=== PATIENT | female | born 1965 | race African-American/Black ===

== ENCOUNTER 2017-03-17 01:22 | Emergency (ER) | payer MEDICAID, OTHER ==
[~2017-03-17] VITALS: Ht 165.1 cm; Wt 114.0 kg
[~2017-03-17 01:22] MED LIST: AMLO10TA2 PO; GABA300C5 PO; HYDR12.57 PO; LISI40TA PO; ZANA4CAP PO
[2017-03-17 01:25] VITALS: BP 164/87; PULSE 100; RESP 16; TEMP 98.8; O2SAT 100
[2017-03-17] MEDS ORDERED: SODIUM CHLOR 0.9% 1000 ML INJ 1,000 ML IV SCH (02:55)
--- NOTE | 2017-03-17 02:57 | PD ---
HPI Chief Complaint: Headache Time Seen by Provider: 02:52 Travel History International Travel<30 days: No Contact w/Intl Traveler<30days: No Traveled to known affect area: No History of Present Illness HPI 51-year-old female here for evaluation of a headache. No started 2 days ago and have progressively gotten worse. She describes sharp shooting pains to the right side of her scalp occasionally on the left side. She denies history of migraines or similar headaches. No fevers or chills. No neck pain or stiffness. No paresthesias or motor deficits. No visual changes. She has felt nauseous and has had several episodes of vomiting. She also has some sensitivity to light. Pain is currently 10 out of 10. PFSH Past Medical History Anemia: Yes Arthritis: Yes Autoimmune Disease: No Blood Disorders: No Anxiety: Yes Depression: Yes Heart Rhythm Problems: No Cancer: No Cardiac Catheterization: No Cardiovascular Problems: Yes (HIGH BP) High Cholesterol: No Chemotherapy: No Chest Pain: Yes Congestive Heart Failure: No Diabetes: No Diminished Hearing: No Endocrine: No Fibromyalgia: Yes Gastrointestinal Disorders: Yes GERD: Yes Glaucoma: No Genitourinary: No Headaches: Yes Herniated Disk: Yes (bulging neck and lumbar) Hypertension: Yes Kidney Stones: Yes Musculoskeletal: Yes Neurologic: No Psychiatric: No Respiratory: No Immunizations Current: Yes Radiation Therapy: No Sickle Cell Disease: Yes (TRAIT) Tetanus Vaccination: > 5 Years Influenza Vaccination: No ?: Not Menopausal: Yes : 2 Para: 2 : 1 Tubal Ligation: Yes Past Surgical History Abdominal Surgery: Yes (GASTRIC BYPASS) Cardiac Surgery: No Section: Yes (X 2) Cholecystectomy: Yes Coronary Artery Bypass Graft: No Ear Surgery: No Endocrine Surgery: No Eye Surgery: No Genitourinary Surgery: Yes Gynecologic Surgery: Yes (UTERINE ABLATION) Neurologic Surgery: No Oral Surgery: No Thoracic Surgery: No Other Surgery: Yes (RT HAND CARPAL TUNNEL 2X, LT HAND CARPAL TUNNEL 1X) Social History Alcohol Use: Yes (OCC) Tobacco Use: No Substance Use: No Allergies-Medications (Allergen,Severity, Reaction): Coded Allergies: aspirin (Unverified Adverse Reaction, Intermediate, Nausea/Vomiting, ) ibuprofen (Unverified Adverse Reaction, Intermediate, Nausea/Vomiting, 03/17) Reported Meds & Prescriptions Reported Meds & Active Scripts Active Reported Hydrochlorothiazide 12.5 Mg Cap 12.5 Mg PO BID Lisinopril 40 Mg Tab 40 Mg PO DAILY Amlodipine (Amlodipine Besylate) 10 Mg Tab 10 Mg PO DAILY Zanaflex (Tizanidine HCl) 4 Mg Cap 4 Mg PO QID Gabapentin 300 Mg Cap 300 Mg PO TID Review of Systems Except as stated in HPI: all other systems reviewed are Neg Physical Exam Narrative GENERAL: Well-developed, well-nourished, overweight appearing, no apparent distress. SKIN: Focused skin assessment warm/dry. No rash. HEAD: Atraumatic. Normocephalic. No temporal tenderness. EYES: Pupils equal and round. No scleral icterus. No injection or drainage. ENT: Mucous membranes pink and moist. NECK: Trachea midline. No JVD. No nuchal rigidity. CARDIOVASCULAR: Regular rate and rhythm. RESPIRATORY: No accessory muscle use. Clear to auscultation. Breath sounds equal bilaterally. MUSCULOSKELETAL: No obvious deformities. No clubbing. No cyanosis. No edema. NEUROLOGICAL: Awake and alert. No obvious cranial nerve deficits. Motor grossly within normal limits. Normal speech. PSYCHIATRIC: Appropriate mood and affect; insight and judgment normal. Data Data Last Documented VS Vital Signs Date Time Temp Pulse Resp B/P (MAP) Pulse Ox O2 Delivery O2 Flow Rate FiO2 03/17/17 03:10 100 Room Air 03/17/17 02:55 18 03/17/17 01:25 98.8 100 Orders Orders Basic Metabolic Panel (Bmp) (03/17/17 02:55) Complete Blood Count With Diff (03/17/17 02:55) Iv Access Insert/Monitor (03/17/17 02:55) Ecg Monitoring (03/17/17 02:55) Oximetry (03/17/17 02:55) Morphine Inj (Morphine Inj) (03/17/17 03:00) Sodium Chlor 0.9% 1000 Ml Inj (Ns 1000 M (03/17/17 02:55) Sodium Chloride 0.9% Flush (Ns Flush) (03/17/17 03:00) Metoclopramide Inj (Reglan Inj) (03/17/17 03:00) Ct Brain W/O Iv Contrast(Rout) (03/17/17 ) Labs Laboratory Tests Test 03/17/17 03:00 White Blood Count 8.5 TH/MM3 Red Blood Count 4.65 MIL/MM3 Hemoglobin 12.2 GM/DL Hematocrit 37.1 % Mean Corpuscular Volume 79.9 FL Mean Corpuscular Hemoglobin 26.3 PG Mean Corpuscular Hemoglobin Concent 32.9 % Red Cell Distribution Width 15.5 % Platelet Count 378 TH/MM3 Mean Platelet Volume 8.6 FL Neutrophils (%) (Auto) 52.3 % Lymphocytes (%) (Auto) 38.2 % Monocytes (%) (Auto) 7.3 % Eosinophils (%) (Auto) 1.3 % Basophils (%) (Auto) 0.9 % Neutrophils # (Auto) 4.5 TH/MM3 Lymphocytes # (Auto) 3.3 TH/MM3 Monocytes # (Auto) 0.6 TH/MM3 Eosinophils # (Auto) 0.1 TH/MM3 Basophils # (Auto) 0.1 TH/MM3 CBC Comment DIFF FINAL Differential Comment Blood Urea Nitrogen 16 MG/DL Creatinine 1.12 MG/DL Random Glucose 98 MG/DL Calcium Level 8.8 MG/DL Sodium Level 141 MEQ/L Potassium Level 4.8 MEQ/L Chloride Level 109 MEQ/L Carbon Dioxide Level 25.3 MEQ/L Anion Gap 7 MEQ/L Estimat Glomerular Filtration Rate 62 ML/MIN [facility] Medical Decision Making Medical Screen Exam Complete: Yes Emergency Medical Condition: Yes Medical Record Reviewed: Yes Differential Diagnosis Tension headache, cluster headache, migraine headache, SAH/meningitis/ encephalitis unlikely, temporal arteritis unlikely Narrative Course Initial vital signs show heart rate 100, blood pressure 164/87, pulse ox 100% on room air, oral temp of 98.8F. CBC is unremarkable. BMP is essentially unremarkable. CT head: No acute intracranial abnormality. The patient was given a liter of normal saline IV, IV morphine, and IV Reglan. On reassessment she is resting comfortably, stating that her headache has resolved. I do not believe that there is a serious etiology for her headache such as SAH/meningitis/encephalitis. She more likely had a tension headache. At this point she is stable for discharge home with outpatient follow-up with her primary care physician this week. She was informed on when to return to the emergency department. She verbalizes understanding and agreement with plan. Diagnosis Primary Impression: Headache Qualified Codes: R51 - Headache Referrals: Primary Care Physician 3 days Additional Instructions: Follow-up with your primary care physician this week. Return to the emergency department for worsening symptoms or any other concerns. Disposition: 01 DISCHARGE HOME Condition: Stable Rudy Duarte MD Mar 17, 2017 02:57
[2017-03-17] MEDS ORDERED: METOCLOPRAMIDE HCL 10 MG/2 ML VIAL IV PUSH ONE (03:00)
[2017-03-17] MEDS ORDERED: MORPHINE SULFATE 4 MG/ML INJ IV PUSH ONE (03:00)
[2017-03-17] MEDS ORDERED: SODIUM CHLORIDE 0.9% FLUSH 10 ML FLUSH IV FLUSH PRN (03:00)
[2017-03-17 03:10] VITALS: O2SAT 100
[2017-03-17 03:22] LABS: AUTOMATED NEUTROPHIL # 4.5 TH/MM3 (1.8-7.7); BASOPHIL # 0.1 TH/MM3 (0-0.2); BASOPHIL % 0.9 % (0.0-2.0); EOSINOPHIL # 0.1 TH/MM3 (0-0.4); EOSINOPHIL % 1.3 % (0.0-4.0); HEMATOCRIT 37.1 % (35.0-46.0); HEMO FLAGS DIFF FINAL; LYMPH % 38.2 % (9.0-44.0); LYMPHOCYTE # 3.3 TH/MM3 (1.0-4.8); MEAN CELL VOLUME 79.9 FL (80.0-100.0); MEAN CORPUSCULAR HEMOGLOBIN 26.3 PG (27.0-34.0); MEAN CORPUSCULAR HGB CONC 32.9 % (32.0-36.0); MONO % 7.3 % (0.0-8.0); NEUT % 52.3 % (16.0-70.0); PLATELET COUNT 378 TH/MM3 (150-450); RED BLOOD COUNT 4.65 MIL/MM3 (4.00-5.30); RED CELL DISTRIBUTION WIDTH 15.5 % (11.6-17.2); WHITE BLOOD COUNT 8.5 TH/MM3 (4.0-11.0)
--- NOTE | 2017-03-17 03:47 | RADRPT ---
EXAM DATE/TIME: 03/17/2017 03:20 [facility] COMPARISON: CT BRAIN W/O CONTRAST, June 27, 2010, 17:02. INDICATIONS : Headaches past 2 days. RADIATION DOSE: 34.13 CTDIvol (mGy) MEDICAL HISTORY : Hypertension. Gastroesophageal reflux disease. Renal calculi. SURGICAL HISTORY : Gastric bypass. Cholecystectomy.Tubal ligation. ENCOUNTER: Initial ACUITY: 2 days PAIN SCALE: 10/10 LOCATION: cranial TECHNIQUE: Multiple contiguous axial images were obtained of the head. Using automated exposure control and adj ustment of the mA and/or kV according to patient size, radiation dose was kept as low as reasonably a chievable to obtain optimal diagnostic quality images. DICOM format image data is available electro nically for review and comparison. FINDINGS: CEREBRUM: The ventricles are normal for age. No evidence of midline shift, mass lesion, hemorrhage or acute in farction. No extra-axial fluid collections are seen. POSTERIOR FOSSA: The cerebellum and brainstem are intact. The 4th ventricle is midline. The cerebellopontine angle i s unremarkable. EXTRACRANIAL: The visualized portion of the orbits is intact. SKULL: The calvaria is intact. No evidence of skull fracture. CONCLUSION: 1. No acute intracranial abnormality. Mark Akhtar MD on March 17, 2017 at 3:44 Board Certified Radiologist. This report was verified electronically.
[2017-03-17 03:58] LABS: BICARBONATE 25.3 MEQ/L (21.0-32.0); POTASSIUM 4.8 MEQ/L (3.5-5.1)
[2017-03-17 04:32] VITALS: BP 160/89; PULSE 87; RESP 18; O2SAT 100
== END 2017-03-17 04:50 | disposition home or self-care (01) ==
LOC: NEPE 01:22
DX: R51 Headache (principal); D64.9 Anemia, unspecified; M13.80 Other specified arthritis, unspecified site; F41.9 Anxiety disorder, unspecified; F32.9 Major depressive disorder, single episode, unspecified; M79.7 Fibromyalgia; K21.9 Gastro-esophageal reflux disease without esophagitis; I10 Essential (primary) hypertension; D57.3 Sickle-cell trait
CPT/HCPCS: 70450; 80048; 85025; 96361; 96374; 96375; 99285; J2270; J2765; J7030

== ENCOUNTER 2017-03-31 00:48 | Emergency (ER) | payer MEDICAID, OTHER ==
[2017-03-31 00:50] VITALS: BP 134/78; PULSE 93; RESP 18; TEMP 98.2; O2SAT 98
[2017-03-31 03:36] VITALS: BP 117/71; PULSE 75; RESP 18; O2SAT 97
[2017-03-31] MEDS ORDERED: ONDANSETRON HCL 4 MG/2 ML VIAL IV ONE (03:45)
[2017-03-31] MEDS ORDERED: SODIUM CHLOR 0.9% 1000 ML INJ 1,000 ML IV ONE (03:45)
[2017-03-31 04:19] LABS: AUTOMATED NEUTROPHIL # 2.8 TH/MM3 (1.8-7.7); BASOPHIL # 0.1 TH/MM3 (0-0.2); BASOPHIL % 0.9 % (0.0-2.0); EOSINOPHIL # 0.1 TH/MM3 (0-0.4); EOSINOPHIL % 1.8 % (0.0-4.0); HEMATOCRIT 34.5 % (35.0-46.0); HEMO FLAGS DIFF FINAL; LYMPH % 48.2 % (9.0-44.0); LYMPHOCYTE # 3.2 TH/MM3 (1.0-4.8); MEAN CELL VOLUME 79.6 FL (80.0-100.0); MEAN CORPUSCULAR HEMOGLOBIN 26.3 PG (27.0-34.0); MEAN CORPUSCULAR HGB CONC 33.1 % (32.0-36.0); MONO % 7.3 % (0.0-8.0); NEUT % 41.8 % (16.0-70.0); PLATELET COUNT 301 TH/MM3 (150-450); RED BLOOD COUNT 4.34 MIL/MM3 (4.00-5.30); RED CELL DISTRIBUTION WIDTH 15.9 % (11.6-17.2); WHITE BLOOD COUNT 6.7 TH/MM3 (4.0-11.0)
[2017-03-31] MEDS ORDERED: FURO1TAB62 PO (04:37)
--- NOTE | 2017-03-31 04:44 | PD ---
HPI Chief Complaint: Abdominal Pain Time Seen by Provider: 03:38 Travel History International Travel<30 days: No Contact w/Intl Traveler<30days: No Traveled to known affect area: No History of Present Illness HPI The patient is a 51 year old female who presents to the [facility] emergency department with a history of abdominal pain in the right upper quadrant that recurred 2 days ago. It is 10/ 10 in severity. It is sharp in character. It is constant although it waxes and wanes in severity. It is exacerbated by eating spicy or greasy foods. She has had n/v x3 yesterday. She denies having any diarrhea. She last moved her bowels this morning. She has had a similar pain in the past related to a retained gallstone. She reports that she has had a cholecystectomy. She also reports having a toothache related to a broken tooth in the left adnexal. On review of systems, the patient denies any recent fevers, cough, congestion, neck pain, chest pain, shortness of breath, urinary symptoms, or neurologic symptoms. [facility] Past Medical History Narrative Medical The patient's past medical history is significant for gallstones in the bile duct, hypertension, torn right rotator cuff, carpal tunnel syndrome, anxiety/ depression, chronic pain, ddd neck and back. Anemia: Yes Arthritis: Yes Autoimmune Disease: No Blood Disorders: No Anxiety: Yes Depression: Yes Heart Rhythm Problems: No Cancer: No Cardiac Catheterization: No Cardiovascular Problems: Yes (HIGH BP) High Cholesterol: No Chemotherapy: No Chest Pain: Yes Congestive Heart Failure: No Diabetes: No Diminished Hearing: No Endocrine: No Fibromyalgia: Yes Gastrointestinal Disorders: Yes GERD: Yes Glaucoma: No Genitourinary: No Headaches: Yes Herniated Disk: Yes (bulging neck and lumbar) Hypertension: Yes Kidney Stones: Yes Musculoskeletal: Yes Neurologic: No Psychiatric: No Respiratory: No Immunizations Current: Yes Radiation Therapy: No Sickle Cell Disease: Yes (TRAIT) ?: Not Menopausal: Yes : 2 Para: 2 : 1 Tubal Ligation: Yes Past Surgical History Narrative Surgical The patient's past surgical history is significant for cholecystectomy, gastric bypass, 2 c-sections, btl, uterine ablation. Abdominal Surgery: Yes (GASTRIC BYPASS) Cardiac Surgery: No Section: Yes (X 2) Cholecystectomy: Yes Coronary Artery Bypass Graft: No Ear Surgery: No Endocrine Surgery: No Eye Surgery: No Genitourinary Surgery: Yes Gynecologic Surgery: Yes (UTERINE ABLATION) Neurologic Surgery: No Oral Surgery: No Thoracic Surgery: No Other Surgery: Yes (RT HAND CARPAL TUNNEL 2X, LT HAND CARPAL TUNNEL 1X) Social History Alcohol Use: Yes (OCC) Tobacco Use: No Substance Use: No Allergies-Medications (Allergen,Severity, Reaction): Coded Allergies: aspirin (Unverified Adverse Reaction, Intermediate, Nausea/Vomiting, ) ibuprofen (Unverified Adverse Reaction, Intermediate, Nausea/Vomiting, ) Reported Meds & Prescriptions Reported Meds & Active Scripts Active Lortab (Hydrocodone-Acetaminophen) 5-325 Mg Tab 1 Tab PO Q6H PRN Penicillin V Potassium 500 Mg Tab 500 Mg PO Q8H Reported Lasix (Furosemide) 20 Mg Tab 20 Mg PO DAILY Lisinopril 40 Mg Tab 40 Mg PO DAILY Amlodipine (Amlodipine Besylate) 10 Mg Tab 10 Mg PO DAILY Zanaflex (Tizanidine HCl) 4 Mg Cap 4 Mg PO QID Gabapentin 300 Mg Cap 300 Mg PO TID Narrative Medication pain patch Review of Systems Except as stated in HPI: all other systems reviewed are Neg General / Constitutional: No: Fever Eyes: No: Visual changes HENT: No: Headaches Cardiovascular: No: Chest Pain or Discomfort Respiratory: No: Shortness of Breath Gastrointestinal: Positive: Nausea, Vomiting, Abdominal Pain, No: Diarrhea Genitourinary: No: Dysuria Musculoskeletal: No: Pain Skin: No Rash Neurologic: No: Weakness Psychiatric: No: Depression Endocrine: No: Polydipsia Hematologic/Lymphatic: No: Easy Bruising Physical Exam Narrative General: The patient is a well-developed well-nourished female in no acute distress. Head and Neck exam: Head is normocephalic atraumatic. Eyes: EOMI, pupils are equal round and reactive to light. Nose: Midline septum with pink mucous membranes Mouth: The patient has poor dentition throughout her mouth, however the area of interest that she reports is painful is a broken tooth that is broken off at the gumline with decay noted. There is no surrounding erythema or edema. No ori abscess formation. Moist mucus membranes. Posterior oropharynx is not erythematous. No tonsillar hypertrophy. Uvula midline. Airway patent. Neck: No palpable lymphadenopathy. No nuchal rigidity. No thyromegaly. Cardiovascular: Regular rate and rhythm without murmurs, gallops, or rubs. Lungs: Clear to auscultation bilaterally. No wheezes, rhonchi, or rales. Abdomen: Soft, with reported discomfort on palpation in the right upper quadrant of the abdomen and midepigastric area. No other tenderness on palpation of the other quadrants of the abdomen. No guarding, rebound, or rigidity. Normal bowel sounds are audible. No tenderness on palpation of McBurney's point. Negative Patiño's sign. Extremities: No clubbing or cyanosis. The patient has trace pedal edema bilateral lower extremities.. 2+ pulses in all 4 extremities. No calf tenderness on palpation Back: No spinous process tenderness to palpation. No costovertebral angle tenderness to palpation. Neurologic Exam: Grossly nonfocal. Skin Exam: No rash noted. Intact skin that is warm and dry. Data Data Last Documented VS Vital Signs Date Time Temp Pulse Resp B/P (MAP) Pulse Ox O2 Delivery O2 Flow Rate FiO2 03/31/17 06:52 60 14 90/58 (69) 93 Room Air 03/31/17 00:50 98.2 Orders Orders Electrocardiogram (03/31/17 03:41) Complete Blood Count With Diff (03/31/17 03:41) Comprehensive Metabolic Panel (03/31/17 03:41) C-Reactive Protein (Crp) (03/31/17 03:41) Lipase (03/31/17 03:41) Urinalysis - C+S If Indicated (03/31/17 03:41) Chest, Single Ap (03/31/17 03:41) Ct Abd/Pel W Iv Contrast(Rout) (03/31/17 03:41) Iv Access Insert/Monitor (03/31/17 03:41) Ecg Monitoring (03/31/17 03:41) Oximetry (03/31/17 03:41) Ed Urine Pregnancytest Poc (03/31/17 03:41) Lactic Acid (03/31/17 03:41) Sodium Chlor 0.9% 1000 Ml Inj (Ns 1000 M (03/31/17 03:45) Ondansetron Inj (Zofran Inj) (03/31/17 03:45) Morphine Inj (Morphine Inj) (03/31/17 05:15) Iohexol 350 Inj (Omnipaque 350 Inj) (03/31/17 06:17) Hydromorphone Pf Inj (Dilaudid Pf Inj) (03/31/17 06:30) Labs Laboratory Tests Test 03/31/17 03:50 03/31/17 03:55 Urine Color YELLOW Urine Turbidity CLEAR Urine pH 5.5 Urine Specific [place] 1.013 Urine Protein NEG mg/dL Urine Glucose (UA) NEG mg/dL Urine Ketones NEG mg/dL Urine Occult Blood NEG Urine Nitrite NEG Urine Bilirubin NEG Urine Urobilinogen LESS THAN 2.0 MG/DL Urine Leukocyte Esterase NEG Urine RBC LESS THAN 1 /hpf Urine WBC LESS THAN 1 /hpf Urine Squamous Epithelial Cells <1 /hpf Urine Bacteria RARE /hpf Urine Hyaline Casts 3 /lpf Urine Mucus FEW /lpf Microscopic Urinalysis Comment CULT NOT INDICATED White Blood Count 6.7 TH/MM3 Red Blood Count 4.34 MIL/MM3 Hemoglobin 11.4 GM/DL Hematocrit 34.5 % Mean Corpuscular Volume 79.6 FL Mean Corpuscular Hemoglobin 26.3 PG Mean Corpuscular Hemoglobin Concent 33.1 % Red Cell Distribution Width 15.9 % Platelet Count 301 TH/MM3 Mean Platelet Volume 8.5 FL Neutrophils (%) (Auto) 41.8 % Lymphocytes (%) (Auto) 48.2 % Monocytes (%) (Auto) 7.3 % Eosinophils (%) (Auto) 1.8 % Basophils (%) (Auto) 0.9 % Neutrophils # (Auto) 2.8 TH/MM3 Lymphocytes # (Auto) 3.2 TH/MM3 Monocytes # (Auto) 0.5 TH/MM3 Eosinophils # (Auto) 0.1 TH/MM3 Basophils # (Auto) 0.1 TH/MM3 CBC Comment DIFF FINAL Differential Comment Blood Urea Nitrogen 22 MG/DL Creatinine 0.87 MG/DL Random Glucose 99 MG/DL Total Protein 7.9 GM/DL Albumin 3.8 GM/DL Calcium Level 9.2 MG/DL Alkaline Phosphatase 92 U/L Aspartate Amino Transf (AST/SGOT) 17 U/L Alanine Aminotransferase (ALT/SGPT) 23 U/L Total Bilirubin 0.2 MG/DL Sodium Level 137 MEQ/L Potassium Level 4.5 MEQ/L Chloride Level 106 MEQ/L Carbon Dioxide Level 24.2 MEQ/L Anion Gap 7 MEQ/L Estimat Glomerular Filtration Rate 83 ML/MIN Lactic Acid Level 1.0 mmol/L C-Reactive Protein 0.87 MG/DL Lipase 78 U/L [facility] Medical Decision Making Medical Screen Exam Complete: Yes Emergency Medical Condition: Yes Medical Record Reviewed: Yes Interpretation(s) Last Impressions Chest X-Ray 03/31/17340 Signed Impressions: Service Date/Time: Friday, March 31, 2017 03:54 - CONCLUSION: Normal examination. John Jade Jr., MD Abdomen/Pelvis CT 03/31/17340 Signed Impressions: Service Date/Time: Friday, March 31, 2017 05:54 - CONCLUSION: 1. No acute abnormality to explain the patient's pain. 2. Long-term stable intrahepatic and extra hepatic biliary dilatation. 3. Prior cholecystectomy. 4. Prior gastric bypass. John Jade Jr., MD Differential Diagnosis Retained biliary stone, versus gastritis, versus pancreatitis, versus acid reflux Narrative Course During the course of the patients emergency department visit, the patients history, examination, and differential diagnosis were reviewed with the patient. The patient had IV access obtained and blood work sent for analysis. The patient will be CT scan of the abdomen and pelvis done. The patient had an ECG done on arrival that shows a sinus rhythm heart rate of 69, no acute ST segment elevation. The patient was initially provided normal saline 1 L IV fluid bolus, Zofran 4 mg IV. The patients laboratory studies were reviewed and remarkable for a white count of 6.7, hemoglobin 11.4, platelets 301 with 48.2 lymphs, CMP is remarkable for a BUN of 22, GFR of 83, lactic acid 1, C-reactive protein 0.87, lipase 78, urinalysis is unremarkable. Radiology studies were reviewed and remarkable for a chest x-ray that shows no acute cardiopulmonary disease. CT scan of the abdomen and pelvis shows no acute abnormality to explain the patient's pain, long-term stable intrahepatic and extrahepatic biliary dilatation, prior cholecystectomy, prior gastric bypass. The patient will be discharged home with a prescription for penicillin for her dentalgia and decayed tooth, as well as Lortab for pain. She is instructed to follow-up with a dentist as soon as possible and follow up with her primary care physician for reexamination regarding her recurrent abdominal pain and vomiting. The patient is resting comfortably and feels better, is alert and in no distress. The patients results and examination findings were discussed with the patient. The repeat examination is unremarkable and benign. The history, exam, diagnostic testing, and current condition do not suggest any significant pathology to warrant further testing, continued ED treatment, admission, or surgical evaluation at this point. The vital signs have been stable. The patient does not have uncontrollable pain, intractable vomiting, or other significant symptoms. The patient's condition is stable and appropriate for discharge. The patient will pursue further outpatient evaluation with a primary care physician or other designated or consulting physician as indicated in the discharge instructions. The patient expressed understanding and was agreeable with this plan. Diagnosis Primary Impression: Abdominal pain Qualified Codes: R10.11 - Right upper quadrant pain Additional Impressions: Dentalgia Dental decay Vomiting Qualified Codes: R11.2 - Nausea with vomiting, unspecified Referrals: Dentist 1 day Primary Care Physician 3 days Med/Other Pt SpecificInfo: Prescription(s) given Scripts Hydrocodone-Acetaminophen (Lortab) 5-325 Mg Tab 1 TAB PO Q6H Y for PAIN, #12 TAB 0 Refills Prov: Joselyn Kumar MD 03/31/17 Penicillin V Potassium (Penicillin V Potassium) 500 Mg Tab 500 MG PO Q8H for Infection, #30 TAB 0 Refills Prov: Joselyn Kumar MD 03/31/17 Disposition: 01 DISCHARGE HOME Condition: Stable Joselyn Kumar MD Mar 31, 2017 04:44
[2017-03-31 04:52] LABS: BACTERIA, URINE RARE /hpf; BLOOD, URINE NEG (NEG); COMMENT (UR) CULT NOT INDICATED; CULTURE IF INDICATED CULT NOT INDICATED; GLUCOSE,URINE NEG (NEG); HYALINE CAST, URINE 3 /lpf (RARE); KETONE, URINE NEG (NEG); MUCUS URINE FEW /lpf (OCC); NITRITE,URINE NEG (NEG); PH, URINE 5.5 (5.0-8.5); SQUAMOUS EPITHELIAL CELL URINE <1 /hpf (0-5); URINE COLOR YELLOW (YELLW/STRAW)
[2017-03-31 04:52] LABS: ALT (GPT) 23 U/L (10-53)
[2017-03-31 04:53] LABS: ALKALINE PHOSPHATASE 92 U/L (45-117); TOTAL BILIRUBIN ADULT 0.2 MG/DL (0.2-1.0)
[2017-03-31 04:55] LABS: ANION GAP 7 MEQ/L (5-15); AST (GOT) 17 U/L (15-37); BICARBONATE 24.2 MEQ/L (21.0-32.0); BLOOD UREA NITROGEN 22 MG/DL (7-18); CHLORIDE 106 MEQ/L (98-107); GLOMERULAR FILTRATION RATE 83 ML/MIN (>89); POTASSIUM 4.5 MEQ/L (3.5-5.1); SODIUM (NA) 137 MEQ/L (136-145)
--- NOTE | 2017-03-31 04:59 | RADRPT ---
EXAM DATE/TIME: 03/31/2017 03:54 [facility] COMPARISON: CHEST SINGLE AP, June 22, 2014, 13:07. INDICATIONS : Chest pain. MEDICAL HISTORY : None. SURGICAL HISTORY : None. ENCOUNTER: Initial ACUITY: 1 day PAIN SCORE: 0/10 LOCATION: Bilateral chest FINDINGS: A single view of the chest demonstrates the lungs to be symmetrically aerated without evidence of mas s, infiltrate or effusion. The cardiomediastinal contours are unremarkable. Osseous structures are intact. CONCLUSION: Normal examination. John Jade Jr., MD on March 31, 2017 at 4:57 Board Certified Radiologist. This report was verified electronically.
[2017-03-31] MEDS ORDERED: MORPHINE SULFATE 4 MG/ML INJ IV PUSH ONE (05:15)
[2017-03-31] MEDS ORDERED: IOHEXOL 350 MG/ML 10 ML VIAL (for RAD DIAG) IVCONTRAST ONE (06:17)
[2017-03-31] MEDS ORDERED: HYDR-3533 PO (06:23)
[2017-03-31] MEDS ORDERED: PENI500T PO (06:23)
[2017-03-31] MEDS ORDERED: HYDROmorphone HCL PF 1 MG/ML VIAL IV PUSH ONE (06:30)
--- NOTE | 2017-03-31 06:39 | RADRPT ---
EXAM DATE/TIME: 03/31/2017 05:54 [facility] COMPARISON: CT ABDOMEN & PELVIS W CONTRAST, June 15, 2013, 11:14. INDICATIONS : Bilateral upper quadrant pain. IV CONTRAST: 100 cc Omnipaque 350 (iohexol) IV ORAL CONTRAST: No oral contrast ingested. RADIATION DOSE: 28.26 CTDIvol (mGy) MEDICAL HISTORY : Hypertension. Gastroesophageal reflux disease. Renal calculi. SURGICAL HISTORY : Cholecystectomy. Tubal ligation.Gastric bypass. ENCOUNTER: Initial ACUITY: 1 day PAIN SCALE: 10/10 LOCATION: Bilateral upper quadrant TECHNIQUE: Volumetric scanning of the abdomen and pelvis was performed. Using automated exposure control and ad justment of the mA and/or kV according to patient size, radiation dose was kept as low as reasonably achievable to obtain optimal diagnostic quality images. DICOM format image data is available electro nically for review and comparison. FINDINGS: LOWER LUNGS: The visualized lower lungs are clear. LIVER: Again seen is intrahepatic and extra hepatic biliary dilatation. This is stable from the prior exam. The common bile duct reaches a maximum diameter of 2.2 cm. The gallbladder is surgically absent. No d iscrete hepatic mass. Portal vein is patent. SPLEEN: Normal size without lesion. PANCREAS: Within normal limits. KIDNEYS: Normal in size and shape. There is no mass, stone or hydronephrosis. ADRENAL GLANDS: Within normal limits. VASCULAR: There is no aortic aneurysm. BOWEL/MESENTERY: Prior gastric bypass with [id number]. The stomach, small bowel, and colon demonstrate no acute abnorma lity. There is no free intraperitoneal air or fluid. ABDOMINAL WALL: Within normal limits. RETROPERITONEUM: There is no lymphadenopathy. BLADDER: No wall thickening or mass. REPRODUCTIVE: Within normal limits. INGUINAL: There is no lymphadenopathy or hernia. MUSCULOSKELETAL: Within normal limits for patient age. CONCLUSION: 1. No acute abnormality to explain the patient's pain. 2. Long-term stable intrahepatic and extra hepatic biliary dilatation. 3. Prior cholecystectomy. 4. Prior gastric bypass. John Jade Jr., MD on March 31, 2017 at 6:33 Board Certified Radiologist. This report was verified electronically.
[2017-03-31 06:52] VITALS: BP 90/58; PULSE 60; RESP 14; O2SAT 93
--- NOTE | 2017-03-31 14:47 | EKG ---
Date Performed: 03/31/2017 Time Performed: 04:17:40 PTAGE: 51 years EKG: Sinus rhythm NORMAL ECG Compared to prior tracing no significant change PREVIOUS TRACING : 12/13/14 DOCTOR: Joesph Stanton Interpretating Date/Time 03/31/2017 14:46:01
== END 2017-03-31 07:45 | disposition home or self-care (01) ==
LOC: NEPC 00:48
DX: R10.11 Right upper quadrant pain (principal); K02.9 Dental caries, unspecified; K08.89 Other specified disorders of teeth and supporting structures; R11.2 Nausea with vomiting, unspecified; I10 Essential (primary) hypertension; D57.3 Sickle-cell trait; Z86.2 Personal history of diseases of the blood and blood-forming organs and certain disorders involving the immune mechanism; Z86.59 Personal history of other mental and behavioral disorders; Z86.79 Personal history of other diseases of the circulatory system; Z87.19 Personal history of other diseases of the digestive system; Z87.442 Personal history of urinary calculi
CPT/HCPCS: 71010; 74177; 80053; 81001; 83605; 83690; 84703; 85025; 86140; 93005; 96361; 96374; 96375; 99285; J2270; J2405; J7030; Q9967

== ENCOUNTER 2017-07-17 01:42 | Emergency (ER) | payer SELFPAY ==
[~2017-07-17] VITALS: Ht 165.1 cm; Wt 115.0 kg
[~2017-07-17 01:42] MED LIST changes: +FURO1TAB62 PO; +HYDR-3533 PO; -HYDR12.57 PO; +PENI500T PO
[2017-07-17 01:46] VITALS: BP 130/73; PULSE 92; RESP 16; TEMP 100.1; O2SAT 100
--- NOTE | 2017-07-17 02:04 | PD ---
HPI Chief Complaint: Cold / Flu Symptoms Time Seen by Provider: 01:58 Travel History International Travel<30 days: No Contact w/Intl Traveler<30days: No Traveled to known affect area: No History of Present Illness HPI 51-year-old female presents emergency department for evaluation of fever, bodyaches, sore throat worsening over last 3 days. Pain is moderate in severity. She has also developed a cough and chest congestion. She has been nauseous without vomiting. She has had no diarrhea. Patient reports history of hypertension, no other significant medical history. She has no other symptoms reported this time. PFSH Past Medical History Anemia: Yes Arthritis: Yes Autoimmune Disease: No Blood Disorders: No Anxiety: Yes Depression: Yes Heart Rhythm Problems: No Cancer: No Cardiac Catheterization: No Cardiovascular Problems: Yes (HIGH BP) High Cholesterol: No Chemotherapy: No Chest Pain: Yes Congestive Heart Failure: No Diabetes: No Diminished Hearing: No Endocrine: No Fibromyalgia: Yes Gastrointestinal Disorders: Yes GERD: Yes Glaucoma: No Genitourinary: No Headaches: Yes Heparin Induced Thrombocytopen: No Herniated Disk: Yes (bulging neck and lumbar) Hypertension: Yes Kidney Stones: Yes Musculoskeletal: Yes Neurologic: No Psychiatric: No Respiratory: No Immunizations Current: Yes Radiation Therapy: No Sickle Cell Disease: Yes (TRAIT) Tetanus Vaccination: > 5 Years Influenza Vaccination: No ?: Unknown Menopausal: Yes : 2 Para: 2 : 1 Tubal Ligation: Yes Past Surgical History Abdominal Surgery: Yes (GASTRIC BYPASS) Cardiac Surgery: No Section: Yes (X 2) Cholecystectomy: Yes Coronary Artery Bypass Graft: No Ear Surgery: No Endocrine Surgery: No Eye Surgery: No Genitourinary Surgery: Yes Gynecologic Surgery: Yes (UTERINE ABLATION) Neurologic Surgery: No Oral Surgery: No Thoracic Surgery: No Other Surgery: Yes (RT HAND CARPAL TUNNEL 2X, LT HAND CARPAL TUNNEL 1X) Social History Alcohol Use: Yes (OCC) Tobacco Use: No Substance Use: No Allergies-Medications (Allergen,Severity, Reaction): Coded Allergies: aspirin (Unverified Adverse Reaction, Intermediate, Nausea/Vomiting, ) ibuprofen (Unverified Adverse Reaction, Intermediate, Nausea/Vomiting, 07/17) Reported Meds & Prescriptions Reported Meds & Active Scripts Active Lortab (Hydrocodone-Acetaminophen) 5-325 Mg Tab 1 Tab PO Q6H PRN Penicillin V Potassium 500 Mg Tab 500 Mg PO Q8H Reported Lasix (Furosemide) 20 Mg Tab 20 Mg PO DAILY Lisinopril 40 Mg Tab 40 Mg PO DAILY Amlodipine (Amlodipine Besylate) 10 Mg Tab 10 Mg PO DAILY Zanaflex (Tizanidine HCl) 4 Mg Cap 4 Mg PO QID Gabapentin 300 Mg Cap 300 Mg PO TID Review of Systems Except as stated in HPI: all other systems reviewed are Neg Physical Exam Narrative GENERAL: On nourished female patient, in no acute distress. SKIN: Focused skin assessment warm/dry. HEAD: Atraumatic. Normocephalic. EYES: Pupils equal and round. No scleral icterus. No injection or drainage. ENT: No nasal bleeding or discharge. Mucous membranes pink and moist. Pharynx with erythema without exudates. NECK: Trachea midline. No JVD. Tonsillar lymphadenopathy. CARDIOVASCULAR: Elevated rate and rhythm. No murmur appreciated. RESPIRATORY: No accessory muscle use. Clear to auscultation. Breath sounds equal bilaterally. GASTROINTESTINAL: Abdomen soft, non-tender, nondistended. Hepatic and splenic margins not palpable. MUSCULOSKELETAL: No obvious deformities. No clubbing. No cyanosis. No edema. NEUROLOGICAL: Awake and alert. No obvious cranial nerve deficits. Motor grossly within normal limits. Normal speech. Data Data Last Documented VS Vital Signs Date Time Temp Pulse Resp B/P (MAP) Pulse Ox O2 Delivery O2 Flow Rate FiO2 07/17/17 03:13 20 07/17/17 02:51 07/17/17 01:46 100.1 92 100 Room Air Orders Orders Influenzae A/B Antigen (07/17/17 02:03) Group A Rapid Strep Screen (07/17/17 02:03) Acetaminophen (Tylenol) (07/17/17 02:15) Strep Culture (Group A) (07/17/17 02:10) Ed Discharge Order (07/17/17 02:46) MDM Medical Decision Making Medical Screen Exam Complete: Yes Emergency Medical Condition: Yes Medical Record Reviewed: Yes Differential Diagnosis Influenza versus viral syndrome versus bronchitis versus pneumonia Narrative Course 51-year-old female presents emergency department for evaluation. Patient appears nontoxic. She is treated for elevated temp here in emergency department. Patient is positive for influenza A. She is counseled on care. She is encouraged follow-up with primary care provider and return immediately with any acute worsening symptoms. Diagnosis Primary Impression: Influenza A Referrals: Primary Care Physician Patient Instructions: General Instructions, H1N1 Influenza (ED) Additional Instructions: Rest Maintain adequate oral hydration Tylenol as directed on package as needed for fever control Humidified air may help to alleviate symptoms Return immediately to the emergency department with any acute worsening symptoms Med/Other Pt SpecificInfo: No Change to Meds Disposition: 01 DISCHARGE HOME Condition: Stable Demetrice Weinberg Jul 17, 2017 02:04
[2017-07-17] MEDS ORDERED: ACETAMINOPHEN 325 MG TAB PO ONE (02:15)
[2017-07-17 03:13] VITALS: RESP 20
== END 2017-07-17 03:17 | disposition home or self-care (01) ==
LOC: NEPD 01:42
DX: J10.1 Influenza due to other identified influenza virus with other respiratory manifestations (principal); I10 Essential (primary) hypertension; M79.7 Fibromyalgia
CPT/HCPCS: 87081; 87804; 87880; 99283

== ENCOUNTER 2017-10-27 23:52 | Emergency (ER) | payer OTHER ==
[2017-10-28] MEDS ORDERED: HYDR-3516 PO (01:02)
[2017-10-29] MEDS ORDERED: OXYC1TAB63 PO (14:48)
[2017-10-29] MEDS ORDERED: ONDA4TAB7 PO (14:48)
[2017-10-29] MEDS ORDERED: COLA100C5 PO (14:59)
== END 2017-10-28 00:54 | disposition left against medical advice (07) ==
LOC: NED 23:52
DX: R10.9 Unspecified abdominal pain (principal)
CPT/HCPCS: 99281

== ENCOUNTER 2017-10-28 00:42 | Observation (INO) | payer OTHER ==
[2017-10-28] VITALS (8 sets, daily range): BP systolic 90–158; BP diastolic 54–89; PULSE 66–96; RESP 16–20; TEMP 96.3–98.7; O2SAT 95–100
[~2017-10-28] VITALS: Ht 162.6 cm; Wt 127.8 kg
[2017-10-28] MEDS ORDERED: HYDR-3516 PO (01:02)
[2017-10-28] MEDS ORDERED: SODIUM CHLOR 0.9% 1000 ML INJ 1,000 ML IV SCH (01:05)
--- NOTE | 2017-10-28 01:13 | PD ---
HPI Chief Complaint: Abdominal Pain Time Seen by Provider: 01:05 Travel History International Travel<30 days: No Contact w/Intl Traveler<30days: No Traveled to known affect area: No History of Present Illness HPI The patient is a 51-year-old female that complains of right upper quadrant pain beginning yesterday morning. The pain is an 8/10, constant and associated associated with nausea, vomiting and a slight amount of diarrhea. the pain is throbbing and burning in character. She has had a cholecystectomy many years ago but she has still had ductal stones after the cholecystectomy was done. She states it feels like her gallbladder again. She denies any fever. PFSH Past Medical History Anemia: Yes ("SICKLE CELL TRAIT") Arthritis: Yes Autoimmune Disease: No Blood Disorders: No Anxiety: Yes Depression: Yes Heart Rhythm Problems: No Cancer: No Cardiac Catheterization: No Cardiovascular Problems: Yes (HIGH BP) High Cholesterol: No Chemotherapy: No Chest Pain: Yes Congestive Heart Failure: No Diabetes: No Diminished Hearing: No Endocrine: No Fibromyalgia: Yes Gastrointestinal Disorders: Yes GERD: Yes Glaucoma: No Genitourinary: No Headaches: Yes Heparin Induced Thrombocytopen: No Herniated Disk: Yes (bulging neck and lumbar) Hypertension: Yes Kidney Stones: Yes Musculoskeletal: Yes Neurologic: No Psychiatric: No Respiratory: No Immunizations Current: Yes Radiation Therapy: No Shingles: Yes Sickle Cell Disease: Yes (TRAIT) Influenza Vaccination: No ?: Not Menopausal: Yes : 2 Para: 2 : 1 Tubal Ligation: Yes Past Surgical History Abdominal Surgery: Yes (GASTRIC BYPASS: 1995) Cardiac Surgery: No Section: Yes (X 2) Cholecystectomy: Yes (1985) Coronary Artery Bypass Graft: No Ear Surgery: No Endocrine Surgery: No Eye Surgery: No Genitourinary Surgery: Yes Gynecologic Surgery: Yes (UTERINE ABLATION) Neurologic Surgery: No Oral Surgery: No Thoracic Surgery: No Other Surgery: Yes (RT HAND CARPAL TUNNEL 2X, LT HAND CARPAL TUNNEL 1X) Social History Alcohol Use: Yes (OCC) Tobacco Use: No Substance Use: No Allergies-Medications (Allergen,Severity, Reaction): Coded Allergies: aspirin (Unverified Adverse Reaction, Intermediate, Nausea/Vomiting, ) ibuprofen (Unverified Adverse Reaction, Intermediate, Nausea/Vomiting, ) Reported Meds & Prescriptions Reported Meds & Active Scripts Active Reported Hydrocodone-Acetaminophen 5-325 mg Tab 1 Tab PO Q6H PRN Lisinopril 40 Mg Tab 40 Mg PO HS Amlodipine (Amlodipine Besylate) 10 Mg Tab 5 Mg PO BID Zanaflex (Tizanidine HCl) 4 Mg Cap 4 Mg PO QID Gabapentin 300 Mg Cap 300 Mg PO TID Review of Systems Except as stated in HPI: all other systems reviewed are Neg Physical Exam Narrative GENERAL: The patient is obese, alert, oriented 3 in moderate apparent distress with her right upper quadrant abdominal pain. Her vital signs show blood pressure 158/74 but are otherwise normal. SKIN: Focused skin assessment warm/dry. HEAD: Atraumatic. Normocephalic. EYES: Pupils equal and round. No scleral icterus. No injection or drainage. ENT: No nasal bleeding or discharge. Mucous membranes pink and moist. NECK: Trachea midline. No JVD. CARDIOVASCULAR: Regular rate and rhythm. No murmur appreciated. RESPIRATORY: No accessory muscle use. Clear to auscultation. Breath sounds equal bilaterally. GASTROINTESTINAL: Abdomen soft, with tenderness in the right upper quadrant, above the cholecystectomy scar to direct palpation, nondistended. Hepatic and splenic margins not palpable. No guarding or rebound is present. MUSCULOSKELETAL: No obvious deformities. No clubbing. No cyanosis. No edema. NEUROLOGICAL: Awake and alert. No obvious cranial nerve deficits. Motor grossly within normal limits. Normal speech. PSYCHIATRIC: Appropriate mood and affect; insight and judgment normal. Data Data Last Documented VS Vital Signs Date Time Temp Pulse Resp B/P (MAP) Pulse Ox O2 Delivery O2 Flow Rate FiO2 10/28/17 02:18 69 16 103/57 (72) 95 Room Air 10/28/17 00:46 98.6 Orders Orders Complete Blood Count With Diff (10/28/17 01:05) Comprehensive Metabolic Panel (10/28/17 01:05) Lipase (10/28/17 01:05) Urinalysis - C+S If Indicated (10/28/17 01:05) Ct Abd/Pel W Iv Contrast(Rout) (10/28/17 01:05) Iv Access Insert/Monitor (10/28/17 01:05) Ecg Monitoring (10/28/17 01:05) Oximetry (10/28/17 01:05) Sodium Chloride 0.9% Flush (Ns Flush) (10/28/17 01:15) Morphine Inj (Morphine Inj) (10/28/17 01:15) Ondansetron Inj (Zofran Inj) (10/28/17 01:15) Sodium Chlor 0.9% 1000 Ml Inj (Ns 1000 M (10/28/17 01:05) Iohexol 350 Inj (Omnipaque 350 Inj) (10/28/17 02:05) Labs Laboratory Tests Test 10/28/17 01:10 White Blood Count 7.4 TH/MM3 Red Blood Count 4.05 MIL/MM3 Hemoglobin 10.9 GM/DL Hematocrit 32.8 % Mean Corpuscular Volume 81.0 FL Mean Corpuscular Hemoglobin 26.9 PG Mean Corpuscular Hemoglobin Concent 33.2 % Red Cell Distribution Width 15.7 % Platelet Count 373 TH/MM3 Mean Platelet Volume 8.5 FL Neutrophils (%) (Auto) 54.0 % Lymphocytes (%) (Auto) 34.3 % Monocytes (%) (Auto) 8.4 % Eosinophils (%) (Auto) 1.2 % Basophils (%) (Auto) 2.1 % Neutrophils # (Auto) 3.9 TH/MM3 Lymphocytes # (Auto) 2.6 TH/MM3 Monocytes # (Auto) 0.6 TH/MM3 Eosinophils # (Auto) 0.1 TH/MM3 Basophils # (Auto) 0.2 TH/MM3 CBC Comment DIFF FINAL Differential Comment Urine Collection Type CLEAN CATCH Urine Color YELLOW Urine Turbidity CLEAR Urine pH 5.5 Urine Specific [place] 1.010 Urine Protein NEG mg/dL Urine Glucose (UA) NEG mg/dL Urine Ketones NEG mg/dL Urine Occult Blood NEG Urine Nitrite NEG Urine Bilirubin NEG Urine Urobilinogen 0.2 MG/DL Urine Leukocyte Esterase NEG Urine Squamous Epithelial Cells 0-5 /hpf Urine Bacteria OCC /hpf Urine Hyaline Casts 0-2 /lpf Urine Mucus OCC /lpf Urine Yeast (Budding) OCC Microscopic Urinalysis Comment CULT NOT INDICATED Blood Urea Nitrogen 15 MG/DL Creatinine 0.89 MG/DL Random Glucose 95 MG/DL Total Protein 7.8 GM/DL Albumin 3.5 GM/DL Calcium Level 8.6 MG/DL Alkaline Phosphatase 100 U/L Aspartate Amino Transf (AST/SGOT) 19 U/L Alanine Aminotransferase (ALT/SGPT) 21 U/L Total Bilirubin 0.2 MG/DL Sodium Level 140 MEQ/L Potassium Level 4.1 MEQ/L Chloride Level 110 MEQ/L Carbon Dioxide Level 26.1 MEQ/L Anion Gap 4 MEQ/L Estimat Glomerular Filtration Rate 81 ML/MIN Lipase 72 U/L [facility] Medical Decision Making Medical Screen Exam Complete: Yes Emergency Medical Condition: Yes Medical Record Reviewed: Yes Interpretation(s) The CBC is normal except for hemoglobin of 10.9 and hematocrit oh 32.9. The complete metabolic profile shows a GFR of 81 and anion gap of 4 but is otherwise unremarkable. The lipase is 72. The urinalysis is normal and culture is not indicated. The CT abdomen/pelvis with IV contrast shows a partial small bowel obstruction at the level of the distal ileum, presumably due to an adhesion. No mass or inflammatory changes are noted. Chronic and not significantly changed is intrahepatic and extrahepatic biliary distention postcholecystectomy. Differential Diagnosis Ductal stone, colitis, pancreatitis, ulcer pain, pyelonephritis, small bowel obstruction Narrative Course The patient still has right upper quadrant pain. The CT scan shows a partial small bowel obstruction. Physician Communication Physician Communication I discussed the patient with Dr. Jauregui, the patient will be [address] Montano. Diagnosis Primary Impression: Small bowel obstruction due to adhesions Additional Impression: Nausea and vomiting Admitting Information Admitting Physician Requests: Observation Awais Meyers MD Oct 28, 2017 01:13
[2017-10-28] MEDS ORDERED: ONDANSETRON HCL 4 MG/2 ML VIAL IVP ONE (01:15)
[2017-10-28] MEDS ORDERED: MORPHINE SULFATE 4 MG/ML INJ IV PUSH ONE (01:15)
[2017-10-28 01:29] LABS: AUTOMATED NEUTROPHIL # 3.9 TH/MM3 (1.8-7.7); BASOPHIL # 0.2 TH/MM3 (0-0.2); BASOPHIL % 2.1 % (0.0-2.0); EOSINOPHIL # 0.1 TH/MM3 (0-0.4); EOSINOPHIL % 1.2 % (0.0-4.0); HEMATOCRIT 32.8 % (35.0-46.0); HEMOGLOBIN 10.9 GM/DL (11.6-15.3); LYMPH % 34.3 % (9.0-44.0); LYMPHOCYTE # 2.6 TH/MM3 (1.0-4.8); MEAN CORPUSCULAR HEMOGLOBIN 26.9 PG (27.0-34.0); MEAN CORPUSCULAR HGB CONC 33.2 % (32.0-36.0); MEAN PLATELET VOLUME 8.5 FL (7.0-11.0); MONO % 8.4 % (0.0-8.0); MONOCYTE # 0.6 TH/MM3 (0-0.9); PLATELET COUNT 373 TH/MM3 (150-450); RED BLOOD COUNT 4.05 MIL/MM3 (4.00-5.30); RED CELL DISTRIBUTION WIDTH 15.7 % (11.6-17.2); WHITE BLOOD COUNT 7.4 TH/MM3 (4.0-11.0)
[2017-10-28 01:30] LABS: BILIRUBIN, URINE NEG (NEG); BLOOD, URINE NEG (NEG); GLUCOSE,URINE NEG (NEG); KETONE, URINE NEG (NEG); NITRITE,URINE NEG (NEG); PH, URINE 5.5 (5.0-8.5); URINE COLOR YELLOW (YELLW/STRAW); URINE LEUKOCYTE ESTERASE NEG (NEG)
[2017-10-28 01:37] LABS: HYALINE CAST, URINE 0-2 /lpf (RARE); MUCUS URINE OCC /lpf (OCC); SQUAMOUS EPITHELIAL CELL URINE 0-5 /hpf (0-5)
[2017-10-28 01:38] LABS: BACTERIA, URINE OCC /hpf
[2017-10-28 01:39] LABS: CHLORIDE 110 MEQ/L (98-107); SODIUM (NA) 140 MEQ/L (136-145)
[2017-10-28 01:42] LABS: CALCIUM 8.6 MG/DL (8.5-10.1)
[2017-10-28 01:43] LABS: ALBUMIN 3.5 GM/DL (3.4-5.0); BICARBONATE 26.1 MEQ/L (21.0-32.0); BLOOD UREA NITROGEN 15 MG/DL (7-18); GLUCOSE,RANDOM 95 MG/DL (74-106)
[2017-10-28 01:45] LABS: ALT (GPT) 21 U/L (10-53); AST (GOT) 19 U/L (15-37)
[2017-10-28 01:46] LABS: CREATININE 0.89 MG/DL (0.50-1.00); GLOMERULAR FILTRATION RATE 81 ML/MIN (>89)
[2017-10-28 01:47] LABS: TOTAL BILIRUBIN ADULT 0.2 MG/DL (0.2-1.0); TOTAL PROTEIN 7.8 GM/DL (6.4-8.2)
[2017-10-28 01:48] LABS: ALKALINE PHOSPHATASE 100 U/L (45-117)
[2017-10-28] MEDS ORDERED: IOHEXOL 350 MG/ML 10 ML VIAL (for RAD DIAG) IVCONTRAST ONE (02:05)
--- NOTE | 2017-10-28 02:42 | RADRPT ---
EXAM DATE/TIME: 10/28/2017 02:02 [place] COMPARISON: No previous studies available for comparison. INDICATIONS : Right upper quadrant pain. IV CONTRAST: 100 cc Omnipaque 350 (iohexol) IV ORAL CONTRAST: No oral contrast ingested. RADIATION DOSE: 22.37 CTDIvol (mGy) MEDICAL HISTORY : Hypertension. Gastroesophageal reflux disease. SURGICAL HISTORY : Gastric bypass. Cholecystectomy. section.Tubaligation. ENCOUNTER: Initial ACUITY: 1 day PAIN SCALE: 6/10 LOCATION: Right upper quadrant TECHNIQUE: Volumetric scanning of the abdomen and pelvis was performed. Using automated exposure control and ad justment of the mA and/or kV according to patient size, radiation dose was kept as low as reasonably achievable to obtain optimal diagnostic quality images. DICOM format image data is available electro nically for review and comparison. FINDINGS: LOWER LUNGS: The visualized lower lungs are clear. LIVER: No focal hepatic lesion. There is persistent and not significantly changed intrahepatic and extrahepa tic No or distention. Common bile duct is approximately 2.2 cm. Patient has had previous cholecystect zaira. SPLEEN: Normal size without lesion. PANCREAS: Within normal limits. KIDNEYS: Normal in size and shape. There is no mass, stone or hydronephrosis. ADRENAL GLANDS: Within normal limits. VASCULAR: There is no aortic aneurysm. BOWEL/MESENTERY: There is distended small bowel, especially the mid and distal ileum. The terminal ileum is decompress ed. The transition appears to be in the right lower quadrant. There is an anastomosis in the left low er quadrant, and does not appear to be acutely contributory. Stool is present in nondistended colon. No perceptible mass. No significant inflammatory changes. The appendix is normal. Surgical changes of the stomach again noted. The stomach is nondistended. ABDOMINAL WALL: Within normal limits. RETROPERITONEUM: There is no lymphadenopathy. BLADDER: No wall thickening or mass. REPRODUCTIVE: Within normal limits. INGUINAL: There is no lymphadenopathy or hernia. MUSCULOSKELETAL: No acute bony abnormality demonstrated. CONCLUSION: 1. Partial small bowel obstruction at the level of the distal ileum, presumably an adhesion. No mass or inflammatory changes are demonstrated. 2. Chronic and not significantly changed intrahepatic and extrahepatic biliary distention post cholec ystectomy. Shola Harding MD on October 28, 2017 at 2:33 Board Certified Radiologist. This report was verified electronically.
[2017-10-28] MEDS ORDERED: MORPHINE SULFATE 4 MG/ML INJ IV PUSH PRN (04:15)
[2017-10-28] MEDS: SODIUM CHLOR 0.9% 1000 ML INJ 1,000 ML IV SCH ×2 (04:40→16:10)
[2017-10-28] MEDS: ONDANSETRON HCL 4 MG/2 ML VIAL IV PUSH PRN ×3 (05:07→21:28)
--- NOTE | 2017-10-28 07:47 | HHI.HP ---
HPI Service [facility] Hospitalists Primary Care Physician Naldo Montano MD Admission Diagnosis Partial small bowel obstruction Chief Complaint: Nausea, vomiting, no abdominal pain Travel History International Travel<30 Days: No Contact w/Intl Traveler <30 Da: No Traveled to Known Affected Are: No History of Present Illness The patient is a 51-year-old female with distant history of open cholecystectomy in the late and a gastric bypass in the mid- that complains of right upper quadrant pain beginning yesterday morning. The pain is an 8/10, associated associated with nausea, vomiting and a slight amount of diarrhea. Patient has some slight dull pain constantly but the sharp pain is intermittent. The pain is throbbing and burning in character. She has had a cholecystectomy many years ago but she reportedly had ductal stones after the cholecystectomy was done. She states it feels like her gallbladder pain again. She denies any fever. It is noted that she had just been in [place] for a few days and travel back to the area on the day prior to her abdominal pain. She did have slight diarrhea when she was in [place]. Last episode of emesis was yesterday. Lab values and vital signs relatively unremarkable. CT scan of abdomen pelvis obtained in the ER revealed partial small bowel obstruction with likely adhesion. Review of Systems Constitutional: COMPLAINS OF: Change in appetite, DENIES: Diaphoretic episodes , Fatigue, Fever, Weight gain, Weight loss, Chills, Dizziness, Night Sweats Eyes: DENIES: Blurred vision, Diplopia, Eye inflammation, Eye pain, Vision loss , Photosensitivity, Double Vision Ears, nose, mouth, throat: DENIES: Tinnitus, Hearing loss, Vertigo, Nasal discharge, Oral lesions, Throat pain, Hoarseness, Ear Pain, Running Nose, Epistaxis, Sinus Pain, Toothache, Odynophagia Respiratory: DENIES: Apneas, Cough, Snoring, Wheezing, Hemoptysis, Sputum production, Shortness of breath Cardiovascular: DENIES: Chest pain, Palpitations, Syncope, Dyspnea on Exertion , PND, Lower Extremity Edema, Orthopnea, Claudication Gastrointestinal: COMPLAINS OF: Abdominal pain, Diarrhea, GERD, Nausea, Vomiting, DENIES: Black stools, Bloody stools, BRB per rectum, Constipation, Reflux, Difficulty Swallowing, Anorexia, See HPI Musculoskeletal: COMPLAINS OF: Joint pain, DENIES: Muscle aches, Stiffness, Joint Swelling, Back pain, Neck pain Hematologic/lymphatic: DENIES: Bruising, Lymphadenopathy Immunologic/allergic: DENIES: Eczema, Urticaria Neurologic: DENIES: Abnormal gait, Headache, Localized weakness, Paresthesias, Seizures, Speech Problems, Tremor, Poor Balance Psychiatric: DENIES: Anxiety, Confusion, Mood changes, Depression, Hallucinations, Agitation, Suicidal Ideation, Homicidal Ideation, Delusions, History of Bipolar, History of Schizophrenia Past Family Social History Past Medical History Morbid obesity History of cholelithiasis Carpal tunnel syndrome Lumbar degenerative disc disease Sickle cell trait Depression Hypertension GERD Past Surgical History Gastric bypass 1995 Open cholecystectomy around 1985 Multiple carpal tunnel surgeries (2 on the right and one on the left) Bilateral tubal ligation Uterine ablation 2 Reported Medications Hydrocodone-Acetaminophen 5-325 mg Tab 1 Tab PO Q6H PRN Lisinopril 40 Mg Tab 40 Mg PO HS Amlodipine (Amlodipine Besylate) 10 Mg Tab 5 Mg PO BID Zanaflex (Tizanidine HCl) 4 Mg Cap 4 Mg PO QID Gabapentin 300 Mg Cap 300 Mg PO TID Allergies: Coded Allergies: aspirin (Unverified Adverse Reaction, Intermediate, Nausea/Vomiting, ) ibuprofen (Unverified Adverse Reaction, Intermediate, Nausea/Vomiting, ) Family History Father of lung cancer complications, he was chronic smoker Otherwise noncontributory Social History Lives with her and 2 children ages 18 and 20 Never smoked tobacco Occasionally drinks alcohol in the form of a glass of wine or so but not even on a weekly basis Denies illicit drug use Disabled due to severe carpal tunnel syndrome and lumbar disc issues. 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 She was born and raised locally. Physical Exam Vital Signs Vital Signs Date Time Temp Pulse Resp B/P (MAP) Pulse Ox O2 Delivery O2 Flow Rate FiO2 10/28/17 04:50 10/28/17 03:50 66 16 109/64 (79) 97 Room Air 10/28/17 02:18 69 16 103/57 (72) 95 Room Air 10/28/17 01:24 94 100 Room Air 10/28/17 00:46 98.6 96 20 158/74 (102) 98 Physical Exam GENERAL: This is a well-nourished, obese, well-developed patient, in no mild distress regarding abdominal pain. SKIN: No rashes, ecchymoses or lesions. Cool and dry. Postsurgical changes bilateral volar wrists. HEAD: Atraumatic. Normocephalic. No temporal or scalp tenderness. EYES: Pupils equal round and reactive. Extraocular motions intact. No scleral icterus. No injection or drainage. ENT: Nose without bleeding, purulent drainage or septal hematoma. Throat without erythema, tonsillar hypertrophy or exudate. Uvula midline. Airway patent. NECK: Trachea midline. No JVD or lymphadenopathy. Supple, nontender, no meningeal signs. CARDIOVASCULAR: Regular rate and rhythm without murmurs, gallops, or rubs. RESPIRATORY: Clear to auscultation. Breath sounds equal bilaterally. No wheezes , rales, or rhonchi. GASTROINTESTINAL: Abdomen soft, nondistended. Tenderness to palpation noted in the right mid and right upper quadrant with voluntary guarding. No rebound. Bowel sounds noted. No hepato-splenomegaly, or palpable masses. No bruit. MUSCULOSKELETAL: Extremities without clubbing, cyanosis. 1-2+ edema, nonpitting in bilateral feet and distal one third of lower extremity. No joint tenderness, effusion, or edema noted. No calf tenderness. NEUROLOGICAL: Awake and alert. Cranial nerves II through XII intact. Motor and sensory grossly within normal limits. Five out of 5 muscle strength in all muscle groups. Normal speech. Laboratory Laboratory Tests Test 10/28/17 01:10 White Blood Count 7.4 Red Blood Count 4.05 Hemoglobin 10.9 Hematocrit 32.8 Mean Corpuscular Volume 81.0 Mean Corpuscular Hemoglobin 26.9 Mean Corpuscular Hemoglobin Concent 33.2 Red Cell Distribution Width 15.7 Platelet Count 373 Mean Platelet Volume 8.5 Neutrophils (%) (Auto) 54.0 Lymphocytes (%) (Auto) 34.3 Monocytes (%) (Auto) 8.4 Eosinophils (%) (Auto) 1.2 Basophils (%) (Auto) 2.1 Neutrophils # (Auto) 3.9 Lymphocytes # (Auto) 2.6 Monocytes # (Auto) 0.6 Eosinophils # (Auto) 0.1 Basophils # (Auto) 0.2 CBC Comment DIFF FINAL Differential Comment Urine Collection Type CLEAN CATCH Urine Color YELLOW Urine Turbidity CLEAR Urine pH 5.5 Urine Specific [place] 1.010 Urine Protein NEG Urine Glucose (UA) NEG Urine Ketones NEG Urine Occult Blood NEG Urine Nitrite NEG Urine Bilirubin NEG Urine Urobilinogen 0.2 Urine Leukocyte Esterase NEG Urine Squamous Epithelial Cells 0-5 Urine Bacteria OCC Urine Hyaline Casts 0-2 Urine Mucus OCC Urine Yeast (Budding) OCC Microscopic Urinalysis Comment CULT NOT INDICATED Blood Urea Nitrogen 15 Creatinine 0.89 Random Glucose 95 Total Protein 7.8 Albumin 3.5 Calcium Level 8.6 Alkaline Phosphatase 100 Aspartate Amino Transf (AST/SGOT) 19 Alanine Aminotransferase (ALT/SGPT) 21 Total Bilirubin 0.2 Sodium Level 140 Potassium Level 4.1 Chloride Level 110 Carbon Dioxide Level 26.1 Anion Gap 4 Estimat Glomerular Filtration Rate 81 Lipase 72 Result Diagram: 10/28/17 0110 10/28/17 011 Imaging Last 72 hours Impressions Abdomen/Pelvis CT 10/28/17104 Signed Impressions: Service Date/Time: Thursday, October 28, 2017 02:02 - CONCLUSION: 1. Partial small bowel obstruction at the level of the distal ileum, presumably an adhesion. No mass or inflammatory changes are demonstrated. 2. Chronic and not significantly changed intrahepatic and extrahepatic biliary distention post cholecystectomy. Shola Harding MD Caprini VTE Risk Assessment Caprini VTE Risk Assessment: Mod/High Risk (score >= 2) Caprini Risk Assessment Model Point Value = 1 Point Value = 2 Point Value = 3 Point Value = 5 Age 41-60 Minor surgery BMI > 25 kg/m2 Swollen legs Varicose veins or History of unexplained or recurrent spontaneous Oral contraceptives or hormone replacement Sepsis (< 1 month) Serious lung disease, including pneumonia (< 1 month) Abnormal pulmonary function Acute myocardial infarction Congestive heart failure (< 1 month) History of inflammatory bowel disease Medical patient at bed rest Age 61-74 Arthroscopic surgery Major open surgery (> 45 min) Laparoscopic surgery (> 45 min) Malignancy Confined to bed (> 72 hours) Immobilizing plaster cast Central venous access Age >= 75 History of VTE Family history of VTE Factor V Leiden Prothrombin [id number] Lupus anticoagulant Anticardiolipin antibodies Elevated serum homocysteine Heparin-induced thrombocytopenia Other congenital or acquired thrombophilia Stroke (< 1 month) Elective arthroplasty Hip, pelvis, or leg fracture Acute spinal cord injury (< 1 month) Prophylaxis Regimen Total Risk Factor Score Risk Level Prophylaxis Regimen 0-1 Low Early ambulation 2 Moderate Order ONE of the following: *Sequential Compression Device (SCD) *Heparin 5000 units SQ BID 3-4 Higher Order ONE of the following medications: *Heparin 5000 units SQ TID *Enoxaparin/Lovenox 40 mg SQ daily (WT < 150 kg, CrCl > 30 mL/min) *Enoxaparin/Lovenox 30 mg SQ daily (WT < 150 kg, CrCl > 10-29 mL/min) *Enoxaparin/Lovenox 30 mg SQ BID (WT < 150 kg, CrCl > 30 mL/min) AND/OR *Sequential Compression Device (SCD) 5 or more Highest Order ONE of the following medications: *Heparin 5000 units SQ TID (Preferred with Epidurals) *Enoxaparin/Lovenox 40 mg SQ daily (WT < 150 kg, CrCl > 30 mL/min) *Enoxaparin/Lovenox 30 mg SQ daily (WT < 150 kg, CrCl > 10-29 mL/min) *Enoxaparin/Lovenox 30 mg SQ BID (WT < 150 kg, CrCl > 30 mL/min) AND *Sequential Compression Device (SCD) Assessment and Plan Problem List: (1) Partial small bowel obstruction ICD Codes: K56.600 - Partial intestinal obstruction, unspecified as to cause Status: Acute Plan: Likely associated with prior surgical intervention. We will continue bowel rest, encourage ambulation. Continue IV fluid and pain medication as well as anti-emetics. Hopefully will resolve without any surgical intervention. (2) Nausea and vomiting ICD Codes: R11.2 - Nausea with vomiting, unspecified Status: Acute Plan: Likely associated with partial small bowel. We will continue antiemetics. (3) GERD (gastroesophageal reflux disease) ICD Codes: K21.9 - Gastro-esophageal reflux disease without esophagitis Status: Chronic Plan: PPI. (4) Lumbar degenerative disc disease ICD Codes: M51.36 - Other intervertebral disc degeneration, lumbar region Status: Chronic Plan: We will provide pain medication for the partial small bowel obstruction which should cover her lumbar degenerative disc pain as well. (5) HTN (hypertension) ICD Codes: I10 - HTN (hypertension) Status: Chronic Plan: BP well controlled currently. We will continue to follow. Morphine likely causing some near low values. Code Status Full Discussed Condition With Patient, her nurse and ER provider Problem Qualifiers (1) HTN (hypertension): Qualified Codes: I10 - Essential (primary) hypertension Samuel Jauregui MD PhD Oct 28, 2017 07:47
[2017-10-28] MEDS ORDERED: PROCHLORPERAZINE INJ 10 MG/2 ML VIAL IV PUSH ONE (08:00)
[2017-10-28] MEDS ORDERED: HYDROmorphone HCL PF 2 MG/ML VIAL IV PUSH ONE (08:15)
[2017-10-28] MEDS: PANTOPRAZOLE SODIUM 40 MG VIAL IV PUSH SCH (08:22)
--- NOTE | 2017-10-28 12:55 | RADRPT ---
EXAM DATE/TIME: 10/28/2017 07:00 [facility] COMPARISON: CT ABDOMEN & PELVIS W CONTRAST, October 28, 2017, 2:02. INDICATIONS : Rigth upper quadrant pain. MEDICAL HISTORY : Renal calculi. Arthritis. Hypertension. Gastroesophageal reflux disease.Fibromyalgia. SURGICAL HISTORY : Gastric bypass. Cholecystectomy. section.Tubaligation. Uterine ablation. ENCOUNTER: Subsequent ACUITY: 2 days PAIN SCORE: 7/10 LOCATION: Right upper quadrant FINDINGS: Surgical clips gallbladder fossa. Degenerative changes lumbar spine. Nonspecific bowel gas pattern. Radiopaque contrast in the bladder. CONCLUSION: Nonspecific bowel gas pattern. Bowel gas has improved and the CT doorperson or luggage porter of 10/28/17 with less dilatati on. Manolo Peterson MD FACR on October 28, 2017 at 12:51 Board Certified Radiologist. This report was verified electronically.
[2017-10-28] MEDS: MORPHINE SULFATE 4 MG/ML INJ IV PUSH PRN ×3 (14:04→21:28)
[2017-10-28] MEDS: GABAPENTIN 300 MG CAP PO SCH (17:50)
--- NOTE | 2017-10-28 20:37 | HHI.PR ---
Addendum to Inpatient Note Addendum Reason: Additional Documentation Additional Information Went by to check on pt tonight in her room. She was talking on phone and appeared comfortable. She tolerated clear diet. Will advance to soft, low fat as she is hungry. She reports that abd is still painful and I advised that it may be painful for a few days, but should improve gradually. Discussed f/u KUB with pt. Samuel Jauregui MD PhD Oct 28, 2017 20:37
[2017-10-28] MEDS ORDERED: diphenhydrAMINE HCL 25 MG CAP PO PRN (23:00)
[2017-10-29] VITALS: BP 91/57; PULSE 59; RESP 20; TEMP 96.3; O2SAT 96
[2017-10-29] MEDS: MORPHINE SULFATE 4 MG/ML INJ IV PUSH PRN (02:16)
[2017-10-29] MEDS: SODIUM CHLORIDE 0.9% FLUSH 10 ML FLUSH IV FLUSH PRN ×2 (02:16→03:15)
[2017-10-29] MEDS: ONDANSETRON HCL 4 MG/2 ML VIAL IV PUSH PRN (03:15)
[2017-10-29] MEDS: SODIUM CHLOR 0.9% 1000 ML INJ 1,000 ML IV SCH (03:22)
[2017-10-29 04:00] VITALS: BP 93/52; PULSE 70; RESP 20; TEMP 96.8; O2SAT 93
[2017-10-29 07:30] VITALS: BP 100/51; PULSE 68; RESP 18; TEMP 97; O2SAT 96
[2017-10-29] MEDS ORDERED: ONDANSETRON ODT 4 MG TAB PO PRN (07:45)
--- NOTE | 2017-10-29 07:47 | HHI.PR ---
Subjective Remarks Still having some abdominal pain but overall improved. Able to ambulate in the room on several occasions independently. Good urine output. No bowel movement or flatus as of yet. She did tolerate some bland mashed potatoes last night and feels hungry this morning. She has had some nausea on a couple of occasions requiring ondansetron, but no more vomiting. Will advance diet. Objective Vitals Vital Signs Date Time Temp Pulse Resp B/P (MAP) Pulse Ox O2 Delivery O2 Flow Rate FiO2 10/29/17 04:00 96.8 70 20 93/52 (66) 93 10/29/17 00:00 96.3 59 20 91/57 (68) 96 10/28/17 20:00 97.9 74 20 90/54 (66) 95 10/28/17 18:00 18 10/28/17 15:19 98.7 82 20 145/89 (107) 98 10/28/17 11:00 96.3 69 20 104/69 (81) 96 10/28/17 09:53 18 10/28/17 07:50 97.5 68 20 104/67 (79) 95 GENERAL: Awake and alert, pleasant, no acute distress. SKIN: Warm and dry. HEAD: Normocephalic. EYES: No scleral icterus. No injection or drainage. NECK: Supple, trachea midline. No JVD or lymphadenopathy. CARDIOVASCULAR: Regular rate and rhythm without murmurs, gallops, or rubs. RESPIRATORY: Breath sounds equal bilaterally. No accessory muscle use. GASTROINTESTINAL: Abdomen soft, nondistended. Mild tenderness to palpation globally. No guarding or rebound this morning. Bowel sounds noted and slightly hypoactive. MUSCULOSKELETAL: No cyanosis, or edema. BACK: No CVA tenderness. Result Diagram: 10/28/17 0110 10/28/17 0110 Imaging Last 72 hours Impressions Abdomen/Pelvis CT 10/28/17 010 Signed Impressions: Service Date/Time: Saturday, October 28, 2017 02:02 - CONCLUSION: 1. Partial small bowel obstruction at the level of the distal ileum, presumably an adhesion. No mass or inflammatory changes are demonstrated. 2. Chronic and not significantly changed intrahepatic and extrahepatic biliary distention post cholecystectomy. Shola Harding MD Urinary Catheter: No Vascular Central Line Catheter: No A/P Problem List: (1) Partial small bowel obstruction ICD Codes: K56.600 - Partial intestinal obstruction, unspecified as to cause Status: Acute Plan: Likely associated with prior surgical intervention. Clinically improving. Tolerated mashed potatoes last night. Advance diet heart healthy today as tolerated. Convert pain meds and antiemetics to oral formulation. Hopefully discharge home later today. Hopefully will resolve without any surgical intervention. (2) Nausea and vomiting ICD Codes: R11.2 - Nausea with vomiting, unspecified Status: Acute Plan: No more vomiting. Still some intermittent nausea. Likely associated with partial small bowel. We will continue antiemetics. (3) GERD (gastroesophageal reflux disease) ICD Codes: K21.9 - Gastro-esophageal reflux disease without esophagitis Status: Chronic Plan: PPI. (4) Lumbar degenerative disc disease ICD Codes: M51.36 - Other intervertebral disc degeneration, lumbar region Status: Chronic Plan: We will provide pain medication for the partial small bowel obstruction which should cover her lumbar degenerative disc pain as well. (5) HTN (hypertension) ICD Codes: I10 - HTN (hypertension) Status: Chronic Plan: BP well controlled currently. We will continue to follow. Hold BP meds for now. Discharge Planning Hopefully discharge home later today if she tolerates oral intake well and pain is controlled with p.o. formulation. Problem Qualifiers (1) HTN (hypertension): Qualified Codes: I10 - Essential (primary) hypertension Samuel Jauregui MD PhD Oct 29, 2017 07:47
[2017-10-29] MEDS: oxyCODONE/ACETAMINOPHEN 5 MG/325 MG TAB PO PRN ×2 (08:29→13:08)
[2017-10-29] MEDS: GABAPENTIN 300 MG CAP PO SCH ×2 (08:29→13:07)
[2017-10-29] MEDS: PANTOPRAZOLE SODIUM 40 MG VIAL IV PUSH SCH (08:29)
[2017-10-29] MEDS ORDERED: MORPHINE SULFATE 4 MG/ML INJ IV PUSH PRN (10:15)
[2017-10-29 12:00] VITALS: BP_SYST 107; BP_SYST 191; BP_DIAS 55; BP_DIAS 87; PULSE 81; RESP 18; TEMP 98.9; O2SAT 96; O2SAT 99
[2017-10-29] MEDS ORDERED: LACTULOSE SYRUP 20 GM/30 ML CUP PO ONE (13:00)
[2017-10-29] MEDS ORDERED: BISACODYL 10 MG SUPP RECTAL ONE (13:00)
[2017-10-29 14:18] VITALS: RESP 18
--- NOTE | 2017-10-29 14:44 | HHI.PR ---
Addendum to Inpatient Note Addendum Reason: Additional Documentation Additional Information Pt tolerated breakfast and lunch well with no vomiting. +BM after lactulose, bisacodyl. Pain controlled on oral meds. VSS with no fevers. Will d/c home. Samuel Jauregui MD PhD Oct 29, 2017 14:44
[2017-10-29] MEDS ORDERED: ONDA4TAB7 PO (14:48)
[2017-10-29] MEDS ORDERED: OXYC1TAB63 PO (14:48)
[2017-10-29] MEDS ORDERED: COLA100C5 PO (14:59)
== END 2017-10-29 15:23 | disposition home or self-care (01) ==
LOC: PHED 00:42 → PHEDA 03:29 → PH3A 04:50
PROVIDERS: ADMIT Internal Medicine; ATTEND Internal Medicine
DX: K56.600 Partial intestinal obstruction, unspecified as to cause (principal); R11.2 Nausea with vomiting, unspecified; D57.3 Sickle-cell trait; K21.9 Gastro-esophageal reflux disease without esophagitis; I10 Essential (primary) hypertension; G56.00 Carpal tunnel syndrome, unspecified upper limb; M51.36 Other intervertebral disc degeneration, lumbar region; Z98.84 Bariatric surgery status
CPT/HCPCS: 74018; 74177; 80053; 81001; 83690; 85025; 96361; 96374; 96375; 96376; 99285; C9113; G0378; J0780; J1170; J2270; J2405; J7030; Q9967

== ENCOUNTER 2017-10-31 01:47 | Emergency (ER) | payer OTHER ==
[~2017-10-31] VITALS: Ht 165.1 cm; Wt 120.0 kg
[~2017-10-31 01:47] MED LIST changes: -AMLO10TA2 PO; +COLA100C5 PO; -FURO1TAB62 PO; +HYDR-3516 PO; -HYDR-3533 PO; +ONDA4TAB7 PO; +OXYC1TAB63 PO; -PENI500T PO
[2017-10-31 01:52] VITALS: BP 185/96; PULSE 92; RESP 18; TEMP 98.6; O2SAT 100
[2017-10-31 02:05] VITALS: BP 161/77; PULSE 88; RESP 20; O2SAT 99
[2017-10-31] MEDS ORDERED: ACYC1CAP16 PO (02:10)
[2017-10-31] MEDS ORDERED: LISI-515 PO (02:10)
[2017-10-31] MEDS ORDERED: AMLO5TAB2 PO (02:10)
[2017-10-31] MEDS ORDERED: GABA600T PO (02:10)
[2017-10-31] MEDS ORDERED: DIPH25CA PO (02:10)
--- NOTE | 2017-10-31 02:21 | PD ---
HPI . abdominal pain Chief Complaint: Abdominal Pain Time Seen by Provider: 01:56 Travel History International Travel<30 days: No Contact w/Intl Traveler<30days: No Traveled to known affect area: No History of Present Illness HPI Patient is a 51-year-old female who is having right upper quadrant pain. It is localized it is pressure-like she apparently is been given Zofran and oxycodone from her last visit to [place] [facility] 3 days ago . She reports that PO meds not relieving her symptoms. She has some nausea she has some vomiting but did not respond to the Zofran. She had her gallbladder out in 1985 and she had some retained stones removed in the past as well. In [place] they did a CAT scan said she was obstructed she reports getting an enema at that time and being admitted for bowel rest and resolved passed gas and was discharged. She has been out for 3 days and now the pain is returning getting worse not controlled by the outpatient medications she was given.. worries it could be a retained Gallstone but surgery 30 yrs ago PFS Past Medical History Anemia: Yes ("SICKLE CELL TRAIT") Arthritis: Yes Autoimmune Disease: No Blood Disorders: No Anxiety: Yes Depression: Yes Heart Rhythm Problems: No Cancer: No Cardiac Catheterization: No Cardiovascular Problems: Yes High Cholesterol: No Chemotherapy: No Chest Pain: Yes Congestive Heart Failure: No Diabetes: No Diminished Hearing: No Endocrine: No Fibromyalgia: Yes Gastrointestinal Disorders: Yes GERD: Yes Glaucoma: No Genitourinary: No Headaches: Yes Heparin Induced Thrombocytopen: No Herniated Disk: Yes (bulging neck and lumbar) Hypertension: Yes Kidney Stones: Yes Musculoskeletal: Yes Neurologic: No Psychiatric: Yes Reproductive: No ( ) Respiratory: No Immunizations Current: Yes Radiation Therapy: No Shingles: Yes Sickle Cell Disease: Yes (TRAIT) ?: Not Menopausal: Yes : 2 Para: 2 : 1 Tubal Ligation: Yes Past Surgical History Abdominal Surgery: Yes (GASTRIC BYPASS: 1995; Cholecystecomy 1985) Cardiac Surgery: No Section: Yes (X 2) Cholecystectomy: Yes (1985) Coronary Artery Bypass Graft: No Ear Surgery: No Endocrine Surgery: No Eye Surgery: No Genitourinary Surgery: Yes Gynecologic Surgery: Yes (UTERINE ABLATION) Neurologic Surgery: No Oral Surgery: No Thoracic Surgery: No Other Surgery: Yes (RT HAND CARPAL TUNNEL 2X, LT HAND CARPAL TUNNEL 1X) Social History Alcohol Use: Yes (OCC) Tobacco Use: No Substance Use: No Allergies-Medications (Allergen,Severity, Reaction): Coded Allergies: aspirin (Unverified Adverse Reaction, Intermediate, Nausea/Vomiting, ) ibuprofen (Unverified Adverse Reaction, Intermediate, Nausea/Vomiting, ) Reported Meds & Prescriptions Reported Meds & Active Scripts Active Colace (Docusate Sodium) 100 Mg Capsule 100 Mg PO BID Oxycodone-Acetaminophen 5-325 (Oxycodone HCl/Acetaminophen) 5 Mg-325 Mg Tablet 1 -2 Tab PO Q4H PRN Ondansetron Odt 4 Mg Tab 4 Mg PO Q6H PRN Reported Zovirax (Acyclovir) 200 Mg Cap 200 Mg PO 5 TIMES A DAY Diphenhydramine (Diphenhydramine HCl) 25 Mg Cap 25 Mg PO Q12H PRN Gabapentin 600 Mg Tab 600 Mg PO TID Amlodipine (Amlodipine Besylate) 5 Mg Tab 5 Mg PO BID Lisinopril 20 Mg Tab 20 Mg PO BID Hydrocodone-Acetaminophen 5-325 mg Tab 1 Tab PO Q6H PRN Zanaflex (Tizanidine HCl) 4 Mg Cap 4 Mg PO QID Review of Systems Except as stated in HPI: all other systems reviewed are Neg Gastrointestinal: Positive: Abdominal Pain Physical Exam Narrative GENERAL: morbidly obese no apparent distress non toxic appearing SKIN: Warm and dry. HEAD: Atraumatic. Normocephalic. EYES: Pupils equal and round. No scleral icterus. No injection or drainage. ENT: No nasal bleeding or discharge. Mucous membranes pink and moist. NECK: Trachea midline. No JVD. CARDIOVASCULAR: Regular rate and rhythm. RESPIRATORY: No accessory muscle use. Clear to auscultation. Breath sounds equal bilaterally. GASTROINTESTINAL: Abdomen RUQ pain Hepatic and splenic margins not palpable. morbidly obese MUSCULOSKELETAL: Extremities without clubbing, cyanosis, or edema. No obvious deformities. NEUROLOGICAL: Awake and alert. No obvious cranial nerve deficits. Motor grossly within normal limits. Five out of 5 muscle strength in the arms and legs. Normal speech. PSYCHIATRIC: Appropriate mood and affect; insight and judgment normal. Data Data Last Documented VS Vital Signs Date Time Temp Pulse Resp B/P (MAP) Pulse Ox O2 Delivery O2 Flow Rate FiO2 4/21/18 04:45 10/31/17 04:10 73 16 97 Room Air 10/31/17 01:52 98.6 Orders Orders Abdomen, Flat & Upright (10/31/17 ) Complete Blood Count With Diff (10/31/17 03:12) Comprehensive Metabolic Panel (10/31/17 03:12) Lipase (10/31/17 03:12) Ondansetron Inj (Zofran Inj) (10/31/17 04:00) Ketorolac Inj (Toradol Inj) (10/31/17 04:00) Diatrizoate Liq ( Gastroview Liq) (10/31/17 04:45) Oral Contrast - Adult (10/31/17 04:37) Ed Discharge Order (10/31/17 04:43) Labs Laboratory Tests Test 10/31/17 03:00 White Blood Count 7.2 TH/MM3 Red Blood Count 4.34 MIL/MM3 Hemoglobin 11.6 GM/DL Hematocrit 35.0 % Mean Corpuscular Volume 80.7 FL Mean Corpuscular Hemoglobin 26.7 PG Mean Corpuscular Hemoglobin Concent 33.1 % Red Cell Distribution Width 16.4 % Platelet Count 360 TH/MM3 Mean Platelet Volume 9.0 FL Neutrophils (%) (Auto) 47.5 % Lymphocytes (%) (Auto) 42.9 % Monocytes (%) (Auto) 8.1 % Eosinophils (%) (Auto) 1.1 % Basophils (%) (Auto) 0.4 % Neutrophils # (Auto) 3.4 TH/MM3 Lymphocytes # (Auto) 3.1 TH/MM3 Monocytes # (Auto) 0.6 TH/MM3 Eosinophils # (Auto) 0.1 TH/MM3 Basophils # (Auto) 0.0 TH/MM3 CBC Comment DIFF FINAL Differential Comment Blood Urea Nitrogen 10 MG/DL Creatinine 0.89 MG/DL Random Glucose 100 MG/DL Total Protein 8.2 GM/DL Albumin 3.8 GM/DL Calcium Level 8.9 MG/DL Alkaline Phosphatase 139 U/L Aspartate Amino Transf (AST/SGOT) 27 U/L Alanine Aminotransferase (ALT/SGPT) 37 U/L Total Bilirubin 0.2 MG/DL Sodium Level 143 MEQ/L Potassium Level 4.0 MEQ/L Chloride Level 109 MEQ/L Carbon Dioxide Level 26.3 MEQ/L Anion Gap 8 MEQ/L Estimat Glomerular Filtration Rate 81 ML/MIN Lipase 67 U/L MDM Medical Decision Making Medical Screen Exam Complete: Yes Emergency Medical Condition: Yes Medical Record Reviewed: Yes Differential Diagnosis GERD Cholangitis , pancreatitis vs retained G allstone other Narrative Course Pt was recently admitted for similiar complaint and had mild ileus resolved with no intervention , no NG tube reported and I think she could have chronic Pain in RUQ area over years , KUB --> no dilated loops of bowel no signs of obstruction Labs LFTs are all normal , / alk phos minimally elevated but pt feels improved with toradol and zofran and wants to follow up with her PCP for GI consult . I offer CT with PO contradt but she opts for oupt folow up Safe for Discharge close follow up Diagnosis Primary Impression: RUQ abdominal pain Referrals: Willow Billy MD Patient Instructions: Abdominal Pain (ED), General Instructions Additional Instructions: Continue with the medications were given by the other emergency room. I have placed the [facility] doctor's number on your papers. You may call for an outpatient follow-up or get a referral from your primary care doctor. If the pain becomes severe return to the ER immediately Disposition: 01 DISCHARGE HOME Condition: Xavi Horn MD Oct 31, 2017 02:21
[2017-10-31 03:40] LABS: ALBUMIN 3.8 GM/DL (3.4-5.0); ALT (GPT) 37 U/L (10-53); AST (GOT) 27 U/L (15-37); BICARBONATE 26.3 MEQ/L (21.0-32.0); BLOOD UREA NITROGEN 10 MG/DL (7-18); CALCIUM 8.9 MG/DL (8.5-10.1); CHLORIDE 109 MEQ/L (98-107); CREATININE 0.89 MG/DL (0.50-1.00); GLOMERULAR FILTRATION RATE 81 ML/MIN (>89); GLUCOSE,RANDOM 100 MG/DL (74-106); SODIUM (NA) 143 MEQ/L (136-145)
[2017-10-31 03:42] LABS: ALKALINE PHOSPHATASE 139 U/L (45-117); TOTAL BILIRUBIN ADULT 0.2 MG/DL (0.2-1.0); TOTAL PROTEIN 8.2 GM/DL (6.4-8.2)
[2017-10-31 03:43] LABS: AUTOMATED NEUTROPHIL # 3.4 TH/MM3 (1.8-7.7); BASOPHIL % 0.4 % (0.0-2.0); EOSINOPHIL # 0.1 TH/MM3 (0-0.4); EOSINOPHIL % 1.1 % (0.0-4.0); HEMOGLOBIN 11.6 GM/DL (11.6-15.3); LYMPH % 42.9 % (9.0-44.0); LYMPHOCYTE # 3.1 TH/MM3 (1.0-4.8); MEAN CELL VOLUME 80.7 FL (80.0-100.0); MEAN CORPUSCULAR HEMOGLOBIN 26.7 PG (27.0-34.0); MEAN CORPUSCULAR HGB CONC 33.1 % (32.0-36.0); MONO % 8.1 % (0.0-8.0); MONOCYTE # 0.6 TH/MM3 (0-0.9); NEUT % 47.5 % (16.0-70.0); PLATELET COUNT 360 TH/MM3 (150-450); RED BLOOD COUNT 4.34 MIL/MM3 (4.00-5.30); RED CELL DISTRIBUTION WIDTH 16.4 % (11.6-17.2); WHITE BLOOD COUNT 7.2 TH/MM3 (4.0-11.0)
--- NOTE | 2017-10-31 03:54 | RADRPT ---
EXAM DATE/TIME: 10/31/2017 03:24 [place] COMPARISON: No previous studies available for comparison. INDICATIONS : Right upper quadrant pain MEDICAL HISTORY : Renal calculi. Arthritis. Hypertension. Gastroesophageal reflux disease.Fibromyalgia. SURGICAL HISTORY : Gastric bypass. Cholecystectomy. section.Tubaligation. Uterine ablation. ENCOUNTER: Initial ACUITY: 1 day PAIN SCORE: 8/10 LOCATION: Right upper quadrant FINDINGS: Supine and upright views of the abdomen were performed. Numerous scattered surgical clips. The abdomi nal bowel gas pattern is normal. Gas and stool seen to the level of the rectal vault. No air fluid le vels are seen. No abnormal masses, calcifications, or organomegaly is seen. The visualized lower floridalma ngs are clear. No evidence of free intraperitoneal gas. The osseous structures are unremarkable. CONCLUSION: No dilated bowel to suggest obstruction. John Jade Jr., MD on October 31, 2017 at 3:51 Board Certified Radiologist. This report was verified electronically.
[2017-10-31] MEDS ORDERED: ONDANSETRON HCL 4 MG/2 ML VIAL IV PUSH ONE (04:00)
[2017-10-31] MEDS ORDERED: KETOROLAC TROMETHAMINE 30 MG/ML (IVP) VIAL IV PUSH ONE (04:00)
[2017-10-31 04:10] VITALS: BP 150/77; PULSE 73; RESP 16; O2SAT 97
[2017-10-31] MEDS ORDERED: DIATRIZOATE MEGLUM/DIATRIZOATE SOD 9 ML CUP PO ONE (04:45)
== END 2017-10-31 05:10 | disposition home or self-care (01) ==
LOC: NEPE 01:47
DX: R10.11 Right upper quadrant pain (principal); R11.2 Nausea with vomiting, unspecified; I10 Essential (primary) hypertension; K21.9 Gastro-esophageal reflux disease without esophagitis; M79.7 Fibromyalgia; B02.9 Zoster without complications; D57.3 Sickle-cell trait; Z87.19 Personal history of other diseases of the digestive system; Z87.39 Personal history of other diseases of the musculoskeletal system and connective tissue; Z86.79 Personal history of other diseases of the circulatory system; Z87.442 Personal history of urinary calculi; Z86.59 Personal history of other mental and behavioral disorders
CPT/HCPCS: 74019; 80053; 83690; 85025; 96374; 96375; 99284; J1885; J2405

== ENCOUNTER 2018-01-11 11:36 | Observation (INO) ==
--- NOTE | 2018-01-11 12:16 | ED ---
HPI General Chief Complaint: Dizziness Stated Complaint: Cardiac Time Seen by Provider: 01/11/18 11:59 History of Present Illness HPI Narrative: Patient was scheduled for expiratory laparotomy for abdominal pain secondary to likely adhesions. He was found to be hypotensive and sent to the ER. BP in the ER is 110/57 currently. States for the last couple of days she has been dizzy and her equilibrium has been off and she has been stuttering. Also reporting some involuntary jerking of her hands bilaterally. She denies headache, chest pain, shortness of breath, fever chills, but does report the chronic abdominal pain for which she was could have surgery, nausea and dry heaving. Her BP prior to ER transfer was reportedly 66/52. Related Data Home Medications Medication Instructions Recorded Confirmed acyclovir [Zovirax] 800 mg PO TID PRN 01/07/18 01/11/18 amlodipine 5 mg PO BID 01/07/18 01/11/18 dextromethorphan-guaifenesin 1 tab PO QID 01/07/18 01/11/18 [Mucinex DM] diphenhydramine HCl [Benadryl] 50 mg PO BID 01/07/18 01/11/18 furosemide [Lasix] 20 mg PO QAM 01/07/18 01/11/18 gabapentin 600 mg PO TID 01/07/18 01/11/18 hydrocodone-acetaminophen 1 tab PO Q4HR PRN 01/07/18 01/11/18 lisinopril 20 mg PO BID 01/07/18 01/11/18 promethazine 25 mg PO BID 01/07/18 01/11/18 tizanidine 4 mg PO Q4HR 01/07/18 01/11/18 Allergies Allergy/AdvReac Type Severity Reaction Status Date / Time aspirin AdvReac Intermediate Nausea/Vomi Verified 01/11/18 12:06 ting ibuprofen AdvReac Intermediate Nausea/Vomi Verified 01/11/18 12:06 ting Review of Systems ROS Unobtainable All other systems reviewed negative except as stated in HPI PMFSH Medical History Medical History Arthritis of both hands (Acute) Bulging lumbar disc (Acute) History of trigger finger (Acute) Hx of dysfunctional uterine bleeding (Acute) Mid back pain, chronic (Acute) Surgical History Surgical History Gastric bypass status for obesity (Acute) History of (Acute) History of carpal tunnel release of both wrists (Acute) Social History Social History Substance History: No History of Abuse Second Hand Smoke Exposure: No Smoking Status: Unknown if ever smoked How Often Do You Have a Drink Containing Alcohol: Never Recent Travel in [facility] within the Last 8 Weeks: No Recent Out of Country Travel within the Last 8 Weeks: No Exam Narrative Exam Narrative: GENERAL: No acute distress, resting comfortably in the stretcher. SKIN: Focused skin assessment warm/dry. HEAD: Atraumatic. Normocephalic. EYES: Pupils equal and round. No scleral icterus. No injection or drainage. ENT: No nasal bleeding or discharge. Mucous membranes pink and moist. NECK: Trachea midline. No JVD. CARDIOVASCULAR: Regular rate and rhythm. No murmur appreciated. RESPIRATORY: No accessory muscle use. Clear to auscultation. Breath sounds equal bilaterally. GASTROINTESTINAL: Abdomen soft, right upper quadrant tenderness, obese. Hepatic and splenic margins not palpable. MUSCULOSKELETAL: No obvious deformities. No clubbing. No cyanosis. No edema. NEUROLOGICAL: Awake and alert. No obvious cranial nerve deficits. Motor grossly within normal limits. Normal speech. PSYCHIATRIC: Appropriate mood and affect; insight and judgment normal. Course Initial Documented Vital Signs Temperature 98.0 F 01/11/18 11:44 Pulse Rate 64 01/11/18 11:44 Respiratory Rate 18 01/11/18 11:44 Blood Pressure 107/58 L 01/11/18 11:44 Pulse Oximetry 98 01/11/18 11:44 Last Documented Vital Signs Temperature 98.0 F 01/11/18 11:44 Pulse Rate 68 01/11/18 12:58 Respiratory Rate 18 01/11/18 12:58 Blood Pressure 100/57 L 01/11/18 12:58 Pulse Oximetry 99 01/11/18 12:58 Medical Decision Making MDM Narrative Medical decision making narrative: Patient presented to the emergency department with poorly low blood pressure and complaining of dizziness. Patient placed on desk monitor, continuous pulse ox, IV access obtained. Head CT/chest x-ray/EKG/labs/orthostatic blood pressure ordered. Labs: elevated lactic acid, BUN, creatinine; ua-neg for nitrates, LE; bd cx pending. CXR and head CT neg for acute process. Patient given total of 2L IV NS in ER. Discussed with admit MD, Dr. Luna. Believes symptoms are 2/2 BP meds. Ok for IV hydration for now. Differential Diagnosis Differential Diagnosis: ACS, orthostatic hypotension, dehydration, UTI, Lab Data Result diagrams: 01/11/18 12:20 01/11/18 12:20 Lab Results 01/11/18 01/11/18 01/11/18 Range/Units 12:20 12:20 12:20 WBC 5.8 (4.0-11.0) th/mm3 RBC 4.32 (4.00-5.30) mil/mm3 Hgb 11.3 L (11.6-15.3) gm/dL Hct 35.0 (35.0-46.0) % MCV 80.9 (80.0-100.0) fL MCH 26.0 L (27.0-34.0) pg MCHC 32.2 (32.0-36.0) % RDW 16.5 (11.6-17.2) % Plt Count 262 (150-450) th/mm3 MPV 8.7 (7.0-11.0) fL Neut % (Auto) 54.6 (16.0-70.0) % Lymph % (Auto) 32.6 (9.0-44.0) % Prentiss % (Auto) 11.6 H (0.0-8.0) % Eos % (Auto) 0.7 (0.0-4.0) % Baso % (Auto) 0.5 (0.0-2.0) % Neut # (Auto) 3.2 (1.8-7.7) th/mm3 Lymph # (Auto) 1.9 (1.0-4.8) th/mm3 Prentiss # (Auto) 0.7 (0.0-0.9) th/mm3 Eos # (Auto) 0.0 (0.0-0.4) th/mm3 Baso # (Auto) 0.0 (0.0-0.2) th/mm3 WBC Differential . Differential Comment Auto diff final Sodium 139 (136-145) meq/L Potassium 4.8 (3.5-5.1) meq/L Chloride 109 H (98-107) meq/L Carbon Dioxide 16.9 L (21.0-32.0) meq/L Anion Gap 13 (5-15) meq/L BUN 22 H (7-18) mg/dL Creatinine 1.34 H (0.50-1.00) mg/dL Estimated GFR 50 L (>89) mL/min Random Glucose 79 (74-106) mg/dL Lactic Acid 5.7 H* (0.4-2.0) mmol/L Calcium 8.5 (8.5-10.1) mg/dL Magnesium 1.9 (1.5-2.5) mg/dL Total Bilirubin 0.2 (0.2-1.0) mg/dL AST 11 L (15-37) U/L ALT 15 (10-53) U/L Alkaline Phosphatase 85 (45-117) U/L Troponin I Less than 0.02 L (0.02-0.05) ng/mL Total Protein 6.2 L D (6.4-8.2) g/dL Albumin 2.9 L (3.4-5.0) g/dL Urine Color (Yellw/Straw) Urine Clarity (Clear) Urine pH (5.0-8.5) Ur Specific Castaner (1.002-1.035) Urine Protein (Neg-Trace) mg/dL Urine Glucose (UA) (Negative) mg/dL Urine Ketones (Negative) mg/dL Urine Occult Blood (Negative) Urine Nitrate (Negative) Urine Bilirubin (Negative) Urine Urobilinogen (Less than 2) mg/dL Ur Leukocyte Esterase (Negative) Urine RBC (0-3) /hpf Urine WBC (0-5) /hpf Ur Squamous Epith Cells (0-5) /hpf Urine Bacteria (None) /hpf Hyaline Casts (0-3) /lpf Urine Mucus (Occasional) /lpf Micro UA Comment Urine Culture Comments 01/11/18 Range/Units 12:40 WBC (4.0-11.0) th/mm3 RBC (4.00-5.30) mil/mm3 Hgb (11.6-15.3) gm/dL Hct (35.0-46.0) % MCV (80.0-100.0) fL MCH (27.0-34.0) pg MCHC (32.0-36.0) % RDW (11.6-17.2) % Plt Count (150-450) th/mm3 MPV (7.0-11.0) fL Neut % (Auto) (16.0-70.0) % Lymph % (Auto) (9.0-44.0) % Prentiss % (Auto) (0.0-8.0) % Eos % (Auto) (0.0-4.0) % Baso % (Auto) (0.0-2.0) % Neut # (Auto) (1.8-7.7) th/mm3 Lymph # (Auto) (1.0-4.8) th/mm3 Prentiss # (Auto) (0.0-0.9) th/mm3 Eos # (Auto) (0.0-0.4) th/mm3 Baso # (Auto) (0.0-0.2) th/mm3 WBC Differential Differential Comment Sodium (136-145) meq/L Potassium (3.5-5.1) meq/L Chloride (98-107) meq/L Carbon Dioxide (21.0-32.0) meq/L Anion Gap (5-15) meq/L BUN (7-18) mg/dL Creatinine (0.50-1.00) mg/dL Estimated GFR (>89) mL/min Random Glucose (74-106) mg/dL Lactic Acid (0.4-2.0) mmol/L Calcium (8.5-10.1) mg/dL Magnesium (1.5-2.5) mg/dL Total Bilirubin (0.2-1.0) mg/dL AST (15-37) U/L ALT (10-53) U/L Alkaline Phosphatase (45-117) U/L Troponin I (0.02-0.05) ng/mL Total Protein (6.4-8.2) g/dL Albumin (3.4-5.0) g/dL Urine Color Yellow (Yellw/Straw) Urine Clarity Hazy H (Clear) Urine pH 5.0 (5.0-8.5) Ur Specific Castaner 1.012 (1.002-1.035) Urine Protein Negative (Neg-Trace) mg/dL Urine Glucose (UA) Negative (Negative) mg/dL Urine Ketones Negative (Negative) mg/dL Urine Occult Blood Negative (Negative) Urine Nitrate Negative (Negative) Urine Bilirubin Negative (Negative) Urine Urobilinogen Less than 2 (Less than 2) mg/dL Ur Leukocyte Esterase Negative (Negative) Urine RBC 1 (0-3) /hpf Urine WBC 1 (0-5) /hpf Ur Squamous Epith Cells 4 (0-5) /hpf Urine Bacteria Rare H (None) /hpf Hyaline Casts 13 (0-3) /lpf Urine Mucus Few H (Occasional) /lpf Micro UA Comment Culture not ind Urine Culture Comments Culture not ind Imaging Data Radiologist's impression: ITS Impressions Chest X-Ray 01/11/18 12:10 CONCLUSION: No acute intrathoracic disease. No change compared to the prior study. Head CT 01/11/18 12:10 CONCLUSION: 1. No acute intracranial abnormality. Discharge Plan Discharge Disposition Patient Disposition: 30 Still Patient Discharge Condition Condition: Stable Discharge Details Anticipated Discharge Date: 01/15/18 Discharge Problem: Acute hypotension, Acidosis, lactic Physicians Team ED Provider: Ani Lehman Primary Care Provider: Naldo Montano Attending Provider: Dariusz Luna Discharge Interventions Interventions: Vital Signs Last Done: 01/11/18 12:58 Status ED Status: Admitted Patient
[2018-01-11 13:05] LABS: Baso % (Auto) 0.5 % (0.0-2.0); Eos % (Auto) 0.7 % (0.0-4.0); Hemoglobin 11.3 gm/dL (11.6-15.3); Lymph # (Auto) 1.9 th/mm3 (1.0-4.8); Lymph % (Auto) 32.6 % (9.0-44.0); Mean Corpuscular HGB Conc 32.2 % (32.0-36.0); Mean Corpuscular Volume 80.9 fL (80.0-100.0); Mean Platelet Volume 8.7 fL (7.0-11.0); Mono # (Auto) 0.7 th/mm3 (0.0-0.9); Mono % (Auto) 11.6 % (0.0-8.0); Neut # (Auto) 3.2 th/mm3 (1.8-7.7); Neut % (Auto) 54.6 % (16.0-70.0); Platelet Count 262 th/mm3 (150-450); Red Blood Count 4.32 mil/mm3 (4.00-5.30); Red Cell Distribution Width 16.5 % (11.6-17.2); White Blood Count 5.8 th/mm3 (4.0-11.0)
[2018-01-11 13:24] LABS: Albumin 2.9 g/dL (3.4-5.0); Anion Gap 13 meq/L (5-15); Aspartate Aminotransferase 11 U/L (15-37); Blood Urea Nitrogen 22 mg/dL (7-18); Calcium 8.5 mg/dL (8.5-10.1); Carbon Dioxide 16.9 meq/L (21.0-32.0); Chloride 109 meq/L (98-107); Glomerular Filtration Rate 50 mL/min (>89); Glucose,Random 79 mg/dL (74-106); Magnesium 1.9 mg/dL (1.5-2.5); Potassium 4.8 meq/L (3.5-5.1); Sodium 139 meq/L (136-145)
[2018-01-11 13:25] LABS: Alanine Aminotransferase 15 U/L (10-53)
[2018-01-11 13:30] LABS: Bacteria,Urine Rare /hpf; Bilirubin,Urine Negative (Negative); Clarity,Urine Hazy (Clear); Color,Urine Yellow (Yellw/Straw); Glucose,Urine (UA) Negative (Negative); Hyaline Casts,Urine 13 /lpf (0-3); Leukocyte Esterase,Urine Negative (Negative); Mucus,Urine Few /lpf (Occasional); Nitrite,Urine Negative (Negative); Specific Gravity,Urine 1.012 (1.002-1.035); Squamous Epithelial Cell,Urine 4 /hpf (0-5)
[2018-01-11 13:31] LABS: Alkaline Phosphatase 85 U/L (45-117); Total Protein 6.2 g/dL (6.4-8.2)
[2018-01-11] MEDS ORDERED: Sod Chloride 0.9% Inj 1,000 ML IV.SIG ONE (13:55)
[2018-01-11] MEDS ORDERED: Morphine Sulfate Inj 2 MG/ML Vial IV.PUSH ONE (13:57)
[2018-01-11] MEDS ORDERED: Temazepam 15 MG Capsule PO PRN (14:22)
[2018-01-11] MEDS ORDERED: Acetaminophen 325 MG Tablet PO PRN (14:22)
--- NOTE | 2018-01-11 14:23 | XR ---
EXAM DATE: 01/11/2018 1:17 PM EDT AGE/SEX: 52 years / Female INDICATIONS: Chest pain. CLINICAL DATA: This is the patient's initial encounter. Patient reports that signs and symptoms have been present for 1 day and indicates a pain score of 4/10. MEDICAL/SURGICAL HISTORY: Hypertension. None. COMPARISON: [facility] – [place]ST SINGLE AP, 03/31/2017. . FINDINGS: A single AP view of the chest demonstrates the lungs to be symmetrically aerated without evidence of mass, infiltrate or effusion. The cardiomediastinal contours are unremarkable. Osseous structures a re intact. No significant change compared to the prior study. CONCLUSION: No acute intrathoracic disease. No change compared to the prior study. Electronically signed by: Ken Julien MD 01/11/2018 2:22 PM EDT
[2018-01-11] MEDS ORDERED: Morphine Inj 4 MG/ML Vial IV.PUSH ONE (14:30)
[2018-01-11] MEDS ORDERED: KCL 20 mEq/NACL 0.45% Inj 1,000 ML IV.CONT SCH (14:45)
--- NOTE | 2018-01-11 16:56 | P.HPIM ---
<Sondra Gerardo - Last Filed: 01/11/18 18:54> History of Present Illness Primary Care Physician: Naldo Montano MD Chief Complaint: Dizziness History of Present Illness: Ms. Pelletier is a pleasant 51 y/o AAF with remote history of open cholecystectomy in the late hx of Izabella-en-Y gastric bypass in the mid- . She was previously admitted to [facility] [place] in October 2017 for evaluation of right upper quadrant abdominal pain and was found to have a partial small bowel obstruction with likely adhesion on CT scan at that time. Pt improved with supportive/conservative management. She was seen outpt by GI and had a SBFT in which noted prior gastric bypass but otherwise normal exam. She was sent to see Dr. Davis as she continued to have persistent RUQ abd pain. He had planned for evaluation with exploratory laparotomy today but in the pre-op area she was found to be hypotensive and pt complained of some dizziness and slurred speech. Pt was sent to the ER from the PACU for evaluation. Her BP prior to ER transfer was reportedly 66/52 and she was given a liter bolus of NS. Her BP in the ED was 100/57 and she was given another liter bolus of IVF. Pt normally takes Norvasc 5mg po BID, Lasix 40mg po daily, and Lisinopril 20mg po BID. Pt reports that for the last couple of days she felt dizzy and like her equilibrium has been off. She has also felt like she has been stuttering or slurring her words at times. She has noted some double vision as well for the last 2-3 days. In the ED Head CT was performed and was negative. CXR noted no acute intrathoracic disease, no change compared to the prior study. Her WBC count was WNL. Her Lactic acid was elevated in the ED at 5.7 but the repeat lactic acid improved to 1.5. She denies headache, chest pain, shortness of breath, fever, or chills. - Diagnosis (1) Acute hypotension (2) Dizziness (3) HTN (hypertension) (4) Abdominal pain Review of Systems Constitutional: Denies chills, Denies fever(s) Eyes: Denies change in vision Ears, Nose, Mouth, and Throat: Reports dizziness, Reports poor balance, Denies abnormal hearing, Denies difficulty swallowing Cardiovascular: Reports lightheadedness, Denies chest pain, Denies irregular heart rhythm, Denies shortness of breath Respiratory: Denies chest congestion, Denies cough Gastrointestinal: Reports abdominal pain, Reports nausea Genitourinary: Denies urinary urgency Musculoskeletal: Denies muscle weakness Neurologic: Reports dizziness, Reports unsteadiness PMFSH - History History Provided By: Patient, Medical Record - Medical History Medical History: Medical History (Last Updated 01/11/18 @ 16:55 by CRIS Jones) Depression Fibromyalgia GERD (gastroesophageal reflux disease) HTN (hypertension) Morbid obesity Sickle cell trait Arthritis of both hands Bulging lumbar disc History of trigger finger Hx of dysfunctional uterine bleeding Mid back pain, chronic - Surgical History Surgical History: Surgical History (Last Updated 01/11/18 @ 16:23 by CRIS Jones) History of cholecystectomy Gastric bypass status for obesity History of History of carpal tunnel release of both wrists - Family History Family History: Family History (Last Updated 01/11/18 @ 16:23 by CRIS Jones) Other Lung cancer - Tobacco History Second Hand Smoke Exposure: No Tobacco Use In Past 30 Days: No Smoking Status: Never smoker - Alcohol History How Often Do You Have a Drink Containing Alcohol: Never - Substance Use History Substance History: No History of Abuse - Travel History Recent Travel in the [place] Within the Last 8 Weeks: No Recent Travel Out of the Country Within the Last 8 Weeks: No - Immunization History Tetanus Immunization: <5 Years Medications and Allergies Allergies Allergy/AdvReac Type Severity Reaction Status Date / Time aspirin AdvReac Intermediate Nausea/Vomi Verified 01/25/18 09:45 ting ibuprofen AdvReac Intermediate Nausea/Vomi Verified 01/25/18 09:45 ting Home Medications Medication Instructions Recorded Confirmed Type acyclovir [Zovirax] 800 mg PO TID PRN 01/07/18 01/25/18 History dextromethorphan-guaifenesin 1 tab PO QID 01/07/18 01/25/18 History [Mucinex DM] diphenhydramine HCl [Benadryl] 50 mg PO BID PRN 01/07/18 01/25/18 History gabapentin 600 mg PO TID 01/07/18 01/25/18 History hydrocodone-acetaminophen 1 tab PO Q6H PRN 01/07/18 01/25/18 History promethazine 25 mg PO BID 01/07/18 01/25/18 History tizanidine 4 mg PO Q4HR 01/07/18 01/25/18 History amlodipine 2.5 mg PO BID 01/22/18 01/25/18 History Active Medications: Active Medications Acetaminophen (Tylenol) 650 mg PO Q4H PRN PRN Reason: Temp > 100.4 Hydrocodone Bitart/Acetaminophen ([place] 10/325) 1 tab PO Q6H PRN PRN Reason: pain 1-10 Al Hydroxide/Mg Hydroxide (Milk Of Corry Garcia) 30 ml PO Q12H PRN PRN Reason: Mild Constipation Gabapentin (Neurontin) 600 mg PO TID VENKATA Potassium Chloride/Sodium Chloride (Potassium Chlor 20 Meq/Nacl 0.45% Inj) 1, 000 mls @ 100 mls/hr IV.CONT .Q10H VENKATA Ondansetron HCl (Zofran Inj) 4 mg IV.PUSH Q6H PRN PRN Reason: NAUSEA OR VOMITING Senna/Docusate Sodium (Martha-Colace) 1 tab PO BID VENKATA Temazepam (Restoril) 15 mg PO HS PRN PRN Reason: INSOMNIA Exam Vital signs: Vital Signs 01/11/18 11:44 01/11/18 12:58 Temperature 98.0 F Pulse Rate 64 68 Respiratory Rate 18 18 Blood Pressure 107/58 L 100/57 L Pulse Oximetry 98 99 Intake & Output 01/10/18 01/11/18 01/11/18 18:59 06:59 18:59 Weight 107 kg Narrative: GENERAL: SKIN: Warm and dry. HEAD: Atraumatic. Normocephalic. Pupils equal and round. No scleral icterus. No injection or drainage. Mucous membranes pink and moist. NECK: Trachea midline. No JVD. CARDIOVASCULAR: Regular, S3 gallop RESPIRATORY: No accessory muscle use. Clear to auscultation. Breath sounds equal bilaterally. GASTROINTESTINAL: +BS, soft, RUQ tenderness, nondistended. MUSCULOSKELETAL: Bilateral LE edema, left greater than right. NEUROLOGICAL: Awake and alert. No obvious cranial nerve deficits. Motor grossly within normal limits. Five out of 5 muscle strength in the arms and legs. Normal speech. PSYCHIATRIC: Appropriate mood and affect; insight and judgment normal. Results - Labs CBC & Chem 7: 01/11/18 12:20 01/11/18 12:20 Labs: Short CBC 01/11/18 Range/Units 12:20 WBC 5.8 (4.0-11.0) th/mm3 Hgb 11.3 L (11.6-15.3) gm/dL Hct 35.0 (35.0-46.0) % Plt Count 262 (150-450) th/mm3 BMP 01/11/18 12:20 Sodium 139 Potassium 4.8 Chloride 109 H Carbon Dioxide 16.9 L BUN 22 H Creatinine 1.34 H Calcium 8.5 Cardiac Enzymes 01/11/18 Range/Units 12:20 Troponin I Less than 0.02 L (0.02-0.05) ng/mL Liver Function 01/11/18 Range/Units 12:20 Total Bilirubin 0.2 (0.2-1.0) mg/dL AST 11 L (15-37) U/L ALT 15 (10-53) U/L Alkaline Phosphatase 85 (45-117) U/L Albumin 2.9 L (3.4-5.0) g/dL Urine 01/11/18 Range/Units 12:40 Urine Color Yellow (Yellw/Straw) Urine Clarity Hazy H (Clear) Urine pH 5.0 (5.0-8.5) Ur Specific [place] 1.012 (1.002-1.035) Urine Protein Negative (Neg-Trace) mg/dL Urine Glucose (UA) Negative (Negative) mg/dL - Imaging Impressions Chest X-Ray 01/11/18 12:10 CONCLUSION: No acute intrathoracic disease. No change compared to the prior study. Head CT 01/11/18 12:10 CONCLUSION: 1. No acute intracranial abnormality. Caprini VTE Risk Assessment Caprini VTE Risk Assessment: Moderate/High Risk (score >= 2) Caprini Risk Assessment Model: Point Value = 1 Point Value = 2 Point Value = 3 Point Value = 5 Age 41-60 Minor surgery BMI > 25 kg/m2 Swollen legs Varicose veins or History of unexplained or recurrent spontaneous Oral contraceptives or hormone replacement Sepsis (< 1 month) Serious lung disease, including pneumonia (< 1 month) Abnormal pulmonary function Acute myocardial infarction Congestive heart failure (< 1 month) History of inflammatory bowel disease Medical patient at bed rest Age 61-74 Arthroscopic surgery Major open surgery (> 45 min) Laparoscopic surgery (> 45 min) Malignancy Confined to bed (> 72 hours) Immobilizing plaster cast Central venous access Age >= 75 History of VTE Family history of VTE Factor V Leiden Prothrombin [id number] Lupus anticoagulant Anticardiolipin antibodies Elevated serum homocysteine Heparin-induced thrombocytopenia Other congenital or acquired thrombophilia Stroke (< 1 month) Elective arthroplasty Hip, pelvis, or leg fracture Acute spinal cord injury (< 1 month) Prophylaxis Regimen: Total Risk Factor Score Risk Level Prophylaxis Regimen 0-1 Low Early ambulation 2 Moderate Order ONE of the following: *Sequential Compression Device (SCD) *Heparin 5000 units SQ BID 3-4 Higher Order ONE of the following medications: *Heparin 5000 units SQ TID *Enoxaparin/Lovenox 40 mg SQ daily (WT < 150 kg, CrCl > 30 mL/min) *Enoxaparin/Lovenox 30 mg SQ daily (WT < 150 kg, CrCl > 10-29 mL/min) *Enoxaparin/Lovenox 30 mg SQ BID (WT < 150 kg, CrCl > 30 mL/min) AND/OR *Sequential Compression Device (SCD) 5 or more Highest Order ONE of the following medications: *Heparin 5000 units SQ TID (Preferred with Epidurals) *Enoxaparin/Lovenox 40 mg SQ daily (WT < 150 kg, CrCl > 30 mL/min) *Enoxaparin/Lovenox 30 mg SQ daily (WT < 150 kg, CrCl > 10-29 mL/min) *Enoxaparin/Lovenox 30 mg SQ BID (WT < 150 kg, CrCl > 30 mL/min) AND *Sequential Compression Device (SCD) Assessment and Plan - Assessment (1) Acute hypotension Code(s): I95.9 - Hypotension, unspecified Status: Acute Plan: - Pt is a 51 y/o AAF with remote history of open cholecystectomy in the late 1980s hx of Izabella-en-Y gastric bypass in the mid-. - She had planned for evaluation with exploratory laparotomy for evaluation of chronic abdominal pain today but in the pre-op area she was found to be hypotensive and pt complained of some dizziness and slurred speech. Pt was sent to the ER from the PACU for evaluation. - Her BP prior to ER transfer was reportedly 66/52 and she was given a liter bolus of NS. Her BP in the ED was 100/57 and she was given another liter bolus of IVF. - Pt normally takes Norvasc 5mg po BID, Lasix 40mg po daily, and Lisinopril 20mg po BID. - Pt reports that for the last couple of days she felt dizzy and like her equilibrium has been off. She has also felt like she has been stuttering or slurring her words at times. - Head CT was performed and was negative. - CXR noted no acute intrathoracic disease, no change compared to the prior study. - Her WBC count was WNL. - Her Lactic acid was elevated in the ED at 5.7 but the repeat lactic acid improved to 1.5. Blood cultures were drawn in the ED - Hold home BP meds - Cont. IVF - Monitor vitals closely - Pt does not appear to be acutely infected - Supportive care - Further recommendations as the case develops - DVT prophylaxis with SCDs (2) Dizziness Code(s): R42 - Dizziness and giddiness Status: Acute Plan: - Pt has been having dizziness, blurred vision for the last 2-3 days, could be secondary to hypotension but need to r/o secondary causes - Give IVF - Telemetry - Head CT was negative - Check MRI head - Check 2D echo - BP meds on hold - Check orthostatics in AM (3) HTN (hypertension) Code(s): I10 - Essential (primary) hypertension Status: Acute Plan: - Hold home meds - IVF - Monitor (4) Abdominal pain Code(s): R10.9 - Unspecified abdominal pain Status: Acute Plan: - She was previously admitted to [facility] [place] in October 2017 for evaluation of right upper quadrant abdominal pain and was found to have a partial small bowel obstruction with likely adhesion on CT scan at that time. - She was seen outpt by GI and had a SBFT in 11/2017 which noted prior gastric bypass but otherwise normal exam. - She was sent to see Dr. Davis as she continued to have persistent RUQ abd pain. -Pt had been planned for surgical evaluation for the abdominal pain which will be postponed for when the pt is more medically stable. <Dariusz Luna - Last Filed: 02/01/18 16:42> History of Present Illness Primary Care Physician: Naldo Montano MD - Diagnosis (1) Acute hypotension (2) Abdominal pain (3) Dizziness [facility] - Medical History Medical History: Medical History (Last Updated 01/11/18 @ 16:55 by CRIS Jones) Depression Fibromyalgia GERD (gastroesophageal reflux disease) HTN (hypertension) Morbid obesity Sickle cell trait Arthritis of both hands Bulging lumbar disc History of trigger finger Hx of dysfunctional uterine bleeding Mid back pain, chronic - Surgical History Surgical History: Surgical History (Last Updated 01/11/18 @ 16:23 by CRIS Jones) History of cholecystectomy Gastric bypass status for obesity History of History of carpal tunnel release of both wrists - Family History Family History: Family History (Last Updated 01/11/18 @ 16:23 by CRIS Jones) Other Lung cancer Results - Labs CBC & Chem 7: 01/12/18 10:26 01/12/18 10:26 Caprini VTE Risk Assessment Johni Risk Assessment Model: Point Value = 1 Point Value = 2 Point Value = 3 Point Value = 5 Age 41-60 Minor surgery BMI > 25 kg/m2 Swollen legs Varicose veins or History of unexplained or recurrent spontaneous Oral contraceptives or hormone replacement Sepsis (< 1 month) Serious lung disease, including pneumonia (< 1 month) Abnormal pulmonary function Acute myocardial infarction Congestive heart failure (< 1 month) History of inflammatory bowel disease Medical patient at bed rest Age 61-74 Arthroscopic surgery Major open surgery (> 45 min) Laparoscopic surgery (> 45 min) Malignancy Confined to bed (> 72 hours) Immobilizing plaster cast Central venous access Age >= 75 History of VTE Family history of VTE Factor V Leiden Prothrombin [id number] Lupus anticoagulant Anticardiolipin antibodies Elevated serum homocysteine Heparin-induced thrombocytopenia Other congenital or acquired thrombophilia Stroke (< 1 month) Elective arthroplasty Hip, pelvis, or leg fracture Acute spinal cord injury (< 1 month) Prophylaxis Regimen: Total Risk Factor Score Risk Level Prophylaxis Regimen 0-1 Low Early ambulation 2 Moderate Order ONE of the following: *Sequential Compression Device (SCD) *Heparin 5000 units SQ BID 3-4 Higher Order ONE of the following medications: *Heparin 5000 units SQ TID *Enoxaparin/Lovenox 40 mg SQ daily (WT < 150 kg, CrCl > 30 mL/min) *Enoxaparin/Lovenox 30 mg SQ daily (WT < 150 kg, CrCl > 10-29 mL/min) *Enoxaparin/Lovenox 30 mg SQ BID (WT < 150 kg, CrCl > 30 mL/min) AND/OR *Sequential Compression Device (SCD) 5 or more Highest Order ONE of the following medications: *Heparin 5000 units SQ TID (Preferred with Epidurals) *Enoxaparin/Lovenox 40 mg SQ daily (WT < 150 kg, CrCl > 30 mL/min) *Enoxaparin/Lovenox 30 mg SQ daily (WT < 150 kg, CrCl > 10-29 mL/min) *Enoxaparin/Lovenox 30 mg SQ BID (WT < 150 kg, CrCl > 30 mL/min) AND *Sequential Compression Device (SCD) Assessment and Plan - Assessment (1) Acute hypotension Code(s): I95.9 - Hypotension, unspecified Status: Acute (2) Abdominal pain Code(s): R10.9 - Unspecified abdominal pain Status: Acute (3) Dizziness Code(s): R42 - Dizziness and giddiness Status: Acute - Attending Attestation Patient examined. Assessment and plan formulated with Sondra Gerardo PA-C. I agree with the above.
[2018-01-11] MEDS: Gabapentin 300 MG Capsule PO SCH (17:04)
[2018-01-11] MEDS: Senna/Docusate Sodium 8.6/50 MG Tablet PO SCH (20:58)
[2018-01-12] MEDS: Senna/Docusate Sodium 8.6/50 MG Tablet PO SCH ×2 (08:45→20:16)
[2018-01-12] MEDS: Gabapentin 300 MG Capsule PO SCH ×3 (08:45→18:37)
[2018-01-12] MEDS ORDERED: Morphine Inj 4 MG/ML Vial IV.PUSH PRN (09:00)
[2018-01-12 11:09] LABS: Baso % (Auto) 0.6 % (0.0-2.0); Eos # (Auto) 0.1 th/mm3 (0.0-0.4); Eos % (Auto) 1.4 % (0.0-4.0); Hematocrit 32.2 % (35.0-46.0); Hemoglobin 10.5 gm/dL (11.6-15.3); Lymph # (Auto) 2.3 th/mm3 (1.0-4.8); Lymph % (Auto) 48.6 % (9.0-44.0); Mean Corpuscular HGB Conc 32.6 % (32.0-36.0); Mean Corpuscular Volume 79.7 fL (80.0-100.0); Mean Platelet Volume 8.4 fL (7.0-11.0); Mono # (Auto) 0.4 th/mm3 (0.0-0.9); Mono % (Auto) 8.2 % (0.0-8.0); Neut % (Auto) 41.2 % (16.0-70.0); Platelet Count 319 th/mm3 (150-450); Red Blood Count 4.04 mil/mm3 (4.00-5.30); Red Cell Distribution Width 16.1 % (11.6-17.2); White Blood Count 4.7 th/mm3 (4.0-11.0)
[2018-01-12 11:39] LABS: Calcium 8.7 mg/dL (8.5-10.1); Carbon Dioxide 21.4 meq/L (21.0-32.0); Potassium 4.7 meq/L (3.5-5.1)
[2018-01-12] MEDS ORDERED: Gadobenate Dimeglumine PF Inj 529 MG/ML 5 ML VIAL (for RAD MRI) IVCONTRAST ONE (17:40)
--- NOTE | 2018-01-12 17:52 | MR ---
EXAM DATE: 01/12/2018 5:43 PM EDT AGE/SEX: 52 years / Female INDICATIONS: . Involuntary jerking motion of extremities. Double vison. Dizziness. CLINICAL DATA: This is the patient's subsequent encounter. Patient reports that signs and symptoms h ave been present for 2 days and indicates a pain score of 0/10. MEDICAL/SURGICAL HISTORY: Hypertension. Cholecystectomy. Carpal tunnel syndrome. Tubal ligati on. uterine ablation, gastric bypass. COMPARISON: No prior exams available for comparison. TECHNIQUE: Multiplanar, multisequence examination of the brain was performed without and with 22 ml M ultihance (gadobenate) contrast as a single exam dose. FINDINGS: MRI of the brain is performed in sagittal, axial and coronal planes. The craniocervical junction and midline structures are unremarkable. Diffusion weighted images demonstrate no abnormality. No acute c ortical infarction, acute hemorrhage, mass effect or midline shift is seen.Following the administrati on of contrast no abnormal enhancement is identified. Posterior fossa structures are unremarkable. CONCLUSION: No evidence of acute intracranial pathology. No masses are identified. Electronically signed by: Marcelino Amaya MD 01/12/2018 5:51 PM EDT
--- NOTE | 2018-01-12 20:21 | P.PNIM ---
Subjective Interval history: No new complaints. Dizziness improved from admission. Physical Exam Vital signs: Vital Signs 01/12/18 00:00 01/12/18 02:00 01/12/18 04:00 Temperature 97.9 F Pulse Rate 65 76 Respiratory Rate 18 18 18 Blood Pressure 115/65 79/52 L Pulse Oximetry 99 98 01/12/18 07:49 01/12/18 08:00 01/12/18 10:45 Temperature 97.7 F Pulse Rate 74 65 Respiratory Rate 18 18 Blood Pressure 106/59 L 100/62 114/60 Pulse Oximetry 97 97 01/12/18 11:01 01/12/18 12:00 01/12/18 16:00 Temperature 98 F 97.9 F Pulse Rate 64 74 Respiratory Rate 16 18 20 Blood Pressure 99/57 L 126/60 Pulse Oximetry 94 L 99 01/12/18 20:00 Temperature 97.9 F Pulse Rate 62 Respiratory Rate 20 Blood Pressure 113/70 Pulse Oximetry 98 Intake & Output 01/12/18 01/12/18 01/13/18 06:59 18:59 06:59 Intake Total 480 / 480 Output Total 3 / 3 Balance 477 / 477 Intake: Oral 480 / 480 Output: Urine 3 Narrative: GENERAL: This is a well-nourished, well-developed patient, in no apparent distress. CARDIOVASCULAR: Regular rate and rhythm without murmurs, gallops, or rubs. RESPIRATORY: Clear to auscultation. Breath sounds equal bilaterally. No wheezes , rales, or rhonchi. GASTROINTESTINAL: Abdomen soft, non-tender, nondistended. Normal active bowel sounds MUSCULOSKELETAL: Extremities without clubbing, cyanosis, or edema. NEURO: Alert & Oriented x4 to person, place, time, situation. Moves all ext x4 Results - Labs CBC & Chem 7: 01/12/18 10:26 01/12/18 10:26 Laboratory Results - last 24 hr 01/12/18 01/12/18 10:26 10:26 WBC 4.7 RBC 4.04 Hgb 10.5 L Hct 32.2 L MCV 79.7 L MCH 26.0 L MCHC 32.6 RDW 16.1 Plt Count 319 MPV 8.4 Neut % (Auto) 41.2 Lymph % (Auto) 48.6 H [place] % (Auto) 8.2 H Eos % (Auto) 1.4 Baso % (Auto) 0.6 Neut # (Auto) 2.0 Lymph # (Auto) 2.3 [place] # (Auto) 0.4 Eos # (Auto) 0.1 Baso # (Auto) 0.0 WBC Differential . Differential Comment Auto diff final Sodium 140 Potassium 4.7 Chloride 110 H Carbon Dioxide 21.4 Anion Gap 9 BUN 15 Creatinine 0.91 Estimated GFR 79 L Random Glucose 101 Calcium 8.7 Microbiology 01/11/18 14:15 Blood - Peripheral Aerobic Blood Culture - Preliminary No growth in 1 day 01/11/18 14:15 Blood - Peripheral Anaerobic Blood Culture - Preliminary No growth in 1 day 01/11/18 14:20 Blood - Peripheral Aerobic Blood Culture - Preliminary No growth in 1 day 01/11/18 14:20 Blood - Peripheral Anaerobic Blood Culture - Preliminary No growth in 1 day - Imaging Impressions Head MRI 01/12/18 00:00 CONCLUSION: No evidence of acute intracranial pathology. No masses are identified. Assessment and Plan - Assessment (1) Acute hypotension Code(s): I95.9 - Hypotension, unspecified Status: Acute Plan: - Pt is a 51 y/o AAF with remote history of open cholecystectomy in the late hx of Izabella-en-Y gastric bypass in the mid-. - She had planned for evaluation with exploratory laparotomy for evaluation of chronic abdominal pain today but in the pre-op area she was found to be hypotensive and pt complained of some dizziness and slurred speech. Pt was sent to the ER from the PACU for evaluation. - Her BP prior to ER transfer was reportedly 66/52 and she was given a liter bolus of NS. Her BP in the ED was 100/57 and she was given another liter bolus of IVF. - Pt normally takes Norvasc 5mg po BID, Lasix 40mg po daily, and Lisinopril 20mg po BID. - Pt reports that for the last couple of days she felt dizzy and like her equilibrium has been off. She has also felt like she has been stuttering or slurring her words at times. - Head CT was performed and was negative. - CXR noted no acute intrathoracic disease, no change compared to the prior study. - Her WBC count was WNL. - Her Lactic acid was elevated in the ED at 5.7 but the repeat lactic acid improved to 1.5. Blood cultures were drawn in the ED - Hold home BP meds - stop IVF in AM - MRI brain (01/12/18) Negative - suspect dizziness/hypotension d/t polypharmacy - anticipate d/c to home with HHC and home PT 01/13 - DVT prophylaxis with SCDs (2) Dizziness Code(s): R42 - Dizziness and giddiness Status: Acute Plan: - Pt has been having dizziness, blurred vision for the last 2-3 days, could be secondary to hypotension but need to r/o secondary causes - Give IVF - Telemetry - Head CT was negative - Check MRI head - Check 2D echo --> pending results - BP meds on hold - Check orthostatics in AM - see above (3) HTN (hypertension) Code(s): I10 - Essential (primary) hypertension Status: Acute Plan: - Hold home meds - IVF - Monitor (4) Abdominal pain Code(s): R10.9 - Unspecified abdominal pain Status: Acute Plan: - She was previously admitted [place] [facility] for evaluation of right upper quadrant abdominal pain and was found to have a partial small bowel obstruction with likely adhesion on CT scan at that time. - She was seen outpt by GI and had a SBFT in 11/2017 which noted prior gastric bypass but otherwise normal exam. - She was sent to see Dr. Davis as she continued to have persistent RUQ abd pain. -Pt had been planned for surgical evaluation for the abdominal pain which will be postponed for when the pt is more medically stable.
[2018-01-13] MEDS: Gabapentin 300 MG Capsule PO SCH ×3 (08:46→17:48)
[2018-01-13] MEDS: Senna/Docusate Sodium 8.6/50 MG Tablet PO SCH ×2 (08:46→23:09)
--- NOTE | 2018-01-13 09:49 | P.DCO ---
- Physical Therapy Order: Evaluate and treat - Home Health Nursing Order: Medication education-adverse effect, Nursing assessment with vital signs - Certification I have seen patient Kelly Pelletier on 01/13/18. My clinical findings support the need for the requested home health care services because: Deconditioned with increased weakness, High risk of falls I certify that my clinical findings support that this patient is homebound because: Unsteady gait/balance
--- NOTE | 2018-01-13 09:53 | P.DS ---
<Desi Mistry W - Last Filed: 01/14/18 19:28> Date of admission: 01/11/18 14:05 Primary care physician: Naldo Montano MD Attending physician on discharge: Dariusz Luna Anticipated date of discharge: 01/13/18 Brief History from admission: Ms. Pelletier is a pleasant 51 y/o AAF with remote history of open cholecystectomy in the late hx of Izabella-en-Y gastric bypass in the mid- . She was previously admitted to [facility] in October 2017 for evaluation of right upper quadrant abdominal pain and was found to have a partial small bowel obstruction with likely adhesion on CT scan at that time. Pt improved with supportive/conservative management. She was seen outpt by GI and had a SBFT in which noted prior gastric bypass but otherwise normal exam. She was sent to see Dr. Davis as she continued to have persistent RUQ abd pain. He had planned for evaluation with exploratory laparotomy today but in the pre-op area she was found to be hypotensive and pt complained of some dizziness and slurred speech. Pt was sent to the ER from the PACU for evaluation. Her BP prior to ER transfer was reportedly 66/52 and she was given a liter bolus of NS. Her BP in the ED was 100/57 and she was given another liter bolus of IVF. Pt normally takes Norvasc 5mg po BID, Lasix 40mg po daily, and Lisinopril 20mg po BID. Pt reports that for the last couple of days she felt dizzy and like her equilibrium has been off. She has also felt like she has been stuttering or slurring her words at times. She has noted some double vision as well for the last 2-3 days. In the ED Head CT was performed and was negative. CXR noted no acute intrathoracic disease, no change compared to the prior study. Her WBC count was WNL. Her Lactic acid was elevated in the ED at 5.7 but the repeat lactic acid improved to 1.5. She denies headache, chest pain, shortness of breath, fever, or chills. DS: Diagnosis - Discharge Diagnosis (1) Acute hypotension Status: Acute (2) Abdominal pain Status: Acute (3) Dizziness Status: Acute DS: Summary Hospital Course: Acute hypotension - Pt is a 51 y/o AAF with remote history of open cholecystectomy in the late 1980s hx of Izabella-en-Y gastric bypass in the mid-. - She had planned for evaluation with exploratory laparotomy for evaluation of chronic abdominal pain today but in the pre-op area she was found to be hypotensive and pt complained of some dizziness and slurred speech. Pt was sent to the ER from the PACU for evaluation. - Her BP prior to ER transfer was reportedly 66/52 and she was given a liter bolus of NS. Her BP in the ED was 100/57 and she was given another liter bolus of IVF. - Pt normally takes Norvasc 5mg po BID, Lasix 40mg po daily, and Lisinopril 20mg po BID. - Pt reports that for the last couple of days she felt dizzy and like her equilibrium has been off. She has also felt like she has been stuttering or slurring her words at times. - Head CT was performed and was negative. - CXR noted no acute intrathoracic disease, no change compared to the prior study. - Her WBC count was WNL. - Her Lactic acid was elevated in the ED at 5.7 but the repeat lactic acid improved to 1.5. Blood cultures were drawn in the ED - Hold home BP meds - stop IVF in AM - MRI brain (01/12/18) Negative - suspect dizziness/hypotension d/t polypharmacy - Dr. Luna discussed EEG with Dr. Chicas, reports normal exam - DVT prophylaxis with SCDs Abdominal pain - She was previously admitted to [facility] in October 2017 for evaluation of right upper quadrant abdominal pain and was found to have a partial small bowel obstruction with likely adhesion on CT scan at that time. - She was seen outpt by GI and had a SBFT in 11/2017 which noted prior gastric bypass but otherwise normal exam. - She was sent to see Dr. Davis as she continued to have persistent RUQ abd pain. -Pt had been planned for surgical evaluation for the abdominal pain which will be postponed for when the pt is more medically stable. -Pt will need to follow up with Dr. Davis after DC Dizziness - Pt has been having dizziness, blurred vision for the last 2-3 days, could be secondary to hypotension but need to r/o secondary causes - Give IVF - Telemetry - Head CT was negative - Check MRI head - 2D echo --> Normal left ventricular size. Wall thickness is normal. The left ventricular systolic function is low normal with an estimated ejection fraction in the range of 50- 55%. Mitral annular calcification is present. Trace mitral valve regurgitation. - BP meds on hold - see above Headache Patient c/o aching headache in posterior head radiating toward the front worse in the AM x 3 days acetaminophen as needed Head MRI reviewed and reveals: No evidence of acute intracranial pathology. No masses are identified. CT head reviewed and reveals: No acute intracranial abnormality. Head reviewed and reveals: No evidence of acute intracranial pathology. No masses are identified. Carotid Doppler Study Right Internal Carotid Artery: Minimal plaque without stenosis. Left Internal Carotid Artery: Minimal plaque without stenosis. Head MRA reviewed and reveals: Examination within normal limits for age. Consult Neurology, cleared for DC recommending Fioricet as needed Patient now concerned with brief repetitive motion of left hand may represent seizure activity Dr. Luna discussed EEG with Dr. Chicas, reports normal exam DC home with [facility] - Time Spent with Patient Total time spent providing and/or coordinating discharge services: Greater than 30 minutes - Quality: VTE Deep Vein Thrombosis/Pulmonary Embolism Present on Admission: No Exam Vital signs: Vital Signs 01/12/18 10:45 01/12/18 11:01 01/12/18 12:00 Temperature 98 F Pulse Rate 64 Respiratory Rate 16 18 Blood Pressure 114/60 99/57 L Pulse Oximetry 94 L 01/12/18 16:00 01/12/18 20:00 01/12/18 23:56 Temperature 97.9 F 97.9 F Pulse Rate 74 62 75 Respiratory Rate 20 20 Blood Pressure 126/60 113/70 Pulse Oximetry 99 98 01/13/18 00:00 01/13/18 02:23 01/13/18 04:00 Temperature 98.2 F 97.5 F L Pulse Rate 71 70 Respiratory Rate 20 20 16 Blood Pressure 111/56 L 105/66 Pulse Oximetry 99 98 01/13/18 08:00 01/13/18 08:46 Temperature 98 F Pulse Rate 60 Respiratory Rate 20 14 Blood Pressure 131/79 Pulse Oximetry 98 Intake & Output 01/12/18 01/13/18 01/13/18 18:59 06:59 18:59 Intake Total 480 / 480 Output Total 3 / 3 Balance 477 / 477 Weight 125.5 kg Intake: Oral 480 / 480 Output: Urine 3 / 3 - Constitutional no acute distress - Routine HEENT Exam Head: Present: normocephalic, atraumatic Eye: Present: EOMI - Routine Neck Exam Present: supple - Routine Respiratory Exam Present: CTA bilaterally - Routine Cardiovascular Exam Present: RRR - Routine Abdominal Exam Present: soft. Absent: tenderness, distended - Routine Skin Exam Present: intact - Routine Neurological Exam Present: oriented X3 Results Procedures completed during hospitalization: none Labs on day of discharge: Labs from last 24 hours 01/12/18 01/12/18 10:26 10:26 WBC 4.7 RBC 4.04 Hgb 10.5 L Hct 32.2 L MCV 79.7 L MCH 26.0 L MCHC 32.6 RDW 16.1 Plt Count 319 MPV 8.4 Neut % (Auto) 41.2 Lymph % (Auto) 48.[address] [place] % (Auto) 8.2 H Eos % (Auto) 1.4 Baso % (Auto) 0.6 Neut # (Auto) 2.0 Lymph # (Auto) 2.3 [place] # (Auto) 0.4 Eos # (Auto) 0.1 Baso # (Auto) 0.0 WBC Differential . Differential Comment Auto diff final Sodium 140 Potassium 4.7 Chloride 110 H Carbon Dioxide 21.4 Anion Gap 9 BUN 15 Creatinine 0.91 Estimated GFR 79 L Random Glucose 101 Calcium 8.7 Preliminary micro results at discharge 01/11/18 14:15 Aerobic Blood Culture - Preliminary Blood - Peripheral No growth in 1 day Anaerobic Blood Culture - Preliminary No growth in 1 day 01/11/18 14:20 Aerobic Blood Culture - Preliminary Blood - Peripheral No growth in 1 day Anaerobic Blood Culture - Preliminary No growth in 1 day - Impressions ITS Impressions Chest X-Ray 01/11/18 12:10 CONCLUSION: No acute intrathoracic disease. No change compared to the prior study. Head CT 01/11/18 12:10 CONCLUSION: 1. No acute intracranial abnormality. Head MRI 01/12/18 00:00 CONCLUSION: No evidence of acute intracranial pathology. No masses are identified. <Dariusz Luna - Last Filed: 02/01/18 16:43> Date of admission: 01/11/18 14:05 Primary care physician: Naldo Montano MD DS: Diagnosis - Discharge Diagnosis (1) Acute hypotension Status: Acute (2) Abdominal pain Status: Acute (3) Dizziness Status: Acute DS: Summary Hospital Course: Patient examined. Assessment and plan formulated with Desi Mistry PA-C. I agree with the above. - Time Spent with Patient Total time spent providing and/or coordinating discharge services: Results - Impressions ITS Impressions Chest X-Ray 01/11/18 12:10 CONCLUSION: No acute intrathoracic disease. No change compared to the prior study. Head CT 01/11/18 12:10 CONCLUSION: 1. No acute intracranial abnormality. Head MRI 01/12/18 00:00 CONCLUSION: No evidence of acute intracranial pathology. No masses are identified. Carotid Doppler Study 01/13/18 00:00 CONCLUSION: 1. Right Internal Carotid Artery: Minimal plaque without stenosis. 2. Left Internal Carotid Artery: Minimal plaque without stenosis. Head MRA 01/13/18 00:00 CONCLUSION: 1. Examination within normal limits for age. Discharge Plan - Discharge Order Discharge Orders: Discharge Order (Routine); Ordered 01/14/18 Ordered By: Desi Mistry - Discharge Details Anticipated Discharge Date: 01/14/18 - Physicians Team Primary Care Provider: Naldo Montano Attending Provider: Dariusz Luna Other Providers: [facility] ; Irene Camara MD
--- NOTE | 2018-01-13 11:59 | P.PNIM ---
Subjective Interval history: Patient c/o aching headache in posterior head radiating toward the front worse in the AM x 3 days Physical Exam Vital signs: Vital Signs 01/12/18 12:00 01/12/18 16:00 01/12/18 20:00 Temperature 98 F 97.9 F 97.9 F Pulse Rate 64 74 62 Respiratory Rate 18 20 20 Blood Pressure 99/57 L 126/60 113/70 Pulse Oximetry 94 L 99 98 01/12/18 23:56 01/13/18 00:00 01/13/18 02:23 Temperature 98.2 F Pulse Rate 75 71 Respiratory Rate 20 20 Blood Pressure 111/56 L Pulse Oximetry 99 01/13/18 04:00 01/13/18 08:00 01/13/18 08:46 Temperature 97.5 F L 98 F Pulse Rate 70 60 Respiratory Rate 16 20 14 Blood Pressure 105/66 131/79 Pulse Oximetry 98 98 Intake & Output 01/12/18 01/13/18 01/13/18 18:59 06:59 18:59 Intake Total 480 / 480 Output Total 3 / 3 Balance 477 / 477 Weight 125.5 kg Intake: Oral 480 / 480 Output: Urine 3 / 3 - Constitutional no acute distress - Routine HEENT Exam Head: Present: normocephalic, atraumatic Eye: Present: EOMI ENT: Present: mucous membranes moist - Routine Neck Exam Present: supple, full ROM - Routine Respiratory Exam Present: CTA bilaterally. Absent: accessory muscle use - Routine Cardiovascular Exam Present: RRR - Routine Abdominal Exam Present: soft, normoactive bowel sounds. Absent: tenderness, distended - Routine Extremities Exam Present: pulses intact, normal capillary refill - Routine Skin Exam Present: intact - Routine Neurological Exam Present: oriented X3 Results - Labs CBC & Chem 7: 01/12/18 10:26 01/12/18 10:26 Microbiology 01/11/18 14:15 Blood - Peripheral Aerobic Blood Culture - Preliminary No growth in 2 days 01/11/18 14:15 Blood - Peripheral Anaerobic Blood Culture - Preliminary No growth in 2 days 01/11/18 14:20 Blood - Peripheral Aerobic Blood Culture - Preliminary No growth in 2 days 01/11/18 14:20 Blood - Peripheral Anaerobic Blood Culture - Preliminary No growth in 2 days - Imaging Impressions Head MRI 01/12/18 00:00 CONCLUSION: No evidence of acute intracranial pathology. No masses are identified. Assessment and Plan - Assessment (1) Acute hypotension Code(s): I95.9 - Hypotension, unspecified Status: Acute Plan: - Pt is a 51 y/o AAF with remote history of open cholecystectomy in the late 1980s hx of Izabella-en-Y gastric bypass in the mid-. - She had planned for evaluation with exploratory laparotomy for evaluation of chronic abdominal pain today but in the pre-op area she was found to be hypotensive and pt complained of some dizziness and slurred speech. Pt was sent to the ER from the PACU for evaluation. - Her BP prior to ER transfer was reportedly 66/52 and she was given a liter bolus of NS. Her BP in the ED was 100/57 and she was given another liter bolus of IVF. - Pt normally takes Norvasc 5mg po BID, Lasix 40mg po daily, and Lisinopril 20mg po BID. - Pt reports that for the last couple of days she felt dizzy and like her equilibrium has been off. She has also felt like she has been stuttering or slurring her words at times. - Head CT was performed and was negative. - CXR noted no acute intrathoracic disease, no change compared to the prior study. - Her WBC count was WNL. - Her Lactic acid was elevated in the ED at 5.7 but the repeat lactic acid improved to 1.5. Blood cultures were drawn in the ED - Hold home BP meds - stop IVF in AM - MRI brain (01/12/18) Negative - suspect dizziness/hypotension d/t polypharmacy - anticipate d/c to home with C and home PT once cleared by neurology - DVT prophylaxis with SCDs (2) Abdominal pain Code(s): R10.9 - Unspecified abdominal pain Status: Acute Plan: - She was previously admitted to [facility] [place] [place] in October 2017 for evaluation of right upper quadrant abdominal pain and was found to have a partial small bowel obstruction with likely adhesion on CT scan at that time. - She was seen outpt by GI and had a SBFT in 11/2017 which noted prior gastric bypass but otherwise normal exam. - She was sent to see Dr. Davis as she continued to have persistent RUQ abd pain. -Pt had been planned for surgical evaluation for the abdominal pain which will be postponed for when the pt is more medically stable. -Pt will need to follow up with Dr. Davis after DC (3) Dizziness Code(s): R42 - Dizziness and giddiness Status: Acute Plan: - Pt has been having dizziness, blurred vision for the last 2-3 days, could be secondary to hypotension but need to r/o secondary causes - Give IVF - Telemetry - Head CT was negative - Check MRI head - Check 2D echo --> pending results - BP meds on hold - Check orthostatics in AM - see above (4) Headache Code(s): R51 - Headache Status: Acute Plan: Patient c/o aching headache in posterior head radiating toward the front worse in the AM x 3 days acetomeophen as needed Head MRI 01/12/18 00:00 CONCLUSION: No evidence of acute intracranial pathology. No masses are identified. Consult Neurology
--- NOTE | 2018-01-13 14:07 | ECHRPT ---
Indication: CARDIOMYOPATHY CONCLUSIONS Normal left ventricular size. Wall thickness is normal. The left ventricular systolic function is low normal with an estimated ejection fraction in the rang e of 50- 55%. Mitral annular calcification is present. Trace mitral valve regurgitation. BP: / HR: Rhythm: MEASUREMENTS (Male / Female) Normal Values Technical Quality: 2D ECHO LV Diastolic Diameter PLAX 4.7 cm 4.2 - 5.9 / 3.9 - 5.3 cm LV Systolic Diameter PLAX 3.3 cm IVS Diastolic Thickness 0.8 cm 0.6 - 1.0 / 0.6 - 0.9 cm LVPW Diastolic Thickness 1.0 cm 0.6 - 1.0 / 0.6 - 0.9 cm LV Relative Wall Thickness 0.4 RV Internal Dim ED PLAX 2.1 cm LA Systolic Diameter LX 4.2 cm 3.0 - 4.0 / 2.7 - 3.8 cm M-MODE Aortic Root Diameter MM 3.1 cm AV Cusp Separation MM 1.9 cm DOPPLER Mitral E Point Velocity 65.6 cm/s Mitral A Point Velocity 58.7 cm/s Mitral E to A Ratio 1.1 TR Peak Velocity 258.0 cm/s TR Peak Gradient 26.6 mmHg FINDINGS LEFT VENTRICLE Normal left ventricular size. Wall thickness is normal. The left ventricular systolic function is low normal with an estimated ejection fraction in the rang e of 50- 55%. RIGHT VENTRICLE Normal right ventricular size and systolic function. LEFT ATRIUM The left atrial size is normal. RIGHT ATRIUM The right atrial size is normal. ATRIAL SEPTUM Normal atrial septal thickness without atrial level shunting by limited color doppler interrogation. AORTA The aortic root and proximal ascending aorta are normal in size on limited imaging. MITRAL VALVE Mitral annular calcification is present. Trace mitral valve regurgitation. AORTIC VALVE Trileaflet aortic valve. No aortic valve stenosis or regurgitation. TRICUSPID VALVE Structurally normal tricuspid valve. No tricuspid valve stenosis or regurgitation. PULMONARY VALVE The pulmonary valve is not well visualized. VESSELS The inferior vena cava is normal in size. PERICARDIUM No pericardial effusion. Romel Sun MD, FACC (Electronically Signed) Final Date:13 January 2018 14:07
--- NOTE | 2018-01-13 15:54 | MR ---
EXAM DATE: 01/13/2018 3:42 PM EDT AGE/SEX: 52 years / Female INDICATIONS: Cephalgia. Dizziness, N/V, Double Vision CLINICAL DATA: This is the patient's subsequent encounter. Patient reports that signs and symptoms h ave been present for 3 days and indicates a pain score of 0/10. MEDICAL/SURGICAL HISTORY: Hypertension. Bilat Carpal Tunnel, Fibromyalgia Cholecystectomy. Gas tric Bypass, Carpal Tunnel Section, Tubal ligation, Uterine Ablation [place] [facility] [place] & [place]/O [place] 01/12/2018. . TECHNIQUE: 3D [id number] MRA was performed. Source images, multiplanar STS MIP, and 3D volum e MIP reconstructions were reviewed. FINDINGS: There is excellent visualization of the major intracranial arteries out to the second-order branch ve ssels. There is no evidence for aneurysm, vessel truncation or stenosis, and no evidence for vascula r malformation. CONCLUSION: 1. Examination within normal limits for age. Electronically signed by: Mario Mcgovern MD 01/13/2018 3:52 PM EDT
--- NOTE | 2018-01-13 16:01 | US ---
EXAM DATE: 01/13/2018 3:40 PM EDT AGE/SEX: 52 years / Female INDICATIONS: Stenosis. CLINICAL DATA: This is the patient's initial encounter. Patient reports that signs and symptoms have been present for 1 day and indicates a pain score of 0/10. MEDICAL/SURGICAL HISTORY: Gastroesophageal reflux disease. Hypertension. Arthritis. Bulging di sc. Depression. Fibromyalgia. Chronic back pain. section. Carpal tunnel syndrome. Cholecy stectomy. Gastric bypass. COMPARISON: No prior exams available for comparison. VELOCITY PARAMETERS: ICA/CCA Ratio: Right 1.0 , Left 0.8 ICA: Right 98.4 cm/sec, Left 89.8 cm/sec CCA: Right 100.0 cm/sec, Left 108.3 cm/sec ECA: Right 72.6 cm/sec, Left 53.9 cm/sec Vertebral: Right 52.9 cm/sec antegrade, Left 52.3 cm/sec antegrade FINDINGS: Right Carotid: No significant plaque is visualized.The waveforms are within normal limits. Left Carotid: No significant plaque is visualized. The waveforms are within normal limits. Other: None. CONCLUSION: 1. Right Internal Carotid Artery: Minimal plaque without stenosis. 2. Left Internal Carotid Artery: Minimal plaque without stenosis. Electronically signed by: Mario Mcgovern MD 01/13/2018 4:00 PM EDT
[2018-01-13] MEDS ORDERED: Butalbital/APAP/Caff 50/325/40 MG Tablet PO PRN (17:49)
--- NOTE | 2018-01-13 18:14 | MB ---
cc: Irene Camara MD DATE: 01/13/2018 REASON FOR CONSULTATION: Headache. HISTORY OF PRESENT ILLNESS: This is a 52-year-old woman with history of open cholecystectomy in late , antoinette-en-Y gastric bypass in the , admitted previously to [facility] in October for right upper quadrant pain, found to have a partial small-bowel obstruction, likely adhesions on CT, improved with supportive conservative management. Seen by Dr. Castaneda. Planned for evaluation with an exploratory laparotomy the day of admission, but she was found to be hypotensive, some dizziness, possible slurred speech, sent to the ER from PACU for evaluation, noted that her blood pressure was 66/52. given some saline bolus, went up to 100/57, continued with another bolus. Apparently, the patient at home takes Norvasc 5 mg b.i.d. and Lasix 40 mg daily as well as lisinopril 20 mg b.i.d. The last couple of days, she was feeling somewhat dizzy. She states to me she has been having some possible double vision, as well as a headache that comes and goes, started in the back of her neck, but then went up to the frontal area, diffuse, throbbing with some nausea, but no vomiting. Seems like the pain medicine alleviates it, but then it comes back. Denies any nasal discharge, fever, neck pain,or sinus infections. PAST MEDICAL HISTORY: Depression, fibromyalgia, reflux, hypertension, obesity, sickle cell trait, arthritis both hands, trigger finger, possible carpal tunnel, back pain. PAST SURGICAL HISTORY: Cholecystectomy, gastric bypass for obesity, , carpal tunnel release both wrists. FAMILY HISTORY: Lung disease, cancer. SOCIAL HISTORY: She does not smoke, does not drink. No substance abuse. Lives with her . HOME MEDICATIONS: As per above. PHYSICAL EXAMINATION: VITAL SIGNS: Temperature 98.1, pulse 56, respiratory rate 14, blood pressure 99/61, saturating at 98% on room air. It looks like she has not been febrile since this admission. NECK: Supple. I do not hear any bruits. HEART: Regular. NEUROLOGIC: She is awake and alert. She is oriented and fluent. Her pupils are reactive. Visual polanco are full. No diplopia on my exam. No ptosis. Face is symmetrical. Tongue midline. 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 No drift or leg lag. Cerebellar testing is normal. Toes are downgoing. Reflexes are trace. Sensory is normal. Strength 5/5 throughout. LABORATORY DATA: Reviewed. Yesterday, she had a hemoglobin of 10.5; her platelets are 319,000. GFR 79. Ammonia 35. Her B12 is low at 231. Thiamine is pending. TSH is normal. UA is hazy. Culture is not indicated. RPR is pending. DIAGNOSTIC AND IMAGING STUDIES: Echo shows an EF of 50% to 55%. MRI brain and [place] did not show any intracranial disease. No stroke or any mass lesion. She also had a carotid Doppler done. I am trying to obtain that report. Carotid ultrasound report, unfortunately I am unable to view it, but we will have to check on that report, as it is not coming up and may have just been completed and the report is pending. CURRENT MEDICATIONS: 1. Tylenol. 2. [place] 10. 3. Milk of magnesia. 4. ____ 5. Gabapentin 6. Ativan p.r.n. 7. Morphine p.r.n. 8. Zofran p.r.n. IMPRESSION AND RECOMMENDATIONS: Headache, does not sound migrainous. I will go ahead and get a sedimentation rate and C-reactive protein. We will check the status of her carotid ultrasound. Her B12 is low. I will go ahead and supplement her B12 at 1000 mcg either IM or p.o. I am guessing p.o. would not work as well given her gastric bypass history. She states that she has some issues with aspirin as well as ibuprofen causing some gastrointestinal upset, so I would not give her any of those medicines. Certainly, Fioricet, which is butalbital, Tylenol and caffeine can be initiated. I do not believe narcotics are the answer for her headaches. This does not sound migrainous but certainly since there is some cervicogenic component, a short course of steroids such as Medrol can be initiated. We know that she does not have an aneurysm or a brain mass. Gabapentin, she can continue with. I will go ahead and put in the Fioricet order, see how she feels, using that medicine may last longer than the [place]. [place] may be contributing to her hypotension as well and that may be aggravating her headache. Increase fluids. We will try some Fioricet p.r.n. and from my perspective discharge planning. Also, supplement her B12. MD MECCA Mi/GRACIELA , 05:48 PM , 06:13 PM
[2018-01-14] MEDS: Gabapentin 300 MG Capsule PO SCH ×3 (08:01→17:45)
[2018-01-14] MEDS: Senna/Docusate Sodium 8.6/50 MG Tablet PO SCH (08:01)
--- NOTE | 2018-01-14 14:15 | P.PNIM ---
Subjective Interval history: Patient now concerned with brief reparative motion of left hand may represent seizure activity No longer c/o headache appears comfortable and in no acute distress Physical Exam Vital signs: Vital Signs 01/13/18 18:22 01/13/18 18:26 01/13/18 20:00 Temperature 98.7 F 98.3 F Pulse Rate 70 74 Respiratory Rate 18 16 16 Blood Pressure 131/80 92/50 L Pulse Oximetry 97 96 01/13/18 21:40 01/13/18 23:42 01/14/18 00:15 Temperature 98.7 F Pulse Rate 70 82 Respiratory Rate 20 18 Blood Pressure 130/72 Pulse Oximetry 97 01/14/18 04:00 01/14/18 04:43 01/14/18 04:45 Temperature 97.9 F Pulse Rate 75 77 Respiratory Rate 20 20 Blood Pressure 120/72 Pulse Oximetry 98 01/14/18 05:15 01/14/18 08:00 01/14/18 08:29 Temperature 98.1 F Pulse Rate 77 Respiratory Rate 18 18 18 Blood Pressure 101/54 L Pulse Oximetry 97 01/14/18 12:00 01/14/18 12:38 Temperature 98 F Pulse Rate 83 Respiratory Rate 18 17 Blood Pressure 104/59 L Pulse Oximetry 95 Intake & Output 01/13/18 01/14/18 01/14/18 18:59 06:59 18:59 Other: # Voids 3 Narrative: GENERAL: This is a morbidly obese 53 year old female patient, in no apparent distress. CARDIOVASCULAR: Regular rate and rhythm. RESPIRATORY: Clear to auscultation. Breath sounds equal bilaterally. GASTROINTESTINAL: Abdomen soft, non-tender, nondistended. Normal active bowel sounds MUSCULOSKELETAL: Extremities without clubbing, cyanosis, or edema. NEURO: Alert & Oriented x4 to person, place, time, situation. Moves all ext x4 Results - Labs CBC & Chem 7: 01/12/18 10:26 01/12/18 10:26 Laboratory Results - last 24 hr 01/13/18 01/13/18 01/13/18 14:05 14:05 14:05 ESR Ammonia 35 H C-Reactive Protein Vitamin B12 TSH 1.970 RPR Nonreactive 01/13/18 01/13/18 01/14/18 14:05 14:05 09:39 ESR 41 H Ammonia C-Reactive Protein 1.20 H Vitamin B12 231 TSH RPR Microbiology 01/11/18 14:15 Blood - Peripheral Aerobic Blood Culture - Preliminary No growth in 3 days 01/11/18 14:15 Blood - Peripheral Anaerobic Blood Culture - Preliminary No growth in 3 days 01/11/18 14:20 Blood - Peripheral Aerobic Blood Culture - Preliminary No growth in 3 days 01/11/18 14:20 Blood - Peripheral Anaerobic Blood Culture - Preliminary No growth in 3 days - Imaging Impressions Carotid Doppler Study 01/13/18 00:00 CONCLUSION: 1. Right Internal Carotid Artery: Minimal plaque without stenosis. 2. Left Internal Carotid Artery: Minimal plaque without stenosis. Head MRA 01/13/18 00:00 CONCLUSION: 1. Examination within normal limits for age. Assessment and Plan - Assessment (1) Acute hypotension Code(s): I95.9 - Hypotension, unspecified Status: Acute Plan: (1) Acute hypotension Code(s): I95.9 - Hypotension, unspecified Status: Acute Plan: - Pt is a 51 y/o AAF with remote history of open cholecystectomy in the late hx of Izabella-en-Y gastric bypass in the mid-. - She had planned for evaluation with exploratory laparotomy for evaluation of chronic abdominal pain today but in the pre-op area she was found to be hypotensive and pt complained of some dizziness and slurred speech. Pt was sent to the ER from the PACU for evaluation. - Her BP prior to ER transfer was reportedly 66/52 and she was given a liter bolus of NS. Her BP in the ED was 100/57 and she was given another liter bolus of IVF. - Pt normally takes Norvasc 5mg po BID, Lasix 40mg po daily, and Lisinopril 20mg po BID. - Pt reports that for the last couple of days she felt dizzy and like her equilibrium has been off. She has also felt like she has been stuttering or slurring her words at times. - Head CT was performed and was negative. - CXR noted no acute intrathoracic disease, no change compared to the prior study. - Her WBC count was WNL. - Her Lactic acid was elevated in the ED at 5.7 but the repeat lactic acid improved to 1.5. Blood cultures were drawn in the ED - Hold home BP meds - stop IVF in AM - MRI brain (01/12/18) Negative - suspect dizziness/hypotension d/t polypharmacy - anticipate d/c to home with HHC and home PT if EEG is negative - DVT prophylaxis with SCDs (2) Abdominal pain Code(s): R10.9 - Unspecified abdominal pain Status: Acute Plan: - She was previously [place] [facility] [place] for evaluation of right upper quadrant abdominal pain and was found to have a partial small bowel obstruction with likely adhesion on CT scan at that time. - She was seen outpt by GI and had a SBFT in 11/2017 which noted prior gastric bypass but otherwise normal exam. - She was sent to see Dr. Davis as she continued to have persistent RUQ abd pain. -Pt had been planned for surgical evaluation for the abdominal pain which will be postponed for when the pt is more medically stable. -Pt will need to follow up with Dr. Davis after DC (3) Dizziness Code(s): R42 - Dizziness and giddiness Status: Acute Plan: - Pt has been having dizziness, blurred vision for the last 2-3 days, could be secondary to hypotension but need to r/o secondary causes - Give IVF - Telemetry - Head CT was negative - Check MRI head - 2D echo --> Normal left ventricular size. Wall thickness is normal. The left ventricular systolic function is low normal with an estimated ejection fraction in the range of 50- 55%. Mitral annular calcification is present. Trace mitral valve regurgitation. - BP meds on hold - see above (4) Headache Code(s): R51 - Headache Status: Acute Plan: Patient c/o aching headache in posterior head radiating toward the front worse in the AM x 3 days acetaminophen as needed Head MRI reviewed and reveals: No evidence of acute intracranial pathology. No masses are identified. CT head reviewed and reveals: No acute intracranial abnormality. Head reviewed and reveals: No evidence of acute intracranial pathology. No masses are identified. Carotid Doppler Study Right Internal Carotid Artery: Minimal plaque without stenosis. Left Internal Carotid Artery: Minimal plaque without stenosis. Head MRA reviewed and reveals: Examination within normal limits for age. Consult Neurology, cleared for DC recommending Fioricet as needed Patient now concerned with brief repetitive motion of left hand may represent seizure activity EEG ordered If EEG negative plan to DC home with C (2) Abdominal pain Code(s): R10.9 - Unspecified abdominal pain Status: Acute (3) Dizziness Code(s): R42 - Dizziness and giddiness Status: Acute - Attending Attestation Patient examined. Assessment and plan formulated with Desi Mistry PA-C. I agree with the above.
--- NOTE | 2018-01-14 15:31 | MG ---
cc: Miguel Chicas MD, PhD EEG TEST NUMBER: [id number] TECHNIQUE: A 17-channel EEG. DESCRIPTION: The background rhythm is a symmetrical alpha rhythm with a frequency of 8-10 Hz and amplitude of 20-30 microvolts. During drowsiness, there is slowing in the theta range. No lateralizing features are seen. There are no epileptiform discharges present. Photic stimulation results in a normal driving response. INTERPRETATION: Normal EEG. Miguel Chicas MD, PhD SAMIR/SB , 03:16 PM , 03:29 PM
== END 2018-01-14 21:03 | disposition home health service (06) ==
LOC: N05 11:36 → NEPC 11:36 → INTOOBSV 14:05 → NEDA 14:05 → N05 16:30
PROVIDERS: ADMIT Hospitalist; ATTEND Hospitalist

== ENCOUNTER 2018-02-10 14:46 | Observation (INO) ==
[2018-02-10] MEDS ORDERED: Sodium Chlor 0.9% Inj 500 ML IV.SIG ONE (15:28)
[2018-02-10] MEDS ORDERED: Morphine Inj 4 MG/ML Vial IV.PUSH ONE (15:28)
[2018-02-10 16:24] LABS: Baso % (Auto) 0.4 % (0.0-2.0); Eos # (Auto) 0.1 th/mm3 (0.0-0.4); Eos % (Auto) 0.9 % (0.0-4.0); Hematocrit 35.7 % (35.0-46.0); Hemoglobin 11.6 gm/dL (11.6-15.3); Lymph # (Auto) 1.8 th/mm3 (1.0-4.8); Lymph % (Auto) 32.4 % (9.0-44.0); Mean Corpuscular HGB Conc 32.5 % (32.0-36.0); Mean Corpuscular Hemoglobin 26.1 pg (27.0-34.0); Mean Corpuscular Volume 80.2 fL (80.0-100.0); Mean Platelet Volume 9.2 fL (7.0-11.0); Mono # (Auto) 0.5 th/mm3 (0.0-0.9); Mono % (Auto) 9.8 % (0.0-8.0); Neut # (Auto) 3.2 th/mm3 (1.8-7.7); Neut % (Auto) 56.5 % (16.0-70.0); Platelet Count 358 th/mm3 (150-450); Red Blood Count 4.44 mil/mm3 (4.00-5.30); Red Cell Distribution Width 17.6 % (11.6-17.2); White Blood Count 5.6 th/mm3 (4.0-11.0)
[2018-02-10 16:52] LABS: Alkaline Phosphatase 87 U/L (45-117); Total Protein 7.8 g/dL (6.4-8.2)
[2018-02-10 17:02] LABS: Alanine Aminotransferase 21 U/L (10-53); Albumin 3.7 g/dL (3.4-5.0); Anion Gap 9 meq/L (5-15); Aspartate Aminotransferase 24 U/L (15-37); Blood Urea Nitrogen 6 mg/dL (7-18); Calcium 9.2 mg/dL (8.5-10.1); Carbon Dioxide 24.5 meq/L (21.0-32.0); Chloride 108 meq/L (98-107); Glomerular Filtration Rate Greater Than 89 mL/min (>89); Glucose,Random 85 mg/dL (74-106); Potassium 4.3 meq/L (3.5-5.1); Sodium 141 meq/L (136-145)
--- NOTE | 2018-02-10 17:09 | ED ---
HPI General Chief complaint: Abdominal Pain Stated complaint: ABD Pain/Vomiting Time Seen by Provider: 02/10/18 15:11 Source: patient Mode of arrival: ambulatory Limitations: no limitations History of Present Illness HPI narrative: Patient is a 52 year old female who comes in complaining of abdominal pain with nausea and vomiting. She has had multiple surgeries, including gastric bypass and a recent laparotomy by Dr. Castaneda 2 weeks ago. She was seen here yesterday for similar symptoms and was advised to follow up with her PCP and Dr. Castaneda. She says she called Dr. Daniels's office today and was told to come to the ED. She says she continues to vomit and have abdominal pain. She has been trying to take Lortab, but says she vomits them up. She says she has not had a bowel movement in a week. She denies fever or chills. Severity is moderate. Related Data Home Medications Medication Instructions Recorded Confirmed acyclovir [Zovirax] 800 mg PO TID PRN 01/07/18 02/10/18 dextromethorphan-guaifenesin 1 tab PO QID 01/07/18 02/10/18 [Mucinex DM] diphenhydramine HCl [Benadryl] 50 mg PO BID PRN 01/07/18 02/10/18 gabapentin 600 mg PO TID 01/07/18 02/10/18 hydrocodone-acetaminophen 1 tab PO Q6H PRN 01/07/18 02/10/18 promethazine 25 mg PO BID 01/07/18 02/10/18 tizanidine 4 mg PO Q4HR 01/07/18 02/10/18 amlodipine 2.5 mg PO BID 01/22/18 02/10/18 Previous Rx's Medication Instructions Recorded metronidazole [Flagyl] 500 mg PO Q8H 7 Days #21 tab 02/09/18 ondansetron [Zofran ODT] 4 mg PO Q8H 5 Days #15 tab 02/09/18 Allergies Allergy/AdvReac Type Severity Reaction Status Date / Time aspirin AdvReac Intermediate Nausea/Vomi Verified 02/10/18 15:26 ting ibuprofen AdvReac Intermediate Nausea/Vomi Verified 02/10/18 15:26 ting Review of Systems Except as stated in HPI: all other systems reviewed are negative Constitutional Denies chills and Denies fever(s) ENT Denies dizziness Cardiovascular Denies chest pain and Denies edema Gastrointestinal Reports abdominal pain, Reports nausea and Reports vomiting Musculoskeletal Denies myalgias and Denies arthralgias Integumentary/Breasts Denies change in pigmentation and Denies lesions Neurologic Denies dizziness and Denies headache(s) [facility] Medical History Medical History Arthritis of both hands (Acute) Bulging lumbar disc (Acute) Depression (Acute) Fibromyalgia (Acute) GERD (gastroesophageal reflux disease) (Acute) HTN (hypertension) (Acute) History of trigger finger (Acute) Hx of dysfunctional uterine bleeding (Acute) Mid back pain, chronic (Acute) Morbid obesity (Acute) 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) Sickle cell trait (Acute) Torn rotator cuff (Acute) Surgical History Surgical History Gastric bypass status for obesity (Acute) History of (Acute) History of carpal tunnel release of both wrists (Acute) History of cholecystectomy (Acute) Family History Family History Other Lung cancer Social History Social History Substance History: No History of Abuse Second Hand Smoke Exposure: No Smoking Status: Never smoker How Often Do You Have a Drink Containing Alcohol: Never Recent Travel in [facility] within the Last 8 Weeks: No Recent Out of Country Travel within the Last 8 Weeks: No Immunization History Tetanus Immunization: Unsure Hx Influenza Vaccine This Season: No Exam Narrative Exam Narrative: GENERAL: Awake and alert, no acute distress. SKIN: Focused skin assessment warm/dry. No wounds or signs of infection. HEAD: Atraumatic. Normocephalic. EYES: Pupils equal and round. No scleral icterus. ENT: Mucous membranes pink and moist. NECK: Trachea midline. No JVD. CARDIOVASCULAR: Regular rate and rhythm. No murmur appreciated. RESPIRATORY: No accessory muscle use. Clear to auscultation. Breath sounds equal bilaterally. GASTROINTESTINAL: Abdomen soft, nondistended. Diffuse tenderness to palpation. No rebound or guarding. MUSCULOSKELETAL: No obvious deformities. No clubbing. No cyanosis. No edema. NEUROLOGICAL: Awake and alert. No obvious cranial nerve deficits. Motor grossly within normal limits. Normal speech. PSYCHIATRIC: Appropriate mood and affect; insight and judgment normal. Course Initial Documented Vital Signs Temperature 99.1 F 02/10/18 15:02 Pulse Rate 70 02/10/18 15:02 Respiratory Rate 16 02/10/18 15:02 Blood Pressure 143/84 H 02/10/18 15:02 Pulse Oximetry 100 02/10/18 15:02 Last Documented Vital Signs Temperature 97.9 F 02/12/18 16:00 Pulse Rate 63 02/12/18 16:00 Respiratory Rate 18 02/12/18 16:00 Blood Pressure 101/58 L 02/12/18 16:00 Pulse Oximetry 95 02/12/18 16:00 Medical Decision Making MDM Narrative Medical decision making narrative: Patient is a 52-year-old female comes in complaining of abdominal pain with nausea and vomiting. She was here yesterday and had a CAT scan done and was discharged home to follow-up with her primary doctor as well as Dr. Castaneda . She says the pain has gotten worse and she continues to vomit. She was told to come to the ED by Dr. Montano. I spoke with Dr. Castaneda who suggests admission for an upper GI series. Patient given Compazine, morphine. Admitted for further management. Differential Diagnosis Differential Diagnosis: Dehydration versus electrolyte abnormality versus Medical Records Medical records reviewed: Yes I reviewed the patient's medical records. Lab Data Lab results reviewed: Yes I reviewed the patient's lab results. Result diagrams: 02/11/18 06:40 02/11/18 06:40 Lab Results 02/10/18 02/10/18 02/10/18 Range/Units 16:00 16:00 16:00 WBC 5.6 (4.0-11.0) th/mm3 RBC 4.44 (4.00-5.30) mil/mm3 Hgb 11.6 (11.6-15.3) gm/dL Hct 35.7 (35.0-46.0) % MCV 80.2 (80.0-100.0) fL MCH 26.1 L (27.0-34.0) pg MCHC 32.5 (32.0-36.0) % RDW 17.6 H (11.6-17.2) % Plt Count 358 (150-450) th/mm3 MPV 9.2 (7.0-11.0) fL Neut % (Auto) 56.5 (16.0-70.0) % Lymph % (Auto) 32.4 (9.0-44.0) % Banks % (Auto) 9.8 H (0.0-8.0) % Eos % (Auto) 0.9 (0.0-4.0) % Baso % (Auto) 0.4 (0.0-2.0) % Neut # (Auto) 3.2 (1.8-7.7) th/mm3 Lymph # (Auto) 1.8 (1.0-4.8) th/mm3 Banks # (Auto) 0.5 (0.0-0.9) th/mm3 Eos # (Auto) 0.1 (0.0-0.4) th/mm3 Baso # (Auto) 0.0 (0.0-0.2) th/mm3 WBC Differential . Differential Comment Auto diff final Sodium 141 (136-145) meq/L Potassium 4.3 (3.5-5.1) meq/L Chloride 108 H (98-107) meq/L Carbon Dioxide 24.5 (21.0-32.0) meq/L Anion Gap 9 (5-15) meq/L BUN 6 L (7-18) mg/dL Creatinine 0.81 (0.50-1.00) mg/dL Estimated GFR Greater than 89 (>89) mL/min Random Glucose 85 (74-106) mg/dL Lactic Acid 0.9 (0.4-2.0) mmol/L Calcium 9.2 (8.5-10.1) mg/dL Total Bilirubin 0.4 (0.2-1.0) mg/dL AST 24 (15-37) U/L ALT 21 (10-53) U/L Alkaline Phosphatase 87 (45-117) U/L Total Protein 7.8 (6.4-8.2) g/dL Albumin 3.7 (3.4-5.0) g/dL 02/11/18 02/11/18 Range/Units 06:40 06:40 WBC 4.4 (4.0-11.0) th/mm3 RBC 3.92 L (4.00-5.30) mil/mm3 Hgb 10.4 L (11.6-15.3) gm/dL Hct 31.9 L (35.0-46.0) % MCV 81.2 (80.0-100.0) fL MCH 26.5 L (27.0-34.0) pg MCHC 32.7 (32.0-36.0) % RDW 17.2 (11.6-17.2) % Plt Count 362 (150-450) th/mm3 MPV 8.5 (7.0-11.0) fL Neut % (Auto) 34.2 (16.0-70.0) % Lymph % (Auto) 53.1 H (9.0-44.0) % Banks % (Auto) 11.3 H (0.0-8.0) % Eos % (Auto) 1.1 (0.0-4.0) % Baso % (Auto) 0.3 (0.0-2.0) % Neut # (Auto) 1.5 L (1.8-7.7) th/mm3 Lymph # (Auto) 2.4 (1.0-4.8) th/mm3 Banks # (Auto) 0.5 (0.0-0.9) th/mm3 Eos # (Auto) 0.0 (0.0-0.4) th/mm3 Baso # (Auto) 0.0 (0.0-0.2) th/mm3 WBC Differential . Differential Comment Auto diff final Sodium 143 (136-145) meq/L Potassium 3.4 L D (3.5-5.1) meq/L Chloride 108 H (98-107) meq/L Carbon Dioxide 25.6 (21.0-32.0) meq/L Anion Gap 9 (5-15) meq/L BUN 3 L (7-18) mg/dL Creatinine 0.69 (0.50-1.00) mg/dL Estimated GFR Greater than 89 (>89) mL/min Random Glucose 89 (74-106) mg/dL Lactic Acid (0.4-2.0) mmol/L Calcium 8.6 (8.5-10.1) mg/dL Total Bilirubin 0.3 (0.2-1.0) mg/dL AST 14 L (15-37) U/L ALT 15 (10-53) U/L Alkaline Phosphatase 75 (45-117) U/L Total Protein 6.8 D (6.4-8.2) g/dL Albumin 3.1 L D (3.4-5.0) g/dL Imaging Data Radiologist's impression: Small Bowel X-Ray 02/11/18 07:00 CONCLUSION: Unremarkable small bowel follow-through with no evidence of mechanical obstruction. There is evidence of reflux seen on the 30 minute film. Discharge Plan Discharge Disposition Patient Disposition: 30 Still Patient Discharge Condition Condition: Stable Discharge Details Diagnosis: Abdominal pain Physicians Team ED Provider: Sandra Walter Primary Care Provider: Naldo Montano Attending Provider: Dariusz Luna Other Providers: Aakash Castaneda ; Patricio Luke ; Xavi Parsons Discharge Interventions Interventions: ED Discharge Assessment Last Done: 02/10/18 18:33 Status ED Status: Left Department Discharge Information Discharge Date/Time: 02/10/18 18:33
[2018-02-10] MEDS: Morphine Sulfate Inj 2 MG/ML Vial IV.PUSH PRN (20:18)
[2018-02-10] MEDS: Senna/Docusate Sodium 8.6/50 MG Tablet PO SCH (22:37)
[2018-02-10] MEDS: Sod Chloride 0.9% Inj 1,000 ML IV.CONT SCH (22:38)
[2018-02-10] MEDS: amLODIPine 5 MG Tablet PO SCH (22:47)
[2018-02-11] MEDS: Morphine Sulfate Inj 2 MG/ML Vial IV.PUSH PRN ×5 (00:07→22:40)
[2018-02-11 07:53] LABS: Baso % (Auto) 0.3 % (0.0-2.0); Eos % (Auto) 1.1 % (0.0-4.0); Hematocrit 31.9 % (35.0-46.0); Hemoglobin 10.4 gm/dL (11.6-15.3); Lymph # (Auto) 2.4 th/mm3 (1.0-4.8); Lymph % (Auto) 53.1 % (9.0-44.0); Mean Corpuscular HGB Conc 32.7 % (32.0-36.0); Mean Corpuscular Hemoglobin 26.5 pg (27.0-34.0); Mean Corpuscular Volume 81.2 fL (80.0-100.0); Mean Platelet Volume 8.5 fL (7.0-11.0); Mono # (Auto) 0.5 th/mm3 (0.0-0.9); Mono % (Auto) 11.3 % (0.0-8.0); Neut # (Auto) 1.5 th/mm3 (1.8-7.7); Neut % (Auto) 34.2 % (16.0-70.0); Platelet Count 362 th/mm3 (150-450); Red Blood Count 3.92 mil/mm3 (4.00-5.30); Red Cell Distribution Width 17.2 % (11.6-17.2); White Blood Count 4.4 th/mm3 (4.0-11.0)
[2018-02-11 08:30] LABS: Alanine Aminotransferase 15 U/L (10-53); Albumin 3.1 g/dL (3.4-5.0); Alkaline Phosphatase 75 U/L (45-117); Anion Gap 9 meq/L (5-15); Aspartate Aminotransferase 14 U/L (15-37); Blood Urea Nitrogen 3 mg/dL (7-18); Calcium 8.6 mg/dL (8.5-10.1); Carbon Dioxide 25.6 meq/L (21.0-32.0); Chloride 108 meq/L (98-107); Glomerular Filtration Rate Greater Than 89 mL/min (>89); Glucose,Random 89 mg/dL (74-106); Potassium 3.4 meq/L (3.5-5.1); Sodium 143 meq/L (136-145); Total Protein 6.8 g/dL (6.4-8.2)
--- NOTE | 2018-02-11 08:34 | P.HP ---
<Desi Mistry - Last Filed: 02/11/18 16:48> History of Present Illness Primary Care Physician: Naldo Montano MD History of Present Illness: The patient is a 52-year-old female with past medical history which includes morbid obesity, carpal tunnel syndrome, lumbar degenerative disc disease, sickle cell trait, depression, hypertension, GERD, distant history of open cholecystectomy in the late and a gastric bypass in 1995. Most recently on 01/25/18 patient had extensive lysis of adhesions, diagnostic laparoscopy with Dr. Castaneda. Patient then presented to [facility] 02/10/18 with complains of abdominal pain with nausea and vomiting. She was also seen in the ER 02/09/18 for similar symptoms and was advised to follow up with her PCP and Dr. Castaneda. She says she called Dr. Daniels's office and was told to come to the ED. Patient says she continues to vomit and have abdominal pain. She has been trying to take Lortab, but says she vomits them up. She says she has not had a bowel movement in a week. She denies fever or chills. Severity is moderate. Patient reevaluated reports that she had a small BM today (02/11/18) after SBFT today no longer having vomiting. Patient denies chest pain, SOB, fevers or chills. Past Medical History Morbid obesity Carpal tunnel syndrome Lumbar degenerative disc disease Sickle cell trait Depression Hypertension GERD Past Surgical History 01/25/18 patient had extensive lysis of adhesions, diagnostic laparoscopy with Dr. Castaneda Gastric bypass 1995 Open cholecystectomy around 1985 Multiple carpal tunnel surgeries (2 on the right and one on the left) Bilateral tubal ligation Uterine ablation 2 Family History Father of lung cancer complications, he was chronic smoker Otherwise noncontributory Social History Lives with her and 2 adult children Never smoked tobacco Occasionally drinks alcohol in the form of a glass of wine or so but not even on a weekly basis Denies illicit drug use Disabled due to severe carpal tunnel syndrome and lumbar disc issues. Previously worked at the [employer]. She was born and raised locally. - Diagnosis (1) Abdominal pain Review of Systems All other systems reviewed negative except as stated in [facility]PI [facility] - History History Provided By: Patient - Medical History Medical History: Medical History (Last Reviewed 02/11/18 @ 15:47 by Dann Cervantes) 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) Torn rotator cuff (Acute) Morbid obesity (Acute) Fibromyalgia (Acute) GERD (gastroesophageal reflux disease) (Acute) Sickle cell trait (Acute) HTN (hypertension) (Acute) Depression (Acute) Arthritis of both hands Bulging lumbar disc History of trigger finger Hx of dysfunctional uterine bleeding Mid back pain, chronic - Surgical History Surgical History: Surgical History (Last Reviewed 02/11/18 @ 15:47 by Dann Cervantes) History of cholecystectomy (Acute) Gastric bypass status for obesity (Acute) History of History of carpal tunnel release of both wrists - Family History Family History: Family History (Last Reviewed 02/10/18 @ 17:19 by Sandra Walter MD) Other Lung cancer - Tobacco History Second Hand Smoke Exposure: No Smoking Status: Never smoker - Alcohol History How Often Do You Have a Drink Containing Alcohol: Never - Substance Use History Substance History: No History of Abuse - Travel History Recent Travel in the [place] Within the Last 8 Weeks: No Recent Travel Out of the Country Within the Last 8 Weeks: No - Immunization History Tetanus Immunization: Unsure Hx Influenza Vaccine This Season: No Medications and Allergies Allergies Allergy/AdvReac Type Severity Reaction Status Date / Time aspirin AdvReac Intermediate Nausea/Vomi Verified 02/23/18 02:33 ting ibuprofen AdvReac Intermediate Nausea/Vomi Verified 02/23/18 02:33 ting Home Medications Medication Instructions Recorded Confirmed Type gabapentin 600 mg PO TID 01/07/18 02/23/18 History hydrocodone-acetaminophen 1 tab PO Q6H PRN 01/07/18 02/23/18 History tizanidine 4 mg PO Q4HR 01/07/18 02/23/18 History amlodipine 5 mg PO DAILY 02/23/18 02/23/18 History azithromycin 250 mg PO TID 02/23/18 02/23/18 History clindamycin HCl 450 mg PO TID 02/23/18 02/23/18 History diphenhydramine HCl [Benadryl] 25 mg PO Q4H PRN 02/23/18 02/23/18 History pantoprazole [Protonix] 40 mg PO DAILY 02/23/18 02/23/18 History temazepam [Restoril] 15 mg PO HS 02/23/18 02/23/18 History Active Medications: Active Medications Al Hydroxide/Mg Hydroxide (Milk Of Magnfrankie Liq) 30 ml PO Q12H PRN PRN Reason: Mild Constipation Amlodipine Besylate (Norvasc) 2.5 mg PO BID [facility] Last Admin: 02/10/18 22:47 Dose: 2.5 mg Gabapentin (Neurontin) 600 mg PO TID [facility] Sodium Chloride (Ns Inj) 1,000 mls @ 75 mls/hr IV.CONT .[id number] [facility] Last Admin: 02/10/18 22:38 Dose: 75 mls/hr Morphine Sulfate (Morphine Inj) 2 mg IV.PUSH Q4H PRN PRN Reason: pain 4-10 Last Admin: 02/11/18 04:25 Dose: 2 mg Ondansetron HCl (Zofran Inj) 4 mg IV.PUSH Q6H PRN PRN Reason: NAUSEA OR VOMITING Last Admin: 02/11/18 01:45 Dose: 4 mg Senna/Docusate Sodium (Martha-Colace) 1 tab PO BID [facility] Last Admin: 02/10/18 22:37 Dose: Not Given Exam Vital signs: Vital Signs 02/10/18 15:02 02/10/18 18:40 02/10/18 20:00 Temperature 99.1 F 98.9 F 98.6 F Pulse Rate 70 85 80 Respiratory Rate 16 16 17 Blood Pressure 143/84 H 148/82 H 157/82 H Pulse Oximetry 100 96 95 02/11/18 00:00 02/11/18 04:00 02/11/18 08:00 Temperature 98.8 F 98.1 F 97.7 F Pulse Rate 86 67 60 Respiratory Rate 17 16 15 Blood Pressure 150/91 H 95/64 L 124/77 Pulse Oximetry 97 94 L 94 L Intake & Output 02/10/18 02/11/18 02/11/18 18:59 06:59 18:59 Intake Total 0 / 0 Balance 0 / 0 Weight 117.934 kg 116.3 kg Intake: Oral 0 / 0 Other: # Voids 4 Weight On Admission 116.3 kg Narrative: GENERAL: This is a well-nourished, well-developed patient, in no apparent distress. CARDIOVASCULAR: Regular rate and rhythm without murmurs, gallops, or rubs. RESPIRATORY: Clear to auscultation. Breath sounds equal bilaterally. No wheezes , rales, or rhonchi. GASTROINTESTINAL: Abdomen soft, non-tender, nondistended. Normal active bowel sounds MUSCULOSKELETAL: Extremities without clubbing, cyanosis, or edema. NEURO: Alert & Oriented x4 to person, place, time, situation. Moves all ext x4 Results - Labs CBC & Chem 7: 02/11/18 06:40 02/11/18 06:40 Labs: Laboratory Results - last 24 hr 02/10/18 02/10/18 02/10/18 16:00 16:00 16:00 WBC 5.6 RBC 4.44 Hgb 11.6 Hct 35.7 MCV 80.2 MCH 26.1 L MCHC 32.5 RDW 17.6 H Plt Count 358 MPV 9.2 Neut % (Auto) 56.5 Lymph % (Auto) 32.4 [place] % (Auto) 9.8 H Eos % (Auto) 0.9 Baso % (Auto) 0.4 Neut # (Auto) 3.2 Lymph # (Auto) 1.8 [place] # (Auto) 0.5 Eos # (Auto) 0.1 Baso # (Auto) 0.0 WBC Differential . Differential Comment Auto diff final Sodium 141 Potassium 4.3 Chloride 108 H Carbon Dioxide 24.5 Anion Gap 9 BUN 6 L Creatinine 0.81 Estimated GFR Greater than 89 Random Glucose 85 Lactic Acid 0.9 Calcium 9.2 Total Bilirubin 0.4 AST 24 ALT 21 Alkaline Phosphatase 87 Total Protein 7.8 Albumin 3.7 02/11/18 06:40 WBC 4.4 RBC 3.92 L Hgb 10.4 L Hct 31.9 L MCV 81.2 MCH 26.5 L MCHC 32.7 RDW 17.2 Plt Count 362 MPV 8.5 Neut % (Auto) 34.2 Lymph % (Auto) 53.1 H [place] % (Auto) 11.3 H Eos % (Auto) 1.1 Baso % (Auto) 0.3 Neut # (Auto) 1.5 L Lymph # (Auto) 2.4 [place] # (Auto) 0.5 Eos # (Auto) 0.0 Baso # (Auto) 0.0 WBC Differential . Differential Comment Auto diff final Sodium Potassium Chloride Carbon Dioxide Anion Gap BUN Creatinine Estimated GFR Random Glucose Lactic Acid Calcium Total Bilirubin AST ALT Alkaline Phosphatase Total Protein Albumin Caprini VTE Risk Assessment Caprini VTE Risk Assessment: No/Low Risk (score <= 1) Caprini Risk Assessment Model: Point Value = 1 Point Value = 2 Point Value = 3 Point Value = 5 Age 41-60 Minor surgery BMI > 25 kg/m2 Swollen legs Varicose veins or History of unexplained or recurrent spontaneous Oral contraceptives or hormone replacement Sepsis (< 1 month) Serious lung disease, including pneumonia (< 1 month) Abnormal pulmonary function Acute myocardial infarction Congestive heart failure (< 1 month) History of inflammatory bowel disease Medical patient at bed rest Age 61-74 Arthroscopic surgery Major open surgery (> 45 min) Laparoscopic surgery (> 45 min) Malignancy Confined to bed (> 72 hours) Immobilizing plaster cast Central venous access Age >= 75 History of VTE Family history of VTE Factor V Leiden Prothrombin [id number] Lupus anticoagulant Anticardiolipin antibodies Elevated serum homocysteine Heparin-induced thrombocytopenia Other congenital or acquired thrombophilia Stroke (< 1 month) Elective arthroplasty Hip, pelvis, or leg fracture Acute spinal cord injury (< 1 month) Prophylaxis Regimen: Total Risk Factor Score Risk Level Prophylaxis Regimen 0-1 Low Early ambulation 2 Moderate Order ONE of the following: *Sequential Compression Device (SCD) *Heparin 5000 units SQ BID 3-4 Higher Order ONE of the following medications: *Heparin 5000 units SQ TID *Enoxaparin/Lovenox 40 mg SQ daily (WT < 150 kg, CrCl > 30 mL/min) *Enoxaparin/Lovenox 30 mg SQ daily (WT < 150 kg, CrCl > 10-29 mL/min) *Enoxaparin/Lovenox 30 mg SQ BID (WT < 150 kg, CrCl > 30 mL/min) AND/OR *Sequential Compression Device (SCD) 5 or more Highest Order ONE of the following medications: *Heparin 5000 units SQ TID (Preferred with Epidurals) *Enoxaparin/Lovenox 40 mg SQ daily (WT < 150 kg, CrCl > 30 mL/min) *Enoxaparin/Lovenox 30 mg SQ daily (WT < 150 kg, CrCl > 10-29 mL/min) *Enoxaparin/Lovenox 30 mg SQ BID (WT < 150 kg, CrCl > 30 mL/min) AND *Sequential Compression Device (SCD) Assessment and Plan - Assessment (1) Abdominal pain Code(s): R10.9 - Unspecified abdominal pain Status: Acute Plan: The patient is a 52-year-old female with past medical history which includes morbid obesity, carpal tunnel syndrome, lumbar degenerative disc disease, sickle cell trait, depression, hypertension, GERD, distant history of open cholecystectomy in the late and a gastric bypass in 1995. Most recently on 01/25/18 patient had extensive lysis of adhesions, diagnostic laparoscopy with Dr. Castaneda. Patient then presented to [facility] 02/10/18 with complains of abdominal pain with nausea and vomiting. Abdominal pain N/V ER physician spoke with Dr. Malcolm who recommended small bowel follow- through in agreed to see patient in consultation Small bowel follow-through ordered and pending Consultation placed to general surgery Dr. Malcolm IV fluids N.p.o.initially -> diet advanced to bariatric diet per general surgery Consult to GI Plan for NPO after midnight and EGD in AM Zofran as needed for nausea/vomiting Morphine as needed for pain Continue supportive care Hypertension Patient was admitted 01/2018 for hypotension and dizziness. Dizziness/ hypotension suspected to be due to polypharmacy. Patient was taking Norvasc 5mg po BID, Lasix 40mg po daily, and Lisinopril 20mg po BID. Will continue norvasc 2.5 mg PO daily montior BP DVT prophylaxis with SCDs <Dariusz Luna - Last Filed: 03/02/18 09:39> History of Present Illness Primary Care Physician: Naldo Montano MD - Diagnosis (1) Abdominal pain PMF - Medical History Medical History: Medical History (Last Reviewed 02/11/18 @ 15:47 by Dann Cervantes) 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) Torn rotator cuff (Acute) Morbid obesity (Acute) Fibromyalgia (Acute) GERD (gastroesophageal reflux disease) (Acute) Sickle cell trait (Acute) HTN (hypertension) (Acute) Depression (Acute) Arthritis of both hands Bulging lumbar disc History of trigger finger Hx of dysfunctional uterine bleeding Mid back pain, chronic - Surgical History Surgical History: Surgical History (Last Reviewed 02/11/18 @ 15:47 by Dann Cervantes) History of cholecystectomy (Acute) Gastric bypass status for obesity (Acute) History of History of carpal tunnel release of both wrists - Family History Family History: Family History (Last Reviewed 02/10/18 @ 17:19 by Sandra Walter MD) Other Lung cancer Results - Labs CBC & Chem 7: 02/11/18 06:40 02/13/18 05:11 Caprini VTE Risk Assessment Caprini Risk Assessment Model: Point Value = 1 Point Value = 2 Point Value = 3 Point Value = 5 Age 41-60 Minor surgery BMI > 25 kg/m2 Swollen legs Varicose veins or History of unexplained or recurrent spontaneous Oral contraceptives or hormone replacement Sepsis (< 1 month) Serious lung disease, including pneumonia (< 1 month) Abnormal pulmonary function Acute myocardial infarction Congestive heart failure (< 1 month) History of inflammatory bowel disease Medical patient at bed rest Age 61-74 Arthroscopic surgery Major open surgery (> 45 min) Laparoscopic surgery (> 45 min) Malignancy Confined to bed (> 72 hours) Immobilizing plaster cast Central venous access Age >= 75 History of VTE Family history of VTE Factor V Leiden Prothrombin [id number] Lupus anticoagulant Anticardiolipin antibodies Elevated serum homocysteine Heparin-induced thrombocytopenia Other congenital or acquired thrombophilia Stroke (< 1 month) Elective arthroplasty Hip, pelvis, or leg fracture Acute spinal cord injury (< 1 month) Prophylaxis Regimen: Total Risk Factor Score Risk Level Prophylaxis Regimen 0-1 Low Early ambulation 2 Moderate Order ONE of the following: *Sequential Compression Device (SCD) *Heparin 5000 units SQ BID 3-4 Higher Order ONE of the following medications: *Heparin 5000 units SQ TID *Enoxaparin/Lovenox 40 mg SQ daily (WT < 150 kg, CrCl > 30 mL/min) *Enoxaparin/Lovenox 30 mg SQ daily (WT < 150 kg, CrCl > 10-29 mL/min) *Enoxaparin/Lovenox 30 mg SQ BID (WT < 150 kg, CrCl > 30 mL/min) AND/OR *Sequential Compression Device (SCD) 5 or more Highest Order ONE of the following medications: *Heparin 5000 units SQ TID (Preferred with Epidurals) *Enoxaparin/Lovenox 40 mg SQ daily (WT < 150 kg, CrCl > 30 mL/min) *Enoxaparin/Lovenox 30 mg SQ daily (WT < 150 kg, CrCl > 10-29 mL/min) *Enoxaparin/Lovenox 30 mg SQ BID (WT < 150 kg, CrCl > 30 mL/min) AND *Sequential Compression Device (SCD) Assessment and Plan - Assessment (1) Abdominal pain Code(s): R10.9 - Unspecified abdominal pain Status: Acute - Attending Attestation Patient examined. Assessment and plan formulated with Desi Mistry PA-C. I agree with the above.
[2018-02-11] MEDS ORDERED: Diatrizoate Meglum/Diatrizoate Sod Liq 120 ML Bottle (for RAD diag) PO ONE (09:45)
--- NOTE | 2018-02-11 11:44 | FL ---
EXAM DATE: 02/11/2018 11:25 AM EDT AGE/SEX: 52 years / Female INDICATIONS: Obstruction, nausea and vomiting. CLINICAL DATA: This is the patient's subsequent encounter. Patient reports that signs and symptoms h ave been present for 2 weeks and indicates a pain score of 3/10. MEDICAL/SURGICAL HISTORY: Gastroesophageal reflux disease. Hypertension. Fibromyalgia Cholecy stectomy. Gastric bypass. Tubal ligation. section x 2. Exploratory for lysis of adhesions COMPARISON: [facility], [place] SMALL BOWEL SERIES, 12/03/2017. . FLUORO TIME: 0 IMAGE COUNT: 15 CONTRAST: FINDINGS: Preliminary film demonstrates evidence of previous abdominal surgery with surgical clips in the upper abdomen. There is some stool in the colon. There is no abnormal dilatation of the large or small bow el. Patient is status post previous gastric bypass surgery. Contrast is seen in the gastric pouch which appears to empty readily into the proximal small bowel.. Examination of the small bowel demonstrates normal mucosal pattern involving the jejunum and ileum. There is no evidence of mass or obstruction. No intraluminal filling defects are identified. Small bowel transit time is normal at 60 minutes. There is good visualization of the terminal ileum which is unremarkable. Contrast is also seen in the colon. There does appear to be evidence of some reflux noted on the 30 minute film. CONCLUSION: Unremarkable small bowel follow-through with no evidence of mechanical obstruction. There is evidence of reflux seen on the 30 minute film. Electronically signed by: Ken Julien MD 02/11/2018 11:43 AM EDT
[2018-02-11] MEDS: amLODIPine 5 MG Tablet PO SCH ×2 (11:51→21:16)
[2018-02-11] MEDS: Gabapentin 300 MG Capsule PO SCH ×3 (11:51→19:31)
[2018-02-11] MEDS: Senna/Docusate Sodium 8.6/50 MG Tablet PO SCH ×2 (11:51→21:17)
[2018-02-11] MEDS: Sod Chloride 0.9% Inj 1,000 ML IV.CONT SCH ×2 (14:42→22:10)
--- NOTE | 2018-02-11 15:50 | P.CONGS ---
[facility] Gen Surgery Consult Note Consult date: 02/10/18 Reason for consult: abdominal pain Requesting physician: Desi Mistry Narrative: The patient is a 52yo F with past medical history of hypertension, GERD, open cholecystectomy in the late and a gastric bypass in 1995. on 01/25/18 she underwent diagnostic laparoscopy with lysis of adhesions . She presents today with complaints of abdominal pain with nausea and vomiting. She was seen in the [place] ER 02/09/[address] at that time should some questionable bowel thickening and she was instructed to follow up as an outpatient. The patient says she continues to vomit and have abdominal pain and was instructed by her PCP to return to the ED. She states she still feels nauseous and her pain is concentrated to the epigastric area. She does have pain with fluids but it is worse with solids. She states she originally had not had a bowel movement in a week but was able to have a small one today after Gastrografin study. She does have some flatus now. Review of Systems All other systems reviewed negative except as stated in [facility] PMFSH - History History Provided By: Patient - Medical History Medical History: Medical History (Last Reviewed 02/11/18 @ 15:47 by Dann Cervantes) 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) Torn rotator cuff (Acute) Morbid obesity (Acute) Fibromyalgia (Acute) GERD (gastroesophageal reflux disease) (Acute) Sickle cell trait (Acute) HTN (hypertension) (Acute) Depression (Acute) Arthritis of both hands Bulging lumbar disc History of trigger finger Hx of dysfunctional uterine bleeding Mid back pain, chronic - Surgical History Surgical History: Surgical History (Last Reviewed 02/11/18 @ 15:47 by Dann Cervantes) History of cholecystectomy (Acute) Gastric bypass status for obesity (Acute) History of History of carpal tunnel release of both wrists - Family History Family History: Family History (Last Reviewed 02/10/18 @ 17:19 by Sandra Walter MD) Other Lung cancer - Tobacco History Second Hand Smoke Exposure: No Smoking Status: Never smoker - Alcohol History How Often Do You Have a Drink Containing Alcohol: Never - Substance Use History Substance History: No History of Abuse - Travel History Recent Travel in the [place] Within the Last 8 Weeks: No Recent Travel Out of the Country Within the Last 8 Weeks: No - Immunization History Tetanus Immunization: Unsure Hx Influenza Vaccine This Season: No Medications and Allergies Active Medications: Active Medications Al Hydroxide/Mg Hydroxide (Milk Of Magnfrankie Liq) 30 ml PO Q12H PRN PRN Reason: Mild Constipation Amlodipine Besylate (Norvasc) 2.5 mg PO BID [facility] Last Admin: 02/11/18 11:51 Dose: 2.5 mg Gabapentin (Neurontin) 600 mg PO TID [facility] Last Admin: 02/11/18 14:42 Dose: 600 mg Sodium Chloride (Ns Inj) 1,000 mls @ 75 mls/hr IV.CONT .[id number] [facility] Last Admin: 02/11/18 14:42 Dose: 75 mls/hr Melatonin (Melatonin) 5 mg PO HS PRN PRN Reason: INSOMNIA Morphine Sulfate (Morphine Inj) 2 mg IV.PUSH Q4H PRN PRN Reason: pain 4-10 Last Admin: 02/11/18 14:46 Dose: 2 mg Ondansetron HCl (Zofran Inj) 4 mg IV.PUSH Q6H PRN PRN Reason: NAUSEA OR VOMITING Last Admin: 02/11/18 15:05 Dose: 4 mg Pantoprazole Sodium (Protonix) 40 mg PO DAILY [facility] Senna/Docusate Sodium (Martha-Colace) 1 tab PO BID [facility] Last Admin: 02/11/18 11:51 Dose: 1 tab Allergies Allergy/AdvReac Type Severity Reaction Status Date / Time aspirin AdvReac Intermediate Nausea/Vomi Verified 02/10/18 15:26 ting ibuprofen AdvReac Intermediate Nausea/Vomi Verified 02/10/18 15:26 ting Home Medications Medication Instructions Recorded Confirmed Type acyclovir [Zovirax] 800 mg PO TID PRN 01/07/18 02/10/18 History dextromethorphan-guaifenesin 1 tab PO QID 01/07/18 02/10/18 History [Mucinex DM] diphenhydramine HCl [Benadryl] 50 mg PO BID PRN 01/07/18 02/10/18 History gabapentin 600 mg PO TID 01/07/18 02/10/18 History hydrocodone-acetaminophen 1 tab PO Q6H PRN 01/07/18 02/10/18 History promethazine 25 mg PO BID 01/07/18 02/10/18 History tizanidine 4 mg PO Q4HR 01/07/18 02/10/18 History amlodipine 2.5 mg PO BID 01/22/18 02/10/18 History Exam Vital signs: Vital Signs 02/10/18 18:40 02/10/18 20:00 02/11/18 00:00 Temperature 98.9 F 98.6 F 98.8 F Pulse Rate 85 80 86 Respiratory Rate 16 17 17 Blood Pressure 148/82 H 157/82 H 150/91 H Pulse Oximetry 96 95 97 02/11/18 04:00 02/11/18 08:00 02/11/18 12:00 Temperature 98.1 F 97.7 F 97.6 F Pulse Rate 67 60 64 Respiratory Rate 16 15 17 Blood Pressure 95/64 L 124/77 124/76 Pulse Oximetry 94 L 94 L 94 L Intake & Output 02/10/18 02/11/18 02/11/18 18:59 06:59 18:59 Intake Total 0 / 0 1000 / 1000 Balance 0 / 0 1000 / 1000 Weight 117.934 kg 116.3 kg Intake: IV 1000 / 1000 NS Inj 1,000 ML @ 75 mls/hr IV. 1000 / 1000 CONT .[id number] [facility] Rx#:[id number] Oral 0 / 0 Other: # Voids 4 Date of Last Bowel Movement 02/11/18 # Bowel Movements 1 Weight On Admission 116.3 kg Narrative: GENERAL: This is a well-nourished, well-developed patient RESPIRATORY: unlabored GASTROINTESTINAL: Abdomen soft, non-tender, tender to palpation epigastrium and RUQ MUSCULOSKELETAL: Extremities without clubbing, cyanosis, or edema. NEURO: Alert & Oriented x4 to person, place, time, situation. Moves all ext x4 - Additional findings Additional findings: Laboratory Results - last 12 hr 02/11/18 02/11/18 06:40 06:40 WBC 4.4 RBC 3.92 L Hgb 10.4 L Hct 31.9 L MCV 81.2 MCH 26.5 L MCHC 32.7 RDW 17.2 Plt Count 362 MPV 8.5 Neut % (Auto) 34.2 Lymph % (Auto) 53.1 H Douglas % (Auto) 11.3 H Eos % (Auto) 1.1 Baso % (Auto) 0.3 Neut # (Auto) 1.5 L Lymph # (Auto) 2.4 Douglas # (Auto) 0.5 Eos # (Auto) 0.0 Baso # (Auto) 0.0 WBC Differential . Differential Comment Auto diff final Sodium 143 Potassium 3.4 L D Chloride 108 H Carbon Dioxide 25.6 Anion Gap 9 BUN 3 L Creatinine 0.69 Estimated GFR Greater than 89 Random Glucose 89 Calcium 8.6 Total Bilirubin 0.3 AST 14 L ALT 15 Alkaline Phosphatase 75 Total Protein 6.8 D Albumin 3.1 L D Impressions Small Bowel X-Ray 02/11/18 07:00 CONCLUSION: Unremarkable small bowel follow-through with no evidence of mechanical obstruction. There is evidence of reflux seen on the 30 minute film. Results - Labs 02/11/18 06:40 02/11/18 06:40 Abnormal lab results 02/10/18 02/10/18 02/11/18 Range/Units 16:00 16:00 06:40 RBC 3.92 L (4.00-5.30) mil/mm3 Hgb 10.4 L (11.6-15.3) gm/dL Hct 31.9 L (35.0-46.0) % MCH 26.1 L 26.5 L (27.0-34.0) pg RDW 17.6 H (11.6-17.2) % Lymph % (Auto) 53.1 H (9.0-44.0) % Douglas % (Auto) 9.8 H 11.3 H (0.0-8.0) % Neut # (Auto) 1.5 L (1.8-7.7) th/mm3 Potassium (3.5-5.1) meq/L Chloride 108 H (98-107) meq/L BUN 6 L (7-18) mg/dL AST (15-37) U/L Albumin (3.4-5.0) g/dL 02/11/18 Range/Units 06:40 RBC (4.00-5.30) mil/mm3 Hgb (11.6-15.3) gm/dL Hct (35.0-46.0) % MCH (27.0-34.0) pg RDW (11.6-17.2) % Lymph % (Auto) (9.0-44.0) % Douglas % (Auto) (0.0-8.0) % Neut # (Auto) (1.8-7.7) th/mm3 Potassium 3.4 L D (3.5-5.1) meq/L Chloride 108 H (98-107) meq/L BUN 3 L (7-18) mg/dL AST 14 L (15-37) U/L Albumin 3.1 L D (3.4-5.0) g/dL Diabetes panel 02/10/18 02/11/18 Range/Units 16:00 06:40 Sodium 141 143 (136-145) meq/L Potassium 4.3 3.4 L D (3.5-5.1) meq/L Chloride 108 H 108 H (98-107) meq/L Carbon Dioxide 24.5 25.6 (21.0-32.0) meq/L BUN 6 L 3 L (7-18) mg/dL Creatinine 0.81 0.69 (0.50-1.00) mg/dL Calcium 9.2 8.6 (8.5-10.1) mg/dL AST 24 14 L (15-37) U/L ALT 21 15 (10-53) U/L Alkaline Phosphatase 87 75 (45-117) U/L Total Protein 7.8 6.8 D (6.4-8.2) g/dL Albumin 3.7 3.1 L D (3.4-5.0) g/dL Calcium panel 02/10/18 02/11/18 Range/Units 16:00 06:40 Calcium 9.2 8.6 (8.5-10.1) mg/dL Albumin 3.7 3.1 L D (3.4-5.0) g/dL Pituitary panel 02/10/18 02/11/18 Range/Units 16:00 06:40 Sodium 141 143 (136-145) meq/L Potassium 4.3 3.4 L D (3.5-5.1) meq/L Chloride 108 H 108 H (98-107) meq/L Carbon Dioxide 24.5 25.6 (21.0-32.0) meq/L BUN 6 L 3 L (7-18) mg/dL Creatinine 0.81 0.69 (0.50-1.00) mg/dL Calcium 9.2 8.6 (8.5-10.1) mg/dL Adrenal panel 02/10/18 02/11/18 Range/Units 16:00 06:40 Sodium 141 143 (136-145) meq/L Potassium 4.3 3.4 L D (3.5-5.1) meq/L Chloride 108 H 108 H (98-107) meq/L Carbon Dioxide 24.5 25.6 (21.0-32.0) meq/L BUN 6 L 3 L (7-18) mg/dL Creatinine 0.81 0.69 (0.50-1.00) mg/dL Calcium 9.2 8.6 (8.5-10.1) mg/dL Total Bilirubin 0.4 0.3 (0.2-1.0) mg/dL AST 24 14 L (15-37) U/L ALT 21 15 (10-53) U/L Alkaline Phosphatase 87 75 (45-117) U/L Total Protein 7.8 6.8 D (6.4-8.2) g/dL Albumin 3.7 3.1 L D (3.4-5.0) g/dL All other labs normal. Assessment and Plan - Plan %@yo F with abdominal pain and nausea Advance to clears Consult GI for possible EGD Start pantoprazole 40mg QD Ambulate [place] Code Status: Full Discussed Condition With: Patient and significant other at bedside - Attending Attestation The exam, history, and the medical decision-making described in the above note were completed with the assistance of the mid-level provider. I reviewed and agree with the findings presented. I attest that I had a [id number] encounter with the patient on the same day, and personally performed and documented my assessment and findings in the medical record.
--- NOTE | 2018-02-11 16:21 | P.CONGI ---
History of Present Illness Consult date: 02/11/18 Consult reason: Abdominal pain, nausea, vomiting Chief complaint: ABD Pain/Vomiting History of Present Illness: This is a 52 yo F with history of Izabella-en-Y gastric bypass multiple years ago who presented to the ER with complaints of nausea, vomiting, and abdominal pain. Pt was initially seen in the [facility] ER two days ago and diagnosed with a small bowel obstruction and was going to be admitted, however due to personal reasons pt decided to leave A. She presented back to the ER last night with similar complaints, SBFT was done which was unremarkable. Our service has been consulted for further work up. Pt is unsure if she has had an EGD since her Izabella-en Y surgery. Denies previous colonoscopy. Denies ETOH, smoking, and illicit drug use. Denies NSAID use. <Merlyn Sparks - Last Filed: 02/11/18 16:02> Review of Systems Gastrointestinal: Reports abdominal pain, Reports nausea, Reports vomiting <Merlyn Sparks - Last Filed: 02/11/18 16:02> PMFSH - History History Provided By: Patient - Medical History Medical History: Medical History (Last Reviewed 02/11/18 @ 15:47 by Dann Cervantes) 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) Torn rotator cuff (Acute) Morbid obesity (Acute) Fibromyalgia (Acute) GERD (gastroesophageal reflux disease) (Acute) Sickle cell trait (Acute) HTN (hypertension) (Acute) Depression (Acute) Arthritis of both hands Bulging lumbar disc History of trigger finger Hx of dysfunctional uterine bleeding Mid back pain, chronic - Surgical History Surgical History: Surgical History (Last Reviewed 02/11/18 @ 15:47 by Dann Cervantes) History of cholecystectomy (Acute) Gastric bypass status for obesity (Acute) History of History of carpal tunnel release of both wrists - Family History Family History: Family History (Last Reviewed 02/10/18 @ 17:19 by Sandra Walter MD) Other Lung cancer - Tobacco History Second Hand Smoke Exposure: No Smoking Status: Never smoker - Alcohol History How Often Do You Have a Drink Containing Alcohol: Never - Substance Use History Substance History: No History of Abuse - Travel History Recent Travel in the [place] Within the Last 8 Weeks: No Recent Travel Out of the Country Within the Last 8 Weeks: No - Immunization History Tetanus Immunization: Unsure Hx Influenza Vaccine This Season: No <Merlyn Sparks - Last Filed: 02/11/18 16:02> - Medical History Medical History: Medical History (Last Reviewed 02/11/18 @ 15:47 by Dann Cervantes) 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) Torn rotator cuff (Acute) Morbid obesity (Acute) Fibromyalgia (Acute) GERD (gastroesophageal reflux disease) (Acute) Sickle cell trait (Acute) HTN (hypertension) (Acute) Depression (Acute) Arthritis of both hands Bulging lumbar disc History of trigger finger Hx of dysfunctional uterine bleeding Mid back pain, chronic - Surgical History Surgical History: Surgical History (Last Reviewed 02/11/18 @ 15:47 by Dann Cervantes) History of cholecystectomy (Acute) Gastric bypass status for obesity (Acute) History of History of carpal tunnel release of both wrists - Family History Family History: Family History (Last Reviewed 02/10/18 @ 17:19 by Sandra Walter MD) Other Lung cancer <Patricio Luke - Last Filed: 02/11/18 17:19> Medications and Allergies Active Medications: Active Medications Al Hydroxide/Mg Hydroxide (Milk Of Magnesia Liq) 30 ml PO Q12H PRN PRN Reason: Mild Constipation Amlodipine Besylate (Norvasc) 2.5 mg PO BID [facility] Last Admin: 02/11/18 11:51 Dose: 2.5 mg Gabapentin (Neurontin) 600 mg PO TID [facility] Last Admin: 02/11/18 14:42 Dose: 600 mg Sodium Chloride (Ns Inj) 1,000 mls @ 75 mls/hr IV.CONT .[id number] [facility] Last Admin: 02/11/18 14:42 Dose: 75 mls/hr Melatonin (Melatonin) 5 mg PO HS PRN PRN Reason: INSOMNIA Morphine Sulfate (Morphine Inj) 2 mg IV.PUSH Q4H PRN PRN Reason: pain 4-10 Last Admin: 02/11/18 14:46 Dose: 2 mg Ondansetron HCl (Zofran Inj) 4 mg IV.PUSH Q6H PRN PRN Reason: NAUSEA OR VOMITING Last Admin: 02/11/18 15:05 Dose: 4 mg Pantoprazole Sodium (Protonix) 40 mg PO DAILY [facility] Senna/Docusate Sodium (Martha-Colace) 1 tab PO BID [facility] Last Admin: 02/11/18 11:51 Dose: 1 tab <Merlyn Sparks - Last Filed: 02/11/18 16:02> Active Medications: Active Medications Al Hydroxide/Mg Hydroxide (Milk Of Magnfrankie Liq) 30 ml PO Q12H PRN PRN Reason: Mild Constipation Amlodipine Besylate (Norvasc) 2.5 mg PO BID [facility] Last Admin: 02/11/18 11:51 Dose: 2.5 mg Gabapentin (Neurontin) 600 mg PO TID [facility] Last Admin: 02/11/18 14:42 Dose: 600 mg Sodium Chloride (Ns Inj) 1,000 mls @ 75 mls/hr IV.CONT .[id number] [facility] Last Admin: 02/11/18 14:42 Dose: 75 mls/hr Morphine Sulfate (Morphine Inj) 2 mg IV.PUSH Q4H PRN PRN Reason: pain 4-10 Last Admin: 02/11/18 14:46 Dose: 2 mg Ondansetron HCl (Zofran Inj) 4 mg IV.PUSH Q6H PRN PRN Reason: NAUSEA OR VOMITING Last Admin: 02/11/18 15:05 Dose: 4 mg Pantoprazole Sodium (Protonix) 40 mg PO DAILY [facility] Senna/Docusate Sodium (Martha-Colace) 1 tab PO BID [facility] Last Admin: 02/11/18 11:51 Dose: 1 tab Temazepam (Restoril) 15 mg PO HS PRN PRN Reason: INSOMNIA <Patricio Luke - Last Filed: 02/11/18 17:19> Allergies Allergy/AdvReac Type Severity Reaction Status Date / Time aspirin AdvReac Intermediate Nausea/Vomi Verified 02/10/18 15:26 ting ibuprofen AdvReac Intermediate Nausea/Vomi Verified 02/10/18 15:26 ting Home Medications Medication Instructions Recorded Confirmed Type acyclovir [Zovirax] 800 mg PO TID PRN 01/07/18 02/10/18 History dextromethorphan-guaifenesin 1 tab PO QID 01/07/18 02/10/18 History [Mucinex DM] diphenhydramine HCl [Benadryl] 50 mg PO BID PRN 01/07/18 02/10/18 History gabapentin 600 mg PO TID 01/07/18 02/10/18 History hydrocodone-acetaminophen 1 tab PO Q6H PRN 01/07/18 02/10/18 History promethazine 25 mg PO BID 01/07/18 02/10/18 History tizanidine 4 mg PO Q4HR 01/07/18 02/10/18 History amlodipine 2.5 mg PO BID 01/22/18 02/10/18 History Exam Vital signs: Vital Signs 02/10/18 18:40 02/10/18 20:00 02/11/18 00:00 Temperature 98.9 F 98.6 F 98.8 F Pulse Rate 85 80 86 Respiratory Rate 16 17 17 Blood Pressure 148/82 H 157/82 H 150/91 H Pulse Oximetry 96 95 97 02/11/18 04:00 02/11/18 08:00 02/11/18 12:00 Temperature 98.1 F 97.7 F 97.6 F Pulse Rate 67 60 64 Respiratory Rate 16 15 17 Blood Pressure 95/64 L 124/77 124/76 Pulse Oximetry 94 L 94 L 94 L Intake & Output 02/10/18 02/11/18 02/11/18 18:59 06:59 18:59 Intake Total 0 / 0 1000 / 1000 Balance 0 / 0 1000 / 1000 Weight 117.934 kg 116.3 kg Intake: IV 1000 / 1000 NS Inj 1,000 ML @ 75 mls/hr IV. 1000 / 1000 CONT .[id number] [facility] Rx#:[id number] Oral 0 / 0 Other: # Voids 4 Date of Last Bowel Movement 02/11/18 # Bowel Movements 1 Weight On Admission 116.3 kg - Constitutional no acute distress - Routine HEENT Exam Head: Present: normocephalic, atraumatic - Routine Respiratory Exam Absent: accessory muscle use - Routine Cardiovascular Exam Present: RRR - Routine Abdominal Exam Present: soft, normoactive bowel sounds, tenderness (epigastric and RUQ tenderness ). Absent: distended - Routine Skin Exam Present: dry, warm - Routine Neurological Exam Present: alert, oriented X3 <Merlyn Sparks - Last Filed: 02/11/18 16:02> Vital signs: Vital Signs 02/10/18 18:40 02/10/18 20:00 02/11/18 00:00 Temperature 98.9 F 98.6 F 98.8 F Pulse Rate 85 80 86 Respiratory Rate 16 17 17 Blood Pressure 148/82 H 157/82 H 150/91 H Pulse Oximetry 96 95 97 02/11/18 04:00 02/11/18 08:00 02/11/18 12:00 Temperature 98.1 F 97.7 F 97.6 F Pulse Rate 67 60 64 Respiratory Rate 16 15 17 Blood Pressure 95/64 L 124/77 124/76 Pulse Oximetry 94 L 94 L 94 L 02/11/18 16:00 Temperature 97.8 F Pulse Rate 60 Respiratory Rate 16 Blood Pressure 119/76 Pulse Oximetry 92 L Intake & Output 02/10/18 02/11/18 02/11/18 18:59 06:59 18:59 Intake Total 0 / 0 1000 / 1000 Balance 0 / 0 1000 / 1000 Weight 117.934 kg 116.3 kg Intake: IV 1000 / 1000 NS Inj 1,000 ML @ 75 mls/hr IV. 1000 / 1000 CONT .[id number] [facility] Rx#:[id number] Oral 0 / 0 Other: # Voids 4 Date of Last Bowel Movement 02/11/18 # Bowel Movements 1 Weight On Admission 116.3 kg <Patricio Luke - Last Filed: 02/11/18 17:19> Results - Labs CBC & Chem 7: 02/11/18 06:40 02/11/18 06:40 Labs: Laboratory Results - last 24 hr 02/10/18 02/10/18 02/10/18 16:00 16:00 16:00 WBC 5.6 RBC 4.44 Hgb 11.6 Hct 35.7 MCV 80.2 MCH 26.1 L MCHC 32.5 RDW 17.6 H Plt Count 358 MPV 9.2 Neut % (Auto) 56.5 Lymph % (Auto) 32.4 [place] % (Auto) 9.8 H Eos % (Auto) 0.9 Baso % (Auto) 0.4 Neut # (Auto) 3.2 Lymph # (Auto) 1.8 [place] # (Auto) 0.5 Eos # (Auto) 0.1 Baso # (Auto) 0.0 WBC Differential . Differential Comment Auto diff final Sodium 141 Potassium 4.3 Chloride 108 H Carbon Dioxide 24.5 Anion Gap 9 BUN 6 L Creatinine 0.81 Estimated GFR Greater than 89 Random Glucose 85 Lactic Acid 0.9 Calcium 9.2 Total Bilirubin 0.4 AST 24 ALT 21 Alkaline Phosphatase 87 Total Protein 7.8 Albumin 3.7 02/11/18 02/11/18 06:40 06:40 WBC 4.4 RBC 3.92 L Hgb 10.4 L Hct 31.9 L MCV 81.2 MCH 26.5 L MCHC 32.7 RDW 17.2 Plt Count 362 MPV 8.5 Neut % (Auto) 34.2 Lymph % (Auto) 53.1 H [place] % (Auto) 11.3 H Eos % (Auto) 1.1 Baso % (Auto) 0.3 Neut # (Auto) 1.5 L Lymph # (Auto) 2.4 [place] # (Auto) 0.5 Eos # (Auto) 0.0 Baso # (Auto) 0.0 WBC Differential . Differential Comment Auto diff final Sodium 143 Potassium 3.4 L D Chloride 108 H Carbon Dioxide 25.6 Anion Gap 9 BUN 3 L Creatinine 0.69 Estimated GFR Greater than 89 Random Glucose 89 Lactic Acid Calcium 8.6 Total Bilirubin 0.3 AST 14 L ALT 15 Alkaline Phosphatase 75 Total Protein 6.8 D Albumin 3.1 L D - Imaging Impressions Small Bowel X-Ray 02/11/18 07:00 CONCLUSION: Unremarkable small bowel follow-through with no evidence of mechanical obstruction. There is evidence of reflux seen on the 30 minute film. <Merlyn Sparks - Last Filed: 02/11/18 16:02> - Labs CBC & Chem 7: 02/11/18 06:40 02/11/18 06:40 Labs: Laboratory Results - last 24 hr 02/11/18 02/11/18 06:40 06:40 WBC 4.4 RBC 3.92 L Hgb 10.4 L Hct 31.9 L MCV 81.2 MCH 26.5 L MCHC 32.7 RDW 17.2 Plt Count 362 MPV 8.5 Neut % (Auto) 34.2 Lymph % (Auto) 53.1 H [place] % (Auto) 11.3 H Eos % (Auto) 1.1 Baso % (Auto) 0.3 Neut # (Auto) 1.5 L Lymph # (Auto) 2.4 [place] # (Auto) 0.5 Eos # (Auto) 0.0 Baso # (Auto) 0.0 WBC Differential . Differential Comment Auto diff final Sodium 143 Potassium 3.4 L D Chloride 108 H Carbon Dioxide 25.6 Anion Gap 9 BUN 3 L Creatinine 0.69 Estimated GFR Greater than 89 Random Glucose 89 Calcium 8.6 Total Bilirubin 0.3 AST 14 L ALT 15 Alkaline Phosphatase 75 Total Protein 6.8 D Albumin 3.1 L D - Imaging Impressions Small Bowel X-Ray 02/11/18 07:00 CONCLUSION: Unremarkable small bowel follow-through with no evidence of mechanical obstruction. There is evidence of reflux seen on the 30 minute film. <Patricio Luke - Last Filed: 02/11/18 17:19> Assessment and Plan - Plan Assessment: - RUQ and epigastric pain- began on Thursday- constant, described as aching with intermittent episodes of sharp pains. Associated with nausea and vomiting. Denies hematemesis and coffee ground emesis. Also complaining of heartburn, has not tried anything for OTC relief, states daily since Thursday. Also complaining of dysphagia and feeling like her food gets stuck, denies odynophagia. SBFT --> Unremarkable small bowel follow-through with no evidence of mechanical obstruction. There is evidence of reflux seen on the [address] abdomen and pelvis W IV contrast --> . There is mild to moderate persistent gastric pouch and jejunal distention proximally. There is an abrupt change in caliber of the jejunum on coronal image 33 with soft tissue density seen at this level which may be related to mass or focal bowel wall thickening. Proximal to this point there is distention of the jejunum. There is moderate biliary ductal dilatation identified. LFTs WNL. Plan: EGD tomorrow Obtain consent NPO after MN Ok for liquid diet today Protonix Further recommendations to follow Pt has been seen and examined by myself and Dr. Luke and this note is written on his behalf <Merlyn Sparks - Last Filed: 02/11/18 16:02> - Plan Seen and examined with [employer]. egd planned for tomorrow. Thank you - Attending Attestation The exam, history, and the medical decision-making described in the above note were completed with the assistance of the mid-level provider. I reviewed and agree with the findings presented. I attest that I had a [id number] encounter with the patient on the same day, and personally performed and documented my assessment and findings in the medical record. <Patricio Luke - Last Filed: 02/11/18 17:19>
[2018-02-11] MEDS ORDERED: Melatonin 5 MG Tablet PO PRN (21:00)
[2018-02-11] MEDS: Temazepam 15 MG Capsule PO PRN (22:40)
[2018-02-12] MEDS: Morphine Sulfate Inj 2 MG/ML Vial IV.PUSH PRN ×2 (04:35→11:05)
[2018-02-12] MEDS: Gabapentin 300 MG Capsule PO SCH ×3 (08:53→17:02)
[2018-02-12] MEDS: amLODIPine 5 MG Tablet PO SCH ×2 (08:54→20:43)
[2018-02-12] MEDS: Senna/Docusate Sodium 8.6/50 MG Tablet PO SCH ×2 (08:54→20:43)
--- NOTE | 2018-02-12 09:59 | GIPROC ---
[facility] [address] [facility] [employer]. [facility], [address] EGD PROCEDURE REPORT EXAM DATE: 02/12/2018 PATIENT NAME: Kelly Pelletier MR #: [id number] BIRTHDATE: 1965 ATTENDING: Patricio Luke MD ORDER #: [id number] APARTMENT LEASING SPECIALIST: Luis Armando Hargrove Wilcox-Hassen, Alice, and Aida Appiah STATUS: inpatient INDICATIONS: The patient is a 52 yr old female here for an EGD due to epigastric abdominal pain and vomiting PROCEDURE PERFORMED: EGD, diagnostic MEDICATIONS: None and Per Anesthesia. TOPICAL ANESTHETIC: CONSENT: The patient understands the risks and benefits of the procedure and understands that these risks include, but are not limited to: sedation, allergic reaction, infection, perforation and/or bleeding. Alternative means of evaluation and treatment include, among others: physical exam, x-rays, and/or surgical intervention. The patient elects to proceed with this endoscopic procedure. medical equipment was checked for proper function. Hand hygiene and appropriate measures for infection prevention was taken. After the risks, benefits and alternatives of the procedure were thoroughly explained, Informed consent was verified, confirmed and timeout was successfully executed by the treatment team. The patient was anesthetized with topical anesthesia and the Pentax EG-[id number] endoscope was introduced through the mouth and advanced to the second portion of the duodenum. Retroflexed views revealed no abnormalities The gastroscope was then slowly withdrawn and removed. ESOPHAGUS: Retained food in esophagus, pushed into the stomach. STOMACH: Evidence of previous surgery, retained food in the stomach and duodenum. DUODENUM: The duodenal mucosa appeared normal in the 2nd part of the duodenum. ADVERSE EVENTS: There were no complications. IMPRESSIONS: 1. Retained food in esophagus, pushed into the stomach 2. Evidence of previous surgery, retained food in the stomach and duodenum 3. Normal duodenal mucosa in the 2nd part of the duodenum 4. Retroflexed views revealed no abnormalities RECOMMENDATIONS: 1. Anti-reflux regimen 2. Continue PPI 3. Avoid NSAIDS 4. Xray: Gastric Emptying Scan PATIENT CONDITION: stable DISPOSITION: Inpatient REPEAT EXAM: Return 1 month EGD Patricio Luke MD eSigned: Patricio Luke MD 02/12/2018 9:58 AM cc: PATIENT NAME: Kelly Pelletier MR#: [id number]
[2018-02-12] MEDS: Sod Chloride 0.9% Inj 1,000 ML IV.CONT SCH (10:49)
[2018-02-12] MEDS ORDERED: fentaNYL Citrate Inj 100 MCG/2 ML Ampul ONE (10:53)
--- NOTE | 2018-02-12 13:15 | P.PNGS ---
Subjective Interval history: EGD today showed food stuck in esophagus and stomach. No ulcers. Still with some abdominal pain in epigastrium. Physical Exam Vital signs: Vital Signs 02/11/18 16:00 02/11/18 20:00 02/12/18 00:00 Temperature 97.8 F 98.1 F 98.5 F Pulse Rate 60 95 H 69 Respiratory Rate 16 17 16 Blood Pressure 119/76 118/75 124/78 Pulse Oximetry 92 L 95 94 L 02/12/18 04:00 02/12/18 08:00 02/12/18 10:08 Temperature 98.3 F 98.4 F 97.9 F Pulse Rate 83 56 L 61 Respiratory Rate 17 16 12 Blood Pressure 134/79 115/71 116/62 Pulse Oximetry 96 94 L 99 02/12/18 10:15 02/12/18 10:30 02/12/18 10:40 Temperature 98 F Pulse Rate 59 L 59 L 59 L Respiratory Rate 15 11 L 15 Blood Pressure 114/64 92/57 L 108/52 L Pulse Oximetry 99 98 97 02/12/18 12:00 Temperature 98.3 F Pulse Rate 60 Respiratory Rate 16 Blood Pressure 103/70 Pulse Oximetry 97 Intake & Output 02/11/18 02/12/18 02/12/18 18:59 06:59 18:59 Intake Total 1600 / 1600 1460 / 1460 1000 / 1000 Balance 1600 / 1600 1460 / 1460 1000 / 1000 Weight 116 kg Intake: IV 1000 / 1000 1000 / 1000 1000 / 1000 NS Inj 1,000 ML @ 75 mls/hr IV. 1000 / 1000 1000 / 1000 1000 / 1000 CONT .[id number] [facility] Rx#:[id number] Oral 600 / 600 460 / 460 Other: # Voids 3 3 Date of Last Bowel Movement 02/11/18 # Bowel Movements 1 2 Narrative: Abd: mild epigastric ttp Assessment and Plan - Assessment (1) Abdominal pain Code(s): R10.9 - Unspecified abdominal pain Status: Acute - Plan GES planned for Thursday by Dr. Luke. Will try soft diet. Cont PPI. If tolerating diet possibly could go home earlier and have GES as outpatient. WIll f/u tomorrow.
--- NOTE | 2018-02-12 14:31 | P.PNIM ---
Subjective Interval history: Follow up: abd pain, N/V S/P EGD 02/12/18 patient continues to c/o abd pain asking for increased in pain medication Physical Exam Vital signs: Vital Signs 02/11/18 16:00 02/11/18 20:00 02/12/18 00:00 Temperature 97.8 F 98.1 F 98.5 F Pulse Rate 60 95 H 69 Respiratory Rate 16 17 16 Blood Pressure 119/76 118/75 124/78 Pulse Oximetry 92 L 95 94 L 02/12/18 04:00 02/12/18 08:00 02/12/18 10:08 Temperature 98.3 F 98.4 F 97.9 F Pulse Rate 83 56 L 61 Respiratory Rate 17 16 12 Blood Pressure 134/79 115/71 116/62 Pulse Oximetry 96 94 L 99 02/12/18 10:15 02/12/18 10:30 02/12/18 10:40 Temperature 98 F Pulse Rate 59 L 59 L 59 L Respiratory Rate 15 11 L 15 Blood Pressure 114/64 92/57 L 108/52 L Pulse Oximetry 99 98 97 02/12/18 12:00 Temperature 98.3 F Pulse Rate 60 Respiratory Rate 16 Blood Pressure 103/70 Pulse Oximetry 97 Intake & Output 02/11/18 02/12/18 02/12/18 18:59 06:59 18:59 Intake Total 1600 / 1600 1460 / 1460 1000 / 1000 Balance 1600 / 1600 1460 / 1460 1000 / 1000 Weight 116 kg Intake: IV 1000 / 1000 1000 / 1000 1000 / 1000 NS Inj 1,000 ML @ 75 mls/hr IV. 1000 / 1000 1000 / 1000 1000 / 1000 CONT .[id number] [facility] Rx#:[id number] Oral 600 / 600 460 / 460 Other: # Voids 3 3 Date of Last Bowel Movement 02/11/18 # Bowel Movements 1 2 Narrative: GENERAL: This is a well-nourished, well-developed patient, in no apparent distress. CARDIOVASCULAR: Regular rate and rhythm RESPIRATORY: Clear to auscultation. Breath sounds equal bilaterally. GASTROINTESTINAL: Abdomen soft, non-tender, nondistended. Normal active bowel sounds MUSCULOSKELETAL: Extremities without clubbing, cyanosis, or edema. NEURO: Alert & Oriented x4 to person, place, time, situation. Moves all ext x4 Results - Labs CBC & Chem 7: 02/11/18 06:40 02/13/18 05:11 Assessment and Plan - Assessment (1) Abdominal pain Code(s): R10.9 - Unspecified abdominal pain Status: Acute Plan: The patient is a 52-year-old female with past medical history which includes morbid obesity, carpal tunnel syndrome, lumbar degenerative disc disease, sickle cell trait, depression, hypertension, GERD, distant history of open cholecystectomy in the late and a gastric bypass in 1995. Most recently on 01/25/18 patient had extensive lysis of adhesions, diagnostic laparoscopy with Dr. Castaneda. Patient then [place] [facility] [place] with complains of abdominal pain with nausea and vomiting. Abdominal pain N/V ER physician spoke with Dr. Malcolm who recommended small bowel follow- through in agreed to see patient in consultation Small bowel follow-through ordered and pending Consultation placed to general surgery Dr. Malcolm IV fluids N.p.o.initially -> diet advanced to bariatric diet per general surgery Consult to GI S/P EGD 02/11/18 -> 1. Retained food in esophagus, pushed into the stomach 2. Evidence of previous surgery, retained food in the stomach and duodenum 3. Normal duodenal mucosa in the 2nd part of the duodenum 4. Retroflexed views revealed no abnormalities GI recommendations: 1. Anti-reflux regimen 2. Continue PPI 3. Avoid NSAIDS 4. Xray: Gastric Emptying Scan Patient's diet advanced to soft diet per general surgery Plan for gastric emptying scan on Thursday Patient offered DC home and outpatient gastric emptying scan patient refused Patient tolerating diet, DC IVFs Zofran as needed for nausea/vomiting Lower back pain: Patient asking for increase in pain medication educated patient that narcotic slow GI motility, DC narcotic Toradol as needed for breakthrough pain repeat BMP in AM Acetaminophen IV x 24 hours Xray thoracic and lumbar spine UA C&S Hypertension Patient was admitted 01/2018 for hypotension and dizziness. Dizziness/ hypotension suspected to be due to polypharmacy. Patient was taking Norvasc 5mg po BID, Lasix 40mg po daily, and Lisinopril 20mg po BID. Will continue norvasc 2.5 mg PO daily montior BP DVT prophylaxis with SCDs - Attending Attestation Patient examined. Assessment and plan formulated with Desi Mistry PA-C. I agree with the above.
[2018-02-12] MEDS: Ketorolac Inj 30 MG/ML (IVP) Vial IV.PUSH PRN ×2 (17:03→22:18)
[2018-02-12] MEDS ORDERED: Lidocaine PF 1% Inj 5 ML Syringe INFILTRATN ONE (17:30)
[2018-02-12] MEDS ORDERED: Succinylcholine Inj 100 MG/5 ML Syringe IV.PUSH ONE (17:30)
--- NOTE | 2018-02-12 20:29 | XR ---
EXAM DATE: 02/12/2018 8:17 PM EDT AGE/SEX: 52 years / Female INDICATIONS: Lower back pain, no injury. CLINICAL DATA: This is the patient's initial encounter. Patient reports that signs and symptoms have been present for 1 day and indicates a pain score of 6/10. MEDICAL/SURGICAL HISTORY: None. None. [place] [facility] [place]SW 3V[place]12/2018. . FINDINGS: There is moderate degenerative disc disease at L3-4. Moderate facet arthropathy. No acute fracture. CONCLUSION: No acute findings. Focal moderate to advanced degenerative change at L3-4. Electronically signed by: Mario Mcgovern MD 02/12/2018 8:28 PM EDT
--- NOTE | 2018-02-12 20:30 | XR ---
EXAM DATE: 02/12/2018 8:20 PM EDT AGE/SEX: 52 years / Female INDICATIONS: Back pain, no injury. CLINICAL DATA: This is the patient's initial encounter. Patient reports that signs and symptoms have been present for 4 - 6 days and indicates a pain score of 7/10. MEDICAL/SURGICAL HISTORY: None. None. COMPARISON: [facility] [place] THORACIC AP/LAT/SW (3VW), 10/29/2014. . FINDINGS: The vertebral bodies are in normal alignment without evidence of compression deformity. Bone density is normal for age. Soft tissues are grossly intact. CONCLUSION: No acute findings. Mild to moderate degenerative changes. Electronically signed by: Mario Mcgovern MD 02/12/2018 8:29 PM EDT
[2018-02-13] MEDS: Temazepam 15 MG Capsule PO PRN (00:54)
[2018-02-13] MEDS: Ketorolac Inj 30 MG/ML (IVP) Vial IV.PUSH PRN (05:22)
[2018-02-13 06:45] LABS: Calcium 8.7 mg/dL (8.5-10.1); Carbon Dioxide 24.6 meq/L (21.0-32.0); Magnesium 1.9 mg/dL (1.5-2.5); Potassium 3.4 meq/L (3.5-5.1)
[2018-02-13] MEDS: Gabapentin 300 MG Capsule PO SCH ×3 (08:30→18:06)
--- NOTE | 2018-02-13 09:14 | P.PNGS ---
Subjective Interval history: She is tolerating some soft diet. Did feel dysphagia but it improved. C/o abdominal pain. Physical Exam Vital signs: Vital Signs 02/12/18 10:08 02/12/18 10:15 02/12/18 10:30 Temperature 97.9 F Pulse Rate 61 59 L 59 L Respiratory Rate 12 15 11 L Blood Pressure 116/62 114/64 92/57 L Pulse Oximetry 99 99 98 02/12/18 10:40 02/12/18 12:00 02/12/18 16:00 Temperature 98 F 98.3 F 97.9 F Pulse Rate 59 L 60 63 Respiratory Rate 15 16 18 Blood Pressure 108/52 L 103/70 101/58 L Pulse Oximetry 97 97 95 02/12/18 20:00 02/13/18 00:00 Temperature 98.2 F 98.2 F Pulse Rate 83 82 Respiratory Rate 17 17 Blood Pressure 134/63 126/62 Pulse Oximetry 99 95 Intake & Output 02/12/18 02/13/18 02/13/18 18:59 06:59 18:59 Intake Total 2180 / 2180 580 / 580 Balance 2180 / 2180 580 / 580 Intake: IV 1100 / 1100 100 / 100 NS Inj 1,000 ML @ 75 mls/hr IV. 1000 / 1000 CONT .[id number] [facility] Rx#:[id number] Ofirmev Inj 1,000 mg In 100 ml 100 / 100 100 / 100 @ 400 mls/hr IV.SIG Q6H [facility] Rx# :[id number] Oral 1080 / 1080 480 / 480 Other: # Voids 1 2 Date of Last Bowel Movement 02/11/18 - Constitutional Comments: NAD EPigastric ttp Assessment and Plan - Assessment (1) Abdominal pain Code(s): R10.9 - Unspecified abdominal pain Status: Acute - Plan GES planned for Thursday by Dr. Luke. D/c toradol.
[2018-02-13] MEDS: Senna/Docusate Sodium 8.6/50 MG Tablet PO SCH ×2 (12:31→22:01)
[2018-02-13] MEDS: amLODIPine 5 MG Tablet PO SCH ×2 (12:36→22:01)
--- NOTE | 2018-02-13 15:20 | P.PNIM ---
Subjective Interval history: Follow up: abd pain, N/V S/P EGD 02/12/18 no longer having N/V patient continues to c/o abd pain asking for increased in pain medication Physical Exam Vital signs: Vital Signs 02/12/18 16:00 02/12/18 20:00 02/13/18 00:00 Temperature 97.9 F 98.2 F 98.2 F Pulse Rate 63 83 82 Respiratory Rate 18 17 17 Blood Pressure 101/58 L 134/63 126/62 Pulse Oximetry 95 99 95 02/13/18 08:00 02/13/18 12:00 Temperature 98.0 F 97.7 F Pulse Rate 58 L 56 L Respiratory Rate 17 17 Blood Pressure 105/68 108/71 Pulse Oximetry 96 97 Intake & Output 02/12/18 02/13/18 02/13/18 18:59 06:59 18:59 Intake Total 2180 / 2180 580 / 580 Balance 2180 / 2180 580 / 580 Intake: IV 1100 / 1100 100 / 100 NS Inj 1,000 ML @ 75 mls/hr IV. 1000 / 1000 CONT .[id number] [facility] Rx#:[id number] Ofirmev Inj 1,000 mg In 100 ml 100 / 100 100 / 100 @ 400 mls/hr IV.SIG Q6H [facility] Rx# :[id number] Oral 1080 / 1080 480 / 480 Other: # Voids 1 2 Date of Last Bowel Movement 02/11/18 Narrative: GENERAL: This is a well-nourished, well-developed patient, in no apparent distress. CARDIOVASCULAR: Regular rate and rhythm RESPIRATORY: Clear to auscultation. Breath sounds equal bilaterally. GASTROINTESTINAL: Abdomen soft, mildly tender RUQ, nondistended. hypoactive bowel sounds MUSCULOSKELETAL: Extremities without clubbing, cyanosis, or edema. NEURO: Alert & Oriented x4 to person, place, time, situation. Moves all ext x4 Results - Labs CBC & Chem 7: 02/11/18 06:40 02/13/18 05:11 Laboratory Results - last 24 hr 02/13/18 05:11 Sodium 143 Potassium 3.4 L Chloride 109 H Carbon Dioxide 24.6 Anion Gap 9 BUN 5 L Creatinine 0.89 Estimated GFR 81 L Random Glucose 107 H Calcium 8.7 Magnesium 1.9 - Imaging Impressions Lumbar Spine X-Ray 02/12/18 00:00 CONCLUSION: No acute findings. Focal moderate to advanced degenerative change at L3-4. Thoracic Spine X-Ray 02/12/18 00:00 CONCLUSION: No acute findings. Mild to moderate degenerative changes. Assessment and Plan - Assessment (1) Abdominal pain Code(s): R10.9 - Unspecified abdominal pain Status: Acute Plan: The patient is a 52-year-old female with past medical history which includes morbid obesity, carpal tunnel syndrome, lumbar degenerative disc disease, sickle cell trait, depression, hypertension, GERD, distant history of open cholecystectomy in the late and a gastric bypass in 1995. Most recently on 01/25/18 patient had extensive lysis of adhesions, diagnostic laparoscopy with Dr. Castaneda. Patient then [place] [facility] with complains of abdominal pain with nausea and vomiting. Abdominal pain N/V ER physician spoke with Dr. Malcolm who recommended small bowel follow- through in agreed to see patient in consultation Small bowel follow-through ordered and pending Consultation placed to general surgery Dr. Malcolm IV fluids N.p.o.initially -> diet advanced to bariatric diet per general surgery Consult to GI S/P EGD 02/11/18 -> 1. Retained food in esophagus, pushed into the stomach 2. Evidence of previous surgery, retained food in the stomach and duodenum 3. Normal duodenal mucosa in the 2nd part of the duodenum 4. Retroflexed views revealed no abnormalities GI recommendations: 1. Anti-reflux regimen 2. Continue PPI 3. Avoid NSAIDS 4. Xray: Gastric Emptying Scan Patient's diet advanced to soft diet per general surgery Plan for gastric emptying scan on Thursday Patient offered DC home and outpatient gastric emptying scan patient refused Patient tolerating diet, DC IVFs Zofran as needed for nausea/vomiting LFTs add Lidoderm patch Lower back pain: Patient asking for increase in pain medication educated patient that narcotic slow GI motility, DC narcotic DC Toradol patient has previously had gastric bypass continue Acetaminophen IV Xray thoracic and lumbar spine - reviewed and showed degenerative changes Hypertension Patient was admitted 01/2018 for hypotension and dizziness. Dizziness/ hypotension suspected to be due to polypharmacy. Patient was taking Norvasc 5mg po BID, Lasix 40mg po daily, and Lisinopril 20mg po BID. Will continue norvasc 2.5 mg PO daily montior BP DVT prophylaxis with SCDs - Attending Attestation Patient examined. Assessment and plan formulated with Desi Mistry PA-C. I agree with the above.
[2018-02-13] MEDS: Lidocaine 5% Patch T-DERMAL SCH (15:54)
[2018-02-13 16:19] LABS: Albumin 3.2 g/dL (3.4-5.0)
[2018-02-13 16:21] LABS: Total Protein 6.9 g/dL (6.4-8.2)
--- NOTE | 2018-02-13 16:31 | P.PNGI ---
Subjective Interval history: -Patient is sitting up in the bed taking sips of Jell-O Still complains of some nausea and right upper quadrant abdominal pain Also notes the sensation of the Jell-O sitting in her esophagus No obvious vomiting Physical Exam Vital signs: Vital Signs 02/12/18 20:00 02/13/18 00:00 02/13/18 08:00 Temperature 98.2 F 98.2 F 98.0 F Pulse Rate 83 82 58 L Respiratory Rate 17 17 17 Blood Pressure 134/63 126/62 105/68 Pulse Oximetry 99 95 96 02/13/18 12:00 02/13/18 16:00 Temperature 97.7 F 98.3 F Pulse Rate 56 L 63 Respiratory Rate 17 17 Blood Pressure 108/71 113/65 Pulse Oximetry 97 95 Intake & Output 02/12/18 02/13/18 02/13/18 18:59 06:59 18:59 Intake Total 2180 / 2180 680 / 680 Balance 2180 / 2180 680 / 680 Intake: IV 1100 / 1100 200 / 200 NS Inj 1,000 ML @ 75 mls/hr IV. 1000 / 1000 CONT .[id number] [facility] Rx#:[id number] Ofirmev Inj 1,000 mg In 100 ml 100 / 100 200 / 200 @ 400 mls/hr IV.SIG Q6H [facility] Rx# :[id number] Oral 1080 / 1080 480 / 480 Other: # Voids 1 2 Date of Last Bowel Movement 02/11/18 - Constitutional mild distress, morbidly obese - Routine HEENT Exam Head: Present: normocephalic ENT: Present: mucous membranes moist - Routine Neck Exam Present: supple - Routine Cardiovascular Exam Present: RRR - Routine Abdominal Exam Present: soft (Round, obese, right upper quadrant discomfort but nontender) - Routine Skin Exam Present: intact - Routine Neurological Exam Present: alert (Answer simple questions appropriately) Results - Labs CBC & Chem 7: 02/11/18 06:40 02/13/18 05:11 Laboratory Results - last 24 hr 02/13/18 02/13/18 05:11 05:11 Sodium 143 Potassium 3.4 L Chloride 109 H Carbon Dioxide 24.6 Anion Gap 9 BUN 5 L Creatinine 0.89 Estimated GFR 81 L Random Glucose 107 H Calcium 8.7 Magnesium 1.9 Total Bilirubin 0.2 Direct Bilirubin 0.1 Indirect Bilirubin 0.1 AST 23 ALT 20 Alkaline Phosphatase 75 Total Protein 6.9 Albumin 3.2 L - Imaging Impressions Lumbar Spine X-Ray 02/12/18 00:00 CONCLUSION: No acute findings. Focal moderate to advanced degenerative change at L3-4. Thoracic Spine X-Ray 02/12/18 00:00 CONCLUSION: No acute findings. Mild to moderate degenerative changes. Assessment and Plan - Plan RUQ and epigastric pain- began on Thursday- constant, described as aching with intermittent episodes of sharp pains. Associated with nausea and vomiting. Denies hematemesis and coffee ground emesis. Also complaining of heartburn, has not tried anything for OTC relief, states daily since Thursday. Also complaining of dysphagia and feeling like her food gets stuck, denies odynophagia. SBFT --> Unremarkable small bowel follow-through with no evidence of mechanical obstruction. There is evidence of reflux seen on the [address] abdomen and pelvis W IV contrast --> . There is mild to moderate persistent gastric pouch and jejunal distention proximally. There is an abrupt change in caliber of the jejunum on coronal image 33 with soft tissue density seen at this level which may be related to mass or focal bowel wall thickening. Proximal to this point there is distention of the jejunum. There is moderate biliary ductal dilatation identified. LFTs WNL. 02/13/2018 patient is taking sips of Jell-O but states she still feels like Jell- O is sitting in her esophagus. Painful right upper quadrant at times, status post EGD on 02/12/2018. Labs show bilirubin and LFTs normal, current hemoglobin 10.4 from 02/11/2018. No obvious bleeding. Plan for gastric emptying scan Thursday a.m. no Reglan until scan completed. Patient initially was evaluated for small bowel obstruction but small bowel follow-through showed no evidence of mechanical obstruction but evidence of reflux seen. Plan: Diet continue liquids for now, encourage patient sit straight up in the bed and take small sips and frequent feedings 4-6 times a day Monitor labs Protonix Further recommendations to follow Pt has been seen and examined by myself and Dr. Luke and this note is written on his behalf
[2018-02-14] MEDS: Temazepam 15 MG Capsule PO PRN (01:47)
[2018-02-14] MEDS: Gabapentin 300 MG Capsule PO SCH ×3 (08:47→18:22)
[2018-02-14] MEDS: Senna/Docusate Sodium 8.6/50 MG Tablet PO SCH ×2 (08:47→20:47)
[2018-02-14] MEDS: amLODIPine 5 MG Tablet PO SCH ×2 (08:48→20:47)
[2018-02-14] MEDS: Lidocaine 5% Patch T-DERMAL SCH (08:49)
--- NOTE | 2018-02-14 10:43 | P.PNIM ---
Subjective Interval history: Follow up: abd pain, N/V S/P EGD 02/12/18 which showed retained food in the esophagus and stomach patient increased PO intake and is now having N/V Patient reports N/V started after eating ice cream Physical Exam Vital signs: Vital Signs 02/13/18 12:00 02/13/18 16:00 02/13/18 20:00 Temperature 97.7 F 98.3 F 98.1 F Pulse Rate 56 L 63 67 Respiratory Rate 17 17 18 Blood Pressure 108/71 113/65 108/69 Pulse Oximetry 97 95 94 L 02/14/18 00:00 02/14/18 03:57 02/14/18 08:00 Temperature 98.2 F 98.2 F 97.7 F Pulse Rate 91 H 66 60 Respiratory Rate 18 18 17 Blood Pressure 140/77 116/68 114/75 Pulse Oximetry 97 97 100 Intake & Output 02/13/18 02/14/18 02/14/18 18:59 06:59 18:59 Intake Total 2117 / 2117 580 / 580 Balance 2117 580 / 580 Weight 115.9 kg Intake: IV 100 / 100 Ofirmev Inj 1,000 mg In 100 ml 100 / 100 @ 400 mls/hr IV.SIG Q6H [facility] Rx# :[id number] Oral 2117 480 / 480 Other: # Voids 3 3 Narrative: GENERAL: This is a well-nourished, well-developed patient, in no apparent distress. CARDIOVASCULAR: Regular rate and rhythm RESPIRATORY: Clear to auscultation. Breath sounds equal bilaterally. GASTROINTESTINAL: Abdomen soft, mildly tender RUQ, nondistended. hypoactive bowel sounds MUSCULOSKELETAL: Extremities without clubbing, cyanosis, or edema. NEURO: Alert & Oriented x4 to person, place, time, situation. Moves all ext x4 Results - Labs CBC & Chem 7: 02/11/18 06:40 02/13/18 05:11 Laboratory Results - last 24 hr 02/13/18 05:11 Total Bilirubin 0.2 Direct Bilirubin 0.1 Indirect Bilirubin 0.1 AST 23 ALT 20 Alkaline Phosphatase 75 Total Protein 6.9 Albumin 3.2 L Assessment and Plan - Assessment (1) Abdominal pain Code(s): R10.9 - Unspecified abdominal pain Status: Acute Plan: The patient is a 52-year-old female with past medical history which includes morbid obesity, carpal tunnel syndrome, lumbar degenerative disc disease, sickle cell trait, depression, hypertension, GERD, distant history of open cholecystectomy in the late and a gastric bypass in 1995. Most recently on 01/25/18 patient had extensive lysis of adhesions, diagnostic laparoscopy with Dr. Castaneda. Patient then presented to [facility] [place] 02/10/18 with complains of abdominal pain with nausea and vomiting. Abdominal pain N/V ER physician spoke with Dr. Malcolm who recommended small bowel follow- through in agreed to see patient in consultation Small bowel follow-through ordered and pending Consultation placed to general surgery Dr. Malcolm IV fluids N.p.o.initially -> diet advanced to bariatric diet per general surgery Consult to GI S/P EGD 02/11/18 -> 1. Retained food in esophagus, pushed into the stomach 2. Evidence of previous surgery, retained food in the stomach and duodenum 3. Normal duodenal mucosa in the 2nd part of the duodenum 4. Retroflexed views revealed no abnormalities GI recommendations: 1. Anti-reflux regimen 2. Continue PPI 3. Avoid NSAIDS 4. Xray: Gastric Emptying Scan Patient's diet advanced to soft diet per general surgery NPO after midnight Plan for gastric emptying scan on Thursday Patient offered DC home and outpatient gastric emptying scan patient refused Patient not tolerating diet, patient increased PO intake and is now having N/V - clear liquid diet today Zofran as needed for nausea/vomiting LFT reviewed WNL Lidoderm patch Lower back pain: Patient asking for increase in pain medication educated patient that narcotic slow GI motility, DC narcotic DC Toradol patient has previously had gastric bypass continue Acetaminophen IV Xray thoracic and lumbar spine - reviewed and showed degenerative changes Hypertension Patient was admitted 01/2018 for hypotension and dizziness. Dizziness/ hypotension suspected to be due to polypharmacy. Patient was taking Norvasc 5mg po BID, Lasix 40mg po daily, and Lisinopril 20mg po BID. Will continue norvasc 2.5 mg PO daily montior BP DVT prophylaxis with SCDs - Attending Attestation Patient examined. Assessment and plan formulated with Desi HERNANDEZ I agree with the above.
--- NOTE | 2018-02-14 17:20 | P.PNGI ---
Subjective Interval history: Patient is sitting straight up in the bed currently has been in room Notes at least 2-3 different issues of some nausea and vomiting over the past 24 hours. Patient notes even liquids feel they are sitting in her esophagus. Patient took small bites of eggs and oatmeal this morning and threw it up within 10 minutes. Plan for gastric emptying study in the morning Patient still complains of some right upper quadrant abdominal pain related to her nausea and vomiting Afebrile Physical Exam Vital signs: Vital Signs 02/13/18 20:00 02/14/18 00:00 02/14/18 03:57 Temperature 98.1 F 98.2 F 98.2 F Pulse Rate 67 91 H 66 Respiratory Rate 18 18 18 Blood Pressure 108/69 140/77 116/68 Pulse Oximetry 94 L 97 97 02/14/18 08:00 02/14/18 12:00 02/14/18 16:00 Temperature 97.7 F 97.9 F 97.4 F L Pulse Rate 60 74 53 L Respiratory Rate 17 17 17 Blood Pressure 114/75 110/53 L 104/70 Pulse Oximetry 100 98 100 Intake & Output 02/13/18 02/14/18 02/14/18 18:59 06:59 18:59 Intake Total 2117 / 2117 680 / 680 Balance 2117 680 / 680 Weight 115.9 kg Intake: IV 200 / 200 Ofirmev Inj 1,000 mg In 100 ml 200 / 200 @ 400 mls/hr IV.SIG Q6H VENKATA Rx# :[id number] Oral 2117 480 / 480 Other: # Voids 3 3 Date of Last Bowel Movement 02/14/18 - Constitutional moderate distress, morbidly obese - Routine HEENT Exam Head: Present: normocephalic, atraumatic ENT: Present: mucous membranes moist (With increased mucus) - Routine Neck Exam Present: supple - Routine Respiratory Exam Present: decreased breath sounds (, Occasional cough) - Routine Abdominal Exam Present: soft (, Occasional right upper quadrant discomfort which seems to wax and wane) - Routine Skin Exam Present: intact - Routine Neurological Exam Present: alert (Answer simple questions mild anxiety over current condition) Results - Labs CBC & Chem 7: 02/11/18 06:40 02/13/18 05:11 Assessment and Plan - Plan RUQ and epigastric pain- began on Jennifer- constant, described as aching with intermittent episodes of sharp pains. Associated with nausea and vomiting. Denies hematemesis and coffee ground emesis. Also complaining of heartburn, has not tried anything for OTC relief, states daily since Thursday. Also complaining of dysphagia and feeling like her food gets stuck, denies odynophagia. SBFT --> Unremarkable small bowel follow-through with no evidence of mechanical obstruction. There is evidence of reflux seen on the [address] abdomen and pelvis W IV contrast --> . There is mild to moderate persistent gastric pouch and jejunal distention proximally. There is an abrupt change in caliber of the jejunum on coronal image 33 with soft tissue density seen at this level which may be related to mass or focal bowel wall thickening. Proximal to this point there is distention of the jejunum. There is moderate biliary ductal dilatation identified. LFTs WNL. 02/13/2018 patient is taking sips of Jell-O but states she still feels like Jell- O is sitting in her esophagus. Painful right upper quadrant at times, status post EGD on 02/12/2018. Labs show bilirubin and LFTs normal, current hemoglobin 10.4 from 02/11/2018. No obvious bleeding. Plan for gastric emptying scan Thursday a.m. no Reglan until scan completed. Patient initially was evaluated for small bowel obstruction but small bowel follow-through showed no evidence of mechanical obstruction but evidence of reflux seen. 02/14/2018 patient is sitting up in the bed, attempting to take very small bites of soft foods and drink liquids. Patient states that the liquids continue to feel as if there is sitting in the top of her throat and she has a choking sensation at night at times. Patient notes 2-3 incidences within the past 24 hours. Discussed again with patient the need to cut down on her eating or drinking late in the evening before she lays down to rest and continue her antireflux regimen chew food well eat slowly and eat small frequent meals 4-6 times a day. Hemoglobin stable without any obvious bleeding Plan: Diet , mostly liquids and some soft food Gastric emptying study tomorrow, then will make further recommendations Ambulate and move around in the bed and sit up in the bed at 90 is much as possible Sleep with head of bed elevated Protonix Further recommendations to follow Pt has been seen and examined by myself and Dr. Luke and this note is written on his behalf
[2018-02-15] MEDS: Temazepam 15 MG Capsule PO PRN (00:28)
--- NOTE | 2018-02-15 08:59 | P.PNIM ---
Subjective Interval history: Follow up: abd pain, N/V S/P EGD 02/12/18 which showed retained food in the esophagus and stomach patient had one episode of vomiting this AM NPO for gastric emptying scan today Physical Exam Vital signs: Vital Signs 02/14/18 12:00 02/14/18 16:00 02/14/18 19:56 Temperature 97.9 F 97.4 F L 98.3 F Pulse Rate 74 53 L 61 Respiratory Rate 17 17 18 Blood Pressure 110/53 L 104/70 123/60 Pulse Oximetry 98 100 97 02/15/18 00:00 02/15/18 08:00 Temperature 98.4 F 97.7 F Pulse Rate 65 64 Respiratory Rate 18 16 Blood Pressure 125/62 Pulse Oximetry 93 L 95 Intake & Output 02/14/18 02/15/18 02/15/18 18:59 06:59 18:59 Intake Total 1000 / 1000 0 / 0 1100 / 1100 Balance 1000 / 1000 0 / 0 1100 / 1100 Weight 114.6 kg Intake: IV 1100 / 1100 Oral 1000 / 1000 0 / 0 Other: # Voids 3 4 Date of Last Bowel Movement 02/14/18 # Bowel Movements 1 Narrative: GENERAL: This is a well-nourished, well-developed patient, in no apparent distress. CARDIOVASCULAR: Regular rate and rhythm RESPIRATORY: Clear to auscultation. Breath sounds equal bilaterally. GASTROINTESTINAL: Abdomen soft, mildly tender RUQ, nondistended. hypoactive bowel sounds MUSCULOSKELETAL: Extremities without clubbing, cyanosis, or edema. NEURO: Alert & Oriented x4 to person, place, time, situation. Moves all ext x4 Results - Labs CBC & Chem 7: 02/11/18 06:40 02/13/18 05:11 - Imaging Impressions Lumbar Spine X-Ray 02/12/18 00:00 CONCLUSION: No acute findings. Focal moderate to advanced degenerative change at L3-4. Thoracic Spine X-Ray 02/12/18 00:00 CONCLUSION: No acute findings. Mild to moderate degenerative changes. Assessment and Plan - Assessment (1) Abdominal pain Code(s): R10.9 - Unspecified abdominal pain Status: Acute Plan: The patient is a 52-year-old female with past medical history which includes morbid obesity, carpal tunnel syndrome, lumbar degenerative disc disease, sickle cell trait, depression, hypertension, GERD, distant history of open cholecystectomy in the late 1980s and a gastric bypass in 1995. Most recently on 01/25/18 patient had extensive lysis of adhesions, diagnostic laparoscopy with Dr. Castaneda. Patient then presented to [facility] ER 02/10/18 with complains of abdominal pain with nausea and vomiting. Abdominal pain N/V ER physician spoke with Dr. Malcolm who recommended small bowel follow- through in agreed to see patient in consultation Small bowel follow-through ordered and pending Consultation placed to general surgery Dr. Malcolm IV fluids N.p.o.initially -> diet advanced to bariatric diet per general surgery Consult to GI S/P EGD 02/11/18 -> 1. Retained food in esophagus, pushed into the stomach 2. Evidence of previous surgery, retained food in the stomach and duodenum 3. Normal duodenal mucosa in the 2nd part of the duodenum 4. Retroflexed views revealed no abnormalities GI recommendations: 1. Anti-reflux regimen 2. Continue PPI 3. Avoid NSAIDS 4. Xray: Gastric Emptying Scan Patient's diet advanced to soft diet per general surgery NPO after midnight Plan for gastric emptying scan on today Patient offered DC home and outpatient gastric emptying scan patient refused Zofran as needed for nausea/vomiting LFT reviewed WNL Lidoderm patch Gastroparesis Gastric emptying scan reveals: No gastric emptying after 90 mins no change with Reglan Dr. Huerta discussed results with patient check baseline EKG Qtc 452 start EES check EKG in AM Lower back pain: Patient asking for increase in pain medication educated patient that narcotic slow GI motility, DC narcotic DC Toradol patient has previously had gastric bypass continue Acetaminophen IV Xray thoracic and lumbar spine - reviewed and showed degenerative changes Hypertension Patient was admitted 01/2018 for hypotension and dizziness. Dizziness/ hypotension suspected to be due to polypharmacy. Patient was taking Norvasc 5mg po BID, Lasix 40mg po daily, and Lisinopril 20mg po BID. Will continue Norvasc 2.5 mg PO daily monitor BP DVT prophylaxis with SCDs The exam, history, and the medical decision-making described in the above note were completed with the assistance of the mid-level provider. I reviewed and agree with the findings presented. I attest that I had a [id number] encounter with the patient on the same day, and personally performed and documented my assessment and findings in the medical record.
[2018-02-15] MEDS: Lidocaine 5% Patch T-DERMAL SCH (09:28)
[2018-02-15] MEDS: amLODIPine 5 MG Tablet PO SCH ×2 (09:29→21:44)
[2018-02-15] MEDS: Senna/Docusate Sodium 8.6/50 MG Tablet PO SCH ×2 (09:29→21:44)
[2018-02-15] MEDS: Gabapentin 300 MG Capsule PO SCH ×3 (09:29→18:27)
--- NOTE | 2018-02-15 11:03 | P.PNGI ---
Subjective Interval history: Pt resting in bed, continued abdominal pain and nausea. No emesis yet today but does report emesis yesterday. Awaiting GES today. <Merlyn Sparks - Last Filed: 02/15/18 11:00> Physical Exam Vital signs: Vital Signs 02/14/18 12:00 02/14/18 16:00 02/14/18 19:56 Temperature 97.9 F 97.4 F L 98.3 F Pulse Rate 74 53 L 61 Respiratory Rate 17 17 18 Blood Pressure 110/53 L 104/70 123/60 Pulse Oximetry 98 100 97 02/15/18 00:00 02/15/18 08:00 Temperature 98.4 F 97.7 F Pulse Rate 65 64 Respiratory Rate 18 16 Blood Pressure 125/62 Pulse Oximetry 93 L 95 Intake & Output 02/14/18 02/15/18 02/15/18 18:59 06:59 18:59 Intake Total 1000 / 1000 0 / 0 1100 / 1100 Balance 1000 / 1000 0 / 0 1100 / 1100 Weight 114.6 kg Intake: IV 1100 / 1100 Oral 1000 / 1000 0 / 0 Other: # Voids 3 4 Date of Last Bowel Movement 02/14/18 # Bowel Movements 1 - Constitutional no acute distress - Routine HEENT Exam Head: Present: normocephalic, atraumatic - Routine Respiratory Exam Absent: accessory muscle use - Routine Abdominal Exam Present: soft, normoactive bowel sounds, tenderness (upper abdominal tenderness ) - Routine Skin Exam Present: dry, warm - Routine Neurological Exam Present: alert, oriented X3 <Merlyn Sparks - Last Filed: 02/15/18 11:00> Vital signs: Vital Signs 02/14/18 16:00 02/14/18 19:56 02/15/18 00:00 Temperature 97.4 F L 98.3 F 98.4 F Pulse Rate 53 L 61 65 Respiratory Rate 17 18 18 Blood Pressure 104/70 123/60 125/62 Pulse Oximetry 100 97 93 L 02/15/18 08:00 Temperature 97.7 F Pulse Rate 64 Respiratory Rate 16 Blood Pressure Pulse Oximetry 95 Intake & Output 02/14/18 02/15/18 02/15/18 18:59 06:59 18:59 Intake Total 1000 / 1000 0 / 0 1100 / 1100 Balance 1000 / 1000 0 / 0 1100 / 1100 Weight 114.6 kg Intake: IV 1100 / 1100 Oral 1000 / 1000 0 / 0 Other: # Voids 3 4 Date of Last Bowel Movement 02/14/18 # Bowel Movements 1 <Willow Billy - Last Filed: 02/15/18 15:22> Results - Labs CBC & Chem 7: 02/11/18 06:40 02/13/18 05:11 - Imaging Impressions Lumbar Spine X-Ray 02/12/18 00:00 CONCLUSION: No acute findings. Focal moderate to advanced degenerative change at L3-4. Thoracic Spine X-Ray 02/12/18 00:00 CONCLUSION: No acute findings. Mild to moderate degenerative changes. <Merlyn Sparks - Last Filed: 02/15/18 11:00> - Labs CBC & Chem 7: 02/11/18 06:40 02/13/18 05:11 - Imaging Impressions Lumbar Spine X-Ray 02/12/18 00:00 CONCLUSION: No acute findings. Focal moderate to advanced degenerative change at L3-4. Thoracic Spine X-Ray 02/12/18 00:00 CONCLUSION: No acute findings. Mild to moderate degenerative changes. Gastric Emptying Nuclear Medicine 02/15/18 08:00 CONCLUSION: 1. No gastric emptying as above. T 1/2 than 90 minutes. <Willow Billy - Last Filed: 02/15/18 15:22> Assessment and Plan - Plan RUQ and epigastric pain- began on Thursday- constant, described as aching with intermittent episodes of sharp pains. Associated with nausea and vomiting. Denies hematemesis and coffee ground emesis. Also complaining of heartburn, has not tried anything for OTC relief, states daily since Thursday. Also complaining of dysphagia and feeling like her food gets stuck, denies odynophagia. SBFT --> Unremarkable small bowel follow-through with no evidence of mechanical obstruction. There is evidence of reflux seen on the [address] abdomen and pelvis W IV contrast --> . There is mild to moderate persistent gastric pouch and jejunal distention proximally. There is an abrupt change in caliber of the jejunum on coronal image 33 with soft tissue density seen at this level which may be related to mass or focal bowel wall thickening. Proximal to this point there is distention of the jejunum. There is moderate biliary ductal dilatation identified. LFTs WNL. EGD (02/12) --> Retained food in esophagus, pushed into the stomach. Evidence of previous surgery, retained food in the stomach and duodenum. Normal duodenal mucosa in the 2nd part of the duodenum. (02/15) Continued upper abdominal pain and nausea today, no emesis since yesterday. Does report having a good BM today. GES planned for today, has not been done yet, waiting on IV access. Plan: GES today Liquid diet after scan Encourage activity Supportive care with antiemetics as needed Further recommendations based on GES findings Pt has been seen and examined by Dr. Billy and myself and this note is written on her behalf <Merlyn Sparks - Last Filed: 02/15/18 11:00> - Attending Attestation seen, examined agree with above await gastric emptying study has pain ruq. had bowel movements passing flatus asking for food if gastric emptying negative consider mra <Willow Billy - Last Filed: 02/15/18 15:22>
--- NOTE | 2018-02-15 15:10 | NM ---
EXAM DATE: 02/15/2018 2:02 PM EDT AGE/SEX: 52 years / Female INDICATIONS: Nausea and vomiting with abdomen pain. CLINICAL DATA: This is the patient's initial encounter. Patient reports that signs and symptoms have been present for 1 day and indicates a pain score of 0/10. MEDICAL/SURGICAL HISTORY: Gastroesophageal reflux disease. Sickle Cell disease. Hypertension. Cholecystectomy. Gastric bypass. COMPARISON: No prior exams available for comparison. DOSE: 1.0 mCi Tc99m Sulfur Colloid Labeled Whole Egg PO MEDICATION: 5 mg Reglan IV at 90mins minutes. IMAGING TIME: 2 hr TECHNIQUE: Following the oral ingestion of radiotracer-labeled meal, dynamic sequential images in the ALGERIAN projection were acquired with simultaneous computer acquisition. The data set was decay-correcte d. FINDINGS: There is no gastric emptying for 1 hour, 10 minutes. No response to Reglan. CONCLUSION: 1. No gastric emptying as above. T 1/2 than 90 minutes. Electronically signed by: Manolo Peterson MD 02/15/2018 3:09 PM EDT
[2018-02-15] MEDS: Erythromycin Ethylsuccinate Susp 200 MG/5 ML 100 ML Bottle PO SCH (18:27)
[2018-02-16] MEDS: Temazepam 15 MG Capsule PO PRN (01:47)
--- NOTE | 2018-02-16 09:35 | P.PNGI ---
Subjective Interval history: Pt resting in bed. States great improvement in digestion after being started on Erythromycin. States received it PO because not available IV. She was able to eat dinner without any issues. Has not had breakfast yet but states that is because she was sleeping. Reports large BM two nights ago. Denies nausea and vomiting. Continues to have RUQ and mid epigastric abdominal pain, states no improvement in this. Pain is worse with standing. Denies any relation of pain with PO intake. <Merlyn Sparks - Last Filed: 02/16/18 09:29> Physical Exam Vital signs: Vital Signs 02/15/18 16:00 02/15/18 20:00 02/16/18 08:00 Temperature 97.3 F L 98.2 F 97.8 F Pulse Rate 55 L 59 L 63 Respiratory Rate 17 18 16 Blood Pressure 122/68 110/67 104/62 Pulse Oximetry 95 94 L 95 Intake & Output 02/15/18 02/16/18 02/16/18 18:59 06:59 18:59 Intake Total 1899 / 1899 Balance [id number] Intake: IV 1100 / 1100 Oral 800 / 800 Other: # Voids 2 Date of Last Bowel Movement 02/15/18 # Bowel Movements 0 - Constitutional no acute distress - Routine HEENT Exam Head: Present: normocephalic, atraumatic - Routine Respiratory Exam Absent: accessory muscle use - Routine Cardiovascular Exam Present: RRR - Routine Abdominal Exam Present: soft, normoactive bowel sounds. Absent: tenderness Comments: Morbidly obese - Routine Skin Exam Present: dry, warm - Routine Neurological Exam Present: alert, oriented X3 <Merlyn Sparks - Last Filed: 02/16/18 09:29> Vital signs: Vital Signs 02/15/18 16:00 02/15/18 20:00 02/16/18 08:00 Temperature 97.3 F L 98.2 F 97.8 F Pulse Rate 55 L 59 L 63 Respiratory Rate 17 18 16 Blood Pressure 122/68 110/67 104/62 Pulse Oximetry 95 94 L 95 02/16/18 12:00 Temperature 97.9 F Pulse Rate 58 L Respiratory Rate 18 Blood Pressure 141/88 H Pulse Oximetry 99 Intake & Output 02/15/18 02/16/18 02/16/18 18:59 06:59 18:59 Intake Total 1900 / 1900 Balance 1900 / 1900 Intake: IV 1100 / 1100 Oral 800 / 800 Other: # Voids 2 Date of Last Bowel Movement 02/15/18 # Bowel Movements 0 <Willow Billy - Last Filed: 02/16/18 15:14> Results - Labs CBC & Chem 7: 02/11/18 06:40 02/13/18 05:11 - Imaging Impressions Gastric Emptying Nuclear Medicine 02/15/18 08:00 CONCLUSION: 1. No gastric emptying as above. T 1/2 than 90 minutes. <Merlyn Sparks - Last Filed: 02/16/18 09:29> - Labs CBC & Chem 7: 02/11/18 06:40 02/13/18 05:11 <Willow Billy - Last Filed: 02/16/18 15:14> Assessment and Plan - Plan RUQ and epigastric pain- began on Thursday- constant, described as aching with intermittent episodes of sharp pains. Associated with nausea and vomiting. Denies hematemesis and coffee ground emesis. Also complaining of heartburn, has not tried anything for OTC relief, states daily since Thursday. Also complaining of dysphagia and feeling like her food gets stuck, denies odynophagia. SBFT --> Unremarkable small bowel follow-through with no evidence of mechanical obstruction. There is evidence of reflux seen on the [address] abdomen and pelvis W IV contrast --> . There is mild to moderate persistent gastric pouch and jejunal distention proximally. There is an abrupt change in caliber of the jejunum on coronal image 33 with soft tissue density seen at this level which may be related to mass or focal bowel wall thickening. Proximal to this point there is distention of the jejunum. There is moderate biliary ductal dilatation identified. LFTs WNL. EGD (02/12) --> Retained food in esophagus, pushed into the stomach. Evidence of previous surgery, retained food in the stomach and duodenum. Normal duodenal mucosa in the 2nd part of the duodenum. (02/15) Continued upper abdominal pain and nausea today, no emesis since yesterday. Does report having a good BM today. GES planned for today, has not been done yet, waiting on IV access. (02/16) GES done yesterday, shows no gastric emptying and no response to Reglan. Pt was started on EES yesterday, states great improvement after being started on this. Was able to eat dinner last night. States still can only tolerate small amount of food at a time but that she feels she is digesting the food better. Has not had breakfast yet, but this is because she was sleeping. Still having continued upper mid abdominal and RUQ pain, states no improvement in this. Worse with standing. Denies any relation of pain to PO intake Plan: Continue EES Soft diet Encourage to eat smaller meals throughout the day MRA to rule out mesenteric ischemia Further recommendations to follow Pt has been seen and examined by Dr. Billy and myself and this note is written on her behalf <Merlyn Sparks - Last Filed: 02/16/18 09:29> - Attending Attestation seen, examined agree with above we will order mrcp to r/o cbd stones possible referred pain continue Erythromycin, consider Bethanechol if still nausea, vomiting <Willow Billy - Last Filed: 02/16/18 15:14>
--- NOTE | 2018-02-16 09:41 | P.PNIM ---
Subjective Interval history: Follow up: abd pain, N/V S/P EGD 02/12/18 which showed retained food in the esophagus and stomach S/P gastric emptying scan 02/15/18 Patient denies further N/V tolerating diet with EES Physical Exam Vital signs: Vital Signs 02/15/18 16:00 02/15/18 20:00 02/16/18 08:00 Temperature 97.3 F L 98.2 F 97.8 F Pulse Rate 55 L 59 L 63 Respiratory Rate 17 18 16 Blood Pressure 122/68 110/67 104/62 Pulse Oximetry 95 94 L 95 Intake & Output 02/15/18 02/16/18 02/16/18 18:59 06:59 18:59 Intake Total 1900 / 1900 Balance 1900 / 1900 Intake: IV 1100 / 1100 Oral 800 / 800 Other: # Voids 2 Date of Last Bowel Movement 02/15/18 # Bowel Movements 0 Narrative: GENERAL: This is a well-nourished, well-developed patient, in no apparent distress. CARDIOVASCULAR: Regular rate and rhythm RESPIRATORY: Clear to auscultation. Breath sounds equal bilaterally. GASTROINTESTINAL: Abdomen soft, mildly tender RUQ, nondistended. Normoactive bowel sounds MUSCULOSKELETAL: Extremities without clubbing, cyanosis, or edema. NEURO: Alert & Oriented x4 to person, place, time, situation. Moves all ext x4 Results - Labs CBC & Chem 7: 02/11/18 06:40 02/13/18 05:11 - Imaging Impressions Gastric Emptying Nuclear Medicine 02/15/18 08:00 CONCLUSION: 1. No gastric emptying as above. T 1/2 than 90 minutes. Assessment and Plan - Assessment (1) Abdominal pain Code(s): R10.9 - Unspecified abdominal pain Status: Acute Plan: The patient is a 52-year-old female with past medical history which includes morbid obesity, carpal tunnel syndrome, lumbar degenerative disc disease, sickle cell trait, depression, hypertension, GERD, distant history of open cholecystectomy in the late and a gastric bypass in 1995. Most recently on 01/25/18 patient had extensive lysis of adhesions, diagnostic laparoscopy with Dr. Castaneda. Patient then presented to [facility] ER 02/10/18 with complains of abdominal pain with nausea and vomiting. Abdominal pain N/V ER physician spoke with Dr. Malcolm who recommended small bowel follow- through in agreed to see patient in consultation Small bowel follow-through ordered and pending Consultation placed to general surgery Dr. Malcolm IV fluids N.p.o.initially -> diet advanced to bariatric diet per general surgery Consult to GI S/P EGD 02/11/18 -> 1. Retained food in esophagus, pushed into the stomach 2. Evidence of previous surgery, retained food in the stomach and duodenum 3. Normal duodenal mucosa in the 2nd part of the duodenum 4. Retroflexed views revealed no abnormalities GI recommendations: 1. Anti-reflux regimen 2. Continue PPI 3. Avoid NSAIDS 4. Xray: Gastric Emptying Scan Patient's diet advanced to soft diet per general surgery NPO after midnight Plan for gastric emptying scan on today Patient offered DC home and outpatient gastric emptying scan patient refused Zofran as needed for nausea/vomiting LFT reviewed WNL Lidoderm patch Gastroparesis Gastric emptying scan reveals: No gastric emptying after 90 mins no change with Reglan Dr. Huerta discussed results with patient check baseline EKG Qtc 452 EES check EKG 02/16/18 SR with QTc 460 GI ordered MRA to R/O gastric ischemia Lower back pain: Patient asking for increase in pain medication educated patient that narcotic slow GI motility, DC narcotic DC Toradol patient has previously had gastric bypass continue Acetaminophen IV Xray thoracic and lumbar spine - reviewed and showed degenerative changes Hypertension Patient was admitted 01/2018 for hypotension and dizziness. Dizziness/ hypotension suspected to be due to polypharmacy. Patient was taking Norvasc 5mg po BID, Lasix 40mg po daily, and Lisinopril 20mg po BID. Will continue Norvasc 2.5 mg PO daily monitor BP DVT prophylaxis with SCDs If MRA normal plan to DC home with ES and follow up with GI as an outpatient The exam, history, and the medical decision-making described in the above note were completed with the assistance of the mid-level provider. I reviewed and agree with the findings presented. I attest that I had a [id number] encounter with the patient on the same day, and personally performed and documented my assessment and findings in the medical record.
[2018-02-16] MEDS: Erythromycin Ethylsuccinate Susp 200 MG/5 ML 100 ML Bottle PO SCH ×3 (10:01→18:45)
[2018-02-16] MEDS: amLODIPine 5 MG Tablet PO SCH ×2 (10:01→20:57)
[2018-02-16] MEDS: Senna/Docusate Sodium 8.6/50 MG Tablet PO SCH ×2 (10:01→20:57)
[2018-02-16] MEDS: Gabapentin 300 MG Capsule PO SCH ×3 (10:01→18:46)
[2018-02-16] MEDS: Lidocaine 5% Patch T-DERMAL SCH (10:02)
[2018-02-16] MEDS ORDERED: Gadobutrol PF 10 MMOL/10 ML Vial (for RAD) IV.SIG ONE (17:30)
--- NOTE | 2018-02-16 19:02 | MR ---
EXAM DATE: 02/16/2018 6:25 PM EDT AGE/SEX: 52 years / Female INDICATIONS: . Right sided abdominal pain. CLINICAL DATA: This is the patient's subsequent encounter. Patient reports that signs and symptoms h ave been present for 1 week and indicates a pain score of 4/10. MEDICAL/SURGICAL HISTORY: Hypertension. Cholecystectomy. Gastric bypass. Tubal ligation. Car pal tunnel. [place] [facility] [place]. . TECHNIQUE: Multiplanar, multisequence images of the abdomen were obtained without contrast including dedicated cholangiographic images. FINDINGS: Cholecystectomy changes are noted. There is prominent intrahepatic and extrahepatic biliary tree. Com mon bile duct measures approximately 14 mm at the level of the latha hepatis. The duct tapers gradual ly to a normal caliber more distally. No filling defect demonstrated. Pancreas and pancreatic duct are normal. Noncontrast MRI appearance of the liver, spleen, adrenal glands and kidneys within normal limits. Patient has a small hiatal hernia. Mild atelectasis seen of the visualized right lower lobe. CONCLUSION: 1. Intrahepatic and extrahepatic biliary prominence has MRI features most typical of reservoir effec t postcholecystectomy. 2. Normal pancreas. 3. Right base atelectasis. 4. Small hiatal hernia. Electronically signed by: Shola Harding MD 02/16/2018 7:01 PM EDT
--- NOTE | 2018-02-16 19:30 | MR ---
EXAM DATE: 02/16/2018 6:53 PM EDT AGE/SEX: 52 years / Female INDICATIONS: Abdominal pain. CLINICAL DATA: This is the patient's subsequent encounter. Patient reports that signs and symptoms h ave been present for 1 week and indicates a pain score of 4/10. MEDICAL/SURGICAL HISTORY: Hypertension. Cholecystectomy. Gastric bypass. Tubal ligation. Car pal tunnel. COMPARISON: . TECHNIQUE: 20 ml Gadavist (gadobutrol) contrast infused MR angiography (single exam dose) was perfo rmed with digital subtraction. The data was postprocessed with a variety of visualization algorithms including full-volume maximum-intensity projection, multiplanar sliding thin slab reformation, and c urved planar reformation. FINDINGS: Abdominal Aorta: The lumen is smooth without significant narrowing or aneurysmal dilation. The pr oximal celiac and superior mesenteric arteries are patent and normal in diameter. Renal Arteries: There are solitary renal arteries bilaterally. No evidence of ostial or segmental s tenosis. Kidneys: There is symmetric renal size. There is homogeneous enhancement in the parenchyma. Bifurcation: Normal. Right Pelvis: The right common iliac, internal iliac, and external iliac vessels are patent without luminal irregularity. Left Pelvis: The left common iliac, internal iliac, and external iliac vessels are patent and withou t luminal irregularity. Retroperitoneum: The adrenal glands are unremarkable. No adenopathy seen. Post Contrast: No abnormal areas of enhancement seen. CONCLUSION: Patent intra-abdominal arteries Electronically signed by: Shola Harding MD 02/16/2018 7:29 PM EDT
[2018-02-16] MEDS ORDERED: Morphine Inj 30 MG/30 ML PCA.VIAL PCA PRN (21:59)
[2018-02-16] MEDS ORDERED: Naloxone Inj 0.4 MG/ML Vial IV.PUSH PRN (21:59)
--- NOTE | 2018-02-16 23:08 | ECG ---
Date Performed: 02/16/2018 Time Performed: 07:36:15 PTAGE: 52 years EKG: Sinus rhythm NORMAL ECG PREVIOUS TRACING : 02/15/2018 16.00 Since the previous tracing, no significant change noted DOCTOR: Timi Larios Interpretating Date/Time 02/16/2018 23:07:03
--- NOTE | 2018-02-16 23:30 | ECG ---
Date Performed: 02/15/2018 Time Performed: 16:00:01 PTAGE: 52 years EKG: Sinus rhythm WITH FIRST DEGREE AV BLOCK ABNORMAL ECG PREVIOUS TRACING : 02/09/2018 08.50 Compared to previous tracing, no longer with criteria for LVH DOCTOR: Timi Larios Interpretating Date/Time 02/16/2018 23:29:54
[2018-02-17] MEDS: Temazepam 15 MG Capsule PO PRN (01:01)
[2018-02-17] MEDS: Gabapentin 300 MG Capsule PO SCH ×2 (08:00→13:35)
[2018-02-17] MEDS: Senna/Docusate Sodium 8.6/50 MG Tablet PO SCH (08:00)
[2018-02-17] MEDS: Erythromycin Ethylsuccinate Susp 200 MG/5 ML 100 ML Bottle PO SCH ×3 (08:00→16:32)
[2018-02-17] MEDS: amLODIPine 5 MG Tablet PO SCH (08:01)
[2018-02-17 10:07] VITALS: RESP 18
[2018-02-17] MEDS: Lidocaine 5% Patch T-DERMAL SCH (10:07)
--- NOTE | 2018-02-17 10:31 | P.PNGI ---
Subjective Interval history: Pt resting in bed, reports some mid epigastric pain and RUQ pain today but states overall improving. Some mild nausea but no emesis. Has been able to eat small portions. Has had BMs. Would like to go home today because it is her sons 21[age] birthday. <Merlyn Sparks - Last Filed: 02/17/18 10:26> Physical Exam Vital signs: Vital Signs 02/16/18 12:00 02/16/18 16:00 02/16/18 20:00 Temperature 97.9 F 97.4 F L 98.8 F Pulse Rate 58 L 68 63 Respiratory Rate 18 16 16 Blood Pressure 141/88 H 111/65 102/57 L Pulse Oximetry 99 95 95 02/17/18 00:00 02/17/18 04:00 02/17/18 08:00 Temperature 98.5 F 98.2 F 98.6 F Pulse Rate 75 61 61 Respiratory Rate 18 19 18 Blood Pressure 96/53 L 107/59 L 123/74 Pulse Oximetry 95 92 L 97 Intake & Output 02/16/18 02/17/18 02/17/18 18:59 06:59 18:59 Intake Total 1999 Balance 1999 Intake: Oral 1999 Other: # Voids 3 4 Date of Last Bowel Movement 02/15/18 # Bowel Movements 0 - Constitutional no acute distress - Routine HEENT Exam Head: Present: normocephalic, atraumatic - Routine Respiratory Exam Absent: accessory muscle use - Routine Abdominal Exam Present: soft, normoactive bowel sounds, tenderness (epigastric and RUQ tenderness, obese) - Routine Skin Exam Present: dry, warm - Routine Neurological Exam Present: alert, oriented X3 <Merlyn Sparks - Last Filed: 02/17/18 10:26> Vital signs: Vital Signs 02/16/18 20:00 02/17/18 00:00 02/17/18 04:00 Temperature 98.8 F 98.5 F 98.2 F Pulse Rate 63 75 61 Respiratory Rate 16 18 19 Blood Pressure 102/57 L 96/53 L 107/59 L Pulse Oximetry 95 95 92 L 02/17/18 08:00 02/17/18 12:00 Temperature 98.6 F 97.9 F Pulse Rate 61 57 L Respiratory Rate 18 18 Blood Pressure 123/74 97/58 L Pulse Oximetry 97 93 L Intake & Output 02/16/18 02/17/18 02/17/18 18:59 06:59 18:59 Intake Total 1999 Balance 1999 Intake: Oral 1999 Other: # Voids 3 4 Date of Last Bowel Movement 02/15/18 # Bowel Movements 0 <Willow Billy - Last Filed: 02/17/18 18:07> Results - Labs CBC & Chem 7: 02/11/18 06:40 02/13/18 05:11 - Imaging Impressions Abdomen MRI 02/16/18 00:00 CONCLUSION: Patent intra-abdominal arteries Cholangiopancreatography MRI 02/16/18 00:00 CONCLUSION: 1. Intrahepatic and extrahepatic biliary prominence has MRI features most typical of reservoir effect postcholecystectomy. 2. Normal pancreas. 3. Right base atelectasis. 4. Small hiatal hernia. <Merlyn Sparks - Last Filed: 02/17/18 10:26> - Labs CBC & Chem 7: 02/11/18 06:40 02/13/18 05:11 - Imaging Impressions Abdomen MRI 02/16/18 00:00 CONCLUSION: Patent intra-abdominal arteries Cholangiopancreatography MRI 02/16/18 00:00 CONCLUSION: 1. Intrahepatic and extrahepatic biliary prominence has MRI features most typical of reservoir effect postcholecystectomy. 2. Normal pancreas. 3. Right base atelectasis. 4. Small hiatal hernia. <Willow Billy - Last Filed: 02/17/18 18:07> Assessment and Plan - Plan RUQ and epigastric pain- began on Thursday- constant, described as aching with intermittent episodes of sharp pains. Associated with nausea and vomiting. Denies hematemesis and coffee ground emesis. Also complaining of heartburn, has not tried anything for OTC relief, states daily since Thursday. Also complaining of dysphagia and feeling like her food gets stuck, denies odynophagia. SBFT --> Unremarkable small bowel follow-through with no evidence of mechanical obstruction. There is evidence of reflux seen on the [address] abdomen and pelvis W IV contrast --> . There is mild to moderate persistent gastric pouch and jejunal distention proximally. There is an abrupt change in caliber of the jejunum on coronal image 33 with soft tissue density seen at this level which may be related to mass or focal bowel wall thickening. Proximal to this point there is distention of the jejunum. There is moderate biliary ductal dilatation identified. LFTs WNL. EGD (02/12) --> Retained food in esophagus, pushed into the stomach. Evidence of previous surgery, retained food in the stomach and duodenum. Normal duodenal mucosa in the 2nd part of the duodenum. (02/15) Continued upper abdominal pain and nausea today, no emesis since yesterday. Does report having a good BM today. GES planned for today, has not been done yet, waiting on IV access. (02/16) GES done yesterday, shows no gastric emptying and no response to Reglan. Pt was started on EES yesterday, states great improvement after being started on this. Was able to eat dinner last night. States still can only tolerate small amount of food at a time but that she feels she is digesting the food better. Has not had breakfast yet, but this is because she was sleeping. Still having continued upper mid abdominal and RUQ pain, states no improvement in this. Worse with standing. Denies any relation of pain to PO intake (02/17) Pt resting in bed, reports some epigastric and RUQ pain but states overall improving. Some mild nausea but no emesis. Has been able to eat small portions of food. Remains on EES. MRA revealed patent intra-abdominal arteries MRCP ordered due to pt reports of CBD stones --> Intrahepatic and extrahepatic biliary prominence has MRI features most typical of reservoir effect postcholecystectomy. Normal pancreas. Right base atelectasis. Small hiatal hernia. Pt hoping to be discharged today Plan: Continue EES Soft diet Encourage to eat small meals Gastroparesis diet OK to DC from a GI standpoint Have pt follow up with GI in the office Also should follow up with surgery Pt has been seen and examined by Dr. Billy and myself and this note is written on her behalf <Merlyn Sparks - Last Filed: 02/17/18 10:26> - Attending Attestation seen, examined agree with above <Willow Billy - Last Filed: 02/17/18 18:07>
--- NOTE | 2018-02-17 12:13 | P.PNIM ---
Subjective Interval history: no new complaints. tolerating food. Physical Exam Vital signs: Vital Signs 02/16/18 16:00 02/16/18 20:00 02/17/18 00:00 Temperature 97.4 F L 98.8 F 98.5 F Pulse Rate 68 63 75 Respiratory Rate 16 16 18 Blood Pressure 111/65 102/57 L 96/53 L Pulse Oximetry 95 95 95 02/17/18 04:00 02/17/18 08:00 Temperature 98.2 F 98.6 F Pulse Rate 61 61 Respiratory Rate 19 18 Blood Pressure 107/59 L 123/74 Pulse Oximetry 92 L 97 Intake & Output 02/16/18 02/17/18 02/17/18 18:59 06:59 18:59 Intake Total 1999 Balance 1999 Intake: Oral 1999 Other: # Voids 3 4 Date of Last Bowel Movement 02/15/18 # Bowel Movements 0 heart reg lung cta abd s/nt ext no edema. Results - Labs CBC & Chem 7: 02/11/18 06:40 02/13/18 05:11 - Imaging Impressions Abdomen MRI 02/16/18 00:00 CONCLUSION: Patent intra-abdominal arteries Cholangiopancreatography MRI 02/16/18 00:00 CONCLUSION: 1. Intrahepatic and extrahepatic biliary prominence has MRI features most typical of reservoir effect postcholecystectomy. 2. Normal pancreas. 3. Right base atelectasis. 4. Small hiatal hernia. Assessment and Plan - Assessment (1) Abdominal pain Code(s): R10.9 - Unspecified abdominal pain Status: Acute Plan: The patient is a 52-year-old female with past medical history which includes morbid obesity, carpal tunnel syndrome, lumbar degenerative disc disease, sickle cell trait, depression, hypertension, GERD, distant history of open cholecystectomy in the late and a gastric bypass in 1995. Most recently on 01/25/18 patient had extensive lysis of adhesions, diagnostic laparoscopy with Dr. Castaneda. Patient then presented to [facility] [place] ER 02/10/18 with complains of abdominal pain with nausea and vomiting. Abdominal pain N/V ER physician spoke with Dr. Malcolm who recommended small bowel follow- through in agreed to see patient in consultation Small bowel follow-through ordered and pending Consultation placed to general surgery Dr. Malcolm IV fluids N.p.o.initially -> diet advanced to bariatric diet per general surgery Consult to GI S/P EGD 02/11/18 -> 1. Retained food in esophagus, pushed into the stomach 2. Evidence of previous surgery, retained food in the stomach and duodenum 3. Normal duodenal mucosa in the 2nd part of the duodenum 4. Retroflexed views revealed no abnormalities GI recommendations: 1. Anti-reflux regimen 2. Continue PPI 3. Avoid NSAIDS 4. Xray: Gastric Emptying Scan Gastroparesis Gastric emptying scan reveals: No gastric emptying after 90 mins no change with Reglan Dr. Huerta discussed results with patient check baseline EKG Qtc 452 EES seems to help. tolerating food. recheck EKG 02/16/18 SR with QTc 460 GI ordered MRA to R/O gastric ischemia....negative dc home with close pcp and gi f/u. Lower back pain: Patient asking for increase in pain medication educated patient that narcotic slow GI motility, DC narcotic DC Toradol patient has previously had gastric bypass Xray thoracic and lumbar spine - reviewed and showed degenerative changes Hypertension Patient was admitted 01/2018 for hypotension and dizziness. Dizziness/ hypotension suspected to be due to polypharmacy. Patient was taking Norvasc 5mg po BID, Lasix 40mg po daily, and Lisinopril 20mg po BID. Will continue Norvasc 2.5 mg PO daily monitor BP DVT prophylaxis with SCDs
[2018-02-17 12:53] VITALS: BP 97/58; PULSE 57; TEMP 97.9; O2SAT 93
--- NOTE | 2018-02-26 09:38 | P.DS ---
Date of admission: 02/10/18 17:29 Primary care physician: Naldo Montano MD Anticipated date of discharge: 02/17/18 Brief History from admission: The patient is a 52-year-old female with past medical history which includes morbid obesity, carpal tunnel syndrome, lumbar degenerative disc disease, sickle cell trait, depression, hypertension, GERD, distant history of open cholecystectomy in the late and a gastric bypass in 1995. Most recently on 01/25/18 patient had extensive lysis of adhesions, diagnostic laparoscopy with Dr. Castaneda. Patient then presented to [facility] ER 02/10/18 with complains of abdominal pain with nausea and vomiting. She was also seen in the ER 02/09/18 for similar symptoms and was advised to follow up with her PCP and Dr. Castaneda. She says she called Dr. Daniels's office and was told to come to the ED. Patient says she continues to vomit and have abdominal pain. She has been trying to take Lortab, but says she vomits them up. She says she has not had a bowel movement in a week. She denies fever or chills. Severity is moderate. Patient reevaluated reports that she had a small BM today (02/11/18) after SBFT today no longer having vomiting. Patient denies chest pain, SOB, fevers or chills. Past Medical History Morbid obesity Carpal tunnel syndrome Lumbar degenerative disc disease Sickle cell trait Depression Hypertension GERD Past Surgical History 01/25/18 patient had extensive lysis of adhesions, diagnostic laparoscopy with Dr. Castaneda Gastric bypass 1995 Open cholecystectomy around 1985 Multiple carpal tunnel surgeries (2 on the right and one on the left) Bilateral tubal ligation Uterine ablation 2 Family History Father of lung cancer complications, he was chronic smoker Otherwise noncontributory Social History Lives with her and 2 adult children Never smoked tobacco Occasionally drinks alcohol in the form of a glass of wine or so but not even on a weekly basis Denies illicit drug use Disabled due to severe carpal tunnel syndrome and lumbar disc issues. Previously worked at the [employer]. She was born and raised locally. DS: Diagnosis - Discharge Diagnosis (1) Abdominal pain Status: Acute DS: Medications - Discharge Medications Prescriptions: erythromycin 250 mg PO Q8HR 30 Days cap pantoprazole 40 mg PO DAILY 30 Days #30 tab promethazine 25 mg PO BID PRN #20 tab PRN Reason: Vomiting temazepam 15 mg PO HS PRN #20 cap PRN Reason: Insomnia DS: Summary Hospital Course: - Assessment (1) Abdominal pain Code(s): R10.9 - Unspecified abdominal pain Status: Acute Plan: The patient is a 52-year-old female with past medical history which includes morbid obesity, carpal tunnel syndrome, lumbar degenerative disc disease, sickle cell trait, depression, hypertension, GERD, distant history of open cholecystectomy in the late and a gastric bypass in 1995. Most recently on 01/25/18 patient had extensive lysis of adhesions, diagnostic laparoscopy with Dr. Castaneda. Patient then presented to [facility] ER 02/10/18 with complains of abdominal pain with nausea and vomiting. Abdominal pain N/V ER physician spoke with Dr. Malcolm who recommended small bowel follow- through in agreed to see patient in consultation Small bowel follow-through ordered and pending Consultation placed to general surgery Dr. Malcolm IV fluids N.p.o.initially -> diet advanced to bariatric diet per general surgery Consult to GI S/P EGD 02/11/18 -> 1. Retained food in esophagus, pushed into the stomach 2. Evidence of previous surgery, retained food in the stomach and duodenum 3. Normal duodenal mucosa in the 2nd part of the duodenum 4. Retroflexed views revealed no abnormalities GI recommendations: 1. Anti-reflux regimen 2. Continue PPI 3. Avoid NSAIDS 4. Xray: Gastric Emptying Scan Gastroparesis Gastric emptying scan reveals: No gastric emptying after 90 mins no change with Reglan Dr. Huerta discussed results with patient check baseline EKG Qtc 452 EES seems to help. tolerating food. recheck EKG 02/16/18 SR with QTc 460 GI ordered MRA to R/O gastric ischemia....negative dc home with close pcp and gi f/u. Lower back pain: Patient asking for increase in pain medication educated patient that narcotic slow GI motility, DC narcotic DC Toradol patient has previously had gastric bypass Xray thoracic and lumbar spine - reviewed and showed degenerative changes Hypertension Patient was admitted 01/2018 for hypotension and dizziness. Dizziness/ hypotension suspected to be due to polypharmacy. Patient was taking Norvasc 5mg po BID, Lasix 40mg po daily, and Lisinopril 20mg po BID. - Time Spent with Patient Total time spent providing and/or coordinating discharge services: Greater than 30 minutes - Quality: VTE Deep Vein Thrombosis/Pulmonary Embolism Present on Admission: No Exam Vital signs: heart reg lung cta abd s/nt ext no edema Results Procedures completed during hospitalization: egd GES mrcp abdomen mra abdomen - Impressions ITS Impressions Small Bowel X-Ray 02/11/18 07:00 CONCLUSION: Unremarkable small bowel follow-through with no evidence of mechanical obstruction. There is evidence of reflux seen on the 30 minute film. Lumbar Spine X-Ray 02/12/18 00:00 CONCLUSION: No acute findings. Focal moderate to advanced degenerative change at L3-4. Thoracic Spine X-Ray 02/12/18 00:00 CONCLUSION: No acute findings. Mild to moderate degenerative changes. Gastric Emptying Nuclear Medicine 02/15/18 08:00 CONCLUSION: 1. No gastric emptying as above. T 1/2 than 90 minutes. Abdomen MRI 02/16/18 00:00 CONCLUSION: Patent intra-abdominal arteries Cholangiopancreatography MRI 02/16/18 00:00 CONCLUSION: 1. Intrahepatic and extrahepatic biliary prominence has MRI features most typical of reservoir effect postcholecystectomy. 2. Normal pancreas. 3. Right base atelectasis. 4. Small hiatal hernia. Discharge Plan - Discharge Disposition Patient Disposition: 01 Discharge Home - Discharge Condition Condition: Stable - Discharge Order Discharge Orders: Discharge Order (Routine); Ordered 02/17/18 Ordered By: Vikram Huerta - Discharge Details Anticipated Discharge Date: 02/17/18 - Physicians Team Primary Care Provider: Naldo Montano Attending Provider: Dariusz Luna Other Providers: Aakash Castaneda MD ; Patricio Luke MD ; Xavi Parsons MD
== END 2018-02-17 17:26 | disposition home or self-care (01) ==
LOC: N07 14:46 → NEPD 14:46 → INTOOBSV 17:29 → NEDA 17:29 → H7ONC 18:29 → N07 02-12 15:48
PROVIDERS: ADMIT Hospitalist; ATTEND Hospitalist
PROC: PANENDO (2018-02-12 09:42)

== ENCOUNTER 2018-05-14 18:59 | Observation (INO) ==
--- NOTE | 2018-05-14 21:41 | XR ---
EXAM DATE: 05/14/2018 9:30 PM EDT AGE/SEX: 52 years / Female INDICATIONS: . Cardiac disease. Lower right abdomen pain. CLINICAL DATA: This is the patient's initial encounter. Patient reports that signs and symptoms have been present for 1 day and indicates a pain score of 9/10. MEDICAL/SURGICAL HISTORY: . Hypertension. Fibromyalgia. None. COMPARISON: [facility] [place], CHEST 1V SINGLE AP, 01/11/2018. . FINDINGS: PA and lateral views of the chest demonstrate the lungs to be symmetrically aerated without evidence of mass, infiltrate or effusion. The cardiomediastinal contours are unremarkable. Osseous structures are intact. CONCLUSION: No active disease. Electronically signed by: Mario Mcgovern MD 05/14/2018 9:40 PM EDT
[2018-05-14 21:45] LABS: Baso % (Auto) 0.5 % (0.0-2.0); Eos # (Auto) 0.1 th/mm3 (0.0-0.4); Eos % (Auto) 1.1 % (0.0-4.0); Hematocrit 37.2 % (35.0-46.0); Hemoglobin 12.1 gm/dL (11.6-15.3); Lymph % (Auto) 32.9 % (9.0-44.0); Mean Corpuscular HGB Conc 32.5 % (32.0-36.0); Mean Corpuscular Hemoglobin 26.4 pg (27.0-34.0); Mean Corpuscular Volume 81.2 fL (80.0-100.0); Mean Platelet Volume 8.5 fL (7.0-11.0); Mono # (Auto) 0.6 th/mm3 (0.0-0.9); Mono % (Auto) 6.1 % (0.0-8.0); Neut # (Auto) 5.5 th/mm3 (1.8-7.7); Neut % (Auto) 59.4 % (16.0-70.0); Platelet Count 370 th/mm3 (150-450); Red Blood Count 4.57 mil/mm3 (4.00-5.30); Red Cell Distribution Width 17.2 % (11.6-17.2); White Blood Count 9.2 th/mm3 (4.0-11.0)
[2018-05-14 22:06] LABS: Alanine Aminotransferase 22 U/L (10-53)
[2018-05-14 22:09] LABS: Alkaline Phosphatase 114 U/L (45-117); Total Protein 8.9 g/dL (6.4-8.2)
[2018-05-14 22:13] LABS: Albumin 3.9 g/dL (3.4-5.0); Anion Gap 7 meq/L (5-15); Aspartate Aminotransferase 21 U/L (15-37); Blood Urea Nitrogen 12 mg/dL (7-18); Calcium 8.7 mg/dL (8.5-10.1); Carbon Dioxide 25.3 meq/L (21.0-32.0); Chloride 108 meq/L (98-107); Glomerular Filtration Rate 85 mL/min (>89); Glucose,Random 83 mg/dL (74-106); Potassium 4.4 meq/L (3.5-5.1); Sodium 140 meq/L (136-145)
--- NOTE | 2018-05-14 22:31 | ED ---
HPI General Chief Complaint: Chest Pain Stated Complaint: chest pain Time Seen by Provider: 05/14/18 20:59 Source: patient Mode of arrival: ambulatory Limitations: no limitations History of Present Illness HPI narrative: Patient is a 52-year-old female, past medical history significant for hypertension, GERD, fibromyalgia, who presents with complaint of intermittent chest pain that began earlier today. It occurs in the left chest and is an aching tightness without radiation. When it comes on it last for about 30 minutes and then resolves on its own. Positions do not change it. It comes on while doing nothing in particular. No shortness of breath, leg swelling, immobilization. She also describes chronic right upper quadrant abdominal pain that is unchanged. She also complains of right lower quadrant pain that began today and is associated with some nausea and vomiting but no diarrhea. Last bowel movement was approximately 1 week ago. No fevers nor chills. No cough nor congestion. MD complaint: Reports chest pain STEMI Alert: No Onset (ago): hour(s) Duration: constant Onset: during rest Pain location: Reports left chest Severity: mild Quality: Reports tightness and aching Pain radiation: Reports none Relieving factors: nothing Exacerbating factors: nothing Context: Reports recent illness Associated symptoms: Reports nausea and vomiting Treatments prior to arrival chest pain: Reports none Related Data Home Medications Medication Instructions Recorded Confirmed gabapentin 600 mg PO TID 01/07/18 05/15/18 hydrocodone-acetaminophen 1 tab PO Q6H PRN 01/07/18 05/15/18 tizanidine 4 mg PO QID 01/07/18 05/15/18 amlodipine 5 mg PO BID 02/23/18 05/15/18 diphenhydramine HCl [Benadryl] 25 mg PO Q4H PRN 02/23/18 05/15/18 pantoprazole [Protonix] 40 mg PO DAILY 02/23/18 05/15/18 temazepam [Restoril] 15 mg PO HS 02/23/18 05/15/18 acyclovir 1,000 mg PO TID 05/15/18 05/15/18 amoxicillin 500 mg PO TID 05/15/18 05/15/18 bisacodyl [Dulcolax (bisacodyl)] 5 mg PO DAILY PRN 05/15/18 05/15/18 erythromycin 05/15/18 loratadine 10 mg PO DAILY 05/15/18 05/15/18 metoclopramide HCl 10 mg PO QID 05/15/18 05/15/18 promethazine 25 mg PO QID PRN 05/15/18 05/15/18 Previous Rx's Medication Instructions Recorded temazepam 15 mg PO HS PRN #20 cap 02/17/18 Allergies Allergy/AdvReac Type Severity Reaction Status Date / Time aspirin AdvReac Intermediate Nausea/Vomi Verified 05/14/18 19:51 ting ibuprofen AdvReac Intermediate Nausea/Vomi Verified 05/14/18 19:51 ting Review of Systems ROS: all other systems reviewed are negative [facility] Medical History Medical History 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) Torn rotator cuff (Acute) Morbid obesity (Acute) Fibromyalgia (Acute) GERD (gastroesophageal reflux disease) (Acute) Sickle cell trait (Acute) HTN (hypertension) (Acute) Depression (Acute) Arthritis of both hands (Acute) Bulging lumbar disc (Acute) History of trigger finger (Acute) Hx of dysfunctional uterine bleeding (Acute) Mid back pain, chronic (Acute) Surgical History Surgical History History of cholecystectomy (Acute) Gastric bypass status for obesity (Acute) History of (Acute) History of carpal tunnel release of both wrists (Acute) Family History Family History Father Lung cancer Mother Hypertension Social History Social History Substance History: No History of Abuse Second Hand Smoke Exposure: No Smoking Status: Never smoker How Often Do You Have a Drink Containing Alcohol: Never Hx Recent Travel: No Recent Travel in [facility] within the Last 8 Weeks: No Recent Out of Country Travel within the Last 8 Weeks: No Immunization History Tetanus Immunization: Unsure Exam Narrative Exam Narrative: GENERAL: Well-appearing female in no acute distress SKIN: Focused skin assessment warm/dry. No rashes. Scarring from previous abdominal surgeries. HEAD: Atraumatic. Normocephalic. EYES: Pupils equal and round. No scleral icterus. No injection or drainage. ENT: No nasal bleeding or discharge. Mucous membranes pink and moist. NECK: Trachea midline. No JVD. CARDIOVASCULAR: Regular rate and rhythm. No murmur appreciated. Intact and equal peripheral pulses. Normal cap refill. RESPIRATORY: No accessory muscle use. Clear to auscultation. Breath sounds equal bilaterally. GASTROINTESTINAL: Abdomen soft, nondistended. Slight tenderness in the right lower quadrant with rebound. Hepatic and splenic margins not palpable. MUSCULOSKELETAL: No obvious deformities. No clubbing. No cyanosis. No edema. NEUROLOGICAL: Awake and alert. No obvious cranial nerve deficits. Motor grossly within normal limits. Normal speech. PSYCHIATRIC: Appropriate mood and affect; insight and judgment normal. Course Initial Documented Vital Signs Temperature 98.7 F 05/14/18 19:48 Pulse Rate 95 H 05/14/18 19:48 Respiratory Rate 16 05/14/18 19:48 Blood Pressure 109/68 05/14/18 19:48 Pulse Oximetry 100 05/14/18 19:48 Last Documented Vital Signs Temperature 98.2 F 05/15/18 07:23 Pulse Rate 62 05/15/18 08:00 Respiratory Rate 18 05/15/18 07:23 Blood Pressure 113/67 05/15/18 07:23 Pulse Oximetry 97 05/15/18 07:23 Sign Out Sign Out Data: Patient Sign Out occurred on 05/14/18 at 23:35. Patient's care was discussed, and care was transferred from Coby Zazueta MD to Sondra Dang. Sign Out Comment: CT pending with plan for chest pain center if unremarkable. Last updated by Coby Zazueta MD at 05/14/18 23:21 Post-Handoff Eval: received patient in signout, patient comfortable, pending ct of abdomen and pelvis, ct with no acute findings. she has persistent intra and extrahepatic biliary ductal dilation. no acute findings. patient will be observed in the chest pain unit Medical Decision Making MDM Narrative Medical decision making narrative: Patient is a 52 yof who presents with complaint of intermittent chest pain without exertion nor dyspnea. EKG shows nonspecific T wave flattening and initial troponin is unremarkable. CXR does not show mediastinal widening. Patient also complained of RLQ abdominal pain which is separate from her chest pain. CT pending at time of check out. Medical Screen Exam Complete: Yes Emergency Medical Condition: Yes Medical Records Medical records reviewed: Yes I reviewed the patient's medical records. Lab Data Lab results reviewed: Yes I reviewed the patient's lab results. Result diagrams: 05/14/18 21:24 05/14/18 21:24 Lab Results 05/14/18 05/14/18 05/15/18 Range/Units 21:24 21:24 03:30 WBC 9.2 (4.0-11.0) th/mm3 RBC 4.57 (4.00-5.30) mil/mm3 Hgb 12.1 (11.6-15.3) gm/dL Hct 37.2 (35.0-46.0) % MCV 81.2 (80.0-100.0) fL MCH 26.4 L (27.0-34.0) pg MCHC 32.5 (32.0-36.0) % RDW 17.2 (11.6-17.2) % Plt Count 370 (150-450) th/mm3 MPV 8.5 (7.0-11.0) fL Neut % (Auto) 59.4 (16.0-70.0) % Lymph % (Auto) 32.9 (9.0-44.0) % Ransom % (Auto) 6.1 (0.0-8.0) % Eos % (Auto) 1.1 (0.0-4.0) % Baso % (Auto) 0.5 (0.0-2.0) % Neut # (Auto) 5.5 (1.8-7.7) th/mm3 Lymph # (Auto) 3.0 (1.0-4.8) th/mm3 Ransom # (Auto) 0.6 (0.0-0.9) th/mm3 Eos # (Auto) 0.1 (0.0-0.4) th/mm3 Baso # (Auto) 0.0 (0.0-0.2) th/mm3 WBC Differential . Differential Comment Auto diff final Sodium 140 (136-145) meq/L Potassium 4.4 (3.5-5.1) meq/L Chloride 108 H (98-107) meq/L Carbon Dioxide 25.3 (21.0-32.0) meq/L Anion Gap 7 (5-15) meq/L BUN 12 (7-18) mg/dL Creatinine 0.85 (0.50-1.00) mg/dL Estimated GFR 85 L (>89) mL/min Random Glucose 83 (74-106) mg/dL Calcium 8.7 (8.5-10.1) mg/dL Total Bilirubin 0.3 (0.2-1.0) mg/dL AST 21 (15-37) U/L ALT 22 (10-53) U/L Alkaline Phosphatase 114 (45-117) U/L Total Creatine Kinase 52 (26-192) U/L Troponin I Less than 0.02 L Less than 0.02 L (0.02-0.05) ng/mL Total Protein 8.9 H (6.4-8.2) g/dL Albumin 3.9 (3.4-5.0) g/dL 05/15/18 Range/Units 06:49 WBC (4.0-11.0) th/mm3 RBC (4.00-5.30) mil/mm3 Hgb (11.6-15.3) gm/dL Hct (35.0-46.0) % MCV (80.0-100.0) fL MCH (27.0-34.0) pg MCHC (32.0-36.0) % RDW (11.6-17.2) % Plt Count (150-450) th/mm3 MPV (7.0-11.0) fL Neut % (Auto) (16.0-70.0) % Lymph % (Auto) (9.0-44.0) % Ransom % (Auto) (0.0-8.0) % Eos % (Auto) (0.0-4.0) % Baso % (Auto) (0.0-2.0) % Neut # (Auto) (1.8-7.7) th/mm3 Lymph # (Auto) (1.0-4.8) th/mm3 Ransom # (Auto) (0.0-0.9) th/mm3 Eos # (Auto) (0.0-0.4) th/mm3 Baso # (Auto) (0.0-0.2) th/mm3 WBC Differential Differential Comment Sodium (136-145) meq/L Potassium (3.5-5.1) meq/L Chloride (98-107) meq/L Carbon Dioxide (21.0-32.0) meq/L Anion Gap (5-15) meq/L BUN (7-18) mg/dL Creatinine (0.50-1.00) mg/dL Estimated GFR (>89) mL/min Random Glucose (74-106) mg/dL Calcium (8.5-10.1) mg/dL Total Bilirubin (0.2-1.0) mg/dL AST (15-37) U/L ALT (10-53) U/L Alkaline Phosphatase (45-117) U/L Total Creatine Kinase 52 (26-192) U/L Troponin I Less than 0.02 L (0.02-0.05) ng/mL Total Protein (6.4-8.2) g/dL Albumin (3.4-5.0) g/dL Imaging Data Attestation: I personally reviewed and interpreted this imaging study as follows : My impression: No acute cardiopulmonary process. Normal mediastinum. Radiologist's impression: Chest X-Ray 05/14/18 21:12 CONCLUSION: No active disease. Abdomen/Pelvis CT 05/15/18 00:00 CONCLUSION: 1. Persistent intra and extrahepatic biliary ductal dilatation. 2. No new acute findings in the abdomen or pelvis. Myocardial Perfusion Scan Nuc Med 05/15/18 00:00 CONCLUSION: No reversible perfusion defects or focal wall motion abnormalities. ECG Data EKG Prior to Arrival: No Attestation: I personally reviewed and interpreted this ECG as follows: (Sinus rhythm at a rate of 88 bpm. There is diffuse T wave flattening but no ST changes.) Discharge Plan Discharge Disposition Patient Disposition: 30 Still Patient Discharge Condition Condition: Stable Discharge Order Discharge Orders: Discharge Order (Routine); Ordered 05/15/18 Ordered By: Tosin Rubin Discharge Details Diagnosis: Chest pain, rule out acute myocardial infarction Physicians Team ED Provider: Sondra Dang Primary Care Provider: Naldo Montano Attending Provider: Vikram Interiano ED Status: Left Department Discharge Information Discharge Date/Time: 05/15/18 03:46
[2018-05-15] MEDS ORDERED: Morphine Inj 4 MG/ML Vial IV.PUSH ONE ×2 (00:43→09:00)
--- NOTE | 2018-05-15 02:45 | CT ---
EXAM DATE: 05/15/2018 2:33 AM EDT AGE/SEX: 52 years / Female INDICATIONS: Right side abdominal pain with nausea and vomiting. CLINICAL DATA: This is the patient's initial encounter. Patient reports that signs and symptoms have been present for 1 week and indicates a pain score of 10/10. MEDICAL/SURGICAL HISTORY: Hypertension. Gastroesophageal reflux disease. Cholecystectomy. Sreekanth arean section. Gastric bypass. ORAL CONTRAST: No oral contrast ingested. RADIATION DOSE: 17.53 CTDI (mGy) COMPARISON: [facility] [place], CT ABDOMEN & PELVIS W/O CONTRAST, 02/21/2018. . TECHNIQUE: Multiple contiguous axial images were obtained through the abdomen and pelvis following b olus infusion of 100 ml Omnipaque 350 (iohexol) nonionic water-soluble contrast as a single exam do se. No oral contrast ingested. Using automated exposure control and adjustment of the mA and/or kV a ccording to patient size, radiation dose was kept as low as reasonably achievable to obtain optimal d iagnostic quality images. DICOM format image data is available electronically for review and compari son. FINDINGS: Lower Lungs: The visualized lower lungs are clear. Liver: There is persistent intra and extrahepatic biliary ductal dilatation. No evidence of focal george er mass. Spleen: Homogeneous density without enlargement. Pancreas: Unremarkable without mass or calcification. Kidneys: Normal in size and shape. No evidence of mass or hydronephrosis. Adrenal Glands: Unremarkable. Aorta: The aorta and proximal iliac vessels are grossly unremarkable without aneurysmal dilation. Bowel/Mesentery: Previous gastric surgery. No dilated bowel loops. No focal wall thickening or infla mmatory changes. Abdominal Wall: Intact. Retroperitoneum: No evidence of adenopathy in the retrocrural, para-aortic, or deep pelvic regions. Bladder: Contours are smooth. Reproductive Organs: No abnormal masses or calcifications seen. Inguinal: The inguinal region is unremarkable without evidence of adenopathy. Bony Structures: Unremarkable. CONCLUSION: 1. Persistent intra and extrahepatic biliary ductal dilatation. 2. No new acute findings in the abdomen or pelvis. Electronically signed by: Shola Mir MD 05/15/2018 2:44 AM EDT
[2018-05-15] MEDS ORDERED: Acetaminophen 500 MG Tablet PO PRN (04:44)
[2018-05-15] MEDS ORDERED: Sodium Chloride 0.9% 2 ML Flush PRN IV.FLUSH (04:45)
[2018-05-15 05:00] LABS: Creatine Kinase 52 U/L (26-192)
[2018-05-15 07:28] VITALS: BP 113/67; RESP 18; TEMP 98.2; O2SAT 97
[2018-05-15 08:11] LABS: Creatine Kinase 52 U/L (26-192)
--- NOTE | 2018-05-15 08:39 | P.HPCA ---
History of Present Illness Primary Care Physician: Naldo Montano MD Chief Complaint: Abdominal pain History of Present Illness: 52-year-old female with history of hypertension, GERD, gastric bypass surgery in 1990s, and cholecystectomy in late 80s (reports retaining ductal stones after surgery) presents the emergency room for further evaluation of abdominal pain. Onset 2-3 weeks of worsening discomfort however states initial problem began October of this year (6 months). Follows closely by primary care provider and Dr. Malcolm over the past 2 weeks. Currently awaiting an endoscopy and colonoscopy scheduled 05/26/18 for recurrent abdominal discomfort, last EGD February of this year. Reports PCP suggests a redo gastric bypass due to prolonged abdominal pain with known adhesions, however Dr. Malcolm recently told her insurance would not cover a redo surgery. States PCP gave her Lortab for discomfort and instructed her to come to ER if abdominal pain worsens. 2 different locations of discomfort, RUQ and RLQ. Characterized as both moderate, dull achy with associated nausea and vomiting. States only tolerating ice chips , sips of Gatorade, and small bites of food due to sensation of throat construction "like something is stuck in throat." Appetite unchanged, last reported bowel movement one week ago. Denies ingestion, sour taste, or burning in throat. States in ER the MD inquired about chest discomfort which she endorsed having. Location left anterior chest. Characterized as "twisting/ pinching sensation." No radiation. Duration 30-60 seconds. No associated symptoms. No precipitating or relieving factors. Total of 6 episodes since yesterday. Denies similar chest discomfort in the past. Past cardiac testing 01/13/2018 Echocardiogram-Normal left ventricle size. Wall thickness normal. The left systolic function is lw normal with est. range 50-55%. Mitral annular calcification present. Trace mitral regurgitation 01/13/2018 Bilateral Carotid ultrasound-DAREN minimal plaque without stenosis. LICA minimal plaque without stenosis. 06/12/2014 Sergio protocol ETT-fel to be nonischemic, ambulated 7:25 minutes. Past recent GI testing 02/16/2018 MRCP-Conclusions: 1. Intrahepatic and extrahepatic biliary prominence has MRI features most typical of reservoir effect postcholecystectomy. 2. Normal pancreas. 3. Right base atelectasis. 4. Small hiatal hernia. 02/15/2018 Gastric emptying Study-Conclusions: There is no gastric emptying for 1 hour, 10 minutes. No response to Reglan 02/12/2018 EGD (Dr. Luke) Impressions: 1. Retained food in esophagus, pushed in the stomach. 2. Evidence of previous surgery, retained food in the stomach and duodenum. 3. Normal duodenal mucosa in the 2nd part of the duodenum. 4 Retroflexed viewed revealed no abnormalities 01/25/2018 Diagnostic laparoscopy (Dr Malcolm) Findings: Extensive adhesions of small bowel proximally. Her Izabella jose francisco was identified. It did not appear to be obstructed. She had interloop adhesions as well as adhesion of the omentum to the abdominal wall. November 2017 SBFT-other than gastric bypass, normal exam 10/28/2017 Parital small bowel obstruction, admitted to [facility] for few days, partial SBO resolved without need for surgery. Multiple abdomen/pelvis CT scans this year alone Social history Known hypertension. No known CAD, diabetes, or hyperlipidemia Lifelong nonsmoker. No alcohol or recreational drug use. . Unable to work due to complicated medical issues. Family history Noncontributory for early onset cardiovascular disease. - Diagnosis (1) Atypical chest pain (2) Abdominal pain of unknown cause Review of Systems All other systems reviewed negative except as stated in HPI PMFSH - History History Provided By: Patient - Medical History Medical History: Medical History (Last Reviewed 05/15/18 @ 09:44 by NATHAN Jara) 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) Torn rotator cuff (Acute) Morbid obesity (Acute) Fibromyalgia (Acute) GERD (gastroesophageal reflux disease) (Acute) Sickle cell trait (Acute) HTN (hypertension) (Acute) Depression (Acute) Arthritis of both hands Bulging lumbar disc History of trigger finger Hx of dysfunctional uterine bleeding Mid back pain, chronic - Surgical History Surgical History: Surgical History (Last Reviewed 05/15/18 @ 09:44 by NATHAN Jara) History of cholecystectomy (Acute) Gastric bypass status for obesity (Acute) History of History of carpal tunnel release of both wrists - Family History Family History: Family History (Last Updated 05/15/18 @ 09:44 by NATHAN Jara) Father Lung cancer Mother Hypertension - Social History I have reviewed the patient's Social History: Yes - Tobacco History Second Hand Smoke Exposure: No Tobacco Use In Past 30 Days: No Smoking Status: Never smoker - Alcohol History How Often Do You Have a Drink Containing Alcohol: Never - Substance Use History Substance History: No History of Abuse - Travel History History of Recent Travel: No Recent Travel in the [place] Within the Last 8 Weeks: No Recent Travel Out of the Country Within the Last 8 Weeks: No - Immunization History Tetanus Immunization: Unsure Medications and Allergies Active Medications: Active Medications Acetaminophen (Tylenol) 500 mg PO Q4H PRN PRN Reason: HEADACHE Last Admin: 05/15/18 05:17 Dose: 500 mg Ondansetron HCl (Zofran Inj) 4 mg IV.PUSH Q6H PRN PRN Reason: NAUSEA Last Admin: 05/15/18 05:18 Dose: 4 mg Sodium Chloride (Ns Flush) 2 ml IV.FLUSH UNSCH PRN PRN Reason: FLUSH AFTER USING IV ACCESS Sodium Chloride (Ns Flush) 2 ml IV.FLUSH BID VENKATA Sodium Chloride (Ns Flush) 2 ml IV.FLUSH PRN PRN PRN Reason: FLUSH AFTER USING IV ACCESS Allergies Allergy/AdvReac Type Severity Reaction Status Date / Time aspirin AdvReac Intermediate Nausea/Vomi Verified 05/14/18 19:51 ting ibuprofen AdvReac Intermediate Nausea/Vomi Verified 05/14/18 19:51 ting Home Medications Medication Instructions Recorded Confirmed Type gabapentin 600 mg PO TID 01/07/18 05/15/18 History hydrocodone-acetaminophen 1 tab PO Q6H PRN 01/07/18 05/15/18 History tizanidine 4 mg PO QID 01/07/18 05/15/18 History amlodipine 5 mg PO BID 02/23/18 05/15/18 History diphenhydramine HCl [Benadryl] 25 mg PO Q4H PRN 02/23/18 05/15/18 History pantoprazole [Protonix] 40 mg PO DAILY 02/23/18 05/15/18 History temazepam [Restoril] 15 mg PO HS 02/23/18 05/15/18 History acyclovir 1,000 mg PO TID 05/15/18 05/15/18 History amoxicillin 500 mg PO TID 05/15/18 05/15/18 History bisacodyl [Dulcolax (bisacodyl)] 5 mg PO DAILY PRN 05/15/18 05/15/18 History erythromycin 05/15/18 History loratadine 10 mg PO DAILY 05/15/18 05/15/18 History metoclopramide HCl 10 mg PO QID 05/15/18 05/15/18 History promethazine 25 mg PO QID PRN 05/15/18 05/15/18 History Exam Vital signs: Vital Signs 05/14/18 19:48 05/14/18 21:11 05/14/18 22:30 Temperature 98.7 F Pulse Rate 95 H Respiratory Rate 16 18 16 Blood Pressure 109/68 Pulse Oximetry 100 98 05/14/18 23:00 05/15/18 02:12 05/15/18 03:44 Temperature Pulse Rate 84 94 H 94 H Respiratory Rate 18 18 18 Blood Pressure 125/84 172/89 H 96/55 L Pulse Oximetry 97 97 100 05/15/18 03:45 05/15/18 03:46 05/15/18 04:00 Temperature 98 F Pulse Rate 72 Respiratory Rate 18 19 Blood Pressure 95/49 L 117/73 Pulse Oximetry 95 05/15/18 07:23 Temperature 98.2 F Pulse Rate 64 Respiratory Rate 18 Blood Pressure 113/67 Pulse Oximetry 97 Intake & Output 05/14/18 05/15/18 05/15/18 18:59 06:59 18:59 Weight 115.67 kg Other: Date of Last Bowel Movement 05/14/18 Weight On Admission 115.666 kg Narrative: GENERAL: Alert WN, WD, NAD, pleasant, morbidly obese -Guyanese female HEAD: NC, AT EYES: Sclera clear, conjunctiva without injection, pupils equal and round ENT: Mucous membranes pink and moist, no nasal discharge or bleeding NECK: Supple, no masses, trachea midline CV: RRR, without murmur, rub, gallop, no JVD, S1-S2 no S3-S4. No carotid bruits RESP: Clear lungs throughout bilateral, no crackles, wheeze, rhonchi, symmetrical chest rise, nonlabored, able to speak in full sentences ABD: Soft, NT, ND, no masses, positive bowel tones, multiple abdominal scars BACK: No CVAT, no scoliosis EXT: Pulses +2-4, no dependent edema MS: Normal tone -4 extremities, nontender, no obvious deformities, full range of motion NEURO: CN II through CN XII grossly intact, motor strength 5/5, gait WNL PSYCH: A+O -3, pleasant affect, appropriate speech, appropriate mood and affect , insight and judgment SKIN: Normal turgor, normal texture, no lesions, no rashes, brisk cap refill, even hair distribution, multiple tattoos Results 05/14/18 21:24 05/14/18 21:24 Cardiac Enzymes 05/14/18 05/15/18 05/15/18 Range/Units 21:24 03:30 06:49 AST 21 (15-37) U/L Troponin I Less than 0.02 L Less than 0.02 L Less than 0.02 L (0.02-0.05) ng/mL CBC 05/14/18 Range/Units 21:24 WBC 9.2 (4.0-11.0) th/mm3 RBC 4.57 (4.00-5.30) mil/mm3 Hgb 12.1 (11.6-15.3) gm/dL Hct 37.2 (35.0-46.0) % Plt Count 370 (150-450) th/mm3 Neut # (Auto) 5.5 (1.8-7.7) th/mm3 Lymph # (Auto) 3.0 (1.0-4.8) th/mm3 [place] # (Auto) 0.6 (0.0-0.9) th/mm3 Eos # (Auto) 0.1 (0.0-0.4) th/mm3 Baso # (Auto) 0.0 (0.0-0.2) th/mm3 Comprehensive Metabolic Panel 05/14/18 Range/Units 21:24 Sodium 140 (136-145) meq/L Potassium 4.4 (3.5-5.1) meq/L Chloride 108 H (98-107) meq/L Carbon Dioxide 25.3 (21.0-32.0) meq/L BUN 12 (7-18) mg/dL Creatinine 0.85 (0.50-1.00) mg/dL Calcium 8.7 (8.5-10.1) mg/dL AST 21 (15-37) U/L ALT 22 (10-53) U/L Alkaline Phosphatase 114 (45-117) U/L Total Protein 8.9 H (6.4-8.2) g/dL Albumin 3.9 (3.4-5.0) g/dL Intake and Output 05/14/18 05/15/18 05/15/18 22:59 06:59 14:59 Other: Date of Last Bowel Movement 05/14/18 Weight 115.666 kg 115.67 kg Weight On Admission 115.666 kg - Imaging and Cardiology Imaging: Impressions Chest X-Ray 05/14/18 21:12 CONCLUSION: No active disease. Abdomen/Pelvis CT 05/15/18 00:00 CONCLUSION: 1. Persistent intra and extrahepatic biliary ductal dilatation. 2. No new acute findings in the abdomen or pelvis. EKG interpretations - EKG EKG results cardiology: sinus rhythm, normal axis, normal QRS, normal ST/T Caprini VTE Risk Assessment Caprini VTE Risk Assessment: No/Low Risk (score <= 1) Caprini Risk Assessment Model: Point Value = 1 Point Value = 2 Point Value = 3 Point Value = 5 Age 41-60 Minor surgery BMI > 25 kg/m2 Swollen legs Varicose veins or History of unexplained or recurrent spontaneous Oral contraceptives or hormone replacement Sepsis (< 1 month) Serious lung disease, including pneumonia (< 1 month) Abnormal pulmonary function Acute myocardial infarction Congestive heart failure (< 1 month) History of inflammatory bowel disease Medical patient at bed rest Age 61-74 Arthroscopic surgery Major open surgery (> 45 min) Laparoscopic surgery (> 45 min) Malignancy Confined to bed (> 72 hours) Immobilizing plaster cast Central venous access Age >= 75 History of VTE Family history of VTE Factor V Leiden Prothrombin [id number] Lupus anticoagulant Anticardiolipin antibodies Elevated serum homocysteine Heparin-induced thrombocytopenia Other congenital or acquired thrombophilia Stroke (< 1 month) Elective arthroplasty Hip, pelvis, or leg fracture Acute spinal cord injury (< 1 month) Prophylaxis Regimen: Total Risk Factor Score Risk Level Prophylaxis Regimen 0-1 Low Early ambulation 2 Moderate Order ONE of the following: *Sequential Compression Device (SCD) *Heparin 5000 units SQ BID 3-4 Higher Order ONE of the following medications: *Heparin 5000 units SQ TID *Enoxaparin/Lovenox 40 mg SQ daily (WT < 150 kg, CrCl > 30 mL/min) *Enoxaparin/Lovenox 30 mg SQ daily (WT < 150 kg, CrCl > 10-29 mL/min) *Enoxaparin/Lovenox 30 mg SQ BID (WT < 150 kg, CrCl > 30 mL/min) AND/OR *Sequential Compression Device (SCD) 5 or more Highest Order ONE of the following medications: *Heparin 5000 units SQ TID (Preferred with Epidurals) *Enoxaparin/Lovenox 40 mg SQ daily (WT < 150 kg, CrCl > 30 mL/min) *Enoxaparin/Lovenox 30 mg SQ daily (WT < 150 kg, CrCl > 10-29 mL/min) *Enoxaparin/Lovenox 30 mg SQ BID (WT < 150 kg, CrCl > 30 mL/min) AND *Sequential Compression Device (SCD) Assessment and Plan - Assessment (1) Atypical chest pain Code(s): R07.89 - Other chest pain Status: Acute Plan: Admitted to chest pain center. Monitor on telemetry overnight. ACS ruled out with 3 sets of EKGs and cardiac enzymes. Seen and evaluated by Dr. Ward Hemphill. Presentation certainly atypical for cardiac etiology, however has multiple risk factors. Proceed with Lexiscan. If unremarkable, plans are to discharge home with follow-up with her primary care provider. (2) Abdominal pain of unknown cause Code(s): R10.9 - Unspecified abdominal pain Status: Chronic Plan: Abdominal discomfort chronic, worsening over last few weeks. Abdomen/pelvis CT reviewed conclusion 1 persistent intra-and extrahepatic biliary ductal dilatation. 2. No new acute findings in the abdomen or pelvis. Morphine 4 mg IV x1 dose now. On assessment does present some rebound tenderness. Unfortunately, if cardiac testing unremarkable there are no acute findings to suggest inpatient admission and will likely be discharged home later this afternoon. Past GI testing reviewed. Follow up with PCP. H&P: Quality - VTE Deep Vein Thrombosis/Pulmonary Embolism Present on Admission: No
[2018-05-15] MEDS ORDERED: Sodium Chloride 0.9% 2 ML Flush BID IV.FLUSH SCH (09:00)
--- NOTE | 2018-05-15 09:07 | P.PNCA ---
Subjective Interval history: Very complicated 52-year-old black female presented by the nurse practitioner and then seen and examined personally. She presented to the emergency room with abdominal complaints but also complained of 30 seconds left-sided chest pain which resulted in her being transferred to the chest pain center. However her current issues focus on her GI problems. She has a long history of complex issues dating back to gastric bypass carried out by Dr. Malcolm. She has been followed by Dr. Charmaine Billy and Dr. Malcolm. Because of ongoing problems and complaints she was scheduled for upper and lower GI studies of this month but was told to come to the emergency room since she was continuing to have a abdominal pain. She is also constipated. She is further complicated by a long history of GERD fibromyalgia sickle cell trait depression and chronic use of pain medication. She is ruled out for ACS and will be evaluated with a nuclear stress test. Disposition will be pending results Medications and Allergies Active Medications: Active Medications Acetaminophen (Tylenol) 500 mg PO Q4H PRN PRN Reason: HEADACHE Last Admin: 05/15/18 05:17 Dose: 500 mg Morphine Sulfate (Morphine Inj) 4 mg IV.PUSH ONCE ONE Stop: 05/15/18 09:01 Ondansetron HCl (Zofran Inj) 4 mg IV.PUSH Q6H PRN PRN Reason: NAUSEA Last Admin: 05/15/18 05:18 Dose: 4 mg Sodium Chloride (Ns Flush) 2 ml IV.FLUSH UNSCH PRN PRN Reason: FLUSH AFTER USING IV ACCESS Sodium Chloride (Ns Flush) 2 ml IV.FLUSH BID VENKATA Sodium Chloride (Ns Flush) 2 ml IV.FLUSH PRN PRN PRN Reason: FLUSH AFTER USING IV ACCESS Allergies Allergy/AdvReac Type Severity Reaction Status Date / Time aspirin AdvReac Intermediate Nausea/Vomi Verified 05/14/18 19:51 ting ibuprofen AdvReac Intermediate Nausea/Vomi Verified 05/14/18 19:51 ting Home Medications Medication Instructions Recorded Confirmed Type gabapentin 600 mg PO TID 01/07/18 05/15/18 History hydrocodone-acetaminophen 1 tab PO Q6H PRN 01/07/18 05/15/18 History tizanidine 4 mg PO QID 01/07/18 05/15/18 History amlodipine 5 mg PO BID 02/23/18 05/15/18 History diphenhydramine HCl [Benadryl] 25 mg PO Q4H PRN 02/23/18 05/15/18 History pantoprazole [Protonix] 40 mg PO DAILY 02/23/18 05/15/18 History temazepam [Restoril] 15 mg PO HS 02/23/18 05/15/18 History acyclovir 1,000 mg PO TID 05/15/18 05/15/18 History amoxicillin 500 mg PO TID 05/15/18 05/15/18 History bisacodyl [Dulcolax (bisacodyl)] 5 mg PO DAILY PRN 05/15/18 05/15/18 History erythromycin 05/15/18 History loratadine 10 mg PO DAILY 05/15/18 05/15/18 History metoclopramide HCl 10 mg PO QID 05/15/18 05/15/18 History promethazine 25 mg PO QID PRN 05/15/18 05/15/18 History Physical Exam Vital signs: Vital Signs 05/14/18 19:48 05/14/18 21:11 05/14/18 22:30 Temperature 98.7 F Pulse Rate 95 H Respiratory Rate 16 18 16 Blood Pressure 109/68 Pulse Oximetry 100 98 05/14/18 23:00 05/15/18 02:12 05/15/18 03:44 Temperature Pulse Rate 84 94 H 94 H Respiratory Rate 18 18 18 Blood Pressure 125/84 172/89 H 96/55 L Pulse Oximetry 97 97 100 05/15/18 03:45 05/15/18 03:46 05/15/18 04:00 Temperature 98 F Pulse Rate 72 Respiratory Rate 18 19 Blood Pressure 95/49 L 117/73 Pulse Oximetry 95 05/15/18 07:23 Temperature 98.2 F Pulse Rate 64 Respiratory Rate 18 Blood Pressure 113/67 Pulse Oximetry 97 Intake & Output 05/14/18 05/15/18 05/15/18 18:59 06:59 18:59 Weight 115.67 kg Other: Date of Last Bowel Movement 05/14/18 Weight On Admission 115.666 kg Narrative: Morbidly obese black lady apparently resting comfortably in bed but requesting pain medication Head eyes ears nose and throat are basically noncontributory and as recorded Neck supple no JVD masses nodes or bruits Chest mildly diminished breath sounds probably due to obesity but no rales wheezes or rhonchi Cardiovascular PMI cannot be palpated due to her obesity the rhythm is regular no gallops rubs or murmurs are appreciated Abdomen is massively obese with scarring from prior surgery. She is exquisitely tender over the mid upper epigastric area and also over the right lower quadrants particularly. She also appears to have some rebound over the lower quadrants. Masses or organs cannot be palpated due to her obesity. Results 05/14/18 21:24 05/14/18 21:24 Cardiac Enzymes 05/14/18 05/15/18 05/15/18 Range/Units 21:24 03:30 06:49 AST 21 (15-37) U/L Troponin I Less than 0.02 L Less than 0.02 L Less than 0.02 L (0.02-0.05) ng/mL CBC 05/14/18 Range/Units 21:24 WBC 9.2 (4.0-11.0) th/mm3 RBC 4.57 (4.00-5.30) mil/mm3 Hgb 12.1 (11.6-15.3) gm/dL Hct 37.2 (35.0-46.0) % Plt Count 370 (150-450) th/mm3 Neut # (Auto) 5.5 (1.8-7.7) th/mm3 Lymph # (Auto) 3.0 (1.0-4.8) th/mm3 [place] # (Auto) 0.6 (0.0-0.9) th/mm3 Eos # (Auto) 0.1 (0.0-0.4) th/mm3 Baso # (Auto) 0.0 (0.0-0.2) th/mm3 Comprehensive Metabolic Panel 05/14/18 Range/Units 21:24 Sodium 140 (136-145) meq/L Potassium 4.4 (3.5-5.1) meq/L Chloride 108 H (98-107) meq/L Carbon Dioxide 25.3 (21.0-32.0) meq/L BUN 12 (7-18) mg/dL Creatinine 0.85 (0.50-1.00) mg/dL Calcium 8.7 (8.5-10.1) mg/dL AST 21 (15-37) U/L ALT 22 (10-53) U/L Alkaline Phosphatase 114 (45-117) U/L Total Protein 8.9 H (6.4-8.2) g/dL Albumin 3.9 (3.4-5.0) g/dL Intake and Output 05/14/18 05/15/18 05/15/18 22:59 06:59 14:59 Other: Date of Last Bowel Movement 05/14/18 Weight 115.666 kg 115.67 kg Weight On Admission 115.666 kg - Imaging and Cardiology Imaging: Impressions Chest X-Ray 05/14/18 21:12 CONCLUSION: No active disease. Abdomen/Pelvis CT 05/15/18 00:00 CONCLUSION: 1. Persistent intra and extrahepatic biliary ductal dilatation. 2. No new acute findings in the abdomen or pelvis. Assessment and Plan - Plan This patient is very complicated and her primary presentation was directed towards her ongoing issues with abdominal pain. She has been very thoroughly evaluated on an outpatient basis by Dr. Charmaine Billy and Dr. Malcolm. She is scheduled for further outpatient evaluation but because of ongoing pain presented to the emergency room. Unfortunately she was transferred to the chest pain center for cardiac evaluation however this will be carried out with a nuclear stress test. If she has no acute ischemia she will be discharged for further follow-up on an outpatient basis with her more than competent outpatient physicians. If she shows ischemic changes she will be referred for further cardiac evaluation.
--- NOTE | 2018-05-15 09:10 | ECG ---
Date Performed: 05/15/2018 Time Performed: 06:08:06 PTAGE: 52 years EKG: Sinus rhythm PROLONGED QT INTERVAL ABNORMAL ECG No significant change since prior tracing PREVIOUS TRACING : 05/14/2018 21.09 DOCTOR: Ward Hemphill Interpretating Date/Time 05/15/2018 09:09:18
--- NOTE | 2018-05-15 09:10 | ECG ---
Date Performed: 05/15/2018 Time Performed: 03:50:09 PTAGE: 52 years EKG: Sinus rhythm PROLONGED QT INTERVAL ABNORMAL ECG Minor nonspecific ST-T changes but no significant change NO PREVIOUS TRACING DOCTOR: Ward Hemphill Interpretating Date/Time 05/15/2018 09:09:39
--- NOTE | 2018-05-15 09:10 | ECG ---
Date Performed: 05/14/2018 Time Performed: 21:09:45 PTAGE: 52 years EKG: Sinus rhythm MODERATE VOLTAGE CRITERIA FOR LVH, CONSIDER NORMAL VARIANT NONSPECIFIC T-WAVE ABNORMALITY BORDERLINE ECG No significant change PREVIOUS TRACING : 02/21/2018 03.13 DOCTOR: Ward Hemphill Interpretating Date/Time 05/15/2018 09:10:20
[2018-05-15] MEDS ORDERED: Regadenoson Inj 0.4 MG/5 ML Syringe IV.PUSH ONE (10:22)
[2018-05-15] MEDS ORDERED: Polyethylene Glycol 3350 17 GM Packet PO ONE (12:00)
--- NOTE | 2018-05-15 12:22 | NM ---
EXAM DATE: 05/15/2018 12:13 PM EDT AGE/SEX: 52 years / Female INDICATIONS:Angina. . Left sided chest pain. CLINICAL DATA: This is the patient's initial encounter. Patient reports that signs and symptoms have been present for 1 day and indicates a pain score of 5/10. MEDICAL/SURGICAL HISTORY: Arthritis. Gastroesophageal reflux disease. Hypertension. Fibromya lgia, chronic mid back pain, torn rotator cuff, sciatica, morbid obesity, and bulging lumbar disc x2. Tubal ligation. section. Gastric bypass. Cholecystectomy. COMPARISON: No prior exams available for comparison. DOSE: 11.2 mCi Tc 99m Myoview at rest 35.2 mCi [id number] at stress 0.4 mg Lexiscan STRESS SYMPTOMS: Chest tightness. EJECTION FRACTION: 68 % TECHNIQUE: The patient underwent pharmacologic stress with infusion of prescribed dose. Continuous ECG tracing was monitored during stress. Gated SPECT imaging was performed after stress and conventi onal SPECT imaging was performed at rest. The examination was performed on a SPECT/CT scanner, both attenuation and non-corrected datasets were reviewed. FINDINGS: Distribution: The maximum perfused segment at stress is in the septal wall. Perfusion Study: The pattern of perfusion at stress is within normal limits. Gated Study: There are intact wall motion and wall thickening without hypokinetic or dyskinetic segm ents. The ejection fraction is calculated at 68%. RISK CATEGORY: Low (<1% Annual Motality Rate) CONCLUSION: No reversible perfusion defects or focal wall motion abnormalities. Electronically signed by: Duane Davison MD 05/15/2018 12:20 PM EDT
[2018-05-15] MEDS ORDERED: Metoclopramide 10 MG Tablet PO SCH (13:00)
[2018-05-15 13:06] VITALS: PULSE 62
--- NOTE | 2018-05-16 10:12 | TR ---
Date Performed: 05/15/2018 Time Performed: 10:46:57 DOCTOR: Ward Hemphill DRUG LIST: CLINICAL HISTORY: REASON FOR TEST: Angina REASON FOR ENDING: OBSERVATION: CONCLUSION: Lexiscan stress test was performed under standard four minute protocol. Radionuclide was injected one minute prior to ending the test. No electrocardiographic abormalities were present to suggest ischemia. Nuclear imaging and interpretation are pending. COMMENTS:
== END 2018-05-15 15:36 | disposition home or self-care (01) ==
LOC: NEDA 18:59 → NEPE 18:59 → NEPFCDU 05-15 03:40

== ENCOUNTER 2018-08-19 12:22 | Inpatient (IN) ==
[2018-08-19] MEDS ORDERED: Sod Chloride 0.9% Inj 1,000 ML IV.SIG ONE ×2 (12:32→14:26)
--- NOTE | 2018-08-19 12:57 | ED ---
HPI General Chief Complaint: Fall Stated Complaint: ERT Time Seen by Provider: 08/19/18 12:25 Source: patient Mode of arrival: wheelchair Limitations: no limitations History of Present Illness HPI Narrative: 52-year-old female with PMH of HTN, fibromyalgia, GERD, depression, gastric bypass presents the ED for evaluation after a fall in the hospital. Patient states that she spent the night with her mother and was moving around this morning, felt dizzy. She states that she is not sure what happened next. She reports that she hit the back of her head. She reports that she hit the anterior aspect of the left knee. On presentation she complains of posterior head pain, rated 6/10 and dizziness. She denies vision changes, chest pain, palpitations, shortness of breath, neck pain, back pain, abdominal pain, nausea, vomiting, weakness of the extremities. No treatment attempted before arrival. Related Data Home Medications Medication Instructions Recorded Confirmed gabapentin 600 mg PO TID 01/07/18 07/20/18 hydrocodone-acetaminophen 1 tab PO Q6H PRN 01/07/18 07/20/18 tizanidine 4 mg PO QID 01/07/18 07/20/18 amlodipine 5 mg PO BID 02/23/18 07/20/18 diphenhydramine HCl [Benadryl] 25 mg PO Q4H PRN 02/23/18 07/20/18 pantoprazole [Protonix] 40 mg PO DAILY 02/23/18 07/20/18 acyclovir 1,000 mg PO TID 05/15/18 07/20/18 bisacodyl [Dulcolax (bisacodyl)] 5 mg PO DAILY PRN 05/15/18 07/20/18 loratadine 10 mg PO DAILY 05/15/18 07/20/18 metoclopramide HCl 10 mg PO QID 05/15/18 07/20/18 promethazine 25 mg PO QID PRN 05/15/18 07/20/18 zolpidem 5 mg PO HS 07/20/18 07/20/18 Previous Rx's Medication Instructions Recorded temazepam 15 mg PO HS PRN #20 cap 02/17/18 Allergies Allergy/AdvReac Type Severity Reaction Status Date / Time aspirin AdvReac Intermediate Nausea/Vomi Verified 07/20/18 00:42 ting ibuprofen AdvReac Intermediate Nausea/Vomi Verified 07/20/18 00:42 ting Review of Systems ROS: all other systems reviewed are negative [facility] Family History Family History Father Lung cancer Mother Hypertension Social History Social History Substance History: No History of Abuse Second Hand Smoke Exposure: No Smoking Status: Never smoker How Often Do You Have a Drink Containing Alcohol: 2 to 4 times a month Hx Recent Travel: No Recent Travel in [facility] within the Last 8 Weeks: No Recent Out of Country Travel within the Last 8 Weeks: No Immunization History Tetanus Immunization: <5 Years Tetanus Immunization Year if Known: 2018 Exam Narrative Exam Narrative: GENERAL: Well-nourished, well-developed -Maltese female in no acute distress. Lying back on the stretcher, moving extremities spontaneously. SKIN: Warm and dry. There is an old well-healed laceration of the posterior scalp. There is a small skin tear on the anterior left knee. Thorough evaluation reveals no other edema, ecchymosis, abrasion, or laceration of the skin. HEAD: Normocephalic. Atraumatic. No raccoon eyes or tyson sign. No tenderness to palpation of the skull. No bony step-offs. No malocclusion of the teeth. EYES: No scleral icterus. No injection or drainage. PERRLA. EOMI. ENT: Pearly campuzano tympanic membranes bilaterally. Nasal mucosa is moist. Oropharynx without erythema, edema or exudate. NECK: Supple, trachea midline. No JVD or lymphadenopathy. No midline tenderness to palpation. Patient retains full, active, painless range of motion of the neck. CARDIOVASCULAR: Regular rate and rhythm without murmurs, gallops, or rubs. 2+ DP and radial pulses bilaterally. RESPIRATORY: Breath sounds clear and equal bilaterally. No accessory muscle use. GASTROINTESTINAL: Abdomen soft, non-tender, nondistended. + Bowel sounds MUSCULOSKELETAL: No cyanosis, or edema. No tenderness to palpation or limitations to range of motion of the joints of the upper and lower extremities bilaterally. NEUROLOGICAL: Awake and alert. Cranial nerves II through XII intact. Motor and sensory grossly within normal limits. 5/5 muscle strength in all muscle groups. Normal speech. BACK: Nontender without obvious deformity. No CVA tenderness. No midline tenderness. Course Initial Documented Vital Signs Temperature 98.8 F 08/19/18 12:30 Pulse Rate 58 L 08/19/18 12:30 Respiratory Rate 19 08/19/18 12:30 Blood Pressure 80/57 L 08/19/18 12:30 Pulse Oximetry 95 08/19/18 12:30 Last Documented Vital Signs Temperature 98.1 F 08/20/18 08:00 Pulse Rate 69 08/20/18 08:00 Respiratory Rate 17 08/20/18 08:00 Blood Pressure 128/66 08/20/18 08:00 Pulse Oximetry 94 L 08/20/18 08:00 Medical Decision Making MDM Narrative Medical decision making narrative: 52-year-old female with PMH of HTN, fibromyalgia, GERD, depression, gastric bypass presents the ED for evaluation after a fall in the hospital. Patient states that she spent the night with her mother and was moving around this morning, felt dizzy. She states that she is not sure what happened next. Pulse 58, BP 80/57 on presentation. Physical exam reveals an obese -Maltese female no acute distress. No focal neuro deficits. Moving the arms and legs spontaneously with no limitations ROM. IV was established. Patient was administered 1 L normal saline, 5 mg hydrocodone by mouth and 25 mg of meclizine. CBC shows no leukocytosis, hemoglobin 10.2, baseline per chart review. CMP shows BUN of 20, creatinine 1.28, calcium 8.1. No culture indicated of the UA. Tox screen positive for opioids. Head CT shows no acute intracranial injury. X-ray of the left knee reveals no acute bony injury. Patient was administered additional liter of normal saline. Remains hypotensive and bradycardic despite fluid resuscitation. Plan to admit. I spoke with Dr. Huerta who agrees to accept the patient to medicine service. Please see medicine notes for disposition. Medical Screen Exam Complete: Yes Emergency Medical Condition: Yes Differential Diagnosis Differential Diagnosis: Vasovagal syncope versus musculoskeletal pain versus ICH versus ACS versus orthostatic hypotension versus metabolic derangement versus internal derangement of the knee versus other Lab Data Result diagrams: 08/20/18 05:36 08/20/18 05:36 Lab Results 08/19/18 08/19/18 08/19/18 Range/Units 13:10 13:10 14:00 WBC 6.8 (4.0-11.0) th/mm3 RBC 3.84 L (4.00-5.30) mil/mm3 Hgb 10.2 L (11.6-15.3) gm/dL Hct 31.5 L (35.0-46.0) % MCV 81.9 (80.0-100.0) fL MCH 26.6 L (27.0-34.0) pg MCHC 32.4 (32.0-36.0) % RDW 16.8 (11.6-17.2) % Plt Count 350 (150-450) th/mm3 MPV 8.1 (7.0-11.0) fL Neut % (Auto) 45.0 (16.0-70.0) % Lymph % (Auto) 39.5 (9.0-44.0) % [place] % (Auto) 10.0 H (0.0-8.0) % Eos % (Auto) 5.1 H (0.0-4.0) % Baso % (Auto) 0.4 (0.0-2.0) % Neut # (Auto) 3.1 (1.8-7.7) th/mm3 Lymph # (Auto) 2.7 (1.0-4.8) th/mm3 [place] # (Auto) 0.7 (0.0-0.9) th/mm3 Eos # (Auto) 0.3 (0.0-0.4) th/mm3 Baso # (Auto) 0.0 (0.0-0.2) th/mm3 WBC Differential . Differential Comment Auto diff final Sodium 138 (136-145) meq/L Potassium 3.9 (3.5-5.1) meq/L Chloride 107 (98-107) meq/L Carbon Dioxide 23.1 (21.0-32.0) meq/L Anion Gap 8 (5-15) meq/L BUN 20 H (7-18) mg/dL Creatinine 1.28 H (0.50-1.00) mg/dL Estimated GFR 53 L (>89) mL/min Random Glucose 95 (74-106) mg/dL Calcium 8.1 L (8.5-10.1) mg/dL Troponin I Less than 0.02 L (0.02-0.05) ng/mL Urine Color (Yellw/Straw) Urine Clarity (Clear) Urine pH (5.0-8.5) Ur Specific [place] (1.002-1.035) Urine Protein (Neg-Trace) mg/dL Urine Glucose (UA) (Negative) mg/dL Urine Ketones (Negative) mg/dL Urine Occult Blood (Negative) Urine Nitrate (Negative) Urine Bilirubin (Negative) Urine Urobilinogen (Less than 2) mg/dL Ur Leukocyte Esterase (Negative) Urine RBC (0-3) /hpf Urine WBC (0-5) /hpf Ur Squamous Epith Cells (0-5) /hpf Hyaline Casts (0-3) /lpf Urine Mucus (Occasional) /lpf Micro UA Comment Ur Microscopic Review Urine Culture Comments Urine Opiates Screen Pos H (Neg) Ur Barbiturates Screen Neg (Neg) Ur Amphetamines Screen Neg (Neg) U Benzodiazepines Scrn Neg (Neg) Urine Cocaine Screen Neg (Neg) U Cannabinoids Screen Neg (Neg) 08/19/18 08/20/18 08/20/18 Range/Units 14:00 05:36 05:36 WBC 5.6 (4.0-11.0) th/mm3 RBC 3.83 L (4.00-5.30) mil/mm3 Hgb 10.2 L (11.6-15.3) gm/dL Hct 31.2 L (35.0-46.0) % MCV 81.7 (80.0-100.0) fL MCH 26.7 L (27.0-34.0) pg MCHC 32.7 (32.0-36.0) % RDW 17.1 (11.6-17.2) % Plt Count 340 (150-450) th/mm3 MPV 8.5 (7.0-11.0) fL Neut % (Auto) 81.4 H (16.0-70.0) % Lymph % (Auto) 16.8 (9.0-44.0) % [place] % (Auto) 1.3 (0.0-8.0) % Eos % (Auto) 0.0 (0.0-4.0) % Baso % (Auto) 0.5 (0.0-2.0) % Neut # (Auto) 4.6 (1.8-7.7) th/mm3 Lymph # (Auto) 0.9 L (1.0-4.8) th/mm3 [place] # (Auto) 0.1 (0.0-0.9) th/mm3 Eos # (Auto) 0.0 (0.0-0.4) th/mm3 Baso # (Auto) 0.0 (0.0-0.2) th/mm3 WBC Differential . Differential Comment Auto diff final Sodium 138 (136-145) meq/L Potassium 5.1 D (3.5-5.1) meq/L Chloride 109 H (98-107) meq/L Carbon Dioxide 21.2 (21.0-32.0) meq/L Anion Gap 8 (5-15) meq/L BUN 10 (7-18) mg/dL Creatinine 0.98 (0.50-1.00) mg/dL Estimated GFR 72 L (>89) mL/min Random Glucose 154 H (74-106) mg/dL Calcium 8.3 L (8.5-10.1) mg/dL Troponin I (0.02-0.05) ng/mL Urine Color Yellow (Yellw/Straw) Urine Clarity Hazy H (Clear) Urine pH 5.0 (5.0-8.5) Ur Specific [place] 1.012 (1.002-1.035) Urine Protein Negative (Neg-Trace) mg/dL Urine Glucose (UA) Negative (Negative) mg/dL Urine Ketones Negative (Negative) mg/dL Urine Occult Blood Negative (Negative) Urine Nitrate Negative (Negative) Urine Bilirubin Negative (Negative) Urine Urobilinogen Less than 2 (Less than 2) mg/dL Ur Leukocyte Esterase Negative (Negative) Urine RBC Less than 1 (0-3) /hpf Urine WBC 2 (0-5) /hpf Ur Squamous Epith Cells 8 (0-5) /hpf Hyaline Casts 10 (0-3) /lpf Urine Mucus Few H (Occasional) /lpf Micro UA Comment Culture not ind Ur Microscopic Review Not Reportable Urine Culture Comments Culture not ind Urine Opiates Screen (Neg) Ur Barbiturates Screen (Neg) Ur Amphetamines Screen (Neg) U Benzodiazepines Scrn (Neg) Urine Cocaine Screen (Neg) U Cannabinoids Screen (Neg) Imaging Data Radiologist's impression: Head CT 08/19/18 12:32 CONCLUSION: No acute intracranial injury . Knee X-Ray 08/19/18 12:32 CONCLUSION: No acute bony abnormality identified. ECG Data EKG Prior to Arrival: No Interpretation: Rate 56, sinus bradycardia. SD interval 168, QRS 94, QTc 476. Normal axis, no acute ST changes. Discharge Plan Discharge Disposition Patient Disposition: ED Admit(ED Internal Use Only) Discharge Order Discharge Orders: ED Use Only Admit Order (Routine); Ordered 08/19/18 Ordered By: Iesha Gallo Physicians Team ED Provider: Laverne العراقي ED Midlevel Provider: Iesha Gallo Primary Care Provider: Naldo Montano Attending Provider: Vikram Huerta Other Providers: Irene Camara Status ED Status: Left Department Discharge Information Discharge Date/Time: 08/19/18 18:29
--- NOTE | 2018-08-19 13:30 | CT ---
EXAM DATE: 08/19/2018 1:23 PM EST AGE/SEX: 52 years / Female INDICATIONS: Patient fell today. CLINICAL DATA: This is the patient's initial encounter. Patient reports that signs and symptoms have been present for 1 day and indicates a pain score of 6/10. MEDICAL/SURGICAL HISTORY: Hypertension. None. RADIATION DOSE: 56.35 CTDI (mGy) COMPARISON: [facility], CT HEAD W/O CONTRAST, 07/16/2018. . TECHNIQUE: CT of the head without contrast. Using automated exposure control and adjustment of the mA and/or kV according to patient size, radiation dose was kept as low as reasonably achievable to ob tain optimal diagnostic quality images. DICOM format image data is available electronically for revi ew and comparison. FINDINGS: Cerebrum: The ventricles are normal for age. No evidence of midline shift, mass lesion, hemorrhage or acute infarction. No extraaxial fluid collections are seen. Posterior Fossa: The cerebellum and brainstem are intact. The 4th ventricle is midline. The cerebe llopontine angle is unremarkable. Extracranial: The visualized portion of the orbits is intact. Skull: The calvaria is intact. No evidence of skull fracture. Minimal soft tissue swelling in the h igh convexity right parietal region CONCLUSION: No acute intracranial injury . Electronically signed by: Shola Mir MD Board Certified Radiologist 08/19/2018 1:29 PM EST
[2018-08-19 13:47] LABS: Baso % (Auto) 0.4 % (0.0-2.0); Eos # (Auto) 0.3 th/mm3 (0.0-0.4); Eos % (Auto) 5.1 % (0.0-4.0); Hematocrit 31.5 % (35.0-46.0); Hemoglobin 10.2 gm/dL (11.6-15.3); Lymph # (Auto) 2.7 th/mm3 (1.0-4.8); Lymph % (Auto) 39.5 % (9.0-44.0); Mean Corpuscular HGB Conc 32.4 % (32.0-36.0); Mean Corpuscular Hemoglobin 26.6 pg (27.0-34.0); Mean Corpuscular Volume 81.9 fL (80.0-100.0); Mean Platelet Volume 8.1 fL (7.0-11.0); Mono # (Auto) 0.7 th/mm3 (0.0-0.9); Neut # (Auto) 3.1 th/mm3 (1.8-7.7); Platelet Count 350 th/mm3 (150-450); Red Blood Count 3.84 mil/mm3 (4.00-5.30); Red Cell Distribution Width 16.8 % (11.6-17.2); White Blood Count 6.8 th/mm3 (4.0-11.0)
--- NOTE | 2018-08-19 13:59 | XR ---
EXAM DATE: 08/19/2018 1:52 PM EST AGE/SEX: 52 years / Female INDICATIONS: Fell today and 2 other times recently. CLINICAL DATA: This is the patient's initial encounter. Patient reports that signs and symptoms have been present for 1 day and indicates a pain score of 7/10. MEDICAL/SURGICAL HISTORY: None. None. COMPARISON: No prior exams available for comparison. FINDINGS: The bony mineralization is within normal limits. The alignment is anatomic. There are mild degenerati ve changes in the medial compartment. There is no joint effusion. No acute fractures seen. CONCLUSION: No acute bony abnormality identified. Electronically signed by: Enoch Peterson MD Board Certified Radiologist 08/19/2018 1:57 PM EST
[2018-08-19 14:16] LABS: Anion Gap 8 meq/L (5-15); Blood Urea Nitrogen 20 mg/dL (7-18); Calcium 8.1 mg/dL (8.5-10.1); Carbon Dioxide 23.1 meq/L (21.0-32.0); Chloride 107 meq/L (98-107); Glomerular Filtration Rate 53 mL/min (>89); Glucose,Random 95 mg/dL (74-106); Potassium 3.9 meq/L (3.5-5.1); Sodium 138 meq/L (136-145)
[2018-08-19] MEDS ORDERED: Calcium Carbonate 500 MG Tablet PO ONE (14:32)
[2018-08-19 14:34] LABS: Bilirubin,Urine Negative (Negative); Clarity,Urine Hazy (Clear); Color,Urine Yellow (Yellw/Straw); Glucose,Urine (UA) Negative (Negative); Hyaline Casts,Urine 10 /lpf (0-3); Leukocyte Esterase,Urine Negative (Negative); Mucus,Urine Few /lpf (Occasional); Nitrite,Urine Negative (Negative); Specific Gravity,Urine 1.012 (1.002-1.035); Squamous Epithelial Cell,Urine 8 /hpf (0-5)
[2018-08-19 14:44] LABS: Amphetamine Screen,Urine Neg (Neg); Barbiturate Screen,Urine Neg (Neg); Cannabinoid Screen,Urine Neg (Neg); Cocaine Screen,Urine Neg (Neg)
[2018-08-19 14:46] LABS: Opiate Screen,Urine Pos (Neg)
[2018-08-19] MEDS ORDERED: Bisacodyl 10 MG Supp RECTAL PRN (16:46)
[2018-08-19] MEDS ORDERED: Acetaminophen 325 MG Tablet PO PRN (16:46)
[2018-08-19] MEDS ORDERED: Morphine Inj 4 MG/ML Vial IV.PUSH PRN (16:46)
--- NOTE | 2018-08-19 17:04 | P.HPIM ---
History of Present Illness Primary Care Physician: Naldo Montano MD History of Present Illness: The patient is a 52-year-old female with past medical history which includes morbid obesity, carpal tunnel syndrome, lumbar degenerative disc disease, sickle cell trait, depression, hypertension, GERD, distant history of open cholecystectomy in the late and a gastric bypass in 1995. 01/25/18 patient had extensive lysis of adhesions, diagnostic laparoscopy with Dr. Castaneda. Patient then presented to [facility] ER 02/10/18 with complains of abdominal pain with nausea and vomiting. She was also seen in the ER 02/09/18 for similar symptoms and was advised to follow up with her PCP and Dr. Castaneda. She was then diagnosed with gastroparesis. Pt was visiting her mother in hospital. She stayed then night and missed all of her medications. She stood up to assist her mother and after a minute began feeling dizzy/vertigo and the passed out. She then remembered being assisted off the floor. She hit back of her head and left knee. She remembers stuttering earlier this morning. She says similar events occurred in June where she passed out after stuttering. She reports a head injury last year which required sutures in back of head. She reports intermittent involuntary twitching and her pcp wanted her evaluated by neurology. In ED pt noted to have low bp with systolics 80s. Her labs showed some mild dehyration. Her bp meds were only 2.5mg bid norvasc as her pcp stopped 2 other bp meds last year for lower bp. Pt didn't take her bp meds last night or this AM and was still found to have low bp. denies cp or diaphoresis. Past Medical History Morbid obesity Carpal tunnel syndrome Lumbar degenerative disc disease Sickle cell trait Depression Hypertension GERD Gastroparesis S/P EGD 02/11/18 -> 1. Retained food in esophagus, pushed into the stomach 2. Evidence of previous surgery, retained food in the stomach and duodenum 3. Normal duodenal mucosa in the 2nd part of the duodenum 4. Retroflexed views revealed no abnormalities Past Surgical History 01/25/18 patient had extensive lysis of adhesions, diagnostic laparoscopy with Dr. Castaneda Gastric bypass 1995 Open cholecystectomy around 1985 Multiple carpal tunnel surgeries (2 on the right and one on the left) Bilateral tubal ligation Uterine ablation 2 Family History Father of lung cancer complications, he was chronic smoker Otherwise noncontributory Social History Lives with her and 2 adult children Never smoked tobacco Occasionally drinks alcohol in the form of a glass of wine or so but not even on a weekly basis Denies illicit drug use Disabled due to severe carpal tunnel syndrome and lumbar disc issues. Previously worked at the [employer]. She was born and raised locally. Meds erythromycin 250 mg PO Q8HR pantoprazole 40 mg PO DAILY ....pt unclear if this was stopped bethanacol 25mg tid prn valtrex ambien prn norvasc 2.5mg bid tizanadine 4x daily prn 4mg gabapentin 600mg tid Diagnosis (1) Syncope: Inpatient Certification Inpatient Certification: I certify that the inpatient services were ordered in accordance with Medicare regulations governing the order. This includes certification that hospital inpatient services are reasonable and necessary and in the case of services not specified as inpatient-only under 42 CFR 419.22(n), that they are appropriately provided as inpatient services in accordance to with the 2-midnight benchmark under 43 CFR 412.3(e) Estimated Total Length of Stay (Days): 2 Plans for Post Hospital Care: Home Medications and Allergies Allergies Allergy/AdvReac Type Severity Reaction Status Date / Time aspirin AdvReac Intermediate Nausea/Vomi Verified 07/20/18 00:42 ting ibuprofen AdvReac Intermediate Nausea/Vomi Verified 07/20/18 00:42 ting Home Medications Medication Instructions Recorded Confirmed Type gabapentin 600 mg PO TID 01/07/18 07/20/18 History hydrocodone-acetaminophen 1 tab PO Q6H PRN 01/07/18 07/20/18 History tizanidine 4 mg PO QID 01/07/18 07/20/18 History amlodipine 5 mg PO BID 02/23/18 07/20/18 History diphenhydramine HCl [Benadryl] 25 mg PO Q4H PRN 02/23/18 07/20/18 History pantoprazole [Protonix] 40 mg PO DAILY 02/23/18 07/20/18 History acyclovir 1,000 mg PO TID 05/15/18 07/20/18 History bisacodyl [Dulcolax (bisacodyl)] 5 mg PO DAILY PRN 05/15/18 07/20/18 History loratadine 10 mg PO DAILY 05/15/18 07/20/18 History metoclopramide HCl 10 mg PO QID 05/15/18 07/20/18 History promethazine 25 mg PO QID PRN 05/15/18 07/20/18 History zolpidem 5 mg PO HS 07/20/18 07/20/18 History Active Medications: Active Medications Acetaminophen (Tylenol) 650 mg PO Q4H PRN PRN Reason: Temp > 100.4 Hydrocodone Bitart/Acetaminophen ([place] 10/325) 1 tab PO Q4H PRN PRN Reason: PAIN 3-10 Al Hydroxide/Mg Hydroxide (Milk Of Magnesia Liq) 30 ml PO Q12H PRN PRN Reason: Mild Constipation Bethanechol Chloride (Urecholine) 25 mg PO TID VENKATA Bisacodyl (Dulcolax Supp) 10 mg RECTAL DAILY PRN PRN Reason: SEVERE CONSITIPATION Gabapentin (Neurontin) 600 mg PO TID VENKATA Hydromorphone HCl (Dilaudid Pf Inj) 1 mg IV.PUSH Q4H PRN PRN Reason: BREAKTHROUGH PAIN OVER 7 Sodium Chloride (Ns Inj) 1,000 mls @ 100 mls/hr IV.CONT .Q10H VENKATA Lactulose (Lactulose Liq) 30 ml PO DAILY PRN PRN Reason: SEVERE CONSITIPATION Methylprednisolone Sodium Succinate (Solumedrol Inj) 125 mg IV.PUSH ONCE ONE Stop: 08/19/18 16:47 Ondansetron HCl (Zofran Inj) 4 mg IV.PUSH Q6H PRN PRN Reason: NAUSEA OR VOMITING Sennosides (Senokot) 17.2 mg PO Q12H PRN PRN Reason: Moderate Constipation Sodium Chloride (Ns Flush) 2 ml IV.FLUSH PRN PRN PRN Reason: FLUSH AFTER USING IV ACCESS Sodium Chloride (Ns Flush) 2 ml IV.FLUSH BID VENKATA Temazepam (Restoril) 15 mg PO HS PRN PRN Reason: INSOMNIA Physical Exam Vital signs: Last Vital Signs Temp 98.8 F 08/19/18 12:30 Pulse 56 L 08/19/18 13:00 Resp 16 08/19/18 13:00 BP 83/51 L 08/19/18 13:00 Pulse Ox 100 02/07/19 13:00 Narrative: no open lesion or hematoma occipital region neck supple heart reg lung cta abd s/nt ext left knee from. tender minor open skin Results Labs CBC & Chem 7: 08/20/18 05:36 08/20/18 05:36 Caprinjag VTE Risk Assessment Cris VTE Risk Assessment: Moderate/High Risk (score >= 2) Akbarrini Risk Assessment Model: Point Value = 1 Point Value = 2 Point Value = 3 Point Value = 5 Age 41-60 Minor surgery BMI > 25 kg/m2 Swollen legs Varicose veins or History of unexplained or recurrent spontaneous Oral contraceptives or hormone replacement Sepsis (< 1 month) Serious lung disease, including pneumonia (< 1 month) Abnormal pulmonary function Acute myocardial infarction Congestive heart failure (< 1 month) History of inflammatory bowel disease Medical patient at bed rest Age 61-74 Arthroscopic surgery Major open surgery (> 45 min) Laparoscopic surgery (> 45 min) Malignancy Confined to bed (> 72 hours) Immobilizing plaster cast Central venous access Age >= 75 History of VTE Family history of VTE Factor V Leiden Prothrombin [id number] Lupus anticoagulant Anticardiolipin antibodies Elevated serum homocysteine Heparin-induced thrombocytopenia Other congenital or acquired thrombophilia Stroke (< 1 month) Elective arthroplasty Hip, pelvis, or leg fracture Acute spinal cord injury (< 1 month) Prophylaxis Regimen: Total Risk Factor Score Risk Level Prophylaxis Regimen 0-1 Low Early ambulation 2 Moderate Order ONE of the following: *Sequential Compression Device (SCD) *Heparin 5000 units SQ BID 3-4 Higher Order ONE of the following medications: *Heparin 5000 units SQ TID *Enoxaparin/Lovenox 40 mg SQ daily (WT < 150 kg, CrCl > 30 mL/min) *Enoxaparin/Lovenox 30 mg SQ daily (WT < 150 kg, CrCl > 10-29 mL/min) *Enoxaparin/Lovenox 30 mg SQ BID (WT < 150 kg, CrCl > 30 mL/min) AND/OR *Sequential Compression Device (SCD) 5 or more Highest Order ONE of the following medications: *Heparin 5000 units SQ TID (Preferred with Epidurals) *Enoxaparin/Lovenox 40 mg SQ daily (WT < 150 kg, CrCl > 30 mL/min) *Enoxaparin/Lovenox 30 mg SQ daily (WT < 150 kg, CrCl > 10-29 mL/min) *Enoxaparin/Lovenox 30 mg SQ BID (WT < 150 kg, CrCl > 30 mL/min) AND *Sequential Compression Device (SCD) Assessment and Plan Assessment (1) Syncope: Code(s): R55 - Syncope and collapse Status: Acute Plan 1. syncope . could be orthostatic or vagal. occurred after standing up. also her systolic was 80s. dehydration on labs. had not taken her prescribed norvasc pt c/o persistent h/a, intermittent stuttering and involuntary twitching after head injury requiring sutures hold norvasc orthostatic check cont ivf tele to exclude arrhythmia eeg but seems low yield Pt evaluation 1 dose solumedrol for left knee swelling and prn pain control. dvt prophylaxis.
[2018-08-19] MEDS ORDERED: MethylPREDNISolone Sod Succinate Inj 125 MG/2 ML Vial IV.PUSH ONE (17:30)
[2018-08-19] MEDS: HYDROmorphone PF Inj 1 MG/ML Ampul IV.PUSH PRN ×2 (18:11→22:45)
[2018-08-19] MEDS: Gabapentin 300 MG Capsule PO SCH (18:35)
[2018-08-19] MEDS: Sod Chloride 0.9% Inj 1,000 ML IV.CONT SCH (18:40)
[2018-08-19] MEDS: Erythromycin Ethylsuccinate Susp 200 MG/5 ML 100 ML Bottle PO SCH ×2 (19:18→21:43)
[2018-08-19] MEDS ORDERED: Influenza (Quadrivalent) Vaccine 0.5 ML Syringe IM ONE (21:00)
[2018-08-20] MEDS: Sod Chloride 0.9% Inj 1,000 ML IV.CONT SCH ×2 (01:55→04:25)
[2018-08-20] MEDS: Temazepam 15 MG Capsule PO PRN (02:13)
[2018-08-20] MEDS: HYDROmorphone PF Inj 1 MG/ML Ampul IV.PUSH PRN (04:21)
[2018-08-20 06:38] LABS: Baso % (Auto) 0.5 % (0.0-2.0); Hematocrit 31.2 % (35.0-46.0); Hemoglobin 10.2 gm/dL (11.6-15.3); Lymph # (Auto) 0.9 th/mm3 (1.0-4.8); Lymph % (Auto) 16.8 % (9.0-44.0); Mean Corpuscular HGB Conc 32.7 % (32.0-36.0); Mean Corpuscular Hemoglobin 26.7 pg (27.0-34.0); Mean Corpuscular Volume 81.7 fL (80.0-100.0); Mean Platelet Volume 8.5 fL (7.0-11.0); Mono # (Auto) 0.1 th/mm3 (0.0-0.9); Mono % (Auto) 1.3 % (0.0-8.0); Neut # (Auto) 4.6 th/mm3 (1.8-7.7); Neut % (Auto) 81.4 % (16.0-70.0); Platelet Count 340 th/mm3 (150-450); Red Blood Count 3.83 mil/mm3 (4.00-5.30); Red Cell Distribution Width 17.1 % (11.6-17.2); White Blood Count 5.6 th/mm3 (4.0-11.0)
[2018-08-20 06:57] LABS: Calcium 8.3 mg/dL (8.5-10.1); Carbon Dioxide 21.2 meq/L (21.0-32.0); Potassium 5.1 meq/L (3.5-5.1)
[2018-08-20] MEDS: Gabapentin 300 MG Capsule PO SCH ×3 (09:28→17:58)
[2018-08-20] MEDS: Erythromycin Ethylsuccinate Susp 200 MG/5 ML 100 ML Bottle PO SCH ×4 (09:29→21:40)
--- NOTE | 2018-08-20 09:54 | P.PNIM ---
Subjective Interval history: left knee feels better still c/o severe h/a and worried about intermittent twitching/stuttering requesting neurology eval today Physical Exam Vital signs: Last Vital Signs Temp 98.1 F 08/20/18 08:00 Pulse 69 08/20/18 08:00 Resp 17 08/20/18 08:00 BP 128/66 08/20/18 08:00 Pulse Ox 94 L 08/20/18 08:00 Narrative: no open lesion or hematoma occipital region neck supple heart reg lung cta abd s/nt ext left knee from. tender minor open skin Results Labs CBC & Chem 7: 08/20/18 05:36 08/20/18 05:36 Assessment and Plan Assessment (1) Syncope: Code(s): R55 - Syncope and collapse Status: Acute Plan 1. syncope . could be orthostatic or vagal. occurred after standing up. also her systolic was 80s. dehydration on labs. had not taken her prescribed norvasc pt c/o persistent h/a, intermittent stuttering and involuntary twitching after head injury requiring sutures hold norvasc orthostatic check stop ivf tele to exclude arrhythmia eeg but seems low yield Pt evaluation and assess ambulation today dc dilaudid pt still c/o severe h/a. hx traumatic head injury. She says the syncope episodes were preceeded by stuttering and she also has intermittent involuntary twitching. She and request neurology evaluation before dc home. dvt prophylaxis. Progress Note: Quality VTE Deep Vein Thrombosis/Pulmonary Embolism Present on Admission: No
[2018-08-20] MEDS ORDERED: Butalbital/APAP/Caff 50/325/40 MG Tablet PO ONE (09:56)
--- NOTE | 2018-08-20 12:02 | ECG ---
Date Performed: 08/19/2018 Time Performed: 12:48:50 PTAGE: 52 years EKG: SINUS BRADYCARDIA MINIMAL VOLTAGE CRITERIA FOR LVH, CONSIDER NORMAL VARIANT PROLONGED QT IN TERVAL ABNORMAL ECG Compared to PREVIOUS TRACING , the rate is slower, nonspecific T wave changes has resolved PREVIOUS TRACING 07/16/18 DOCTOR: Marcelino Daly Interpretating Date/Time 08/20/2018 11:59:30
--- NOTE | 2018-08-20 14:55 | MB ---
cc: Irene Camara MD DATE: 08/20/2018 REASON FOR CONSULTATION: Syncope. HISTORY OF PRESENT ILLNESS: The patient is a 52-year-old woman with a history of carpal tunnel syndrome, lumbar degenerative disk disease, sickle cell trait, depression, hypertension, reflux, obesity, history of cholecystectomy in the past, gastric bypass in the past with lysis of adhesions in January of last year with a laparoscopy who came in because she was actually visiting her mother in the hospital and got up to assist her with her meal tray when she actually lost consciousness, passed out. She states that she had an event similar to what happened yesterday when around 07/09/2018, she tried to get into a truck cab and had difficulty, and then when came down she ended up falling backwards and hit the back of her head, not sure if she passed out before falling or after she fell and hit her head, but she came to the hospital and states she had 5 tito. For a couple of weeks thereafter, she was having trouble with her speech stuttering and then it resolved. She was supposed to see [facility] but missed her appointment. She wants to see neurology on this visit. She does not tell me of any stuttering today or yesterday. Apparently, it showed that when she came into the ER she was hypotensive, 80/57. Currently, her blood pressure is 141/74. Her BP medications were listed as 2.5 mg of Norvasc twice a day. Apparently, her family doctor stopped 2 other blood pressure medication. Even though she did not take her blood pressure overnight, she was still found to be hypotensive. She states she did have her EEG today. FAMILY HISTORY: Lung cancer in the father. SOCIAL HISTORY: She lives with her and 2 children. She does not smoke, occasionally drinks a glass of wine. Does not use any illicit drugs. Disabled due to severe carpal tunnel and lumbar disk disease. HOME MEDICATIONS: 1. Gabapentin 600 mg 3 times a day. 2. Zanaflex 4 mg daily as needed. 3. Norvasc 2.5 mg b.i.d. 4. Ambien as needed. 5. Valtrex as needed. 6. Bethanechol 25 mg 3 times a day. 7. Pantoprazole 40 mg daily. 8. Erythromycin 250 mg every 8 hours. ALLERGIES: ASPIRIN AND IBUPROFEN. PHYSICAL EXAMINATION: VITAL SIGNS: Current temperature is 97.5, pulse 74, respiratory rate 17, blood pressure 141/74. NECK: Supple. HEART: Regular. NEUROLOGIC: She is awake, alert. She is fluent. She does not have any stuttering. No expressive or receptive aphasia. Face is symmetrical. Tongue midline. Motor: She has carpal tunnel splints, but she does not exhibit any drift. There is no leg lag. Toes are downgoing. Cerebellar testing is normal. Gait is deferred at this time. LABORATORY DATA: Reviewed. Hemoglobin is 10.2, platelets are 340,000, white count 5.6. Chemistries: Her GFR is 72, glucose 154, calcium 8.3. Cardiac enzymes: Troponin less than 0.02. Urinalysis is unremarkable. Tox screen was positive for opiates. She does take, I believe she stated, Jones. CT head did not show anything acute. IMPRESSION: Syncope, possible syncope versus other to be determined, may be due to hypotension. I will give her a complete evaluation as she is already in the hospital. We will get an MRI of the brain, MRA [place] of [place], carotid ultrasound. She already had an EEG. Get a thyroid panel as well as B12 level. Maintain her on telemetry and I would discharge her with outpatient Holter if her workup proves to be unremarkable. Continue current care. If workup is unremarkable, then certainly discharge planning and most likely this was due to hypotensive event. MD MECCA Mi/sejal , 02:21 PM , 02:31 PM
[2018-08-20] MEDS ORDERED: Butalbital/APAP/Caff 50/325/40 MG Tablet PO PRN (16:00)
[2018-08-20 16:41] LABS: Free T4 (Free Thyroxine) 0.76 ng/dL (0.76-1.46); Thyroid Stimulating Hormone 0.221 uIU/mL (0.358-3.740)
--- NOTE | 2018-08-20 16:55 | MG ---
cc: Irene Camara MD AGE: 52 years EEG NUMBER: [id number]. REFERRING PHYSICIAN: Vikram Huerta MD ROOM: 1410 Awake, drowsy, asleep, with photic done. EEG on 01/14/[address] negative. Admitted with fall, dizzy, syncope, was hypotensive. MEDICATIONS: Currently on [place], Neurontin, Fioricet. DESCRIPTION OF RECORD: Somewhat disorganized, constantly moving, but overall, the patient exhibits 8 Hz, 20-40 microvolts, normal alpha. No epileptiform features, tends to fall asleep. There is some attenuation. Photic stimulation shows a driving response. IMPRESSION: Overall, normal-appearing electroencephalogram. No epileptiform features. Clinical correlation. Irene Camara MD DF/juan carlos , 04:14 PM , 04:18 PM
--- NOTE | 2018-08-20 18:21 | ECHRPT ---
Indication: SYNCOPE CONCLUSIONS The left ventricular systolic function is normal with an estimated ejection fraction in the range of 60-65%. Left ventricular diastolic function parameters are normal. There is trace tricuspid valve regurgitation. BP: / HR: Rhythm: Sinus MEASUREMENTS (Male / Female) Normal Values Technical Quality:Poor 2D ECHO LV Diastolic Diameter PLAX 4.9 cm 4.2 - 5.9 / 3.9 - 5.3 cm LV Systolic Diameter PLAX 3.7 cm IVS Diastolic Thickness 1.1 cm 0.6 - 1.0 / 0.6 - 0.9 cm LVPW Diastolic Thickness 1.1 cm 0.6 - 1.0 / 0.6 - 0.9 cm LV Relative Wall Thickness 0.4 RV Internal Dim ED PLAX 4.1 cm LVOT Diameter 2.3 cm Aortic Root Diameter 3.3 cm LA Systolic Diameter LX 4.5 cm 3.0 - 4.0 / 2.7 - 3.8 cm M-MODE AV Cusp Separation MM 2.0 cm DOPPLER AV Peak Velocity 170.0 cm/s AV Peak Gradient 11.6 mmHg LVOT Peak Velocity 122.0 cm/s LVOT Peak Gradient 6.0 mmHg AV Area Cont Eq pk 3.0 cm Mitral E Point Velocity 78.0 cm/s Mitral A Point Velocity 85.9 cm/s Mitral E to A Ratio 0.9 LV E' Lateral Velocity 12.5 cm/s Mitral E to LV E' Lateral Ratio 6.2 TR Peak Velocity 293.0 cm/s TR Peak Gradient 34.3 mmHg Right Atrial Pressure 10.0 mmHg Pulmonary Artery Systolic Pressu 44.3 mmHg Right Ventricular Systolic Press 44.3 mmHg PV Peak Velocity 175.0 cm/s PV Peak Gradient 12.3 mmHg FINDINGS LEFT VENTRICLE Normal left ventricular size. Wall thickness is normal. The left ventricular systolic function is normal with an estimated ejection fraction in the range of 60-65%. Left ventricular diastolic function parameters are normal. RIGHT VENTRICLE Grossly normal LEFT ATRIUM The left atrial size is mildly dilated. RIGHT ATRIUM The right atrium is not well visualized. ATRIAL SEPTUM The interatrial septum not well visualized. AORTA The aortic root and proximal ascending aorta are not well visualized. MITRAL VALVE Structurally normal mitral valve. No mitral valve stenosis or regurgitation. AORTIC VALVE Trileaflet aortic valve. No aortic valve stenosis or regurgitation. Aortic valve sclerosis is present. TRICUSPID VALVE Structurally normal tricuspid valve. There is trace tricuspid valve regurgitation. The estimated pulmonary arterial pressure is 44 mmHg. PULMONARY VALVE No pulmonary valve regurgitation or stenosis. VESSELS The inferior vena cava was not well visualized. PERICARDIUM No pericardial effusion. Timi Larios DO (Electronically Signed) Final Date:20 August 2018 18:21
[2018-08-21] MEDS: Temazepam 15 MG Capsule PO PRN (00:19)
[2018-08-21] MEDS: Erythromycin Ethylsuccinate Susp 200 MG/5 ML 100 ML Bottle PO SCH ×4 (09:04→22:05)
[2018-08-21] MEDS: Gabapentin 300 MG Capsule PO SCH ×3 (09:05→18:21)
--- NOTE | 2018-08-21 10:23 | P.PNIM ---
Subjective Interval history: pt reports ambulating to bathroom, then on way back was dizzy and went down on the left knee again. no loc and caught herself on edge of bed. orthostatics checked immediately after the event were negative. pt coninues to c/o headaches and worried about intermittent involuntary twitching. Physical Exam Vital signs: Last Vital Signs Temp 97.7 F 08/21/18 04:00 Pulse 61 08/21/18 04:00 Resp 20 08/21/18 04:00 BP 101/68 08/21/18 04:00 Pulse Ox 98 08/21/18 04:00 Narrative: no open lesion or hematoma occipital region neck supple heart reg lung cta abd s/nt ext left knee from. tender minor open skin Results Labs CBC & Chem 7: 08/20/18 05:36 08/20/18 05:36 Assessment and Plan Assessment (1) Syncope: Code(s): R55 - Syncope and collapse Status: Acute Plan 1. syncope . could be orthostatic or vagal. occurred after standing up. also her systolic was 80s. dehydration on labs. had not taken her prescribed norvasc pt c/o persistent h/a, intermittent stuttering and involuntary twitching after head injury requiring sutures in June. Also some medications were added around and after this time as well and will consider mediation side effects hold norvasc stop bethanacol orthostatics checked. she had one orthostatic on 08/19 suggestive positive. but otherwise negative. tele to exclude arrhythmia. negative so far. eeg negative for epileptiform acitivity Pt evaluation and assess ambulation today pt still c/o severe h/a. hx traumatic head injury. She says the syncope episodes were preceeded by stuttering and she also has intermittent involuntary twitching. She and requested neurology evaluation before dc home. mri/a brain and carotid ordered by neuro. pending. dvt prophylaxis. Progress Note: Quality VTE Deep Vein Thrombosis/Pulmonary Embolism Present on Admission: No
--- NOTE | 2018-08-21 10:38 | US ---
EXAM DATE: 08/21/2018 10:24 AM EST AGE/SEX: 52 years / Female INDICATIONS: Syncope. CLINICAL DATA: This is the patient's subsequent encounter. Patient reports that signs and symptoms h ave been present for 1 day and indicates a pain score of 0/10. MEDICAL/SURGICAL HISTORY: Arthritis. Gastroesophageal reflux disease. Bulging lumbar disc. Dep ression. Fibromyalgia. Trigger finger. Hypertension. Dysfunctional uterine bleeding. Morbid obesity. Sciatica. Sickle cell trait. Torn rotator cuff. section. Gastric bypass. Carpal tunnel rele ase, both wrists. Cholecystectomy. COMPARISON: [facility] [place], US CAROTID DOPPLER BI, 01/13/2018. . VELOCITY PARAMETERS: ICA/CCA Ratio: Right 1.0 , Left 0.9 ICA: Right 79 cm/sec, Left 95 cm/sec CCA: Right 81 cm/sec, Left 107 cm/sec ECA: Right 97 cm/sec, Left 70 cm/sec Vertebral: Right 62 cm/sec antegrade, Left 71 cm/sec antegrade FINDINGS: Right Carotid: No significant plaque is visualized.The waveforms are within normal limits. Left Carotid: No significant plaque is visualized. The waveforms are within normal limits. Other: None. CONCLUSION: 1. Right Internal Carotid Artery: No narrowing or significant plaque. 2. Left Internal Carotid Artery: No narrowing or significant plaque. Electronically signed by: Shola Harding MD Board Certified Radiologist 08/21/2018 10:36 AM EST
--- NOTE | 2018-08-21 12:16 | MR ---
EXAM DATE: 08/21/2018 12:11 PM EST AGE/SEX: 52 years / Female INDICATIONS: Dizziness. CLINICAL DATA: This is the patient's initial encounter. Patient reports that signs and symptoms have been present for 1 day and indicates a pain score of 0/10. MEDICAL/SURGICAL HISTORY: Hypertension. Gastric bypass. Cholecystectomy. section. COMPARISON: [facility] [place], MR HEAD W & W/O CONTRAST, 01/12/2018. . TECHNIQUE: Multiplanar, multisequence examination of the brain was performed without contrast. FINDINGS: Cerebrum: The ventricles are normal for age. No evidence of midline shift, mass lesion, hemorrhage or acute infarction. No extraaxial fluid collections are seen. The pituitary gland and suprasellar cistern are normal in configuration. White Matter: 5 mm chronic focus of chronic FLAIR signal abnormality in the left frontal lobe is unch anged. No new or other significant signal abnormalities are seen in the white matter otherwise. Posterior Fossa: The cerebellum and brainstem are intact. The 4th ventricle is midline. The cerebel lopontine angle is unremarkable. The cerebellar tonsils are normal in position. Diffusion Imaging: No focal areas of restricted diffusion are seen. No evidence of acute infarction . Extracranial: The visualized portions of the orbits and paranasal sinuses are unremarkable. CONCLUSION: No acute intracranial abnormality. Electronically signed by: Shola Harding MD Board Certified Radiologist 08/21/2018 12:15 PM EST
--- NOTE | 2018-08-21 12:18 | MR ---
EXAM DATE: 08/21/2018 12:11 PM EST AGE/SEX: 52 years / Female INDICATIONS: Dizziness. CLINICAL DATA: This is the patient's initial encounter. Patient reports that signs and symptoms have been present for 1 day and indicates a pain score of 0/10. MEDICAL/SURGICAL HISTORY: Hypertension. Gastric bypass. Cholecystectomy. section. COMPARISON: [place], MRA HEAD W/O CONTRAST, 01/13/2018. . TECHNIQUE: 3D [id number] MRA was performed. Source images, multiplanar STS MIP, and 3D volum e MIP reconstructions were reviewed. FINDINGS: There is excellent visualization of the major intracranial arteries out to the second-order branch ve ssels. There is no evidence for aneurysm, vessel truncation or stenosis, and no evidence for vascula r malformation. CONCLUSION: Intracranial arteries are within normal limits. Electronically signed by: Shola Harding MD Board Certified Radiologist 08/21/2018 12:17 PM EST
[2018-08-21] MEDS: HYDROmorphone PF Inj 0.5 MG/0.5 ML Syringe IV.PUSH PRN ×3 (13:00→23:34)
[2018-08-21] MEDS: Topiramate 25 MG Tablet PO SCH (13:53)
[2018-08-22] MEDS: Temazepam 15 MG Capsule PO PRN (01:16)
[2018-08-22] MEDS: HYDROmorphone PF Inj 0.5 MG/0.5 ML Syringe IV.PUSH PRN (04:50)
[2018-08-22] MEDS: Erythromycin Ethylsuccinate Susp 200 MG/5 ML 100 ML Bottle PO SCH ×4 (10:08→20:55)
[2018-08-22] MEDS: Topiramate 25 MG Tablet PO SCH (10:09)
[2018-08-22] MEDS: Gabapentin 300 MG Capsule PO SCH ×3 (10:09→18:37)
[2018-08-22] MEDS ORDERED: MethylPREDNISolone Sod Succinate Inj 125 MG/2 ML Vial IV.PUSH ONE (10:28)
--- NOTE | 2018-08-22 10:32 | P.PNIM ---
Subjective Interval history: pt says her left knee is still sore also c/o persistent h/a no involuntary jerking/twitching reported. still gets lightheaded. Physical Exam Vital signs: Last Vital Signs Temp 97.6 F 08/22/18 08:00 Pulse 65 08/22/18 08:00 Resp 20 08/22/18 08:00 BP 94/58 L 08/22/18 09:01 Pulse Ox 96 08/22/18 08:00 Narrative: no open lesion or hematoma occipital region neck supple heart reg lung cta abd s/nt ext left knee from. tender minor open skin Results Labs CBC & Chem 7: 08/20/18 05:36 08/20/18 05:36 Assessment and Plan Assessment (1) Syncope: Code(s): R55 - Syncope and collapse Status: Acute Plan 1. syncope . could be orthostatic or vagal. occurred after standing up. also her systolic was 80s. dehydration on labs. had not taken her prescribed norvasc pt c/o persistent h/a, intermittent stuttering and involuntary twitching after head injury requiring sutures in June. Also some medications were added around and after this time as well and will consider medication side effects pt had a fall coming back from bathroom and struck her left knee again on 08/21 hold norvasc stop bethanacol orthostatics checked. she had one orthostatic on 08/19 suggestive positive. but otherwise negative. tele to exclude arrhythmia. negative so far. eeg negative for epileptiform acitivity mri/a brain and carotid u/s all negative Pt evaluation and assess ambulation today dc dilaudid. dose solumedrol for left knee swelling. knee xray. pt still c/o severe h/a. hx traumatic head injury. She says the syncope episodes were preceeded by stuttering and she also has intermittent involuntary twitching. She and requested neurology evaluation before dc home. Progress Note: Quality VTE Deep Vein Thrombosis/Pulmonary Embolism Present on Admission: No
--- NOTE | 2018-08-22 11:45 | XR ---
EXAM DATE: 08/22/2018 11:39 AM EST AGE/SEX: 52 years / Female INDICATIONS: Left knee pain, fell CLINICAL DATA: This is the patient's subsequent encounter. Patient reports that signs and symptoms h ave been present for 4 - 6 days and indicates a pain score of 3/10. MEDICAL/SURGICAL HISTORY: None. None. [place] [facility] [place] 4[place]/2018. . FINDINGS: No fracture or subluxation demonstrated of the left knee. No perceptible joint effusion. Mild osteoarthritis of the medial and patellofemoral compartment is again noted. CONCLUSION: Intact left knee. No joint effusion. Mild degenerative changes. Electronically signed by: Shola Harding MD Board Certified Radiologist 08/22/2018 11:44 AM EST
--- NOTE | 2018-08-22 19:06 | XR ---
EXAM DATE: 08/22/2018 7:00 PM EST AGE/SEX: 52 years / Female INDICATIONS: Trauma. CLINICAL DATA: This is the patient's initial encounter. Patient reports that signs and symptoms have been present for 2 days and indicates a pain score of 8/10. MEDICAL/SURGICAL HISTORY: None. None. COMPARISON: [facility], SHOULDER RIGHT COMPLETE (>2VWS), 07/05/2016. . FINDINGS: Bony structures are intact and in normal alignment. Joints are intact without dislocation or signifi cant arthropathy Mild osteoarthritis of the right acromioclavicular joint. Osseous density is normal. Soft tissues a re unremarkable. No radiopaque foreign bodies seen. CONCLUSION: Mild osteoarthrosis of the acromioclavicular joint. Electronically signed by: Liborio Xavier MD Board Certified Radiologist 08/22/2018 7:05 PM EST
[2018-08-23] MEDS: Temazepam 15 MG Capsule PO PRN (00:10)
[2018-08-23] MEDS: Topiramate 25 MG Tablet PO SCH (09:34)
[2018-08-23] MEDS: Gabapentin 300 MG Capsule PO SCH ×3 (09:34→18:05)
[2018-08-23] MEDS: Erythromycin Ethylsuccinate Susp 200 MG/5 ML 100 ML Bottle PO SCH ×4 (09:35→21:24)
--- NOTE | 2018-08-23 14:02 | P.DS ---
DS: Providers Date of admission: 08/19/18 16:53 Primary care physician: Naldo Montano MD Consults: 08/20/18 09:35 Consult to Neurology Routine Consulting Provider: Irene Camara Reason for Consultation: syncope, c/o stuttering and involuntary twitching, h /a and recent head trauma Notified:: Office Spoke with:: ty Date Notified:: 08/20/18 Time Notified:: 09:43 Ordering Provider: TERRI Brief History from admission: The patient is a 52-year-old female with past medical history which includes morbid obesity, carpal tunnel syndrome, lumbar degenerative disc disease, sickle cell trait, depression, hypertension, GERD, distant history of open cholecystectomy in the late and a gastric bypass in 1995. 01/25/18 patient had extensive lysis of adhesions, diagnostic laparoscopy with Dr. Castaneda. Patient then presented [place] [facility] [place]18 with complains of abdominal pain with nausea and vomiting. She was also seen in the ER 02/09/18 for similar symptoms and was advised to follow up with her PCP and Dr. Castaneda. She was then diagnosed with gastroparesis. Pt was visiting her mother in hospital. She stayed then night and missed all of her medications. She stood up to assist her mother and after a minute began feeling dizzy/vertigo and the passed out. She then remembered being assisted off the floor. She hit back of her head and left knee. She remembers stuttering earlier this morning. She says similar events occurred in June where she passed out after stuttering. She reports a head injury last year which required sutures in back of head. She reports intermittent involuntary twitching and her pcp wanted her evaluated by neurology. In ED pt noted to have low bp with systolics 80s. Her labs showed some mild dehyration. Her bp meds were only 2.5mg bid norvasc as her pcp stopped 2 other bp meds last year for lower bp. Pt didn't take her bp meds last night or this AM and was still found to have low bp. denies cp or diaphoresis. Past Medical History Morbid obesity Carpal tunnel syndrome Lumbar degenerative disc disease Sickle cell trait Depression Hypertension GERD Gastroparesis S/P EGD 02/11/18 -> 1. Retained food in esophagus, pushed into the stomach 2. Evidence of previous surgery, retained food in the stomach and duodenum 3. Normal duodenal mucosa in the 2nd part of the duodenum 4. Retroflexed views revealed no abnormalities Past Surgical History 01/25/18 patient had extensive lysis of adhesions, diagnostic laparoscopy with Dr. Castaneda Gastric bypass 1995 Open cholecystectomy around 1985 Multiple carpal tunnel surgeries (2 on the right and one on the left) Bilateral tubal ligation Uterine ablation 2 Family History Father of lung cancer complications, he was chronic smoker Otherwise noncontributory Social History Lives with her and 2 adult children Never smoked tobacco Occasionally drinks alcohol in the form of a glass of wine or so but not even on a weekly basis Denies illicit drug use Disabled due to severe carpal tunnel syndrome and lumbar disc issues. Previously worked at the [employer]. She was born and raised locally. Meds erythromycin 250 mg PO Q8HR pantoprazole 40 mg PO DAILY ....pt unclear if this was stopped bethanacol 25mg tid prn valtrex ambien prn norvasc 2.5mg bid tizanadine 4x daily prn 4mg gabapentin 600mg tid DS: Diagnosis Discharge Diagnosis (1) Syncope: Status: Acute DS: Summary 1. syncope - could be orthostatic or vagal. - occurred after standing up. - also her systolic was 80s. dehydration on labs. had not taken her prescribed norvasc - pt c/o persistent h/a, intermittent stuttering and involuntary twitching after head injury - requiring sutures in June. - Also some medications were added around and after this time as well and will consider medication side effects - pt had a fall coming back from bathroom and struck her left knee again on 08/21 - Pt's norvasc was stopped - bethanacol also stopped - orthostatics checked. she had one orthostatic on 08/19 suggestive positive. but otherwise negative. - telemetry did NOT show arrhythmia - EEG (08/20/18) --> NO seizure activity - Brain MRI/MRA (08/21/18) --> NO acute abnormalities - Pt received extra dose of solumedrol for knee pain - dilaudid stopped - Pt evaluated by Neurology (08/20/18), Dr. Camara - Dr. Camara recommended MRI/MRA brain, EEG, TSH, B12, observation on telemtery - if above findings negative then, outpt holter - "If w/u unremarkable, then certainly discharge planning and most likely this was due to hypotensive event." - I have reviewed all clinical data, labs, imaging studies. - Fortunately, there were NO acute findings. - I concur that likely etiology of pt's presentation was likely d/t hypotension. Narcotics and polypharmacy may have contributed as well. - Pt does NOT require continued hospitalization. - Pt recommends discharge to SNF. Pt adamantly refuses SNF. - I have requested that [facility] arrange [facility] and home PT. - Pt to f/u with PCP, Dr. Naldo Montano, in 1 week. Case d/w Dr. Naldo Montano (08/24/18). Dr. Montano agrees with discharge. - I will NOT resume antihypertensives at this time d/t probable etiology of pt' s hypotension. - Pt to keep BP diary. Maintain low sodium diet. F/u with Dr. Montano in 1 week - Pt should have prolonged outpt event monitor x 3 weeks - Also, recommend that Neurology consider outpt EMG testing, but will defer to Dr. Camara. Time Spent with Patient Total time spent providing and/or coordinating discharge services: Quality: VTE Deep Vein Thrombosis/Pulmonary Embolism Present on Admission: No Results Impressions ITS Impressions Head CT 08/19/18 12:32 CONCLUSION: No acute intracranial injury . Carotid Doppler Study 08/21/18 00:00 CONCLUSION: 1. Right Internal Carotid Artery: No narrowing or significant plaque. 2. Left Internal Carotid Artery: No narrowing or significant plaque. Head MRI 08/21/18 00:00 CONCLUSION: No acute intracranial abnormality. Head MRA 08/21/18 00:00 CONCLUSION: Intracranial arteries are within normal limits. Knee X-Ray 08/22/18 00:00 CONCLUSION: Intact left knee. No joint effusion. Mild degenerative changes. Shoulder X-Ray 08/22/18 00:00 CONCLUSION: Mild osteoarthrosis of the acromioclavicular joint. Discharge Plan Discharge Disposition Patient Disposition: 06 Disch W/Home Health Service Discharge Condition Condition: Stable Discharge Order Discharge Orders: Discharge Order (Routine); Ordered 08/23/18 Ordered By: Dariusz Luna Discharge Details Anticipated Discharge Date: 08/23/18 Physicians Team ED Provider: Laverne العراقي ED Midlevel Provider: Iesha Gallo Primary Care Provider: Naldo Montano Attending Provider: Vikram Huerta Other Providers: Irene Camara Rxs /Orders / Referrals /Forms Prescriptions: New temazepam 15 mg Capsule 15 mg PO HS PRN (Reason: Insomnia) Qty: 20 RF: 0 erythromycin ethylsuccinate [E.E.S. Granules] 200 mg/5 mL Suspension For Reconstitution 200 mg PO QID 30 Days Qty: 600 RF: 0 topiramate [Topamax] 25 mg Tablet 25 mg PO DAILY Qty: 30 RF: 0 Continue gabapentin 300 mg Capsule 600 mg PO TID RF: 0 hydrocodone-acetaminophen 10-325 mg Tablet 1 tab PO Q6H PRN (Reason: Pain) Qty: 50 RF: 0 Discontinued zolpidem 5 mg Tablet 5 mg PO HS RF: 0 tizanidine 4 mg Tablet 4 mg PO QID RF: 0 amlodipine 2.5 mg Tablet 5 mg PO BID RF: 0 diphenhydramine HCl [Benadryl] 25 mg Capsule 25 mg PO Q4H PRN (Reason: Allergic Symptoms) RF: 0 acyclovir 200 mg Capsule 1,000 mg PO TID RF: 0 loratadine 10 mg Capsule 10 mg PO DAILY RF: 0 promethazine 25 mg tablet 25 mg PO QID PRN (Reason: Vomiting) RF: 0 No Action pantoprazole [Protonix] [address] For Susp In Packet 40 mg PO DAILY RF: 0 bisacodyl [Dulcolax (bisacodyl)] 5 mg Tablet,Delayed Release (Dr/Ec) 5 mg PO DAILY PRN (Reason: Constipation) RF: 0 metoclopramide HCl 10 mg Tablet 10 mg PO QID RF: 0 Referrals: Irene Camara MD [Physician] - See Instructions (f/u with Dr. Irene Camara, Neurology, in 1 week) Naldo Montano MD [Primary Care Provider] - See Instructions Status ED Status: Left Department
--- NOTE | 2018-08-24 09:01 | P.DCO ---
Diagnosis (1) Syncope: Status: Acute Physical Therapy Order: Evaluate and treat, Improve ambulation and Strength and gait training Home Health Nursing Order: Medical education, Signs/symptoms of disease process, Medication education-adverse effect and Nursing assessment with vital signs Product Builder Order: To evaluate: Living conditions/environment and Support services Order: To provide: Long range planning and Community services Case Management Consult Case Management Consult-Home Health: Yes I have seen patient Kelly Pelletier on 08/24/18. My clinical findings support the need for the requested home health care services because: Limited mobility due to disease progression, Deconditioned with increased weakness, Medication compliance is questionable, Limited ability to care for self, Need for psychosocial assistance, Impaired cognition/judgement and High risk of falls I certify that my clinical findings support that this patient is homebound because: Impaired cognitive ability/safety, Unsteady gait/balance, Unsafe to leave home unassisted, Need for psychosocial assistance and Unable to use public transportation
[2018-08-24] MEDS: Gabapentin 300 MG Capsule PO SCH ×3 (09:14→17:51)
[2018-08-24] MEDS: Erythromycin Ethylsuccinate Susp 200 MG/5 ML 100 ML Bottle PO SCH ×4 (09:15→20:45)
[2018-08-24] MEDS: Topiramate 25 MG Tablet PO SCH (09:15)
--- NOTE | 2018-08-24 09:51 | P.PNIM ---
Subjective Interval history: No new complaints. Pt was discharged yesterday. Pt concerned about fluxuations in her blood pressure readings. Per pt, she is use to SBP in low 100s and deviation of SBP up to 140 causes her LARA. Physical Exam Vital signs: Last Vital Signs Temp 97.4 F L 08/24/18 08:00 Pulse 69 08/24/18 08:00 Resp 16 08/24/18 08:00 BP 115/78 08/24/18 08:00 Pulse Ox 97 08/24/18 08:00 Narrative: no open lesion or hematoma occipital region neck supple heart reg lung cta abd s/nt Results Labs CBC & Chem 7: 08/20/18 05:36 08/20/18 05:36 Assessment and Plan Assessment (1) Syncope: Code(s): R55 - Syncope and collapse Status: Acute Plan 1. syncope . could be orthostatic or vagal. occurred after standing up. also her systolic was 80s. dehydration on labs. had not taken her prescribed norvasc pt c/o persistent h/a, intermittent stuttering and involuntary twitching after head injury requiring sutures in June. Also some medications were added around and after this time as well and will consider medication side effects - please see my discharge summary from 08/23/18 - Pt does NOT need continued hospitalization - blood pressure control could be further adjusted at SNF or home with [facility] if pt refuses SNF. - Case d/w pt's PCP, Dr. Naldo Montano. He agrees with discharge. - Pt should have prolonged event monitor. This can be arranged by PCP at [facility]. - [place] staff needs to utilized appropriately sized blood pressure cuff. Progress Note: Quality VTE Deep Vein Thrombosis/Pulmonary Embolism Present on Admission: No
[2018-08-25] MEDS ORDERED: Butalbital/APAP/Caff 50/325/40 MG Tablet PO ONE (02:30)
[2018-08-25] MEDS: Gabapentin 300 MG Capsule PO SCH ×3 (09:06→17:22)
[2018-08-25] MEDS: Topiramate 25 MG Tablet PO SCH (09:07)
[2018-08-25] MEDS: Erythromycin Ethylsuccinate Susp 200 MG/5 ML 100 ML Bottle PO SCH ×4 (09:16→21:44)
--- NOTE | 2018-08-25 17:09 | MR ---
EXAM DATE: 08/25/2018 5:03 PM EST AGE/SEX: 52 years / Female INDICATIONS: . Stenosis. CLINICAL DATA: This is the patient's subsequent encounter. Patient reports that signs and symptoms h ave been present for 4 - 6 days and indicates a pain score of 3/10. MEDICAL/SURGICAL HISTORY: Hypertension. Gastroesophageal reflux disease. Gastroparesis. Gastr ic bypass. Cholecystectomy. Tubal ligation. . Carpal tunnel. COMPARISON: [facility], MR CERVICAL SPINE W/O CONTRAST, 01/20/2015. . TECHNIQUE: Multiplanar, multisequence MRI examination of the cervical spine was performed without co ntrast. FINDINGS: Vertebrae: Normal vertebral body height. Homogeneous marrow signal. Alignment: Normal. Cord: Normal configuration and signal. Post Fossa: The cerebellar tonsils are normal in position. C2-C3: The thecal sac has a normal configuration. There is no evidence of disc herniation or spinal canal stenosis. The neural foramina are patent bilaterally. C3-C4: The thecal sac has a normal configuration. There is no evidence of disc herniation or spinal canal stenosis. The neural foramina are patent bilaterally. C4-C5: Broad-based disc osteophyte complex. Central canal diameter within normal limits. Neural fora edgard diameters within normal limits. C5-C6: Broad-based disc osteophyte complex and central disc protrusion again seen with effacement of the CSF anteriorly. Posteriorly CSF remains visible. No evidence of spinal cord deformity. Neural fo raminal diameters within normal limits. C6-C7: Broad-based disc osteophyte complex right greater than left. Central canal diameter within no rmal limits. Neural foraminal diameters within normal limits. C7-T1: No epidural impressions seen. CONCLUSION: No significant interval change. Degenerative findings again seen with mild central canal narrowing at C5-6. Electronically signed by: Duane Davison MD Board Certified Radiologist 08/25/2018 5:07 PM EST
--- NOTE | 2018-08-25 18:06 | P.PNIM ---
Subjective Interval history: Pt c/o continued episodes of dizziness. low BP readings noted, but orthostatic readings negative. Pt continuing to request prn norco for pain. Physical Exam Vital signs: Last Vital Signs Temp 97.8 F 08/25/18 12:00 Pulse 78 08/25/18 08:00 Resp 18 08/25/18 08:00 BP 88/56 L 08/25/18 11:35 Pulse Ox 99 08/25/18 08:00 Narrative: no open lesion or hematoma occipital region neck supple heart reg lung cta abd s/nt Results Labs CBC & Chem 7: 08/20/18 05:36 08/20/18 05:36 Assessment and Plan Assessment (1) Syncope: Code(s): R55 - Syncope and collapse Status: Acute Plan 1. syncope . could be orthostatic or vagal. occurred after standing up. also her systolic was 80s. dehydration on labs. had not taken her prescribed norvasc pt c/o persistent h/a, intermittent stuttering and involuntary twitching after head injury requiring sutures in June. Also some medications were added around and after this time as well and will consider medication side effects - please see my discharge summary from 08/23/18 - Pt does NOT need continued hospitalization - blood pressure control could be further adjusted at SNF or home with [facility] if pt refuses SNF. - Case d/w pt's PCP, Dr. Naldo Montano. He agrees with discharge. - Pt should have prolonged event monitor. This can be arranged by PCP at [facility]. - [place] staff needs to utilized appropriately sized blood pressure cuff. - hypotension noted. - Pt continuing to request norco for chronic pain - orthostatic readings were negative - MRI c-spine did NOT show cervical spine impingement. - change norco to ultram q8 with parameters - r/o autoimmune disease. obtain sed rate, KIRSTEN - obtain AM cortisol. - Pt was unhappy and confrontational about her pain medication and sleeping pill. - I again explained to the pt that I discussed the case with her PCP as requested. - I have rethought the case & I am attempting to r/o underlying endocrine disease or cortisol deficiency which might contribute to her hypotension and dizziness. - Pt can NOT receive narcotics with low blood pressure & I have specified parameters. Pt is NOT happy with this does NOT feel that change of norco to ultram will work. I have offered to also try IV tylenol, but pt is NOT interested. - I have offered to find pt a different physician if she would prefer. - Visit with pt was in the presense of her floor nurse Veronika and the pt's . Progress Note: Quality VTE Deep Vein Thrombosis/Pulmonary Embolism Present on Admission: No
[2018-08-25 22:29] LABS: Uric Acid 4.5 mg/dl (2.6-6.0)
[2018-08-25 22:39] LABS: Free T4 (Free Thyroxine) 0.83 ng/dL (0.76-1.46)
[2018-08-26 06:49] LABS: Baso % (Auto) 0.3 % (0.0-2.0); Eos # (Auto) 0.2 th/mm3 (0.0-0.4); Eos % (Auto) 3.3 % (0.0-4.0); Hematocrit 31.1 % (35.0-46.0); Hemoglobin 10.4 gm/dL (11.6-15.3); Lymph # (Auto) 2.8 th/mm3 (1.0-4.8); Lymph % (Auto) 40.5 % (9.0-44.0); Mean Corpuscular HGB Conc 33.4 % (32.0-36.0); Mean Corpuscular Hemoglobin 27.4 pg (27.0-34.0); Mean Corpuscular Volume 82.1 fL (80.0-100.0); Mean Platelet Volume 8.3 fL (7.0-11.0); Mono # (Auto) 0.5 th/mm3 (0.0-0.9); Mono % (Auto) 7.3 % (0.0-8.0); Neut # (Auto) 3.4 th/mm3 (1.8-7.7); Neut % (Auto) 48.6 % (16.0-70.0); Platelet Count 322 th/mm3 (150-450); Red Blood Count 3.79 mil/mm3 (4.00-5.30); Red Cell Distribution Width 16.7 % (11.6-17.2)
[2018-08-26 07:06] LABS: Anion Gap 8 meq/L (5-15); Blood Urea Nitrogen 17 mg/dL (7-18); Carbon Dioxide 27.5 meq/L (21.0-32.0); Chloride 105 meq/L (98-107); Glomerular Filtration Rate Greater Than 89 mL/min (>89); Glucose,Random 107 mg/dL (74-106); Magnesium 2.3 mg/dL (1.5-2.5); Phosphorus 3.4 mg/dL (2.5-4.9); Potassium 4.5 meq/L (3.5-5.1); Sodium 140 meq/L (136-145)
[2018-08-26] MEDS: Gabapentin 300 MG Capsule PO SCH ×3 (09:44→21:11)
[2018-08-26] MEDS: Erythromycin Ethylsuccinate Susp 200 MG/5 ML 100 ML Bottle PO SCH ×3 (09:45→18:39)
[2018-08-26] MEDS: Topiramate 25 MG Tablet PO SCH (09:45)
[2018-08-26] MEDS ORDERED: Acetaminophen 325 MG Tablet PO PRN (10:19)
[2018-08-26] MEDS: Ketorolac Inj 30 MG/ML (IVP) Vial IV.PUSH SCH ×2 (14:30→21:11)
--- NOTE | 2018-08-26 18:07 | P.PNIM ---
Subjective Interval history: 52-year-old -[place]ux[place] female admitted after dizziness with syncopal episode and ongoing hypotension. Patient had extensive neurologic workup and echocardiogram without significant findings. Patient still having ongoing headache, dizziness, and a fall in hospital due to dizziness. She is complaining of headache with shooting pains from her posterior scalp to the front of her head which are intermittent and moderate severe. She denies neck pain fever shortness of breath chest pain palpitations or other symptoms. Patient requested a new physician and I discussed the case with Dr. Luna who has asked me to accept the patient to my service. Patient 's case was discussed with Dr. Luna in detail and the chart has been reviewed in detail and the patient has been seen and examined. Patient states she is feeling overall a little better she has been having loose stools because of liquid erythromycin the oral pills do not cause diarrhea. She states when she gets to the bathroom she is lightheaded and dizzy. She denies nausea vomiting, no abdominal chronic right upper quadrant pain, she is also complaining of persistent pain in her left knee which is why she is not been able to participate with physical therapy much. She is afraid to get up and fall again. Physical Exam Vital signs: Vital Signs 08/25/18 20:00 08/26/18 00:00 08/26/18 00:30 Temperature 97.2 F L 97.7 F Pulse Rate 101 H 77 74 Respiratory Rate 20 18 Blood Pressure 84/64 L 94/64 L Pulse Oximetry 97 97 08/26/18 04:00 08/26/18 05:40 08/26/18 07:00 Temperature 97.8 F 98.1 F Pulse Rate 94 H 84 70 Respiratory Rate 18 16 Blood Pressure 86/54 L 97/57 L Pulse Oximetry 97 100 08/26/18 08:00 08/26/18 08:06 08/26/18 11:50 Temperature 98.1 F Pulse Rate 73 86 Respiratory Rate 15 Blood Pressure 108/78 105/55 L Pulse Oximetry 98 08/26/18 12:00 08/26/18 16:00 Temperature 97.8 F Pulse Rate 89 97 H Respiratory Rate 18 Blood Pressure 136/84 Pulse Oximetry 96 Intake & Output 08/25/18 08/26/18 08/26/18 18:59 06:59 18:59 Intake Total 720 / 720 1220 / 1220 Balance 720 / 720 1220 / 1220 Weight 126.8 kg Intake: Oral 720 / 720 1220 / 1220 Other: # Voids 5 5 Date of Last Bowel Movement 08/23/18 08/26/18 08/26/18 # Bowel Movements 2 Narrative: Well-developed well-nourished -[place]ux[place] female obese Awake alert oriented no acute distress HEENT normocephalic atraumatic pupils equal reactive sclerae Natrecor mucosa is moist posterior pharynx clear Neck is thick supple no JVD trachea midline Heart S1-S2 regular Lungs clear bilateral no wheeze no rhonchi Abdomen obese soft nondistended positive bowel sounds Wheeze no clubbing cyanosis no significant edema Results Labs CBC & Chem 7: 08/26/18 05:42 08/26/18 05:42 Assessment and Plan (1) Syncope: Code(s): R55 - Syncope and collapse Status: Acute Plan SYNCOPE - likely due to hypotension/orthostasis - she is high risk of falling with her hypotension, cont fluid challenge and hold discharge for now. ECHO w nml lv function and no evidence of ACS. CUS no abnormality LARA w possible post concussive syndrome - EEG, MRIs of brain no acute findings, stable. DEHYDRATION will cont NS challenge to see if bp rebounds if not can start low dose midodrine and will need outpt referral to cardiology for til table, also fu w neurology for dysautonomia? CHRONIC PAIN SYNDROME w elevated ESR nml RF, erik pending, should be referred to rheumatology LEFT KNEE BURSITIS s/p fall sterling wrap and toradol, can check uric acid MORBID OBESITY BMI 44 , s/p gastric bypass - cont diet GASTROPARESIS and GERD - cont ppi, and emycin B12 deficiency - low end of normal will supplement b12, add mvi ANEMIA nc - chronic will get iron studies, occult blood, will need outpt fu dvt prophylaxis - sc lovenox dispo - home w hhc when stable Progress Note: Quality VTE Deep Vein Thrombosis/Pulmonary Embolism Present on Admission: No
[2018-08-26] MEDS: Multivitamin/Minerals Therapeutic Tablet PO SCH (18:58)
[2018-08-26] MEDS: Sod Chloride 0.9% Inj 1,000 ML IV.CONT SCH (19:01)
[2018-08-26] MEDS: Enoxaparin Inj 30 MG/0.3 ML Syringe SQ SCH (21:11)
[2018-08-27] MEDS: Sod Chloride 0.9% Inj 1,000 ML IV.CONT SCH ×4 (00:51→22:42)
[2018-08-27] MEDS: Ketorolac Inj 30 MG/ML (IVP) Vial IV.PUSH SCH (02:01)
[2018-08-27 08:02] LABS: % Iron Saturation 5.1 % (20-50)
[2018-08-27] MEDS: Enoxaparin Inj 30 MG/0.3 ML Syringe SQ SCH ×2 (08:31→22:41)
[2018-08-27] MEDS: Gabapentin 300 MG Capsule PO SCH ×3 (08:31→17:25)
[2018-08-27] MEDS: Topiramate 25 MG Tablet PO SCH (08:31)
[2018-08-27] MEDS: Multivitamin/Minerals Therapeutic Tablet PO SCH (08:31)
--- NOTE | 2018-08-27 16:35 | P.PNIM ---
Subjective Interval history: 52 yo f admitted with multiple near syncopal episodes due to hypotension, pt seen and examined doing fair, states abd pain persists but denies sob, no cp , no nv, states feels better with the blood pressures coming up Physical Exam Vital signs: Vital Signs 08/26/18 20:00 08/27/18 00:00 08/27/18 04:00 Temperature 98.3 F Pulse Rate 94 H 97 H 86 Respiratory Rate 17 Blood Pressure 90/56 L Pulse Oximetry 99 08/27/18 04:20 08/27/18 08:00 08/27/18 12:00 Temperature 98.2 F 97.7 F 98.0 F Pulse Rate 70 77 93 H Respiratory Rate 20 18 18 Blood Pressure 108/70 93/65 L 145/74 H Pulse Oximetry 98 97 97 Intake & Output 08/26/18 08/27/18 08/27/18 18:59 06:59 18:59 Intake Total 2400 / 2400 Balance 2400 / 2400 Intake: Oral 2400 / 2400 Other: # Voids 3 2 Date of Last Bowel Movement 08/26/18 # Bowel Movements 2 Narrative: Well-developed well-nourished -[place] female obese Awake alert oriented no acute distress HEENT normocephalic atraumatic pupils equal reactive sclerae Natrecor mucosa is moist posterior pharynx clear Neck is thick supple no JVD trachea midline Heart S1-S2 regular Lungs clear bilateral no wheeze no rhonchi Abdomen obese soft nondistended positive bowel sounds ext no edema Results Labs CBC & Chem 7: 08/26/18 05:42 08/26/18 05:42 Assessment and Plan (1) Syncope: Code(s): R55 - Syncope and collapse Status: Acute Plan SYNCOPE - likely due to hypotension/orthostasis - she is high risk of falling with her hypotension, cont fluid challenge and hold discharge for now. ECHO w nml lv function and no evidence of ACS. CUS no abnormality, orthostatic blood pressures are variable, but clinically likely orthostatic, will add mododrine if fluid challenge not helpful, and will need outpatient followup, may benefit from cardiology follow up and tilt table testing LARA w possible post concussive syndrome - EEG, MRIs of brain no acute findings, stable. DEHYDRATION will cont NS challenge to see if bp rebounds if not can start low dose midodrine and will need outpt referral to cardiology for til table, also fu w neurology for dysautonomia? CHRONIC PAIN SYNDROME w elevated ESR nml RF, erik pending, should be referred to rheumatology LEFT KNEE BURSITIS s/p fall sterling wrap and toradol, uric acid ok , improved MORBID OBESITY BMI 44 , s/p gastric bypass - cont diet GASTROPARESIS and GERD - cont ppi, and emycin B12 deficiency - low end of normal will supplement b12, add mvi ANEMIA nc - chronic will get iron studies, occult blood, will need outpt fu dvt prophylaxis - sc lovenox dispo - home w h[facility] tomorrow if bp better. Progress Note: Quality VTE Deep Vein Thrombosis/Pulmonary Embolism Present on Admission: No
[2018-08-28] MEDS: Enoxaparin Inj 30 MG/0.3 ML Syringe SQ SCH (08:33)
[2018-08-28] MEDS: Gabapentin 300 MG Capsule PO SCH ×3 (08:34→18:16)
[2018-08-28] MEDS: Topiramate 25 MG Tablet PO SCH (08:35)
[2018-08-28] MEDS: Multivitamin/Minerals Therapeutic Tablet PO SCH (08:35)
[2018-08-28] MEDS: Sod Chloride 0.9% Inj 1,000 ML IV.CONT SCH ×2 (08:38→16:30)
--- NOTE | 2018-08-28 18:20 | P.DS ---
DS: Providers Date of admission: 08/19/18 16:53 Primary care physician: Naldo Montano MD Consults: 08/20/18 09:35 Consult to Neurology Routine Consulting Provider: Irene Camara Reason for Consultation: syncope, c/o stuttering and involuntary twitching, h /a and recent head trauma Notified:: Office Spoke with:: ty Date Notified:: 08/20/18 Time Notified:: 09:43 Ordering Provider: TERRI 08/24/18 16:39 HUB Only Consult Order Routine Consulting Provider: Anand Jefferson,Anne Brief History from admission: The patient is a 52-year-old female with past medical history which includes morbid obesity, carpal tunnel syndrome, lumbar degenerative disc disease, sickle cell trait, depression, hypertension, GERD, distant history of open cholecystectomy in the late and a gastric bypass in 1995. 01/25/18 patient had extensive lysis of adhesions, diagnostic laparoscopy with Dr. Castaneda. Patient then presented to [facility] [place] [facility] 02/10/18 with complains of abdominal pain with nausea and vomiting. She was also seen in the ER 02/09/18 for similar symptoms and was advised to follow up with her PCP and Dr. Castaneda. She was then diagnosed with gastroparesis. Pt was visiting her mother in hospital. She stayed then night and missed all of her medications. She stood up to assist her mother and after a minute began feeling dizzy/vertigo and the passed out. She then remembered being assisted off the floor. She hit back of her head and left knee. She remembers stuttering earlier this morning. She says similar events occurred in June where she passed out after stuttering. She reports a head injury last year which required sutures in back of head. She reports intermittent involuntary twitching and her pcp wanted her evaluated by neurology. In ED pt noted to have low bp with systolics 80s. Her labs showed some mild dehyration. Her bp meds were only 2.5mg bid norvasc as her pcp stopped 2 other bp meds last year for lower bp. Pt didn't take her bp meds last night or this AM and was still found to have low bp. denies cp or diaphoresis. Past Medical History Morbid obesity Carpal tunnel syndrome Lumbar degenerative disc disease Sickle cell trait Depression Hypertension GERD Gastroparesis S/P EGD 02/11/18 -> 1. Retained food in esophagus, pushed into the stomach 2. Evidence of previous surgery, retained food in the stomach and duodenum 3. Normal duodenal mucosa in the 2nd part of the duodenum 4. Retroflexed views revealed no abnormalities Past Surgical History 01/25/18 patient had extensive lysis of adhesions, diagnostic laparoscopy with Dr. Castaneda Gastric bypass 1995 Open cholecystectomy around 1985 Multiple carpal tunnel surgeries (2 on the right and one on the left) Bilateral tubal ligation Uterine ablation 2 Family History Father of lung cancer complications, he was chronic smoker Otherwise noncontributory Social History Lives with her and 2 adult children Never smoked tobacco Occasionally drinks alcohol in the form of a glass of wine or so but not even on a weekly basis Denies illicit drug use Disabled due to severe carpal tunnel syndrome and lumbar disc issues. Previously worked at the [employer]. She was born and raised locally. Meds erythromycin 250 mg PO Q8HR pantoprazole 40 mg PO DAILY ....pt unclear if this was stopped bethanacol 25mg tid prn valtrex ambien prn norvasc 2.5mg bid tizanadine 4x daily prn 4mg gabapentin 600mg tid DS: Diagnosis Discharge Diagnosis (1) Syncope: Status: Acute DS: Summary Patient was admitted and seen by neurology, EEG was unremarkable for focus of seizure, patient was started on Depakote for migraine headaches. Patient had ongoing complaints of hypotension dizziness headaches, somewhat nonspecific. She and the attending had a disagreement and patient was not happy being taken off of her pain medications so she requested a new physician. I reevaluated the patient, agreed with the workup and assessment prior physicians however patient did seem to have significant contusion with edema and tenderness to the left knee so after her fall, so her Clif[place] was continued and she was treated with Toradol which improved her symptoms. Patient continued to have episodic hypotensive episodes and it was somewhat unclear whether the hypotension was more or less related to the blood pressure cuffs. Repeat manual blood pressures were improved, she was however continued on IV fluids for hydration and this did seem to improve her blood pressures a bit she was episodically orthostatic on vitals testing, but again is unclear how accurate the readings have been patient also is complaining of chronic abdominal pain and "my biliary duct is bothering me" it is noted the patient has significant gastroparesis and history of prior gastric bypass surgery, however the volumes of food as she is eating are probably more than she should be. These symptoms are chronic and should be managed as an outpatient with her primary care physician and she should follow-up with bariatric surgery. Echocardiogram is unremarkable and there is not appear to be any evidence of adrenal insufficiency. Patient was otherwise clinically hemodynamically stable ambulating to the bathroom with no evidence of seizure and I had a lengthy discussion with her regarding use of Midrin for hypotensive episodes. Her Norvasc will be discontinued for now, she can start a low dose of Midrin for ongoing hypotension if necessary, and she was instructed to discontinue it if her systolic blood pressures are rising above 120 consistently. She is discharged home for outpatient follow-up, patient has declined home health care. Assessment plan Orthostatic/vasovagal syncope Hypotension Headaches with possible postconcussive syndrome Dehydration Chronic pain syndrome Left knee contusion with mild bursitis Morbid obesity with BMI 44 status post gastric bypass Gastroparesis and GERD B12 deficiency Normocytic chronic anemia Time Spent with Patient Total time spent providing and/or coordinating discharge services: Greater than 30 minutes Status at Discharge Functional status at discharge: independent ambulation Overall status at discharge: patient is progressing back to baseline Quality: VTE Deep Vein Thrombosis/Pulmonary Embolism Present on Admission: No Exam Narrative Exam Narrative: Well-developed well-nourished obese 52-year-old - [place] female Awake alert and oriented no acute distress apathetic Heart S1-S2 regular Lungs clear bilateral no wheeze no rhonchi Abdomen obese soft nondistended positive bowel sounds Extremities no clubbing cyanosis no significant edema, left knee much improved warmth and edema. Results Impressions ITS Impressions Head CT 08/19/18 12:32 CONCLUSION: No acute intracranial injury . Carotid Doppler Study 08/21/18 00:00 CONCLUSION: 1. Right Internal Carotid Artery: No narrowing or significant plaque. 2. Left Internal Carotid Artery: No narrowing or significant plaque. Head MRI 08/21/18 00:00 CONCLUSION: No acute intracranial abnormality. Head MRA 08/21/18 00:00 CONCLUSION: Intracranial arteries are within normal limits. Knee X-Ray 08/22/18 00:00 CONCLUSION: Intact left knee. No joint effusion. Mild degenerative changes. Shoulder X-Ray 08/22/18 00:00 CONCLUSION: Mild osteoarthrosis of the acromioclavicular joint. Cervical Spine MRI 08/25/18 00:00 CONCLUSION: No significant interval change. Degenerative findings again seen with mild central canal narrowing at C5-6. Discharge Plan Discharge Disposition Patient Disposition: W/Home Health Service Discharge Condition Condition: Stable Discharge Order Discharge Orders: Discharge Order (Routine); Ordered 08/23/18 Ordered By: Dariusz Luna Discharge Details Anticipated Discharge Date: 08/23/18 Physicians Team Primary Care Provider: Naldo Montano Attending Provider: Joselni Cruz Other Providers: Irene Camara ; [facility] Rxs /Orders / Referrals /Forms Prescriptions: New erythromycin ethylsuccinate [E.E.S. Granules] 200 mg/5 mL Suspension For Reconstitution 200 mg PO QID 30 Days Qty: 0 RF: 0 topiramate [Topamax] 25 mg Tablet 25 mg PO DAILY Qty: 30 RF: 0 temazepam 15 mg Capsule 15 mg PO HS PRN (Reason: Insomnia) Qty: 20 RF: 0 midodrine 5 mg tablet 5 mg PO TID Qty: 90 RF: 0 midodrine 5 mg Tablet 5 mg PO TID@0700,1200,1700 PRN (Reason: sbp less than 100) Qty: 0 RF: 0 gabapentin [Neurontin] 300 mg Capsule 600 mg PO TID Qty: 90 RF: 0 [id number]-[id number]-ZP-calcium-mins [Thera M Plus (ferrous fumarat)] 9 mg iron-400 mcg Tablet 1 tab PO DAILY Qty: 0 RF: 0 Continue gabapentin 300 mg Capsule 600 mg PO TID RF: 0 pantoprazole [Protonix] [address] For Susp In Packet 40 mg PO DAILY RF: 0 metoclopramide HCl 10 mg Tablet 10 mg PO QID RF: 0 hydrocodone-acetaminophen 10-325 mg Tablet 1 tab PO Q6H PRN (Reason: Pain) Qty: 50 RF: 0 Discontinued zolpidem 5 mg Tablet 5 mg PO HS RF: 0 tizanidine 4 mg Tablet 4 mg PO QID RF: 0 amlodipine 2.5 mg Tablet 5 mg PO BID RF: 0 diphenhydramine HCl [Benadryl] 25 mg Capsule 25 mg PO Q4H PRN (Reason: Allergic Symptoms) RF: 0 bisacodyl [Dulcolax (bisacodyl)] 5 mg Tablet,Delayed Release (Dr/Ec) 5 mg PO DAILY PRN (Reason: Constipation) RF: 0 acyclovir 200 mg Capsule 1,000 mg PO TID RF: 0 loratadine 10 mg Capsule 10 mg PO DAILY RF: 0 promethazine 25 mg tablet 25 mg PO QID PRN (Reason: Vomiting) RF: 0 Referrals: Irene Camara MD [Physician] - See Instructions (f/u with Dr. Irene Camara, Neurology, in 1 week) Naldo Montano MD [Primary Care Provider] - See Instructions Discharge Instructions Patient Printed Instructions: Erythromycin (By mouth), Temazepam (By mouth), Multivitamins, Adult Formula (By mouth), Gabapentin (By mouth), Midodrine (By mouth), Topiramate (By mouth), Syncope (GEN) Status ED Status: Left Department
== END 2018-08-28 18:55 | disposition home or self-care (01) | DRG 312 ==
LOC: NEPE 12:22 → NEDA 12:22 → N04 18:25 → NEDA 18:29
PROVIDERS: ADMIT Internal Medicine; ATTEND Internal Medicine
CPT/HCPCS: 70450; 70544; 70551; 72141; 73030; 73560; 73564; 76937; 80048; 80307; 81001; 82533; 82607; 83540; 83550; 83735; 84100; 84439; 84443; 84484; 84550; 85025; 85651; 85652; 86038; 86430; 86431; 90471; 90658; 90686; 90761; 90774; 90784; 93005; 93306; 93880; 95819; 96361; 96374; 97116; 97162; 99285; C8952; G0008; J1170; J1650; J1885; J2060; J2405; J2930; J3420; J7030; Q2038